=== PATIENT | male | born 1965 | race Caucasian/White ===

== ENCOUNTER 2018-06-21 09:50 | Outpatient (CLI) | payer OTHER, SELFPAY ==
[2018-06-21 11:50] LABS: HCT 44.8 % (40.0-50.0); HGB 15.6 g/dL (13.5-17.5); Mean Corp. HGB Concentration 34.8 g/dL (32.0-36.0); Mean Corpuscular Hemoglobin 32.1 pg (27.0-33.0); Mean Corpuscular Volume 92.2 fL (80-95); Mean Platelet Volume 9.6 fL (8.0-11.0); Platelet Count 250 x1000/uL (130-400); RBC 4.86 m/cumm (4.50-6.00); RBC Distribution Width 12.3 % (11.8-14.1); White Blood Cell Count 5.88 k/cumm (4.4-10.8)
[2018-06-21 13:24] LABS: ALT 39 U/L (12-78); AST 29 U/L (15-37); Albumin 4.2 g/dL (3.4-5.0); Alkaline Phosphatase 69 U/L (46-116); Anion Gap 7.9 mmol/L (3-11); BUN 13 mg/dL (7-18); Bilirubin, Total 0.6 mg/dL (0.2-1.0); CO2 30.1 mmol/L (21.0-32.0); CREATININE 1.19 mg/dL (0.70-1.30); Calcium 9.5 mg/dL (8.5-10.1); Chloride 101 mmol/L (98-107); Glucose 93 mg/dL (70-100); Potassium 4.3 mmol/L (3.5-5.1); Sodium 139 mmol/L (136-145); Total Protein 7.7 g/dL (6.4-8.2)
== END 2018-06-21 10:10 ==
PROVIDERS: PCP Emergency Medicine; Visit Provider Emergency Medicine
DX: R53.83 Other fatigue (principal); R53.81 Other malaise; E03.9 Hypothyroidism, unspecified
CPT/HCPCS: 36415; 80053; 85027; 84443; 86140

== ENCOUNTER 2018-07-16 09:34 | Outpatient (CLI) | payer OTHER, SELFPAY ==
[2018-07-17 10:57] LABS: PSA, Screening 1.4 ng/ml (0-3.5)
== END 2018-07-16 09:54 ==
PROVIDERS: PCP Emergency Medicine; Visit Provider Emergency Medicine
DX: Z12.5 Encounter for screening for malignant neoplasm of prostate (principal)
CPT/HCPCS: 36415; 84153

== ENCOUNTER 2019-04-21 09:08 | Outpatient (CLI) | payer OTHER, SELFPAY ==
[2019-04-21 11:18] LABS: Abs Immature Grans 0.01 k/cumm (0.0-0.09); Absolute Basophil Count 0.05 k/cumm (0.0-0.2); Absolute Eosinophil Count 0.37 k/cumm (0.0-0.7); Absolute Lymphocyte Count 1.42 k/cumm (1.2-3.4); Absolute Monocyte Count 0.44 k/cumm (0.11-0.7); Absolute Neutrophil Count 2.67 k/cumm (1.2-6.7); Eosinophils % 7.5; HCT 45.9 % (40.0-50.0); HGB 15.9 g/dL (13.5-17.5); Immature Grans % 0.2; Lymphocytes % 28.6; Mean Corp. HGB Concentration 34.6 g/dL (32.0-36.0); Mean Corpuscular Hemoglobin 31.6 pg (27.0-33.0); Mean Corpuscular Volume 91.3 fL (80-95); Mean Platelet Volume 9.6 fL (8.0-11.0); Monocytes % 8.9; Neutrophils % 53.8; Platelet Count 245 x1000/uL (130-400); RBC 5.03 m/cumm (4.50-6.00); RBC Distribution Width 12.2 % (11.8-14.1); White Blood Cell Count 4.96 k/cumm (4.4-10.8)
[2019-04-21 11:31] LABS: Hemoglobin A1C 5.1 % (4.5-6.2)
[2019-04-21 11:35] LABS: ALT 28 U/L (16-63); AST 20 U/L (15-37); Albumin 3.7 g/dL (3.4-5.0); Alkaline Phosphatase 63 U/L (46-116); Anion Gap 5.2 mmol/L (3-11); BUN 11 mg/dL (7-18); Bilirubin, Total 0.5 mg/dL (0.2-1.0); CO2 30.8 mmol/L (21.0-32.0); CREATININE 1.32 mg/dL (0.70-1.30); Calcium 8.5 mg/dL (8.5-10.1); Chloride 105 mmol/L (98-107); Estimated GFR 56.52 (mL/min/1.73m2); FREE T4 0.91 ng/dL (0.76-1.46); Glucose 97 mg/dL (70-100); Magnesium 1.9 mg/dL (1.8-2.4); Potassium 4.6 mmol/L (3.5-5.1); Sodium 141 mmol/L (136-145); TSH 1.59 uIU/mL (0.36-3.74); Total Protein 7.1 g/dL (6.4-8.2)
== END 2019-04-21 09:28 ==
PROVIDERS: PCP Emergency Medicine; Visit Provider Nurse Practitioner Family
DX: R00.2 Palpitations (principal)
CPT/HCPCS: 36415; 80053; 83036; 83735; 84439; 84443; 85025

== ENCOUNTER 2019-04-22 02:21 | Outpatient (CLI) | payer OTHER, SELFPAY | END 2019-04-22 02:41 | PROVIDERS: PCP Emergency Medicine; Visit Provider Nurse Practitioner Family | DX: R00.2 Palpitations (principal); I47.2 Ventricular tachycardia | CPT/HCPCS: 93225 ==

== ENCOUNTER 2019-04-24 13:52 | Outpatient (CLI) | payer OTHER, SELFPAY ==
--- NOTE | 2019-04-24 15:13 | W.HOLTRPT ---
Holter Monitor Report Holter Monitor Note: This is a 48-hour Holter monitor ordered for palpitations. ?Greater than 99% of the beats were normal sinus rhythm. Mean heart rate 89, minimum heart rate 69, maximum heart rate 150 bpm ?There were no episodes of supraventricular tachycardia ?There were rare (less than 1%) alone PACs and no runs of multiple PACs ?There was one run of ventricular tachycardia which lasted 6 beats. ?There were rare (less than 1%) single ventricular ectopic beats ?There were no significant pauses greater than 3 seconds or high-grade heart block. ?There were no episodes of atrial fibrillation.
== END 2019-04-24 14:12 ==
PROVIDERS: PCP Emergency Medicine; Visit Provider Emergency Medicine
DX: R00.2 Palpitations (principal); I47.2 Ventricular tachycardia
CPT/HCPCS: 93226

== ENCOUNTER 2019-04-30 01:20 | Outpatient (CLI) | payer OTHER, SELFPAY ==
--- NOTE | 2019-05-16 13:50 | ZIOP_ITS ---
ZIO Patch Active Directory Administrator Note: This is a 2-week ZIO patch ordered for the indication of ventricular tachycardia. ?Patient was in normal sinus rhythm for the majority of the recording time. Patient had a average heart rate of 95 (minimum 64?maximum 172) ?There was one episode of supraventricular tachycardia which lasted 8 beats at a rate of 138 bpm ?There were rare (less than 1%) supraventricular ectopic beats. ?There were no episodes of ventricular tachycardia. There were rare (less than 1%) ventricular ectopic beats. ?There were no pauses greater than 3 seconds, no atrial fibrillation, and no high degree AV block. ?Patient triggered events were associated with sinus rhythm, sinus tachycardia and single ventricular ectopic beats. Date of service: 05/16/19 Time of Service: 13:50
== END 2019-04-30 01:40 ==
PROVIDERS: PCP Emergency Medicine; Visit Provider Nurse Practitioner Family
DX: I47.2 Ventricular tachycardia (principal); I47.1 Supraventricular tachycardia; I49.3 Ventricular premature depolarization
CPT/HCPCS: 0296T

== ENCOUNTER 2019-07-22 07:00 | Outpatient (CLI) | payer OTHER, SELFPAY ==
[2019-07-22 12:56] LABS: BUN 8 mg/dL (7-18); CREATININE 1.32 mg/dL (0.70-1.30); Calcium 9.1 mg/dL (8.5-10.1); Calculated LDL 118 mg/dL; Chloride 103 mmol/L (98-107); Cholesterol 186 mg/dL (<200); Estimated GFR 56.52 (mL/min/1.73m2); Glucose 89 mg/dL (74-106); HDL Cholesterol 42 mg/dL (40-60); Potassium 4.4 mmol/L (3.5-5.1); Sodium 141 mmol/L (136-145); Triglyceride 131 mg/dL (<150)
== END 2019-07-22 07:20 ==
PROVIDERS: PCP Emergency Medicine; Visit Provider Emergency Medicine
DX: Z00.00 Encounter for general adult medical examination without abnormal findings (principal); I10 Essential (primary) hypertension
CPT/HCPCS: 36415; 80048; 80061

== ENCOUNTER 2020-07-27 10:27 | Outpatient (REF) | payer OTHER, SELFPAY ==
[2020-07-27 13:58] LABS: Anion Gap 6.6 mmol/L (3-11); BUN 18 mg/dL (7-18); CO2 30.4 mmol/L (21.0-32.0); CREATININE 1.51 mg/dL (0.70-1.30); Calcium 9.3 mg/dL (8.5-10.1); Chloride 99 mmol/L (98-107); Estimated GFR 48.22 (mL/min/1.73m2); Glucose 98 mg/dL (74-106); Potassium 3.7 mmol/L (3.5-5.1); Sodium 136 mmol/L (136-145); TSH 1.57 uIU/mL (0.36-3.74)
== END 2020-07-27 10:47 ==
LOC: NCHCN 10:27
PROVIDERS: PCP Emergency Medicine; Visit Provider Emergency Medicine
DX: E03.9 Hypothyroidism, unspecified (principal); I10 Essential (primary) hypertension
CPT/HCPCS: 80048; 84443

== ENCOUNTER 2021-04-21 19:33 | Outpatient (REF) | payer OTHER, SELFPAY ==
[2021-04-21 18:52] LABS: HCT 43.7 % (40.0-50.0); MCH 32.3 pg (27.0-33.0); MCHC 34.3 % (32.0-36.0); MPV 9.7 fL (8.0-11.0); Platelet Count 280 10^3/uL (130-400); RBC 4.65 10^6/uL (4.36-5.78); RDW 12.1 % (11.8-14.1); RDW-SD 41.5 fL; WBC 7.11 10^3/uL (4.4-10.8)
[2021-04-21 19:03] LABS: ALT 35 U/L (16-63); AST 25 U/L (15-37); Albumin 4.2 g/dL (3.4-5.0); Alkaline Phosphatase 65 U/L (46-116); Anion Gap 10.2 mmol/L (3-11); BUN 17 mg/dL (7-18); Bilirubin, Total 0.4 mg/dL (0.2-1.0); C-Reactive Protein 0.17 mg/dL (0.0-0.3); CO2 27.8 mmol/L (21.0-32.0); CREATININE 1.4 mg/dL (0.70-1.30); Calcium 9.4 mg/dL (8.5-10.1); Chloride 102 mmol/L (98-107); Estimated GFR 52.42 (mL/min/1.73m2); Glucose 114 mg/dL (74-106); Sodium 140 mmol/L (136-145); Total Protein 7.7 g/dL (6.4-8.2)
== END 2021-04-21 19:34 | disposition home or self-care (01) ==
LOC: LBN 19:33
PROVIDERS: PCP Emergency Medicine; Visit Provider Emergency Medicine
DX: I10 Essential (primary) hypertension (principal); R00.0 Tachycardia, unspecified
CPT/HCPCS: 80053; 85027; 86140

== ENCOUNTER 2021-04-22 13:04 | Outpatient (RCR) | payer OTHER, SELFPAY | END 2021-05-08 23:59 | disposition home or self-care (01) | LOC: RT 13:04 | PROVIDERS: PCP Emergency Medicine; Visit Provider Emergency Medicine | DX: R69 Illness, unspecified (principal) | CPT/HCPCS: 93005; 93010 ==

== ENCOUNTER 2021-04-25 03:16 | Outpatient (RCR) | payer OTHER, SELFPAY ==
--- NOTE | 2021-04-25 10:30 | HOLTER_ITS ---
APPROVED REPORT Conclusion This is a 48-hour Holter monitor ordered for tachycardia Predominant rhythm was sinus with an average heart rate of 106. Minimum was 80, maximum 152 There were rare PVCs There were no significant supraventricular dysrhythmias There was no atrial fibrillation, no high-grade AV block, no pauses greater than 3 seconds No patient symptoms were reported
== END 2021-05-08 23:59 | disposition home or self-care (01) ==
LOC: RT 03:16
PROVIDERS: PCP Emergency Medicine; Visit Provider Emergency Medicine
DX: R00.0 Tachycardia, unspecified (principal)
CPT/HCPCS: 93225; 93226

== ENCOUNTER 2021-06-09 00:17 | Outpatient (CLI) | payer OTHER, SELFPAY ==
--- NOTE | 2021-06-09 11:18 | DI.US_ITS ---
APPROVED REPORT EXAM: Comprehensive 2D, Doppler, and color-flow Echocardiogram Patient Location: Out-Patient [employer] Resource Teacher: Jenn Tolbert RDCS (AE) Indications: Resting Tachycardia, HTN Other Information Study Quality: Adequate Conclusion Normal left ventricular wall thickness and chamber size. Estimated ejection fraction is 60%. Wall m otion is normal Normal right ventricular size and systolic function Both atria are normal in size There is no structural or hemodynamically significant valvular disease Wall motion Left Ventricle The left ventricle is normal size. The left ventricular systolic function is normal. The left ventric ular ejection fraction is within the normal range. There is normal left ventricular wall thickness. T here is normal LV segmental wall motion. There is no ventricular septal defect visualized. LVEF is 60 %. Right Ventricle The right ventricle is normal size. The right ventricular systolic function is normal. Atria The left atrium size is normal. The right atrium size is normal. The interatrial septum is intact wit h no evidence for an atrial septal defect. Aortic Valve The aortic valve is normal in structure. Aortic valve is trileaflet. There is no aortic valvular sten osis. No aortic regurgitation is present. Mitral Valve The mitral valve is normal in structure. No evidence of mitral valve stenosis. Trace mitral regurgita tion. Tricuspid Valve The tricuspid valve is normal in structure. There is no tricuspid valve stenosis. Trace tricuspid reg urgitation. Unable to assess PA pressure. Pulmonic Valve The pulmonary valve is normal in structure. There is no pulmonic valvular stenosis. There is no pulmo gabrielle valvular regurgitation. Great Vessels The aortic root is normal in size. The ascending aorta is normal in size. Aortic arch is normal in ca liber. IVC is normal in size and collapses >50% with inspiration. Pericardium There is no pericardial effusion. 2D Dimensions IVSD d PLAX 0.91 cm M: 0.6-1.2 LV Vol A2C d MOD 77.1 mL LVPW d PLAX 0.94 cm M: 0.6 - 1.2 LV Vol A4C d MOD 92.4 mL LVID d PLAX 4.50 cm M: 4.2 - 5.8 LA vol/ BSA A2C s A-L 20.3 mL/m2 LVDs 3.00 cm M: 2.5 - 4.0 LA vol/ BSA A4C s A-L 16.8 mL/m2 Ao Root d 3.31 cm M: 3.1 - 3.7 LA Vol/ BSA Biplane s A-L 18.5 mL/m2 RA Area A4C 10.78 cm2 LA Area A4C s MOD 13.54 cm2 RA Vol/ BSA A4C s A-L 13.2 mL/m2 LA Area A2C s MOD 14.84 cm2 Ao Asc Diam d 3.41 cm M: 2.6 - 3.4 LV EF A4C MOD 58.2 % LV EF Teichholz 61.2 % LV EF A2C MOD 61.2 % LVEF (Navarro's) 59.18 % M: 52 - 72 LV EF Biplane MOD 59.2 % LV Volume 63.86 mL M: 62 - 150 SV 50.00 mL LV Volume Index 32.74 mL/m2 M: 34 - 74 SV Index 25.58 mL/m2 LV Vol Biplane MOD 84.5 mL FS 32.65 % M-Mode TAPSE 1.76 cm (M/F) >1.7 LV Diastology MV E' medial 0.071 (>0.07 m/s) E/A Ratio 0.7 LV E/e MED 8.20 (<14) MV E Vmax 0.59 (0.4-1.3 m/s) MV E' lateral 0.063 (>0.1 m/s) MV A Vmax 0.80 (0.4-1.3 m/s) LV E/e LAT 9.35 (<14) MV E/A Ratio 0.73 MV E/E' medial 8.22 MV E/E' lateral 9.38 Aortic Valve LVOT Area 3.12 cm2 AoV Area Vmax 2.70 cm2 LVOT Vmax 0.83 m/s AoV Area/ BSA (Vmax) 1.38 cm2/m2 LVOT Mean Carlos. 0.55 m/s RICHELLE Mean Carlos. 2.39 cm2 LVOT Peak Grad 2.8 mmHg RICHELLE Mean Carlos. Index 1.22 cm2/m2 LVOT Mean Grad 1.4 mmHg LVOT VTI 0.130 m LVOT Diam s 1.95 cm AoV Vmax 0.96 m/s Velocity Ratio 0.86 AoV Mean Carlos. 0.71 m/s AoV Peak Grad 3.7 mmHg LVOT SV 40.51 mL AoV Mean Grad 2.2 mmHg AoV VTI 0.158 m AoV Area VTI 2.57 cm2 AoV Area/ BSA (VTI) 1.31 cm/m2 Mitral Valve MV DT 216 (160-240 msec) MV PHT 63 msec MV Area PHT 3.51 cm2 MV VTI 0.140 m MV VTI Annulus 0.147 m MV Area VTI 3.04 (4.0-6.0 cm2) Pulmonary Valve PV Vmax 0.67 (0.5-1.5 m/s) RVOT Peak Gr. 1.51 mmHg PV Peak Grad 1.8 mmHg RVOT Mean Gr. 0.80 mmHg PV Mean Grad 1.0 mmHg RVOT VTI 0.122 m PV VTI 0.124 m RVOT Vmax 0.61 m/s
== END 2021-06-09 00:37 ==
PROVIDERS: PCP Emergency Medicine; Visit Provider Emergency Medicine
DX: I10 Essential (primary) hypertension (principal); R00.0 Tachycardia, unspecified
CPT/HCPCS: 93306

== ENCOUNTER 2022-08-24 10:32 | Emergency (ER) | payer BC, SELFPAY ==
[2022-08-24 10:41] VITALS: BP 130/109; PULSE 107; RESP 18; TEMP 36.8; O2SAT 99
--- NOTE | 2022-08-24 11:00 | DI.CT_ITS ---
Exam(s) CT ABDOMEN PELVIS W EXAM: CT ABDOMEN PELVIS W CLINICAL HISTORY: Nausea vomiting epigastric pain cannot tolerate po. TECHNIQUE: Imaging Protocol: Axial computed tomography images with coronal and sagittal reformatted images were created and reviewed CONTRAST MATERIAL: Intravenous: Omnipaque-350 100cc Oral: None COMPARISON: No exams were available for comparison FINDINGS: VISUALIZED LUNG BASES: No nodules nor pleural effusions evident. ABDOMEN: There is no ascites. LIVER: There is a small benign subcapsular cyst in the anterior left hepatic lobe which measures 9 x 9 mm. There are no dilated intrahepatic ducts. GALLBLADDER/BILIARY: No obvious gallbladder pathology. CBD is not dilated. PANCREAS: No evidence of pancreatic mass nor dilatation of the pancreatic duct. SPLEEN: Spleen is not enlarged. No obvious intrasplenic lesions. Splenic and portal veins are paten t. ADRENALS: There are no significant adrenal masses. KIDNEYS:No cysts evident. No solid renal masses. No calculi nor hydronephrosis.. ABDOMINAL AORTA: Abdominal aorta is not enlarged. LYMPH NODES:There is no retroperitoneal nor paraaortic adenopathy. ABDOMINAL WALL: No evidence of significant anterior abdominal wall nor inguinal hernia. GI: There is no evidence of bowel obstruction, free air, nor abscess. Fat halo sign seen small and large bowel. PELVIS: GI: No evidence of appendicitis.No evidence of sigmoid diverticulitis. LYMPH NODES: There is no intrapelvic nor inguinal adenopathy. REPRODUCTIVE: Prostate gland not enlarged. URINARY BLADDER: No obvious abnormality. OSSEOUS: No fractures and no significant osseous lesions. Multilevel endplate Schmorl's nodes incidentally noted. No compression fractures. IMPRESSION: 1. Circumferential fat halo sign seen around numerous small bowel loops as well as distal half the co orsita. This may be a normal finding but can sometimes reflect presence of chronic inflammatory bowel d isease. There is no evidence of bowel obstruction. 2. Small solitary benign cyst in the liver. RADIATION DOSE DELIVERED: 750.78mGy.cm Total DLP DATA REPOSITORY: All CT scans at this facility are submitted to the National Radiology Data Registry (NRDR) Dose Index Registry (DIR) with the [employer] (ACR). RADIATION OPTIMIZATION: All CT scans at this facility use at least one of these dose optimization te chniques: automated exposure control; mA and/or kV adjustment per patient size (includes targeted exa ms where dose is matched to clinical indication); or iterative reconstruction.
--- NOTE | 2022-08-24 11:00 | RT.EKG_ITS ---
APPROVED REPORT Exam: Resting ECG Reason for Exam: Epigastric pain Patient Location: E HR:92 bpm ECG Measurements Heart Rate 92 AXIS MA 136 P 70 QRSd 93 QRS 45 QT 356 T 48 QTc 441 Conclusion Sinus rhythm...normal P axis, V-rate 60- 99 Probable left atrial enlargement...P >50mS, <-0.10mV V1 Narrow complex normal sinus rhythm at a rate of 93. Normal axis. Intervals within normal limits. T wave flattening in V2. No acute injury pattern. No prior for comparison. ST segment abnormalities .
--- NOTE | 2022-08-24 11:08 | ED.GENADUL_ITS ---
Discharge Plan Disposition Patient Disposition: Home Condition: Improving Discharge Details Clinical Impression: Gastritis, Generalized anxiety disorder Primary Care Provider: Clint Asher ED Provider: Joseph Naranjo Home Meds and New Rx's Prescriptions: New sucralfate [Carafate] 100 mg/mL suspension 10 ml PO BID Qty: 400 0RF omeprazole 40 mg capsule,delayed release(DR/EC) 40 mg PO DAILY Qty: 14 0RF ondansetron 4 mg tablet,disintegrating 4 mg PO Q6H PRN (Reason: nausea and vomiting) Qty: 10 0RF Continued hydrochlorothiazide 12.5 mg tablet 12.5 mg PO DAILY Qty: 90 3RF zolpidem 10 mg tablet 10 mg PO QHS PRN (Reason: sleep) Qty: 90 3RF sertraline 100 mg tablet 100 mg PO DAILY Qty: 90 3RF losartan 50 mg tablet 50 mg PO DAILY Qty: 90 3RF fluticasone propionate 50 mcg/actuation spray,suspension 1 spray intranasal BID Qty: 15.8 6RF Rx Instructions: administer into each nostril Discharge Instructions Instructions: Gastritis (ED), Anxiety (ED) Additional Instructions: As discussed please avoid alcohol, spicy foods, NSAIDs, and acidic drinks or foods. Please start with clear liquids and slowly advance your diet as tolerated. If you develop any new or significant worsening of your condition please return the emergency department for reassessment otherwise follow-up with your primary care provider for recheck of your symptoms in 1 week. Please take medications as prescribed and you may continue your daily medications. Referrals: Clint Asher, [employer] [Primary Care Provider] - 1 week Discharge Data Discharge Date/Time-TO BE ENTERED AT DEPARTURE: 08/24/22 14:11 Medical Decision Making Patient presenting the emergency department for chief complaint of nausea vomiting and epigastric. He states he was eating dinner last night for his birthday and was unable to swallow anything and started having nausea vomiting. He did state he had a couple drinks before this but no more than typical. Patient denies fever chills, urinary issues, does state a couple days ago he did have episode of diarrhea which is not atypical for him. Physical exam shows tenderness to the epigastrium and right upper quadrant otherwise unremarkable exam. Abdomen is soft not rigid but does show hypoactive bowel sounds. Differential diagnosis to include gallbladder disease, pancreatitis, less likely but still considered is bowel obstruction. No obvious hernia is noted on exam. We will plan on checking labs, give antiemetics and fluids along with analgesia, and CT imaging with contrast. Patient is unable to tolerate p.o. contrast so we will just perform IV only. Vital signs reviewed and did show some tachycardia but this was not perceived on physical exam. Please see physician interpretation for full interpretation of EKG but upon my review patient is in sinus rhythm, normal rate, no findings to suggest acute STEMI or ACS. Review of labs show an unremarkable CBC, normal lactate, CMP shows slightly elevated glucose at 112 otherwise all LFTs are within normal range, lipase is at 20, negative troponin, urinalysis is unremarkable for diagnostic findings. Reviewed CT imaging and radiologist interpretation that shows some potential inflammatory bowel changes but no bowel obstruction, benign-appearing single cyst on liver. Patient reassessed and states some but minimal improvement of pain but does state improvement of nausea. I question possible gastritis given patient's history of GERD with needing of scope in the past. Will give patient more IV pain medication, Pepcid IV, and lidocaine with Maalox oral. Reassessed patient after receiving medication and he does state improvement but still slight feeling of bloating. I feel that patient has gastritis probably due to additional alcohol intake last night which is also causing worsening anxiety which patient has on a daily basis. Given this will give patient single dose of Ativan here in the emergency department to see if this helps with an anxiety and will prescribe Zofran, Carafate, and omeprazole to use on outpatient basis. Will recommend patient follows up with primary care provider in the next week for reassessment. After discussion of diagnosis and plan of care significant other and patient has no further needs, questions, or concerns and states clear understanding to return to the emergency department for any worsening symptoms. This documentation was generated using [employer] dictation system, please disregard any oddities of phrase or misspellings. Imaging Data Radiologic Study: Imaging: CT Scan Radiologist's impression: EXAM: CT ABDOMEN PELVIS W CLINICAL HISTORY: Nausea vomiting epigastric pain cannot tolerate po. TECHNIQUE: Imaging Protocol: Axial computed tomography images with coronal and sagittal reformatted images were created and reviewed CONTRAST MATERIAL: Intravenous: Omnipaque-350 100cc Oral: None COMPARISON: No exams were available for comparison FINDINGS: VISUALIZED LUNG BASES: No nodules nor pleural effusions evident. ABDOMEN: There is no ascites. LIVER: There is a small benign subcapsular cyst in the anterior left hepatic lobe which measures 9 x 9 mm. There are no dilated intrahepatic ducts. GALLBLADDER/BILIARY: No obvious gallbladder pathology. CBD is not dilated. PANCREAS: No evidence of pancreatic mass nor dilatation of the pancreatic duct. SPLEEN: Spleen is not enlarged. No obvious intrasplenic lesions. Splenic and portal veins are patent. ADRENALS: There are no significant adrenal masses. KIDNEYS:No cysts evident. No solid renal masses. No calculi nor hydronephrosis.. ABDOMINAL AORTA: Abdominal aorta is not enlarged. LYMPH NODES:There is no retroperitoneal nor paraaortic adenopathy. ABDOMINAL WALL: No evidence of significant anterior abdominal wall nor inguinal hernia. GI: There is no evidence of bowel obstruction, free air, nor abscess. Fat halo sign seen small and large bowel. PELVIS: GI: No evidence of appendicitis.No evidence of sigmoid diverticulitis. LYMPH NODES: There is no intrapelvic nor inguinal adenopathy. REPRODUCTIVE: Prostate gland not enlarged. URINARY BLADDER: No obvious abnormality. OSSEOUS: No fractures and no significant osseous lesions. Multilevel endplate Schmorl's nodes incidentally noted. No compression fractures. IMPRESSION: 1. Circumferential fat halo sign seen around numerous small bowel loops as well as distal half the colon. This may be a normal finding but can sometimes reflect presence of chronic inflammatory bowel disease. There is no evidence of bowel obstruction. 2. Small solitary benign cyst in the liver. Lab Data Lab results reviewed: Yes I reviewed the patient's lab results. HPI General Mode of arrival: ambulatory . Date/Time Provider Initiated Documentation: 08/24/22 10:42 . Limitations to Documentation: no limitations . Information obtained by: patient and RN notes reviewed . History of Present Illness 57 year old M presents to the emergency department with the chief complaint of Nausea vomiting epigastric pain, described as moderate, with intensity rated at 6. Quality is described as aching and sharp, and is localized to the abdomen. Patient reports no radiation. Patient started experiencing this hour(s) (14) and it has been constant. No relieving factors improve symptom(s), Eating worsens symptoms . Patient notes no other symptoms.. Patient did receive the following treatments prior to arrival, none Related Data Home Medications Medication Instructions Recorded Confirmed hydrochlorothiazide 12.5 mg tablet 12.5 mg PO DAILY #90 tabs 05/24/22 08/24/22 zolpidem 10 mg tablet 10 mg PO QHS PRN sleep #90 tabs 05/24/22 08/24/22 fluticasone propionate 50 1 spray intranasal BID #15.8 mL 06/26/22 08/24/22 mcg/actuation nasal spray,suspension losartan 50 mg tablet 50 mg PO DAILY #90 tabs 08/11/22 08/24/22 sertraline 100 mg tablet 100 mg PO DAILY #90 tabs 08/11/22 08/24/22 omeprazole 40 mg capsule,delayed 40 mg PO DAILY #14 caps 08/24/22 release ondansetron 4 mg disintegrating 4 mg PO Q6H PRN nausea and 08/24/22 tablet vomiting #10 tabs sucralfate 100 mg/mL oral 10 ml PO BID #400 mL 08/24/22 suspension (Carafate) Previous Rx's Medication Instructions Recorded hydrochlorothiazide 12.5 mg tablet 12.5 mg PO DAILY #90 tabs 05/24/22 zolpidem 10 mg tablet 10 mg PO QHS PRN sleep #90 tabs 05/24/22 fluticasone propionate 50 1 spray intranasal BID #15.8 mL 06/26/22 mcg/actuation nasal spray,suspension losartan 50 mg tablet 50 mg PO DAILY #90 tabs 08/11/22 sertraline 100 mg tablet 100 mg PO DAILY #90 tabs 08/11/22 omeprazole 40 mg capsule,delayed 40 mg PO DAILY #14 caps 08/24/22 release ondansetron 4 mg disintegrating 4 mg PO Q6H PRN nausea and 08/24/22 tablet vomiting #10 tabs sucralfate 100 mg/mL oral 10 ml PO BID #400 mL 08/24/22 suspension (Carafate) Allergies Allergy/AdvReac Type Severity Reaction Status Date / Time amoxicillin Allergy Intermediate Swelling/Ed Verified 08/24/22 10:46 suzi enviornmental Allergy Mild Wheezing Uncoded 08/24/22 10:46 General Stated Complaint: Abd Prob KEEGAN: 3 Review of Systems Constitutional Constitutional: Denies chills, Denies fever(s) and Reports poor appetite ENT Ears, Nose, Mouth, and Throat: Reports odynophagia Cardiovascular Cardiovascular: Denies chest pain and Denies dyspnea Respiratory Respiratory: Denies cough and Denies dyspnea Gastrointestinal Gastrointestinal: Reports as per HPI, Reports abdominal pain, Denies melena, D enies bloating, Denies hematochezia, Denies change in bowel habits, Denies constipation, Denies diarrhea, Reports nausea, Reports odynophagia, Reports vomiting and Denies hematemesis Genitourinary Genitourinary: Reports system reviewed and no additional complaints, except as documented, Denies hematuria and Denies difficulty urinating Integumentary/Breasts Skin/Breast: Denies rash PFSH All Active Problems (Updated 08/24/22 @ 14:06 by Joseph Naranjo NP) Gastritis (Acute) Trigger finger, right ring finger (Acute) Chronic rhinitis (Acute) Postnasal drip (Acute) Seeing E[facility] at [facility] Tachycardia (Acute) Hypertension (Chronic) Insomnia (Chronic) Depressive disorder (Chronic) Generalized anxiety disorder (Chronic) Colon cancer screening declined (Acute) Asthma (Acute) Fatigue (Acute) Other color vision deficiencies (Acute) red/green Nevus, non-neoplastic (Acute) Family history of cancer (Acute 12/01/15) father: metastatic prostate CA, brother: oral CA, two sisters: breast CA Contact dermatitis and eczema (Acute) Anal fissure (Acute 03/28/12) Acid indigestion (Acute) Surgical History Nasal septoplasty (~2006) and reduction of turbinates Status post adenoidectomy Status post nasal septoplasty Status post tonsillectomy Tonsillectomy and adenoidectomy Family History Mother Depression Stroke Father , age 88 Cancer Sister Cancer Sister Cancer Brother Alcohol abuse Cancer Depression Hypertension Social History Smoking/Tobacco Use Status: Never Second Hand Exposure: Yes Smoking risk assessment performed?: Yes Alcohol Intake: current Alcohol Intake frequency: a few times a week Alcohol type: beer, wine and hard liquor Drug use: Never Substance use type: does not use Caregiver/Support person: No Household members: spouse Housing: house Communication Needs: None Do you need help understanding health information?: Never Pets and animals: No Sexually active: Yes Do you think of yourself as: straight/heterosexual Current gender identity: male What is your relationship status?: How often do you talk on the phone with friends or family?: once per week How often do you get together with friends or relatives?: once per week How often do you attend denominational or moravian services?: decline to answer Do you belong to any clubs or organized social groups?: no Panel score (0-1 are the most socially isolated patients): 1 What type of physical activity do you participate in: other Details: stretches Duration: 15-30 minutes/day Frequency: 5-6 times per week Chantel/Cheondoism: Islam Special chantel needs: No Seatbelt use: always Helmet use: Yes Helmet use: sometimes Drive intox or ride w/intox dolly driver: No Do you feel safe at home: Yes Do you feel safe in your relationship?: Yes Victim of physical abuse: No Victim of emotional abuse: No Victim of sexual abuse: No Would you like helpful sources: No Exam Const General: cooperative Orientation: alert, awake and oriented x3 Resp Effort & Inspection: normal respiratory effort and able to speak in complete sentences Auscultation: clear to auscultation bilaterally Cardio Rate: regular rate Rhythm: regular rhythm Heart Sounds: S1 normal and S2 normal GI Palpation: soft, no hepatosplenomegaly, not firm, no guarding, no masses, no pulsatile masses, not rigid, no splenomegaly and tender in the epigastrum and in the RUQ; Caldwell's sign negative, psoas sign negative and Rovsing's sign negative Auscultation: hypoactive bowel sounds Back/Spine/Pelvis Back: no CVA tenderness Neuro General: patient alert, patient awake, patient oriented x3, gait normal and moves all extremities Course Vital Signs Vital signs: Vital Signs Temperature 36.8 C 08/24/22 10:41 Pulse 107 H 08/24/22 10:41 Respiratory Rate 18 08/24/22 10:41 Blood Pressure 130/109 H 08/24/22 10:41 Pulse Oximetry 99 08/24/22 10:41 Temperature 36.8 C 08/24/22 10:41 Temperature Source Oral 08/24/22 10:41 Pulse 107 H 08/24/22 10:41 Respiratory Rate 18 08/24/22 10:41 Respiratory Effort Normal, Non-Labored 08/24/22 10:44 Blood Pressure 130/109 H 08/24/22 10:41 Blood Pressure Position Sitting 08/24/22 10:41 Pulse Oximetry 99 08/24/22 10:41 Oxygen Delivery Method Room Air 08/24/22 10:41 Oxygen Flow Rate 0 08/24/22 10:41 Pain Level 7 08/24/22 10:41 Comment 03/18 when lying down 08/24/22 10:41 PAWSS Have you Been Recently Intoxicated or Drunk Within the Last 30 days?: No Have you Ever Experienced Previous Episodes of Alcohol Withdrawal?: No Have you ever Experienced Withdrawal Seizures?: No Have you ever Experienced Delirium Tremens(DT)s?: No Have you ever undergone Alcohol Rehabilitation Treatment (i.e, inpt ot outpatient treatment programs)?: No Have you ever Experienced Blackouts?: No Have you ever Combined Alcohol with other Downers within the last 90 days?: No Have you ever Combined Alcohol with any other Substance of Abuse during the last 90 days?: No Positive Blood Alcohol level on Presentation? [PCS.BAL]: No Evidence of Increased Autonomic Activity (i.e. HR>120, tremor, sweating, agitation, nausea)?: No Result: 0
[2022-08-24] MEDS: Normal Saline 1,000 ML 1000 ML IV (11:21)
[2022-08-24 11:23] LABS: Abs Immature Grans 0.02 10^3/uL (0.0-0.06); Absolute Basophil Count 0.05 10^3/uL (0.0-0.2); Absolute Eosinophil Count 0.08 10^3/uL (0.0-0.7); Absolute Lymphocyte Count 1.27 10^3/uL (1.2-3.4); Absolute Monocyte Count 0.63 10^3/uL (0.1-0.8); Absolute Neutrophil Count 6.09 10^3/uL (1.2-6.7); Basophils % 0.6; HGB 16.5 g/dL (13.5-17.5); Immature Grans % 0.2; Lymphocytes % 15.6; MCH 32.5 pg (27.0-33.0); MCHC 35.1 % (32.0-36.0); MCV 93 fL (80-95); Monocytes % 7.7; Neutrophils % 74.9; Platelet Count 328 10^3/uL (130-400); RBC 5.07 10^6/uL (4.36-5.78); RDW 12.1 % (11.8-14.1); RDW-SD 41.4 fL; WBC 8.14 10^3/uL (4.4-10.8)
[2022-08-24] MEDS: Ondansetron 4 MG/2 ML VIAL IVP (11:24)
[2022-08-24] MEDS: HYDROmorphone 2 MG/ML SYR 0.5 MG IVP (11:26)
[2022-08-24 11:44] LABS: Bilirubin Negative (Negative); Blood Trace-lysed (Negative); Clarity Clear (Clear); Glucose Negative (Negative); Ketones Negative (Negative); Leukocyte Esterase Negative (Negative); Nitrite Negative (Negative); Specific Gravity 1.025 (1.005-1.025); Urobilinogen 0.2 EU/dL (Up TO 0.2)
[2022-08-24 11:48] LABS: ALT 26 U/L (16-63); AST 23 U/L (15-37); Albumin 4.5 g/dL (3.4-5.0); Alkaline Phosphatase 76 U/L (46-116); Anion Gap 8.4 mmol/L (3-11); BUN 14 mg/dL (7-18); Bilirubin, Total 0.7 mg/dL (0.2-1.0); CO2 29.6 mmol/L (21.0-32.0); CREATININE 1.3 mg/dL (0.70-1.30); Calcium 9.8 mg/dL (8.5-10.1); Chloride 100 mmol/L (98-107); Estimated GFR 63.68 (mL/min/1.73m2); Glucose 112 mg/dL (74-106); Lipase 20 U/L (16-77); Magnesium 2.2 mg/dL (1.8-2.4); Potassium 3.8 mmol/L (3.5-5.1); Sodium 138 mmol/L (136-145); Total Protein 8.8 g/dL (6.4-8.2); Troponin I < 50 ng/L (<or=60)
[2022-08-24 11:51] LABS: Bacteria Negative HPF (Negative); C & S Indicated? No; Casts 0-2 Hyaline LPF (Negative); Crystals Negative HPF (Negative); Epithelial Cells Rare HPF (Negative); Mucus Moderate (Negative); RBC 0-2 HPF (0-2); WBC Negative HPF (0-5)
[2022-08-24] MEDS: Omnipaque 350 MG/ML 100 ML BTL IJ (11:58)
[2022-08-24] MEDS: Normal Saline - Diluent 50 ML VIAL IV (11:59)
[2022-08-24] MEDS: Normal Saline Flush 10 ML SYR IVP (11:59)
[2022-08-24] MEDS: HYDROmorphone 2 MG/ML SYR 1 MG IVP (12:38)
[2022-08-24] MEDS: FAMOTIDINE 20 MG in Normal Saline 100 ML 400 MG IVPB (12:48)
[2022-08-24] MEDS: LORazepam 1 MG TAB PO (14:08)
--- NOTE | 2022-08-24 14:10 | NUR.NOTE ---
Nursing Note: Referral faxed to PCP for gastritis, 1 to 2 weeks.
[2022-08-24 14:16] VITALS: BP 132/72; PULSE 78; RESP 15; O2SAT 98
== END 2022-08-24 14:11 | disposition home or self-care (01) ==
PROVIDERS: Emergency Provider Nurse Practitioner Family; PCP Nurse Practitioner Family
DX: K29.70 Gastritis, unspecified, without bleeding (principal); F41.1 Generalized anxiety disorder; R73.9 Hyperglycemia, unspecified
CPT/HCPCS: 80053; 83690; 93005; 96361; 96365; 96375; 96376; 99285; 74177; 81003; 81015; 83605; 83735; 84484; 85025; 93010; 99284; J1170; J2405; J3490

== ENCOUNTER 2022-10-04 02:03 | Outpatient (CLI) | payer BC, SELFPAY ==
[2022-10-04 12:32] LABS: Abs Immature Grans 0.06 10^3/uL (0.0-0.06); Absolute Lymphocyte Count 0.72 10^3/uL (1.2-3.4); Absolute Monocyte Count 1.05 10^3/uL (0.1-0.8); Basophils % 0.3; Eosinophils % 0.3; HCT 37.1 % (40.0-50.0); HGB 12.6 g/dL (13.5-17.5); Immature Grans % 0.5; Lymphocytes % 6.3; MCH 31.7 pg (27.0-33.0); MCV 93 fL (80-95); MPV 8.9 fL (8.0-11.0); Monocytes % 9.1; Neutrophils % 83.5; Platelet Count 372 10^3/uL (130-400); RBC 3.98 10^6/uL (4.36-5.78); RDW 11.9 % (11.8-14.1); RDW-SD 41.1 fL; WBC 11.49 10^3/uL (4.4-10.8)
[2022-10-04 12:33] LABS: Absolute Basophil Count 0.03 10^3/uL (0.0-0.2); Absolute Eosinophil Count 0.03 10^3/uL (0.0-0.7); Absolute Neutrophil Count 9.59 10^3/uL (1.2-6.7)
[2022-10-04 12:49] LABS: ALT 49 U/L (16-63); AST 26 U/L (15-37); Alkaline Phosphatase 143 U/L (46-116); BUN 15 mg/dL (7-18); Bilirubin, Total 0.6 mg/dL (0.2-1.0); CREATININE 1.5 mg/dL (0.70-1.30); Calcium 9.2 mg/dL (8.5-10.1); Chloride 98 mmol/L (98-107); Estimated GFR 53.63 (mL/min/1.73m2); Glucose 144 mg/dL (74-106); Potassium 3.3 mmol/L (3.5-5.1); Sodium 134 mmol/L (136-145); Total Protein 7.7 g/dL (6.4-8.2)
[2022-10-05 09:56] LABS: Lyme Ab w Rflx to Lyme Confirm Negative (Negative)
[2022-10-06 16:16] LABS: Anaplasma phagocytophilum Negative (Negative); B. miyamotoi PCR Negative (Negative); Babesia divergens/MO-1 Negative (Negative); Babesia duncani Negative (Negative); Babesia microti Negative (Negative); Ehrlichia chaffeensis Negative (Negative); Ehrlichia ewingii/canis Negative (Negative); Ehrlichia muris eauclairensis Negative (Negative)
== END 2022-10-04 02:04 | disposition home or self-care (01) ==
LOC: LOS 02:03
PROVIDERS: PCP Nurse Practitioner Family; Visit Provider Nurse Practitioner Family
DX: R50.9 Fever, unspecified (principal); I10 Essential (primary) hypertension; F41.8 Other specified anxiety disorders; R19.4 Change in bowel habit
CPT/HCPCS: 36415; 80053; 87798; 85025; 86618

== ENCOUNTER 2022-10-05 12:13 | Inpatient (IN) | payer BC, SELFPAY ==
--- NOTE | 2022-10-05 12:15 | DI.CT_ITS ---
Exam(s) CT ABDOMEN PELVIS W EXAM: CT ABDOMEN PELVIS W CLINICAL HISTORY: Rectal abscess. TECHNIQUE: Imaging Protocol: Axial computed tomography images with coronal and sagittal reformatted images were created and reviewed CONTRAST MATERIAL: Intravenous: Omnipaque 350 Contrast volume:100 ml Oral: / no COMPARISON: CT CT ABDOMEN PELVIS W from 08/24/2022 FINDINGS: Lung Bases: Normal where visualized. Liver: Normal density. No measurable mass. Gallbladder and biliary tract: No radiodense calculus or dilation. Pancreas: Normal density, no abnormal calcifications or inflammatory process. Spleen: Normal. Kidneys: Normal size, contour and axis. No radiodense stones or obstructive uropathy. No suspicious m asses seen. Adrenal glands: No masses seen. Abdominal Aorta: Abdominal portion non-dilated. Soft tissues: Irregular abscess collection seen in the fat toward the left of the anus measuring 3.2 x 5.1 x 8.1 cm. Fatty extending into left inguinal canal. Bladder: No gross wall thickening. No calculi.No focal mass. Bowel: No obstruction. No bowel wall thickening. Appendix normal. Peritoneal cavity: No ascites, collection or mesenteric inflammatory response. Bones: Degenerative changes and Schmorl's nodes at multiple levels. Reproductive organs: Within normal limits. Lymph nodes: Unremarkable. Impression: Abscess in the left perianal, inferior gluteal fat. Findings called to Joseph Montoya, emergency department provider. RADIATION DOSE DELIVERED: 815.5mGy.cm Total DLP DATA REPOSITORY: All CT scans at this facility are submitted to the National Radiology Data Registry (NRDR) Dose Index Registry (DIR) with the [employer] (A[employer]). RADIATION OPTIMIZATION: All CT scans at this facility use at least one of these dose optimization te chniques: automated exposure control; mA and/or kV adjustment per patient size (includes targeted exa ms where dose is matched to clinical indication); or iterative reconstruction.
[2022-10-05 12:16] VITALS: BP 106/64; PULSE 108; RESP 14; TEMP 36.4; O2SAT 98
--- NOTE | 2022-10-05 12:36 | ED.GENADUL_ITS ---
Discharge Plan Disposition Patient Disposition: Admit to [facility] Discharge Details Clinical Impression: Abscess, perirectal Primary Care Provider: Clint Asher ED Provider: Joseph Naranjo Home Meds and New Rx's Prescriptions: No Action hydrochlorothiazide 12.5 mg tablet 12.5 mg PO DAILY Qty: 90 3RF zolpidem 10 mg tablet 10 mg PO QHS PRN (Reason: sleep) Qty: 90 3RF sertraline 100 mg tablet 100 mg PO DAILY Qty: 90 3RF losartan 50 mg tablet 50 mg PO DAILY Qty: 90 3RF sertraline 50 mg tablet 50 mg PO DAILY Qty: 90 3RF Medical Decision Making Patient presenting to the emergency department for referral from primary care provider due to significant rectal abscess. Patient reports 10 days ago he started noticing some pain and discomfort around his rectum. Since then pain is only gotten worse, more swelling, subjective fever chills with night sweats, decreasing appetite along with some loose stools. Patient denies any vomiting, chest pain shortness of breath or other symptoms. Physical exam shows significant perirectal or rectal abscess which is difficult to assess due to size and discomfort around rectum and left buttock. Exam is other under otherwise unremarkable, soft abdomen, tachycardic otherwise normal cardiac and respiratory exam. We will plan on checking patient's labs including blood cultures, CT imaging and will initiate antibiotics along with pain meds and fluids pending results. Reviewed labs and patient does have leukocytosis along with elevated neutrophils monocytes of low lymphocytes. Patient does have slight anemia. Sodium slightly low at 134 chloride low at 97 alk phos of 151 and albumin of 3.0 otherwise all other CMP and lipase are within normal range. CT imaging shows a significant perirectal abscess that is very deep. Contact general surgery and talked with Dr. Yang who is agreeable to admit patient for surgical care of abscess. Imaging Data Radiologic Study: Imaging: CT Scan Radiologist's impression: Exam(s) CT ABDOMEN PELVIS W EXAM: CT ABDOMEN PELVIS W CLINICAL HISTORY: Rectal abscess. TECHNIQUE: Imaging Protocol: Axial computed tomography images with coronal and sagittal reformatted images were created and reviewed CONTRAST MATERIAL: Intravenous: Omnipaque 350 Contrast volume:100 ml Oral: / no COMPARISON: CT CT ABDOMEN PELVIS W from 08/24/2022 FINDINGS: Lung Bases: Normal where visualized. Liver: Normal density. No measurable mass. Gallbladder and biliary tract: No radiodense calculus or dilation. Pancreas: Normal density, no abnormal calcifications or inflammatory process. Spleen: Normal. Kidneys: Normal size, contour and axis. No radiodense stones or obstructive uropathy. No suspicious masses seen. Adrenal glands: No masses seen. Abdominal Aorta: Abdominal portion non-dilated. Soft tissues: Irregular abscess collection seen in the fat toward the left of t he anus measuring 3.2 x 5.1 x 8.1 cm. Fatty extending into left inguinal canal. Bladder: No gross wall thickening. No calculi.No focal mass. Bowel: No obstruction. No bowel wall thickening. Appendix normal. Peritoneal cavity: No ascites, collection or mesenteric inflammatory response. Bones: Degenerative changes and Schmorl's nodes at multiple levels. Reproductive organs: Within normal limits. Lymph nodes: Unremarkable. Impression: Abscess in the left perianal, inferior gluteal fat. Lab Data Lab results reviewed: Yes I reviewed the patient's lab results. HPI General Mode of arrival: ambulatory . Date/Time Provider Initiated Documentation: 10/05/22 12:29 . Limitations to Documentation: no limitations . Information obtained by: patient, family and RN notes reviewed . History of Present Illness 57 year old M presents to the emergency department with the chief complaint of Buttock abscess, described as severe, with intensity rated at 10. Quality is described as sharp, and is localized to the buttocks and left. Patient reports no radiation. Patient started experiencing this day(s) (10) and it has been constant. No relieving factors improve symptom(s), No exacerbating factors reported . Patient notes fever/chills and loss of appetite. Related Data Home Medications Medication Instructions Recorded Confirmed hydrochlorothiazide 12.5 mg tablet 12.5 mg PO DAILY #90 tabs 05/24/22 10/05/22 zolpidem 10 mg tablet 10 mg PO QHS PRN sleep #90 tabs 05/24/22 10/05/22 losartan 50 mg tablet 50 mg PO DAILY #90 tabs 08/11/22 10/05/22 sertraline 100 mg tablet 100 mg PO DAILY #90 tabs 08/11/22 10/05/22 sertraline 50 mg tablet 50 mg PO DAILY #90 tabs 10/02/22 10/05/22 Previous Rx's Medication Instructions Recorded hydrochlorothiazide 12.5 mg tablet 12.5 mg PO DAILY #90 tabs 05/24/22 zolpidem 10 mg tablet 10 mg PO QHS PRN sleep #90 tabs 05/24/22 losartan 50 mg tablet 50 mg PO DAILY #90 tabs 08/11/22 sertraline 100 mg tablet 100 mg PO DAILY #90 tabs 08/11/22 sertraline 50 mg tablet 50 mg PO DAILY #90 tabs 10/02/22 Allergies Allergy/AdvReac Type Severity Reaction Status Date / Time amoxicillin Allergy Intermediate Swelling/Ed Verified 10/05/22 15:22 suzi enviornmental Allergy Mild Wheezing Uncoded 10/05/22 15:22 General Stated Complaint: Cellulitis KEEGAN: 3 Review of Systems Constitutional Constitutional: Reports chills, Reports fatigue, Reports fever(s), Reports malaise and Reports night sweats Cardiovascular Cardiovascular: Denies chest pain and Denies dyspnea Respiratory Respiratory: Denies cough and Denies dyspnea Gastrointestinal Gastrointestinal: Reports as per HPI, Reports abdominal pain, Denies melena, Denies constipation, Denies diarrhea, Reports loose stools, Reports nausea and Denies vomiting Genitourinary Genitourinary: Reports system reviewed and no additional complaints, except as documented and Denies difficulty urinating Integumentary/Breasts Skin/Breast: Reports as per HPI, Reports furuncle, Denies rash, Reports skin pain and Reports skin swelling Endocrine Endocrine: Reports fatigue PFSH All Active Problems (Updated 10/05/22 @ 14:24 by Joseph Naranjo, ABIOLA) Abscess, perirectal (Acute) Fever of unknown origin (Acute) Chronic diarrhea (Acute) Trigger finger, right ring finger (Acute) Chronic rhinitis (Acute) Postnasal drip (Acute) Seeing ENT at [facility] Tachycardia (Acute) Hypertension (Chronic) Insomnia (Chronic) Depressive disorder (Chronic) Generalized anxiety disorder (Chronic) Colon cancer screening declined (Acute) Asthma (Acute) Fatigue (Acute) Other color vision deficiencies (Acute) red/green Nevus, non-neoplastic (Acute) Family history of cancer (Acute 12/01/15) father: metastatic prostate CA, brother: oral CA, two sisters: breast CA Contact dermatitis and eczema (Acute) Anal fissure (Acute 03/28/12) Acid indigestion (Acute) Surgical History Nasal septoplasty (~2006) and reduction of turbinates Status post adenoidectomy Status post nasal septoplasty Status post tonsillectomy Tonsillectomy and adenoidectomy Family History Mother Depression Stroke Father , age 88 Cancer Sister Cancer Sister Cancer Brother Alcohol abuse Cancer Depression Hypertension Social History Smoking/Tobacco Use Status: Never Second Hand Exposure: Yes Smoking risk assessment performed?: Yes Alcohol Intake: current Alcohol Intake frequency: a few times a week Alcohol type: beer, wine and hard liquor Drug use: Never Substance use type: does not use Caregiver/Support person: No Household members: spouse Housing: house Communication Needs: None Do you need help understanding health information?: Never Pets and animals: No Sexually active: Yes Do you think of yourself as: straight/heterosexual Current gender identity: male What is your relationship status?: How often do you talk on the phone with friends or family?: once per week How often do you get together with friends or relatives?: once per week How often do you attend tenriism or jehovah's witness services?: decline to answer Do you belong to any clubs or organized social groups?: no Panel score (0-1 are the most socially isolated patients): 1 What type of physical activity do you participate in: other Details: stretches Duration: 15-30 minutes/day Frequency: 5-6 times per week Chantel/Presybeterian: Syn[employer] Special chantel needs: No Seatbelt use: always Helmet use: Yes Helmet use: sometimes Drive intox or ride w/intox tank wagon driver: No Do you feel safe at home: Yes Do you feel safe in your relationship?: Yes Victim of physical abuse: No Victim of emotional abuse: No Victim of sexual abuse: No Would you like helpful sources: No Exam Const General: cooperative and anxious Orientation: alert, awake and oriented x3 Resp Effort & Inspection: normal respiratory effort and able to speak in complete sentences Auscultation: clear to auscultation bilaterally Cardio Rate: regular rate and tachycardic Rhythm: regular rhythm Heart Sounds: S1 normal and S2 normal GI Palpation: soft, no hepatosplenomegaly, not firm, no guarding, no masses, no pulsatile masses, not rigid, no splenomegaly and nontender Auscultation: normal bowel sounds Rectal Exam: other (Significant swelling around rectal opening with pain) Back/Spine/Pelvis Back: no CVA tenderness Neuro General: patient alert, patient awake, patient oriented x3, gait normal and moves all extremities Course Vital Signs Vital signs: Vital Signs Temperature 36.4 C 10/05/22 12:16 Pulse 108 H 10/05/22 12:16 Respiratory Rate 14 10/05/22 12:16 Blood Pressure 106/64 10/05/22 12:16 Pulse Oximetry 98 10/05/22 12:16 Temperature 36.4 C 10/05/22 12:16 Temperature Source Oral 10/05/22 12:16 Pulse 108 H 10/05/22 12:16 Respiratory Rate 14 10/05/22 12:16 Blood Pressure 106/64 10/05/22 12:16 Blood Pressure Position Standing 10/05/22 12:16 Pulse Oximetry 98 10/05/22 12:16 Oxygen Delivery Method Room Air 10/05/22 12:16 Oxygen Flow Rate 0 10/05/22 12:16 Pain Level 10 10/05/22 12:16 Comment took advil at 8am tylenol PO does not settle well 10/05/22 12:16 Lab/Test Results Lab/Test Results: 10/05/22 12:32 Blood Blood Culture - Pending 10/05/22 12:32 Blood Blood Culture - Pending
[2022-10-05] MEDS: Normal Saline 1,000 ML 1000 ML IV (12:52)
[2022-10-05 12:57] LABS: Abs Immature Grans 0.07 10^3/uL (0.0-0.06); Absolute Basophil Count 0.05 10^3/uL (0.0-0.2); Absolute Eosinophil Count 0.03 10^3/uL (0.0-0.7); Absolute Lymphocyte Count 1.01 10^3/uL (1.2-3.4); Absolute Neutrophil Count 8.64 10^3/uL (1.2-6.7); Basophils % 0.5; Eosinophils % 0.3; HCT 36.9 % (40.0-50.0); HGB 12.5 g/dL (13.5-17.5); Immature Grans % 0.6; Lactate 1.2 mmol/L (0.6-1.4); Lymphocytes % 9.2; MCH 31.5 pg (27.0-33.0); MCHC 33.9 % (32.0-36.0); MCV 93 fL (80-95); MPV 8.3 fL (8.0-11.0); Monocytes % 10.7; Neutrophils % 78.7; Platelet Count 354 10^3/uL (130-400); RBC 3.97 10^6/uL (4.36-5.78); RDW 11.9 % (11.8-14.1); RDW-SD 40.9 fL; WBC 10.98 10^3/uL (4.4-10.8)
[2022-10-05] MEDS: Ondansetron 4 MG/2 ML VIAL IVP (13:00)
[2022-10-05] MEDS: HYDROmorphone 2 MG/ML SYR 1 MG IVP ×2 (13:00→13:16)
[2022-10-05 13:01] LABS: Absolute Monocyte Count 1.17 10^3/uL (0.1-0.8)
[2022-10-05 13:17] LABS: ALT 44 U/L (16-63); AST 21 U/L (15-37); Alkaline Phosphatase 151 U/L (46-116); Anion Gap 7.8 mmol/L (3-11); BUN 15 mg/dL (7-18); Bilirubin, Total 0.7 mg/dL (0.2-1.0); CO2 29.2 mmol/L (21.0-32.0); CREATININE 1.2 mg/dL (0.70-1.30); Calcium 9.1 mg/dL (8.5-10.1); Chloride 97 mmol/L (98-107); Glucose 95 mg/dL (74-106); Lipase 23 U/L (16-77); Magnesium 2.1 mg/dL (1.8-2.4); Potassium 3.5 mmol/L (3.5-5.1); Sodium 134 mmol/L (136-145); Total Protein 7.7 g/dL (6.4-8.2)
[2022-10-05] MEDS: metroNIDAZOLE 500 MG/100 ML BAG 100 MG IVPB ×2 (13:40→20:10)
[2022-10-05] MEDS: Normal Saline - Diluent 50 ML VIAL IJ (13:40)
[2022-10-05] MEDS: Omnipaque 350 MG/ML 500 ML BTL-Imaging package IJ (13:40)
[2022-10-05 14:02] LABS: Source Nasal/Nares
--- NOTE | 2022-10-05 14:28 | W.PM.HP.N ---
Date of service: 10/05/22 Time of Service: 14:39 Assessment and Plan Assessment and plan (1) Abscess, perirectal: Status: Acute Assessment and plan: vanco & flagyl I&D in am will need to do packing at home further recs after surgery. This may be a perirectal abscess versus isolated soft tissue abscess that is near the rectum. Patient will need to do a colonoscopy in the future. Risks include but not limited to: Bleeding, infection, pneumonia, blood clots, injury to sphincters including stenosis or loss of control. Further surgery required for resolution if there is a fistula, complications of anesthesia. Patient understands that he may need to do packing and dressing changes for prolonged period of time to get the wound healed. He will be off work at least 2 weeks. And again if this is an extensive fistula involved he may need to go down and be evaluated by by colorectal at [facility]. We will continue with antibiotics and supportive care tonight and plan for surgery in a.m. (2) Acid indigestion: Status: Acute (3) Chronic diarrhea: Status: Acute (4) Depressive disorder: Status: Chronic (5) Family history of cancer: Status: Acute (6) Fatigue: Status: Acute (7) Hypertension: Status: Chronic Qualifiers: Hypertension type: primary hypertension Qualified Code(s): I10 - Essential (primary) hypertension (8) Insomnia: Status: Chronic Qualifiers: Insomnia type: primary Qualified Code(s): F51.01 - Primary insomnia (9) Tachycardia: Status: Acute History of Present Illness Narrative: Patient was seen by his PCP today with continuing fevers of unknown origin. It was finally discovered that he has a abscess in the left buttocks. And patient was sent to the ER for CT and further evaluation. CT does show a large perirectal abscess. See in [employer]. Patient has a longstanding history of diarrhea and bowel concerns. He has had bleeding painful fissures in the past. He has never had a colonoscopy. He denies noticing any blood in his stools. He has had weight loss over the last 5 days when he has been ill but otherwise has maintained his weight. Over the last few days he has had decreased bowel movements, soaking fevers at night. He has noted decrease in appetite and increase in pain with moving his bowels. The chronic diarrhea has been attributed to nervousness and anxiety. Again he has never had a full colonoscopy. He normally moves his bowels 4-5 times a day and it is a Mclean 5-7. Again no blood. He has not been on antibiotics. He has not been on prednisone recently. He is not on any immunomodulating medications. He denies any immune related disorders. He is not diabetic. He has never had a heart attack or stroke. He is not on any blood thinners. Again he does not have have a history of fissures but he has never developed a perirectal abscess in the past. No problems with anesthesia in the past He denies any recent trauma. 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 But he cannot really pinpoint any particular episode. He denies any nausea vomiting. He does not have much of an appetite. He does have a lot of pain in the left buttock today. He has not noticed any particular bleeding. He will not tolerate a rectal exam today because of the pain. He is on Zoloft for anxiety. He denies any constipation from this medication. Review of Systems All systems reviewed & are unremarkable except as noted in HPI and below PFSH All Active Problems Abscess, perirectal (Acute) Fever of unknown origin (Acute) Chronic diarrhea (Acute) Trigger finger, right ring finger (Acute) Chronic rhinitis (Acute) Postnasal drip (Acute) Seeing ENT at [facility] Tachycardia (Acute) Hypertension (Chronic) Insomnia (Chronic) Depressive disorder (Chronic) Generalized anxiety disorder (Chronic) Colon cancer screening declined (Acute) Asthma (Acute) Fatigue (Acute) Other color vision deficiencies (Acute) red/green Nevus, non-neoplastic (Acute) Family history of cancer (Acute 12/01/15) father: metastatic prostate CA, brother: oral CA, two sisters: breast CA Contact dermatitis and eczema (Acute) Anal fissure (Acute 03/28/12) Acid indigestion (Acute) Surgical History Nasal septoplasty (~2006) and reduction of turbinates Status post adenoidectomy Status post nasal septoplasty Status post tonsillectomy Tonsillectomy and adenoidectomy Family History Mother Depression Stroke Father , age 88 Cancer Sister Cancer Sister Cancer Brother Alcohol abuse Cancer Depression Hypertension Social History Smoking/Tobacco Use Status: Never Second Hand Exposure: Yes Smoking risk assessment performed?: Yes Alcohol Intake: current Alcohol Intake frequency: a few times a week Alcohol type: beer, wine and hard liquor Drug use: Never Substance use type: does not use Caregiver/Support person: No Household members: spouse Housing: house Communication Needs: None Do you need help understanding health information?: Never Pets and animals: No Sexually active: Yes Do you think of yourself as: straight/heterosexual Current gender identity: male What is your relationship status?: How often do you talk on the phone with friends or family?: once per week How often do you get together with friends or relatives?: once per week How often do you attend gnosticism or uatsdin services?: decline to answer Do you belong to any clubs or organized social groups?: no Panel score (0-1 are the most socially isolated patients): 1 What type of physical activity do you participate in: other Details: stretches Duration: 15-30 minutes/day Frequency: 5-6 times per week Chantel/Tenriism: Restorationist Special chantel needs: No Seatbelt use: always Helmet use: Yes Helmet use: sometimes Drive intox or ride w/intox shuttle driver: No Do you feel safe at home: Yes Do you feel safe in your relationship?: Yes Victim of physical abuse: No Victim of emotional abuse: No Victim of sexual abuse: No Would you like helpful sources: No Meds Allergies and Home Medications Allergies Allergy/AdvReac Type Severity Reaction Status Date / Time amoxicillin Allergy Intermediate Swelling/Ed Verified 10/05/22 15:22 suzi acetaminophen AdvReac Mild Nausea Unverified 10/05/22 16:40 enviornmental Allergy Mild Wheezing Uncoded 10/05/22 15:22 Home Medications Medication Instructions Recorded Confirmed Type hydrochlorothiazide 12.5 mg tablet 12.5 mg PO DAILY #90 tabs 05/24/22 10/05/22 Rx zolpidem 10 mg tablet 10 mg PO QHS PRN sleep #90 tabs 05/24/22 10/05/22 Rx losartan 50 mg tablet 50 mg PO DAILY #90 tabs 08/11/22 10/05/22 Rx sertraline 100 mg tablet 100 mg PO DAILY #90 tabs 08/11/22 10/05/22 Rx sertraline 50 mg tablet 50 mg PO DAILY #90 tabs 10/02/22 10/05/22 Rx Exam Const Other: PHYSICAL EXAM GENERAL APPEARANCE: anxious. mild pain. HYDRATION: Well hydrated HEAD, EYES, EARS, NECK, THROAT: Head is normocephalic, pupils equal, round, reactive to light and accommodation, ocular movement intact, sclera clear and no jaundice. ?Dentition intact. NECK: Trachea midline.? Neck supple.? No JVD LUNGS: normal respiration/normal chest excursion. ?Clear to auscultation bilaterally. ?No wheeze. ?HEART: Regular rate and rhythm. no murmurs? ABDOMEN: soft and non-tender to palpation.? Normal bowel sounds.? Induration tenderness and firmness in the left buttock and perirectal region. Patient is too tender to allow for an exam Results Labs 10/05/22 12:50 10/05/22 12:50 Labs: Laboratory Results - last 24 hr 10/05/22 10/05/22 10/05/22 12:50 12:50 12:50 WBC 10.98 H RBC 3.97 L Hgb 12.5 L Hct 36.9 L MCV 93 MCH 31.5 MCHC 33.9 RDW 11.9 Plt Count 354 MPV 8.3 Immature Gran % 0.6 Neutrophils % 78.7 Lymphocytes % 9.2 Monocytes % 10.7 Eosinophils % 0.3 Basophils % 0.5 Nucleated RBC % 0.0 Absolute Neutrophils 8.64 H Absolute Lymphocytes 1.01 L Absolute Monocytes 1.17 H Absolute Eosinophils 0.03 Absolute Basophils 0.05 VBG Lactate 1.2 Sodium 134 L Potassium 3.5 Chloride 97 L Carbon Dioxide 29.2 Anion Gap 7.8 BUN 15 Creatinine 1.2 Est GFR (CKD-EPI 2020) 70.10 Glucose 95 Calcium 9.1 Magnesium 2.1 Total Bilirubin 0.7 AST 21 ALT 44 Alkaline Phosphatase 151 H Total Protein 7.7 Albumin 3.0 L Lipase 23 COVID-19 Source 10/05/22 13:56 WBC RBC Hgb Hct MCV MCH MCHC RDW Plt Count MPV Immature Gran % Neutrophils % Lymphocytes % Monocytes % Eosinophils % Basophils % Nucleated RBC % Absolute Neutrophils Absolute Lymphocytes Absolute Monocytes Absolute Eosinophils Absolute Basophils VBG Lactate Sodium Potassium Chloride Carbon Dioxide Anion Gap BUN Creatinine Est GFR (CKD-EPI 2020) Glucose Calcium Magnesium Total Bilirubin AST ALT Alkaline Phosphatase Total Protein Albumin Lipase COVID-19 Source Nasal/Nares Last Vital Signs Temp 36.4 C 10/05/22 12:16 Pulse 108 H 10/05/22 12:16 Resp 14 10/05/22 12:16 BP 106/64 10/05/22 12:16 Pulse Ox 98 10/05/22 12:16 PAWSS Have you Been Recently Intoxicated or Drunk Within the Last 30 days?: No Have you Ever Experienced Previous Episodes of Alcohol Withdrawal?: No Have you ever Experienced Withdrawal Seizures?: No Have you ever Experienced Delirium Tremens(DT)s?: No Have you ever undergone Alcohol Rehabilitation Treatment (i.e, inpt ot outpatient treatment programs)?: No Have you ever Experienced Blackouts?: No Have you ever Combined Alcohol with other Downers within the last 90 days?: No Have you ever Combined Alcohol with any other Substance of Abuse during the last 90 days?: No Result: 0 Time Spent Time spent with Patient: 55-74 minutes Time was spent: preparing to see the patient(eg.review tests), obtaining and/or reviewing separately otained hiistory, ordering medications,tests, procedures, referring, communicating with other health career developer, indepentently interpreting results, counseling the patient and care coordination
[2022-10-05 14:33] LABS: COVID-19 PCR Negative (Negative)
[2022-10-05] MEDS: VANCOMYCIN/WATER (PEG) 1.75 GM/350 ML BAG IVPB (14:41)
[2022-10-05 15:54] VITALS: BP 126/79; PULSE 105; RESP 18; TEMP 38.6; O2SAT 98
[2022-10-05] MEDS: Pantoprazole 40 MG TABCR PO (16:38)
[2022-10-05] MEDS: MORPHine 2 MG/ML SYR IVP (16:38)
[2022-10-05] MEDS: Normal Saline Flush 10 ML SYR IVP (16:40)
[2022-10-05] MEDS: ACETAMINOPHEN 1,000 MG/100 ML BTL 400 MG IVPB (17:27)
[2022-10-05] MEDS: Enoxaparin 40 MG/0.4 ML SYR SC (17:56)
[2022-10-05] MEDS: Sertraline 100 MG TAB PO (17:56)
[2022-10-05 18:18] VITALS: TEMP 38.2
[2022-10-05] MEDS: Ketorolac 15 MG/ML VIAL IVP (20:10)
[2022-10-05] MEDS: Zolpidem 10 MG TAB PO (20:10)
[2022-10-05 20:41] LABS: Lab Add On Test DONE
[2022-10-05 20:59] LABS: C-Reactive Protein > 25.00 mg/dL (0.0-0.3)
[2022-10-05 21:22] LABS: Ferritin 789 ng/mL (26-388)
[2022-10-06] VITALS (8 sets, daily range): BP systolic 108–128; BP diastolic 68–94; PULSE 85–99; RESP 11–18; TEMP 36.6–38.6; O2SAT 95–98; BMI 26.6
[2022-10-06] MEDS: VANCOMYCIN/WATER (PEG) 1 GM/200 ML BAG IV ×2 (00:09→11:34)
[2022-10-06] MEDS: Ondansetron 4 MG/2 ML VIAL IVP ×3 (00:17→17:01)
[2022-10-06] MEDS: Ketorolac 15 MG/ML VIAL IVP ×4 (02:55→22:21)
[2022-10-06] MEDS: metroNIDAZOLE 500 MG/100 ML BAG 100 MG IVPB ×3 (04:31→20:14)
[2022-10-06] MEDS: Pantoprazole 40 MG TABCR PO (07:47)
[2022-10-06] MEDS: Losartan 50 MG TAB PO (07:48)
[2022-10-06] MEDS: MORPHine 2 MG/ML SYR IVP ×5 (07:51→23:05)
--- NOTE | 2022-10-06 12:17 | W.ANESPRE ---
General Info Date of Service Date Performed: 10/06/22 Height: 5 ft 8 in Weight: 79.379 kg Body Mass Index (BMI): 26.6 Surgical Procedure: Operation Date: 10/06/22 13:25 Proposed Procedure Side Surgeon p Excision-Ayaka Rectal Abscess Akosua Yang, DO Meds Allergies and Home Medications Allergies Allergy/AdvReac Type Severity Reaction Status Date / Time amoxicillin Allergy Intermediate Swelling/Ed Verified 10/05/22 15:22 suzi acetaminophen AdvReac Mild Nausea Unverified 10/05/22 16:40 enviornmental Allergy Mild Wheezing Uncoded 10/05/22 15:22 Home Medication Medication Instructions Recorded hydrochlorothiazide 12.5 mg tablet 12.5 mg PO DAILY #90 tabs 05/24/22 zolpidem 10 mg tablet 10 mg PO QHS PRN sleep #90 tabs 05/24/22 losartan 50 mg tablet 50 mg PO DAILY #90 tabs 08/11/22 sertraline 100 mg tablet 100 mg PO DAILY #90 tabs 08/11/22 sertraline 50 mg tablet 50 mg PO DAILY #90 tabs 10/02/22 Current Visit Medications: Current Medications Generic Name Dose Route Start Last Admin Trade Name Freq PRN Reason Stop Dose Admin Enoxaparin Sodium 40 mg 10/05/22 18:00 10/05/22 17:56 Enoxaparin 40 Mg/0.4 Ml Syr SC 40 mg Q24H JOCELYN Administration Sodium Chloride 500 mls @ 0 mls/hr 10/05/22 14:15 Saline 500ml Bag IV PRN PRN As Directed Sodium Chloride 1,000 mls @ 75 mls/hr 10/05/22 14:15 Saline 1000ml Bag IV INFUSION JOCELYN Vancomycin/PEG/NADA/Lysine/Water 1 gm in 200 mls @ 200 mls/hr 10/06/22 00:00 10/06/22 11:34 Vancocin Injection IV 200 mls/hr Q12H JOCELYN Administration Metronidazole 500 mg in 100 mls @ 100 mls/hr 10/05/22 20:00 10/06/22 11:33 Flagyl IVPB 100 mls/hr Q8H JOCELYN Administration IV Miscellaneous Supplies 1 each 10/05/22 14:15 Iv Access IV DIRECTED JOCELYN Ketorolac Tromethamine 15 mg 10/05/22 14:24 10/06/22 09:25 Ketorolac 15 Mg/Ml Vial IVP 10/10/22 14:23 15 mg Q6H PRN PRN Administration Losartan Potassium 50 mg 10/06/22 08:30 10/06/22 07:48 Losartan 50 Mg Tab PO 50 mg DAILY JOCELYN Administration Methocarbamol 750 mg 10/05/22 20:31 Methocarbamol 750 Mg Tab PO QID PRN PRN Morphine Sulfate 2 mg 10/05/22 14:15 10/06/22 10:57 Morphine 2 Mg/Ml Syr IVP 2 mg Q1H PRN PRN Administration Ondansetron HCl 4 mg 10/05/22 14:15 10/06/22 07:01 Ondansetron 4 Mg/2 Ml Vial IVP 4 mg Q4H PRN PRN Administration Pantoprazole Sodium 40 mg 10/06/22 07:30 10/06/22 07:47 Pantoprazole 40 Mg Tabcr PO 40 mg DAILY@0730 [facility] Administration Sertraline HCl 50 mg 10/06/22 12:00 Sertraline 50 Mg Tab PO DAILY@1200 [facility] Sertraline HCl 100 mg 10/05/22 18:00 10/05/22 17:56 Sertraline 100 Mg Tab PO 100 mg DAILY@1800 [facility] Administration Sodium Chloride 0 ml 10/05/22 14:15 Normal Saline Flush 10 Ml Syr IVP PRN PRN Tramadol HCl 50 mg 10/05/22 20:31 Tramadol 50 Mg Tab PO Q4H PRN PRN Zolpidem Tartrate 10 mg 10/05/22 19:30 10/05/22 20:10 Zolpidem 10 Mg Tab PO 10 mg HS PRN PRN Administration PFSH Active Problems Active Problems: Problem Status Onset Code Abscess, perirectal K61.1 Fever of unknown origin R50.9 Chronic diarrhea K52.9 Trigger finger, right ring finger M65.341 Chronic rhinitis J31.0 Postnasal drip R09.82 Tachycardia R00.0 Hypertension I10 Insomnia Depressive disorder F32.9 Generalized anxiety disorder F41.1 Colon cancer screening declined Z53.20 Asthma J45.909 Fatigue R53.83 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 Nevus, non-neoplastic I78.1 Family history of cancer 12/01/15 Contact dermatitis and eczema L25.9 Anal fissure 03/28/12 K60.2 Acid indigestion K30 Surgical History Surgical History Nasal septoplasty (~2006) and reduction of turbinates Status post adenoidectomy Status post nasal septoplasty Status post tonsillectomy Tonsillectomy and adenoidectomy Tobacco Smoking/Tobacco Use Status: Never Passive smoking exposure: Yes Second hand exposure: Yes Alcohol Alcohol Intake: current Alcohol intake frequency: a few times a week Alcohol type: beer, wine and hard liquor Substance Use Substance use: Never Substance use type: does not use Vital Signs and Lab Results Vital Signs Most Recent Vital Signs in EMR: Most Recent Vital Signs Temp Pulse Resp BP Pulse Ox 38.1 C H 96 H 18 120/78 97 10/06/22 08:00 10/06/22 08:00 10/06/22 08:00 10/06/22 08:00 10/06/22 08:00 Lab Results 10/05/22 12:50 10/05/22 12:50 Blood Type / Crossmatch: No Data to Display Complete Blood Count: White Blood Count 10.98 10^3/uL (4.4-10.8) H 10/05/22 12:50 Red Blood Count 3.97 10^6/uL (4.36-5.78) L 10/05/22 12:50 Hemoglobin 12.5 g/dL (13.5-17.5) L 10/05/22 12:50 Hematocrit 36.9 % (40.0-50.0) L 10/05/22 12:50 Platelet Count 354 10^3/uL (130-400) 10/05/22 12:50 Venous Blood Lactate 1.2 mmol/L (0.6-1.4) 10/05/22 12:50 Complete Metabolic Panel: Sodium 134 mmol/L (136-145) L 10/05/22 12:50 Potassium 3.5 mmol/L (3.5-5.1) 10/05/22 12:50 Chloride 97 mmol/L (98-107) L 10/05/22 12:50 Carbon Dioxide 29.2 mmol/L (21.0-32.0) 10/05/22 12:50 BUN 15 mg/dL (7-18) 10/05/22 12:50 Creatinine 1.2 mg/dL (0.70-1.30) 10/05/22 12:50 Est GFR (CKD-EPI 2020) 70.10 (mL/min/1.73m2) 10/05/22 12:50 Magnesium 2.1 mg/dL (1.8-2.4) 10/05/22 12:50 Calcium 9.1 mg/dL (8.5-10.1) 10/05/22 12:50 Albumin 3.0 g/dL (3.4-5.0) L 10/05/22 12:50 Glucose 95 mg/dL (74-106) 10/05/22 12:50 C-Reactive Protein > 25.00 mg/dL (0.0-0.3) H 10/05/22 12:50 Liver Function Panel: Alanine Aminotransferase (ALT/SGPT) 44 U/L (16-63) 10/05/22 12:50 Aspartate Amino Transf (AST/SGOT) 21 U/L (15-37) 10/05/22 12:50 Coagulation Panel: No Data to Display Cardiac Panel: No Data to Display Arterial Blood Gas: No Data to Display Venous Blood Gas: No Data to Display Pancreas Panel: Lipase 23 U/L (16-77) 10/05/22 12:50 Thyroid Panel: No Data to Display Infectious Disease: Coronavirus (COVID-19)(PCR) Negative (Negative) 10/05/22 13:56 Coronavirus 2019 Source Nasal/Nares 10/05/22 13:56 Blood Cultures: No Data to Display Toxicology Panel: No Data to Display Imaging and Studies Imaging and Studies Study information below may be from another EMR and interpreted by another provider. Please see original notes in EMR for more complete details. EKG Summary: DATE/TIME OF SERVICE: 08/24/22 1118 : 1965PERFORMING LOCATION: ER APPROVED REPORT Exam: Resting ECG Reason for Exam: Epigastric pain Patient Location: E HR:92 bpm ECG Measurements Heart Rate 92 AXIS FL 136 P 70 QRSd 93 QRS 45 QT 356 T48 QTc 441 Conclusion Sinus rhythm...normal P axis, V-rate 60- 99 Probable left atrial enlargement...P >50mS, <-0.10mV V1 Narrow complex normal sinus rhythm at a rate of 93. Normal axis. Intervals within normal limits. T wave flattening in V2. No acute injury pattern. No prior for comparison. ST segment abnormalities. Stress Test Summary: Date of Exam: 11/27/16Sex: M : 1965Age: 51 Exam(s) [id number] NM:MPI Resting & Stress GRP *[facility]* *[facility]* [address] [place] [address] Myocardial Perfusion Imaging - SPECT Asaf protocol Date of study: 11/27/2016 *PATIENT PRESENTATION* Height: 172.7cm ((68in) ) Blood Pressure: Weight: 81.4kg ((179lb) ) BSA: 1.99m^2 Referring physician: Abelino Horta MD Ordering physician: Nba Berger Impressions: Normal perfusion by Tc99m Sestamibi Imaging. Summary: 1. Myocardial perfusion imaging: No myocardial perfusion defects noted. 2. The calculated left ventricular ejection fraction after stress: 48%. 3. Stress: The target heart rate was achieved. Echocardiogram Summary: Date of Exam: 06/09/21Sex: M Admission Date: 06/09/21 : 1965 Age: 55 APPROVED REPORT EXAM: Comprehensive 2D, Doppler, and color-flow Echocardiogram Patient Location: Out-Patient Technical Sales Support Specialist: Jenn Tolbert RDCS (AE) Indications: Resting Tachycardia, HTN Other Information Study Quality: Adequate Conclusion Normal left ventricular wall thickness and chamber size. Estimated ejection fraction is 60%. Wall motion is normal Normal right ventricular size and systolic function Both atria are normal in size There is no structural or hemodynamically significant valvular disease Anesthesia Assessment and Plan Anesthesia History Personal History: No History of Anesthesia Complications Family History: No Family History of Anesthesia Complications Exercise Tolerance Exercise Tolerance: Metabolic Equivalents>4 Pertinent Negatives Pertinent Negatives: No Symptoms of GERD Cardiac & Pulmonary Exam Cardiac Exam: Normal S1/S2 Heart Sounds Pulmonary Exam: Clear Bilateral Breath Sounds Implantable Cardiac Device Does patient have a Pacemaker or an ICD?: No Airway Exam Known Difficult Airway: No Mallampati Class: 2 Mouth Opening: Normal (> 3cm) Thyromental Distance: Greater than 3 cm Neck Range of Motion: Full ROM Neck Circumference: Normal Teeth Condition: Normal Dentition ASA Classification ASA Score: ASA 2 Emergency Case?: No NPO Status NPO Status: NPO Clears >2 hours, Solids >8 hours Anesthesia Plan Resuscitation Status: Full Code Anesthesia Technique: Spinal Anesthesia Airway Planned: Natural Airway Monitors Used: Standard Monitors Preoperative Comments:: Discussed spinal. Pt. Nervous but agrees. Understands general prn unable to do spinal
--- NOTE | 2022-10-06 13:32 | W.PM.PROGNOT ---
Date of Service Date of service: 10/06/22 Time of Service: 12:30 Assessment and Plan Assessment and plan (1) Abscess, perirectal: Status: Acute (2) Fever of unknown origin: Status: Acute (3) Chronic diarrhea: Status: Acute Subjective Subjective Interval history since last seen: pt feels about the same. c/o pain in left buttock. + fevers surgery today as planned will need home care for packing-further recommendations to follow depending on findings in surgery Risks include but are not limited to: Bleeding, infection, pneumonia, blood clots, complications from anesthesia, damage to sphincters resulting in incontinence or stenosis. Patient is going to need a colonoscopy for further diagnosis Stable for proposed procedure Objective Last Vital Signs Temp 38.1 C H 10/06/22 08:00 Pulse 96 H 10/06/22 08:00 Resp 18 10/06/22 08:00 BP 120/78 10/06/22 08:00 Pulse Ox 97 10/06/22 08:00 Laboratory Results - last 24 hr 10/05/22 10/05/22 10/05/22 12:50 13:56 Unknown Ferritin 789 H C-Reactive Protein > 25.00 H COVID-19 Source Nasal/Nares SARS-CoV-2 (PCR) Negative Add-On Test Request DONE PAWSS Have you Been Recently Intoxicated or Drunk Within the Last 30 days?: No Have you Ever Experienced Previous Episodes of Alcohol Withdrawal?: No Have you ever Experienced Withdrawal Seizures?: No Have you ever Experienced Delirium Tremens(DT)s?: No Have you ever undergone Alcohol Rehabilitation Treatment (i.e, inpt ot outpatient treatment programs)?: No Have you ever Experienced Blackouts?: No Have you ever Combined Alcohol with other Downers within the last 90 days?: No Have you ever Combined Alcohol with any other Substance of Abuse during the last 90 days?: No Result: 0 Time Spent with Patient Time Spent with Patient: <25 minutes Time was spent: preparing to see the patient(eg.review tests), obtaining and/or reviewing separately otained hiistory, ordering medications,tests, procedures and counseling the patient
--- NOTE | 2022-10-06 13:53 | W.PM.OP ---
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 SURGEON: Akosua Yang ANESTHESIA TYPE: Local By Surgeon, MAC and Spinal Refer to Anesthesia Record ESTIMATED BLOOD LOSS: 5 PATHOLOGY: other (Cultures) COMPLICATIONS: None Patient was transported to: PACU Patient's condition: stable Procedure Description: Patient has a left-sided perirectal/buttock abscess and is here today for incision and drainage. Informed consent is obtained explaining risks and benefits of the procedure including but not limited to: Bleeding, infection, pneumonia, blood clots, scarring, reoccurrence, damage to the sphincters resulting in stenosis or loss of control. Complications from anesthesia. Patient understands that he may require a secondary fistulotomy if there is a fistula that re-occurs. He will need a colonoscopy in the future as well. Patient is brought to the surgical suite. Anesthesia is administered per the department of anesthesia. Patient is then placed in the prone position with all bony surfaces padded. The abscess had been previously marked in same-day surgery. Patient is prepped and draped in the usual sterile fashion using a Betadine scrub solution. Timeout is performed. 10 cc of 1% lidocaine is used for local anesthetization. At this point the abscess is noted to be draining out through the rectum. Cultures are taken. Ulloa retractor is placed into the rectum. At the 6 o'clock position above the sphincters and there is a communication between the rectum and the abscess cavity.. A 2 inch incision is made at approximately the 3 o'clock position on the left buttock. About 150 cc of purulent material is evacuated. It is irrigated with 2 L of saline. Electrocautery was used to provide hemostasis. A curette is used to clean out the cavity and remove all necrotic debris. There is a fistulous tract already communicating with the rectum. The cavity is: 9 x 6 x 4 inches. The tract is curetted and cleaned out as much as possible. There is a high probability that he does not develop a recurrent fistula. The cavity does extend all the way up to the levators and the pubic bone. The wound is then packed with three quarters of a length of a Kerlix gauze. Sterile dressings are applied. Patient tolerated the procedure well without complication and transferred to the recovery room in stable condition. Because of the size and the extent of the abscess, I think it would be guillen to bring the patient back for second look and dressing change tomorrow under anesthesia. This was arranged with the call team and Dr. Ryan.
[2022-10-06] MEDS: Lidocaine 1% Pres-Free 30 ML VIAL (14:28)
--- NOTE | 2022-10-06 15:12 | W.ANESPOSTOP ---
Postoperative Evaluation Date, Time and Location Date Performed: 10/06/22 Time Performed: 15:12 Patient Location: Med/Surg Vital Signs Most Recent Imported Vital Signs: Most Recent Vital Signs Temp Pulse Resp BP Pulse Ox 37.0 C 85 11 L 116/94 H 98 10/06/22 14:56 10/06/22 14:56 10/06/22 14:56 10/06/22 14:56 10/06/22 14:56 Most Recent Manually Entered Vital Signs: Adult Blood Pressure: 125/81 Heart Rate: 87 Respirations: 18 Oxygen Saturation (%): 96 Temperature (C): 99.2 C Pain Score (0-10 Scale): 0 Pain Score Most Recent Pain Score: Most Recent Pain Score Pain Level [Rectum] 7 10/06/22 08:00 Pain Level 8 10/06/22 12:40 Assessment Mental Status: Awake (Alert & Oriented to Patient Baseline) Airway and Respiratory Function: Patent airway with normal (patient baseline) respiratory exam Cardiovascular Function: Hemodynamically Stable Hydration Status: Adequately Hydrated Nausea & Vomiting: No Nausea or Vomiting Pain: Pt. Denies Any Pain Peripheral Nerve Block: Patient did not receive a nerve block
--- NOTE | 2022-10-06 15:30 | INITIAL_ITS ---
- If Service Date Differs Date of service: 10/06/22 Time of Service: 15:30 Care Management Initial Assess REASON FOR HOSPITALIZATION:: Ayaka Rectal Abscess PAST MEDICAL HISTORY/PAST SURGICAL HISTORY:: Abscess, perirectal (Acute). Fever of unknown origin (Acute). Chronic diarrhea (Acute). Trigger finger, right ring finger (Acute). Chronic rhinitis (Acute). Postnasal drip (Acute). Seeing ENT at [facility]. Tachycardia (Acute). Hypertension (Chronic). Insomnia (Chronic). Depressive disorder (Chronic). Generalized anxiety disorder (Chronic). Colon cancer screening declined (Acute). Asthma (Acute). Fatigue (Acute). Other color vision deficiencies (Acute). red/green. Nevus, non- neoplastic (Acute). Family history of cancer (Acute 12/01/15). father: metastatic prostate CA, brother: oral CA, two sisters: breast CA. Contact dermatitis and eczema (Acute). Anal fissure (Acute 03/28/12). Acid indigestion (Acute). Surgical History . Nasal septoplasty (~2006). and reduction of turbinates. Status post adenoidectomy. Status post nasal septoplasty. Status post tonsillectomy. Tonsillectomy and adenoidectomy PREVIOUS FUNCTIONAL STATUS/SOCIAL/FAMILY SUPPORTS:: Resides in [place] with Norma. Independent at baseline in the community. CURRENT FUNCTIONAL STATUS:: Uncomfortable throughout the morning, OR in the afternoon. Up independently. ADVANCE DIRECTIVES:: On file, Norma as agent. Has patient been provided with info about the portal/API?: Yes Did the patient sign up for the portal?: Yes CODE STATUS:: Full Code INSURANCE COVERAGE / FINANCIAL ISSUES:: BC/BS Out of State CURRENT HOME/COMMUNITY SERVICES/EQUIPMENT:: None, currently PRIMARY CARE PHYSICIAN:: Clint Asher POTENTIAL DISCHARGE NEEDS:: New [facility] for daily wound care dressing changes. PATIENT/FAMILY EDUCATION NEEDS:: Review discharge instructions, discuss Ask Me Three. ANTICIPATED BARRIERS TO DISCHARGE:: None identified. TRANSPORTATION:: Via private vehicle with Norma. PLAN:: Harish will discharge home when ready per MD; at this it is anticipated Harish will return home on Sunday. He will have new home health orders for daily dressing changes through [facility], transport via private vehicle with his and follow up with his PCP and plan of care as prescribed.
[2022-10-06] MEDS: levoFLOXacin 500 MG/100 ML BAG 100 MG IVPB (15:43)
[2022-10-06] MEDS: Sertraline 50 MG TAB PO (15:43)
[2022-10-06] MEDS: Sertraline 100 MG TAB PO (17:01)
[2022-10-06] MEDS: Methocarbamol 750 MG TAB PO ×2 (17:01→20:14)
[2022-10-06] MEDS: Enoxaparin 40 MG/0.4 ML SYR SC (17:01)
--- NOTE | 2022-10-06 20:13 | W.PM.PROGNOT ---
Date of Service Date of service: 10/06/22 Time of Service: 15:00 Assessment and Plan Assessment and plan (1) Abscess, perirectal: Status: Acute Assessment and plan: The patient is doing well post-op. Their pain is well controlled. They are having no nausea or vomiting. The pt is not having any chest pain or SOB, productive cough; no calf pain or swelling. The pt is making good urine. The pt pain is adequately controlled. The case was discussed with nursing and patient?s progress reviewed. All of the pt's home medications were addressed and adjusted accordingly for their oral intact status. HEENT: no jaundice. no eye pain/drainage/redness/swelling. Mild sore throat Cardio- NSR no chest pain, BP stable. Pulm: no sob or productive cough. no hemoptysis Incision- clean/dry. Dressing intact no excessive bleeding or drainage -will plan on dressing change under anesthesia in am. I discussed with the patient and/or there family about the findings in surgery and the pt's progress. We reviewed expectations for progress in the hospital; what the pt could expect for recovery time and length of stay. We discussed the importance of walking and pulmonary toilet to avoid blood clots and pneumonia. Continue current plans for pulmonary toilet, GI and DVT prophylaxis. We shall continue the current plan for pain management as it is at an appropriate level, and working well for the pt. Appropriate measures will be taken for constipation prevention, and this was also reviewed with the pt. The wound care plan was reviewed with nursing as well. see orders Objective Last Vital Signs Temp 37.0 C 10/06/22 14:56 Pulse 85 10/06/22 14:56 Resp 11 L 10/06/22 14:56 BP 116/94 H 10/06/22 14:56 Pulse Ox 98 10/06/22 14:56 Laboratory Results - last 24 hr 10/05/22 10/05/22 12:50 Unknown Ferritin 789 H C-Reactive Protein > 25.00 H Add-On Test Request DONE PAWSS Have you Been Recently Intoxicated or Drunk Within the Last 30 days?: No Have you Ever Experienced Previous Episodes of Alcohol Withdrawal?: No Have you ever Experienced Withdrawal Seizures?: No Have you ever Experienced Delirium Tremens(DT)s?: No Have you ever undergone Alcohol Rehabilitation Treatment (i.e, inpt ot outpatient treatment programs)?: No Have you ever Experienced Blackouts?: No Have you ever Combined Alcohol with other Downers within the last 90 days?: No Have you ever Combined Alcohol with any other Substance of Abuse during the last 90 days?: No Result: 0 Time Spent with Patient Time Spent with Patient: <25 minutes Time was spent: preparing to see the patient(eg.review tests), obtaining and/or reviewing separately otained hiistory, ordering medications,tests, procedures, referring, communicating with other health date night caregiver, indepentently interpreting results, counseling the patient and care coordination
[2022-10-06] MEDS: Zolpidem 10 MG TAB PO (20:14)
--- NOTE | 2022-10-06 20:17 | PDOC.HHF2F ---
Home Health Referral Home Health Orders Clinical synopsis of why skilled professionals are needed: daily dressing changes Medical diagnosis necessitation home health referral: anastacia-rectal abscess Registered Nurse: Check all that apply Assess for exacerbation of medical condition, instruct patient/caregivers on signs and symptoms to report for early detection: Ordered Assess wound for signs and symptoms of infection, instruct on wound care and/or provide skilled wound care consisting of: daily dressing changes. wet to dry Home Bound Status Requires the aid of supportive device (check all that apply): Other Patient has a condition such that leaving home is medically contraindicated (Describe): large perirectal abscess/open wound of buttocks Describe why leaving home would require a considerable and taxing effort: Side effects from pain medication (sedation/drowsiness) and Requires frequent rest periods Encounter Date and Reason: I certify that a FTF encounter for this patient was performed on October 06, 2022 and that such encounter was related to the primary reason the patient requires home health services. The encounter was conducted in the following manner: By me as the certifying physician, CUSTOMER SPECIALIST, PA or By an inpatient physician, CUSTOMER SPECIALIST or PA during an inpatient stay who communicated findings to me, Certification And Authentication I certify that I composed the above information based on my clinical judgment relating to this patient's medical condition and, if applicable, clinical findings communicated to me by the NPP or inpatient physician who performed the FTF encounter. Name of Provider that will be monitoring home health services: Akosua Yang
[2022-10-07] MEDS: MORPHine 2 MG/ML SYR IVP ×3 (02:06→11:16)
[2022-10-07] MEDS: Ketorolac 15 MG/ML VIAL IVP ×2 (04:19→10:02)
[2022-10-07] MEDS: metroNIDAZOLE 500 MG/100 ML BAG 100 MG IVPB ×3 (04:20→20:05)
[2022-10-07 06:32] VITALS: BP 118/79; PULSE 83; RESP 18; TEMP 36.8; O2SAT 96
[2022-10-07 08:00] VITALS: RESP 18; O2SAT 97
[2022-10-07] MEDS: Bupivacaine 0.25% Pres-Free 30 ML VIAL (09:26)
[2022-10-07 09:45] VITALS: BP 107/74; PULSE 79; RESP 18; TEMP 37; O2SAT 95
--- NOTE | 2022-10-07 09:59 | ROE_ITS ---
Date of service: 10/07/22 Time of Service: 09:59 Operative Note Operative Note DATE OF PROCEDURE: 10/06/22 PRE-OP DIAGNOSIS: Perianal abscess POST-OP DIAGNOSIS: same PROCEDURE: Exam under anesthesia Wash out Packing replacement SURGEON: Iram Ryan ANESTHESIA TYPE: General:No Airway Refer to Anesthesia Record ESTIMATED BLOOD LOSS: 5 PATHOLOGY: other (Cultures) COMPLICATIONS: None Patient was transported to: floor Patient's condition: stable Indications: Mr. Escobedo is a pleasant 57 year old male who underwent an I&D of a perirectal abscess. He feels much better then yesterday. Surgery was discussed with him regarding exam under anesthesia, washout and packing replacement. Risks, benefits and complications were reviewed. Complications include but are not limited to bleeding, sepsis, injury to rectum or sphincter with incontinence. Patients questions were entertained and answered to his satisfaction and he wished to proceed. NO guarantees were given or implied. Findings: No purulent dischartge. Open wound. NO bleeding Procedure Description: After informed consent was obtained the patient was taken to the Operating room and placed in a supine position. Monitors were applied and a time out was done. The patients name, , allergies to medications, procedure to be done and location where reviewed by the team and patient. The patient was then asked to lay on his right side. He was then placed under General anesthesia without ai rway. The packing was removed. The skin was cleaned with iodine. 0.25% Marcaine was injected around the wound into the subcutaneous tissue. The wound cavity was explored. NO purulent discharge was noted. There were no clots. The wound was then irrigated with 840 cc of saline. A small amount of Kerlix was moistened and placed into the cavity. It was not packed too tight. The skin was cleaned a nd dried. Mesh panties were placed over an ABD. The patient was placed on his bed in a supine position and allowed to wake up slowly. The patient tolerated the procedure well and there were no immediate complications.
[2022-10-07] MEDS: Losartan 50 MG TAB PO (10:01)
[2022-10-07] MEDS: Pantoprazole 40 MG TABCR PO (10:01)
[2022-10-07] MEDS: Methocarbamol 750 MG TAB PO ×4 (10:01→20:04)
[2022-10-07] MEDS: Polyethylene Glycol 3350 17 GM PACKET PO (10:02)
--- NOTE | 2022-10-07 10:15 | PGE_ITS ---
Date of Service Date of service: 10/07/22 Time of Service: 13:26 Assessment and Plan Assessment and plan (1) Abscess, perirectal: Status: Acute Assessment and plan: POD #1/0 His packing was changed in the OR today. Plan is to try and change his dressing at the bedside tomorrow. If he is able to tolerate then will plan on D/C either tomorrow or Sunday with Home Health for d aily dressing changes and weekly office visits (2) Chronic diarrhea: Status: Acute Assessment and plan: May benefit from some metamucil to bulk up his stools Subjective Subjective Interval history since last seen: Harish is doing well. He is comfortable. He is able to get up and walk without much discomfort. I discussed findings from the OR with him and his . Exam Resp Effort & Inspection: normal respiratory effort Auscultation: clear to auscultation bilaterally Cardio Rate: regular rate Rhythm: regular rhythm GI Palpation: soft, no hepatosplenomegaly and nontender Objective Last Vital Signs Temp 98.2 F 10/07/22 06:32 Pulse 83 10/07/22 06:32 Resp 18 10/07/22 06:32 BP 118/79 10/07/22 06:32 Pulse Ox 96 10/07/22 06:32 PAWSS Have you Been Recently Intoxicated or Drunk Within the Last 30 days?: No Have you Ever Experienced Previous Episodes of Alcohol Withdrawal?: No Have you ever Experienced Withdrawal Seizures?: No Have you ever Experienced Delirium Tremens(DT)s?: No Have you ever undergone Alcohol Rehabilitation Treatment (i.e, inpt ot outpatient treatment programs)?: No Have you ever Experienced Blackouts?: No Have you ever Combined Alcohol with other Downers within the last 90 days?: No Have you ever Combined Alcohol with any other Substance of Abuse during the last 90 days?: No Result: 0 Time Spent with Patient Time Spent with Patient: 25-34 minutes Time was spent: preparing to see the patient(eg.review tests), obtaining and/or reviewing separately otained hiistory, indepentently interpreting results and counseling the patient
--- NOTE | 2022-10-07 10:29 | NUR.NOTE ---
Nursing Note: Patient was returned to room from the from the OR at 0945. patient was in bed, VS obtained & pain managed given. Call light & bedside table within reach. Will continue to monitor.
[2022-10-07] MEDS: Sertraline 50 MG TAB PO (11:15)
[2022-10-07 11:57] LABS: Abs Immature Grans 0.05 10^3/uL (0.0-0.06); Absolute Basophil Count 0.03 10^3/uL (0.0-0.2); Absolute Eosinophil Count 0.08 10^3/uL (0.0-0.7); Absolute Lymphocyte Count 0.72 10^3/uL (1.2-3.4); Absolute Monocyte Count 0.76 10^3/uL (0.1-0.8); Absolute Neutrophil Count 5.27 10^3/uL (1.2-6.7); Basophils % 0.4; Eosinophils % 1.2; HGB 10.2 g/dL (13.5-17.5); Immature Grans % 0.7; Lymphocytes % 10.4; MCH 31.8 pg (27.0-33.0); MCV 94 fL (80-95); MPV 8.2 fL (8.0-11.0); Neutrophils % 76.3; Platelet Count 278 10^3/uL (130-400); RBC 3.21 10^6/uL (4.36-5.78); RDW 11.9 % (11.8-14.1); RDW-SD 41.1 fL; WBC 6.91 10^3/uL (4.4-10.8)
--- NOTE | 2022-10-07 15:10 | W.ANESPOSTOP ---
Postoperative Evaluation Date, Time and Location Date Performed: 10/07/22 Time Performed: 10:00 Patient Location: Med/Surg Vital Signs Most Recent Imported Vital Signs: Most Recent Vital Signs Temp Pulse Resp BP Pulse Ox 37.0 C 79 18 107/74 95 10/07/22 09:45 10/07/22 09:45 10/07/22 09:45 10/07/22 09:45 10/07/22 09:45 Most Recent Vital Signs Temp Pulse Resp BP Pulse Ox 37.0 C 85 11 L 116/94 H 98 10/06/22 14:56 10/06/22 14:56 10/06/22 14:56 10/06/22 14:56 10/06/22 14:56 Pain Score Most Recent Pain Score: Most Recent Pain Score Pain Level [Rectum] 7 10/07/22 08:00 Pain Level 5 10/07/22 12:16 Assessment Mental Status: Awake (Alert & Oriented to Patient Baseline) Airway and Respiratory Function: Patent airway with normal (patient baseline) respiratory exam Cardiovascular Function: Hemodynamically Stable Hydration Status: Adequately Hydrated Nausea & Vomiting: No Nausea or Vomiting Pain: Pain is tolerable per patient (C/O stinging sensation at surgical site.) Peripheral Nerve Block: Patient did not receive a nerve block
[2022-10-07 15:37] VITALS: BP 109/70; PULSE 90; RESP 16; TEMP 37.3; O2SAT 98
[2022-10-07] MEDS: levoFLOXacin 500 MG/100 ML BAG 100 MG IVPB (15:39)
[2022-10-07] MEDS: Ibuprofen 600 MG TAB PO ×2 (15:39→20:04)
[2022-10-07] MEDS: HYDROcodone 5/Acetaminophen 325 TAB PO ×2 (15:39→22:03)
[2022-10-07] MEDS: Sertraline 100 MG TAB PO (17:44)
[2022-10-07] MEDS: Enoxaparin 40 MG/0.4 ML SYR SC (17:44)
[2022-10-07] MEDS: Zolpidem 10 MG TAB PO (20:04)
[2022-10-07 23:18] VITALS: BP 97/56; PULSE 77; RESP 16; TEMP 37; O2SAT 96
[2022-10-08] MEDS: metroNIDAZOLE 500 MG/100 ML BAG 100 MG IVPB ×2 (04:32→11:39)
[2022-10-08 07:33] VITALS: BP 130/86; PULSE 90; RESP 16; TEMP 36.4; O2SAT 97
[2022-10-08] MEDS: Ibuprofen 600 MG TAB PO ×2 (07:41→11:39)
[2022-10-08] MEDS: hydroCHLOROthiazide 12.5 MG TAB PO (07:41)
[2022-10-08] MEDS: Omeprazole 20 MG CAPCR PO (07:41)
[2022-10-08] MEDS: Polyethylene Glycol 3350 17 GM PACKET PO (07:41)
[2022-10-08] MEDS: Methocarbamol 750 MG TAB PO ×2 (07:42→11:39)
[2022-10-08] MEDS: Losartan 50 MG TAB PO (07:42)
[2022-10-08] MEDS: HYDROcodone 5/Acetaminophen 325 TAB PO (10:27)
[2022-10-08] MEDS: Normal Saline Flush 10 ML SYR IVP (11:39)
[2022-10-08] MEDS: Sertraline 50 MG TAB PO (11:39)
--- NOTE | 2022-10-08 12:12 | W.PM.PROGNOT ---
Date of Service Date of service: 10/08/22 Time of Service: 12:12 Assessment and Plan Assessment and plan (1) Abscess, perirectal: Status: Acute Assessment and plan: POD #2/1 His packing was changed in the room today. Waiting to see if Home Health can be set up for tomorrow. If able to have home health come out to his home tomorrow then will D/C today. If not then will D/C tomorrow (2) Chronic diarrhea: Status: Acute Assessment and plan: May benefit from some metamucil to bulk up his stools Subjective Subjective Interval history since last seen: Harish is feeling good. He has been up and walking with minimal pain. Exam Const General: healthy appearing, comfortable and no acute distress Orientation: alert and oriented x3 HENMT Head: normocephalic and atraumatic Resp Effort & Inspection: normal respiratory effort Auscultation: clear to auscultation bilaterally Cardio Rate: regular rate Rhythm: regular rhythm GI Other: BUttock wound- The packing was removed. about 2 inches of new 2 moist Kerlix packing was placed with the aid of a Qtip. The wound looked healthy. There was no purulent discharge Objective Last Vital Signs Temp 97.5 F L 10/08/22 07:33 Pulse 90 10/08/22 07:33 Resp 16 10/08/22 07:33 BP 130/86 10/08/22 07:33 Pulse Ox 97 10/08/22 07:33 PAWSS Have you Been Recently Intoxicated or Drunk Within the Last 30 days?: No Have you Ever Experienced Previous Episodes of Alcohol Withdrawal?: No Have you ever Experienced Withdrawal Seizures?: No Have you ever Experienced Delirium Tremens(DT)s?: No Have you ever undergone Alcohol Rehabilitation Treatment (i.e, inpt ot outpatient treatment programs)?: No Have you ever Experienced Blackouts?: No Have you ever Combined Alcohol with other Downers within the last 90 days?: No Have you ever Combined Alcohol with any other Substance of Abuse during the last 90 days?: No Result: 0 Time Spent with Patient Time Spent with Patient: 25-34 minutes Time was spent: preparing to see the patient(eg.review tests) and counseling the patient
--- NOTE | 2022-10-08 13:41 | W.PM.DS.N ---
Date of service: 10/08/22 Time of Service: 13:42 DS: Diagnosis Discharge Diagnosis (1) Abscess, perirectal: Status: Acute (2) Chronic diarrhea: Status: Acute Discharge Plan Disposition Patient Disposition: Home W/Home Health Services Condition: Improving Discharge Details Reason For Visit: Ayaka Rectal Abscess Admit Date/Time: 10/05/22 14:15 Admit Provider: Akosua Yang Attending Provider: Akosua Yang Primary Care Provider: Clint Asher Hospital Course Hospital Course: Mr. Escobedo is a pleasant 57 year old male who was admitted on 10/05/22 with a perirectal abscess. He was taken to the Operating room the next day and his abscess was drained. A packing was placed. He was taken back to the OR the next day for a dressing change. Today he was able to tolerate the dressing change at the bedside. His WBC count is normal and he has been afebrile. Home Meds and New Rx's Prescriptions: New hydrocodone-acetaminophen 5-325 mg Tablet 1 tab PO DAILY Qty: 14 0RF ibuprofen 600 mg Tablet 600 mg PO QID Qty: 30 0RF levofloxacin 750 mg tablet 750 mg PO DAILY 7 Days Qty: 7 0RF metronidazole 500 mg tablet 500 mg PO Q8H 7 Days Qty: 21 0RF Continued hydrochlorothiazide 12.5 mg tablet 12.5 mg PO DAILY Qty: 90 3RF zolpidem 10 mg tablet 10 mg PO QHS PRN (Reason: sleep) Qty: 90 3RF sertraline 100 mg tablet 100 mg PO DAILY Qty: 90 3RF Rx Instructions: takes at 7pm losartan 50 mg tablet 50 mg PO DAILY Qty: 90 3RF sertraline 50 mg tablet 50 mg PO DAILY Qty: 90 3RF Rx Instructions: takes at noon Discharge Instructions Additional Instructions: Activity at Home after surgery: 1. Make sure you walk outside at least 4 times per day 2. You should be able to climb a flight of stairs 3. No driving while in pain or taking pain medications Diet, Nutrition, & wound healin. Avoid alcohol until after you are recovered from your surgery 2. Make sure to eat plenty of lean protein (meat, fish, eggs, cottage cheese, beans) 3. Eat a variety of fruits and vegetables. Eat plenty of high fiber foods to avoid constipation. 4. Drink plenty of liquids to stay hydrated and avoid constipation Pain Medications: 1. Tylenol 650mg every 6 hours as needed and Ibuprofen 600 mg every 6 hours as needed. You may alternate between the 2 medications every 3 hours 2. If a narcotic has been prescribed take as directed only for breakthrough pain For Constipation: 1. Take Milk of Magnesia or MiraLax as needed for constipation Other: 1. You may shower daily. Do not scrub the incisions 2. Do not soak the incisions for 1 week 3. You may alternate ice and heat as needed for pain and swelling Wound Care: 1. Keep the incisions clean and dry Other Services that may have been ordered: X Home Health- to help with dressing changes. Take your narcotic pain medication 30 minutes before the dressing change. Junp in the shower when the nurse arrives or just before to get the dressing wet. Please call our office if you develop: 1. Fevers >101.5 2. Nausea or Vomiting 3. Worsening pain 4. Redness and thick discharge from the wounds If after hours please call the Hospital at and ask to speak to the on-call surgeon Referrals: Iram Ryan MD [ [facility] STAFF PHYSICIAN] - 10/13/22 Activity:: Activity as Tolerated Equipment/Supplies:: No Equipment Needed Diet:: As Tolerated Discharge Orders Discharge Orders: Discharge Order (Routine); Ordered 10/08/22 Ordered By: Iram Ryan DS: Summary Time Spent with Patient providing and/or coordinating discharge services: Greater than 30 minutes Status at Discharge Functional status at discharge: independent ambulation Overall status at discharge: patient is back to baseline Mental Status: mental status grossly normal Speech and Movement: speech and movement normal Mood: congruent mood Affect: normal affect Exam Psych Mental Status: mental status grossly normal Speech and Movement: speech and movement normal Mood: congruent mood Affect: normal affect DS: Data Vitals/I&O Vitals and I&O: Vital Signs Temperature 97.5 F L 10/08/22 07:33 Temperature Source Tympanic 10/08/22 07:33 Pulse 90 10/08/22 07:33 Pulse Rhythm Regular 10/08/22 08:37 Respiratory Rate 16 10/08/22 07:33 Respiratory Effort Normal 10/08/22 08:37 Respiratory Depth Normal 10/08/22 08:37 Respiratory Pattern Normal 10/08/22 08:37 Blood Pressure 130/86 10/08/22 07:33 Blood Pressure Position Standing 10/05/22 12:16 Pulse Oximetry 97 10/08/22 07:33 Respiratory End-tidal CO2 38 10/06/22 14:56 Oxygen Delivery Method Room Air 10/08/22 07:33 Oxygen Flow Rate 0 10/08/22 07:33 Pain Level 3 10/08/22 11:39 Comment Patient just returned from the OR. 10/07/22 09:45 Intake & Output 10/07/22 10/08/22 10/08/22 23:59 11:59 23:59 Intake Total 540 / 1210 350 / 633.333 283.333 / 633.333 Balance 540 / 1210 350 / 633.333 283.333 / 633.333 Intake: IV 300 / 510 100 / 143.333 43.333 / 143.333 Oral 240 / 700 250 / 490 240 / 490 Other: Urine Appearance Clear Clear Stool Size Moderate Stool Characteristics Soft Brown Voiding Methods Toilet Toilet Data Completed and Pending Labs on day of discharge: 10/06/22 14:16 Perirectal Anaerobic Culture - Pending Preliminary micro results at discharge 10/06/22 14:16 Surgical Culture - Preliminary Perirectal Gram Positive & Negative [place] 10/05/22 13:21 Blood Culture - Preliminary Blood NO GROWTH 48 HOURS 10/05/22 12:50 Blood Culture - Preliminary Blood NO GROWTH 48 HOURS 10/06/22 14:16 Anaerobic Culture - Pending Perirectal PFSH All Active Problems Abscess, perirectal (Acute) Chronic diarrhea (Acute) Trigger finger, right ring finger (Acute) Chronic rhinitis (Acute) Postnasal drip (Acute) Seeing ENT at [facility] Tachycardia (Acute) Hypertension (Chronic) Insomnia (Chronic) Depressive disorder (Chronic) Generalized anxiety disorder (Chronic) Colon cancer screening declined (Acute) Asthma (Acute) Fatigue (Acute) Other color vision deficiencies (Acute) red/green Nevus, non-neoplastic (Acute) Family history of cancer (Acute 12/01/15) father: metastatic prostate CA, brother: oral CA, two sisters: breast CA Contact dermatitis and eczema (Acute) Anal fissure (Acute 03/28/12) Acid indigestion (Acute) Surgical History Nasal septoplasty (~2006) and reduction of turbinates Status post adenoidectomy Status post nasal septoplasty Status post tonsillectomy Tonsillectomy and adenoidectomy Family History Mother Depression Stroke Father , age 88 Cancer Sister Cancer Sister Cancer Brother Alcohol abuse Cancer Depression Hypertension Social History Smoking/Tobacco Use Status: Never Second Hand Exposure: Yes Smoking risk assessment performed?: Yes Alcohol Intake: current Alcohol Intake frequency: a few times a week Alcohol type: beer, wine and hard liquor Drug use: Never Substance use type: does not use Caregiver/Support person: No Household members: spouse Housing: house Communication Needs: None Do you need help understanding health information?: Never Pets and animals: No Sexually active: Yes Do you think of yourself as: straight/heterosexual Current gender identity: male What is your relationship status?: How often do you talk on the phone with friends or family?: once per week How often do you get together with friends or relatives?: once per week How often do you attend holiness or christianity services?: decline to answer Do you belong to any clubs or organized social groups?: no Panel score (0-1 are the most socially isolated patients): 1 What type of physical activity do you participate in: other Details: stretches Duration: 15-30 minutes/day Frequency: 5-6 times per week Chantel/Shinto: Mosque Special chantel needs: No Seatbelt use: always Helmet use: Yes Helmet use: sometimes Drive intox or ride w/intox 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
--- NOTE | 2022-10-08 17:12 | PDOC.CMDIS ---
- If Service Date Differs Date of service: 10/08/22 Time of Service: 17:12 LACE Index Scoring Tool - Questions: Length of Stay (in days): 3 Acuity (Admit via E.D.?): Yes E.D. Visits: 2 - Answers: Total Score: 8 Risk of Readmission: Low Risk Care Management Discharge Reason for Hospitalization: Ayaka Rectal Abscess Discharge Plan: Patient is discharged home with new RN services. He will follow up with his PCP, surgeon and plan of care as instructed. He is transported home by family via private vehicle. Patient/Family Education Needs: Review of discharge instructions and discuss Ask Me Three and self management. Services Needed at Discharge: Home Health Care Services
== END 2022-10-08 14:53 | disposition home health service (06) | DRG 346 ==
LOC: ER 14:24 → MS 15:32
PROVIDERS: Surgery; Admitting Provider Surgery; Emergency Provider Nurse Practitioner Family; PCP Nurse Practitioner Family; Visit Provider Surgery
PROC: 0D9P0ZZ Drainage of Rectum, Open Approach (ICD-10-PCS; CPT 46040; principal; 2022-10-06 13:15)
PROC: 2Y43X5Z Packing of Anorectal Region using Packing Material (ICD-10-PCS; CPT 45990; principal; 2022-10-07 09:00)
DX: K61.1 Rectal abscess (principal); K30 Functional dyspepsia; K52.9 Noninfective gastroenteritis and colitis, unspecified; F32.A Depression, unspecified; R53.83 Other fatigue; I10 Essential (primary) hypertension; F51.01 Primary insomnia; R00.0 Tachycardia, unspecified; R50.9 Fever, unspecified; J31.0 Chronic rhinitis; F41.1 Generalized anxiety disorder; J45.909 Unspecified asthma, uncomplicated; H53.59 Other color vision deficiencies; Z80.3 Family history of malignant neoplasm of breast; Z80.42 Family history of malignant neoplasm of prostate; Z80.0 Family history of malignant neoplasm of digestive organs
CPT/HCPCS: 46040; 45990; 36415; 80053; 83690; 87040; 87635; 96361; 96365; 96366; 96368; 96375; 99285; J1650; 74177; 82728; 83605; 83735; 85025; 86140; 87070; 87075; 87205; J0131; J1170; J1885; J1956; J2250; J2270; J2405

== ENCOUNTER 2022-11-06 10:23 | Outpatient (REF) | payer BC, SELFPAY ==
[2022-11-06 11:23] LABS: C-Reactive Protein 2.21 mg/dL (0.0-0.3)
[2022-11-06 11:32] LABS: Bilirubin Negative (Negative); Blood Trace-lysed (Negative); Clarity Clear (Clear); Glucose Negative (Negative); Ketones Negative (Negative); Leukocyte Esterase Negative (Negative); Nitrite Negative (Negative); Urobilinogen 0.2 mg/dL (Up to 0.2); pH 5.5 (5-8)
[2022-11-06 11:38] LABS: Abs Immature Grans 0.02 10^3/uL (0.0-0.06); Absolute Basophil Count 0.04 10^3/uL (0.0-0.2); Absolute Eosinophil Count 0.15 10^3/uL (0.0-0.7); Absolute Lymphocyte Count 1.38 10^3/uL (1.2-3.4); Absolute Monocyte Count 0.77 10^3/uL (0.1-0.8); Absolute Neutrophil Count 6.32 10^3/uL (1.2-6.7); Basophils % 0.5; Eosinophils % 1.7; HCT 41.9 % (40.0-50.0); HGB 14.7 g/dL (13.5-17.5); Immature Grans % 0.2; Lymphocytes % 15.9; MCH 31.6 pg (27.0-33.0); MCHC 35.1 % (32.0-36.0); MCV 90 fL (80-95); MPV 9.6 fL (8.0-11.0); Monocytes % 8.9; Neutrophils % 72.8; Platelet Count 239 10^3/uL (130-400); RBC 4.65 10^6/uL (4.36-5.78); RDW 12.2 % (11.8-14.1); RDW-SD 39.8 fL; WBC 8.68 10^3/uL (4.4-10.8)
[2022-11-06 11:45] LABS: Bacteria Rare HPF (Negative); C & S Indicated? No; Casts Negative LPF (Negative); Crystals Negative HPF (Negative); Epithelial Cells Negative HPF (Negative); Mucus Negative (Negative); Other Cells Negative (Negative); RBC 0-2 HPF (0-2); WBC Negative HPF (0-5)
== END 2022-11-06 10:24 | disposition home or self-care (01) ==
LOC: LBN 10:23
PROVIDERS: PCP Nurse Practitioner Family; Visit Provider Surgery
DX: N49.2 Inflammatory disorders of scrotum (principal)
CPT/HCPCS: 81003; 81015; 85025; 86140

== ENCOUNTER 2022-11-06 12:55 | Inpatient (IN) | payer BC, SELFPAY ==
--- NOTE | 2022-11-06 13:00 | W.PM.HP.N ---
Date of service: 11/06/22 Time of Service: 14:43 Assessment and Plan Assessment and plan (1) Scrotal abscess: Status: Acute Assessment and plan: - Levaquin and Flagyl -Surgery in a.m. for wound exploration and possible incision and drainage of scrotal abscess Risks of surgery in include bleeding, infection, scarring, packing and need for dressing changes, recurrence , complications with anesthesia -Supportive care -Pain management plan (2) Anxiety about health: Status: Acute Assessment and plan: Started on Zoloft (3) Rectal fistula: Status: Acute (4) Asthma: Status: Acute (5) Generalized anxiety disorder: Status: Chronic (6) Postnasal drip: Status: Acute (7) Chronic rhinitis: Status: Acute (8) Hypertension: Qualifiers: Hypertension type: primary hypertension Qualified Code(s): I10 - Essential (primary) hypertension (9) Insomnia: Qualifiers: Insomnia type: primary Qualified Code(s): F51.01 - Primary insomnia History of Present Illness Narrative: The patient was seen today in follow-up in the clinic. His original wound on the left buttock/left perirectal abscess is healed. He has had no bleeding or drainage from the site. He has now developed a new abscess on the left side of his scrotum he denies any fevers or chills. He denies any nausea or vomiting. There has been no drainage. It is just painful. I did send him for a CT which does show an abscess -2 x 1 cm. It does seem to communicate with the cavity of the prior infection. It is unclear if this is a new isolated abscess or just extension of the old abscess. His old abscess was quite large and extensive. I do want to be aggressive in treatment before this becomes large he has no fever or white count today. He had no problems with anesthesia with his last surgery. Review of Systems All systems reviewed & are unremarkable except as noted in HPI and below PFSH All Active Problems (Updated 11/06/22 @ 10:13 by Akosua Yang DO) Scrotal abscess (Acute) Anxiety about health (Acute) Rectal fistula (Acute) Abscess, perirectal (Acute) Trigger finger, right ring finger (Acute) Chronic rhinitis (Acute) Postnasal drip (Acute) Seeing ENT at [facility] Generalized anxiety disorder (Chronic) Colon cancer screening declined (Acute) Asthma (Acute) Other color vision deficiencies (Acute) red/green Nevus, non-neoplastic (Acute) Contact dermatitis and eczema (Acute) Anal fissure (Acute 03/28/12) Medical History (Updated 11/06/22 @ 10:13 by Akosua Yang DO) Acid indigestion Chronic diarrhea Depressive disorder Family history of cancer (12/01/15) father: metastatic prostate CA, brother: oral CA, two sisters: breast CA Fatigue Hypertension Insomnia Tachycardia Surgical History Nasal septoplasty (~2006) and reduction of turbinates Status post adenoidectomy Status post nasal septoplasty Status post tonsillectomy Tonsillectomy and adenoidectomy Family History Mother Depression Stroke Father , age 88 Cancer Sister Cancer Sister Cancer Brother Alcohol abuse Cancer Depression Hypertension Social History Smoking/Tobacco Use Status: Never Second Hand Exposure: Yes Smoking risk assessment performed?: Yes Alcohol Intake: current Alcohol Intake frequency: a few times a week Alcohol type: beer, wine and hard liquor Drug use: Never Substance use type: does not use Caregiver/Support person: No Household members: spouse Housing: house Communication Needs: None Do you need help understanding health information?: Never Pets and animals: No Sexually active: Yes Do you think of yourself as: straight/heterosexual Current gender identity: male What is your relationship status?: How often do you talk on the phone with friends or family?: once per week How often do you get together with friends or relatives?: once per week How often do you attend synagogue or islam services?: decline to answer Do you belong to any clubs or organized social groups?: no Panel score (0-1 are the most socially isolated patients): 1 What type of physical activity do you participate in: other Details: stretches Duration: 15-30 minutes/day Frequency: 5-6 times per week Chantel/Temple: Oriental Orthodox Special chantel needs: No Seatbelt use: always Helmet use: Yes Helmet use: sometimes Drive intox or ride w/intox 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 Do you feel safe at home: Yes Do you feel safe in your relationship?: Yes Victim of physical abuse: No Victim of emotional abuse: No Victim of sexual abuse: No Would you like helpful sources: No Meds Allergies and Home Medications Allergies Allergy/AdvReac Type Severity Reaction Status Date / Time amoxicillin Allergy Intermediate Swelling/Ed Verified 11/06/22 09:54 suzi acetaminophen AdvReac Mild Nausea Unverified 11/06/22 09:54 enviornmental Allergy Mild Wheezing Uncoded 11/06/22 09:54 Home Medications Medication Instructions Recorded Confirmed Type hydrochlorothiazide 12.5 mg tablet 12.5 mg PO DAILY #90 tabs 05/24/22 10/24/22 Rx zolpidem 10 mg tablet 10 mg PO QHS PRN sleep #90 tabs 05/24/22 10/24/22 Rx losartan 50 mg tablet 50 mg PO DAILY #90 tabs 08/11/22 10/24/22 Rx sertraline 100 mg tablet 100 mg PO DAILY #90 tabs 08/11/22 10/24/22 Rx sertraline 50 mg tablet 50 mg PO DAILY #90 tabs 10/02/22 10/24/22 Rx lorazepam 0.5 mg tablet 0.5 mg PO BID PRN anxiety #60 tabs 10/11/22 10/24/22 Rx nystatin 100,000 unit/gram topical 1 applic topical BID #60 grams 10/13/22 10/24/22 Rx powder ibuprofen 600 mg tablet 600 mg PO QID #60 tabs 10/19/22 10/24/22 Rx Exam Const General: cooperative, healthy appearing, uncomfortable, in distress and anxious Nutritional Appearance: average body habitus Orientation: alert, awake and oriented x3 Other: PHYSICAL EXAM GENERAL APPEARANCE: Alert, healthy appearance, oriented, x 3,? in no acute distress HYDRATION: Well hydrated HEAD, EYES, EARS, NECK, THROAT: Head is normocephalic, pupils equal, round, reactive to light and accommodation, ocular movement intact, sclera clear and no jaundice. ?Dentition intact. NECK: no lymphadenopathy.? Trachea midline.? Neck supple.? No JVD LUNGS: normal respiration/normal chest excursion. ?Clear to auscultation bilaterally. ?No wheeze. ?HEART: Regular rate and rhythm. no murmurs ABDOMEN: soft and non-tender to palpation.? Normal bowel sounds.? The the incision and drainage cavity from the previous abscess is healing up nicely. It is about 2 x 2 cm with no depth and epithelializing in. There is no opening that I can feel. There is a 2 x 2 area of firmness/redness/tenderness on the left hemiscrotum.. It is exquisitely painful. Patient states this started on Sunday Time Spent Time spent with Patient: 55-74 minutes Time was spent: preparing to see the patient(eg.review tests), obtaining and/or reviewing separately otained hiistory, ordering medications,tests, procedures, referring, communicating with other health primary care sales representative, indepentently interpreting results, counseling the patient and care coordination
[2022-11-06 13:24] VITALS: BP 111/82; PULSE 101; RESP 18; TEMP 36.8; O2SAT 96
[2022-11-06] MEDS: Normal Saline Flush 10 ML SYR IVP (14:15)
[2022-11-06] MEDS: MORPHine 2 MG/ML SYR IVP ×2 (14:15→20:41)
[2022-11-06] MEDS: Enoxaparin 40 MG/0.4 ML SYR SC (14:15)
[2022-11-06] MEDS: metroNIDAZOLE 500 MG/100 ML BAG 100 MG IVPB ×2 (14:16→22:17)
[2022-11-06] MEDS: Normal Saline 500 ML 30 ML IV (14:17)
[2022-11-06] MEDS: Normal Saline 1,000 ML 80 ML IV (14:32)
[2022-11-06 15:42] VITALS: BP 111/76; PULSE 81; RESP 16; TEMP 36.8; O2SAT 97
[2022-11-06] MEDS: Acetaminophen 500 MG TAB 1000 MG PO ×2 (15:44→22:15)
[2022-11-06] MEDS: Ketorolac 15 MG/ML VIAL IVP ×2 (15:45→22:16)
[2022-11-06] MEDS: levoFLOXacin 750 MG/150 ML BAG 100 MG IVPB (16:29)
[2022-11-06] MEDS: Sertraline 100 MG TAB PO (18:01)
[2022-11-06] MEDS: Ondansetron 4 MG/2 ML VIAL IVP (20:41)
[2022-11-06] MEDS: Zolpidem 10 MG TAB PO (20:43)
[2022-11-06 23:39] VITALS: BP 110/72; PULSE 78; RESP 16; TEMP 36.6; O2SAT 97
[2022-11-07] MEDS: Ketorolac 15 MG/ML VIAL IVP ×3 (04:29→19:44)
[2022-11-07] MEDS: Acetaminophen 500 MG TAB 1000 MG PO ×2 (04:30→19:44)
[2022-11-07] MEDS: Normal Saline Flush 10 ML SYR IVP ×5 (04:39→19:43)
[2022-11-07] MEDS: Ondansetron 4 MG/2 ML VIAL IVP (04:39)
[2022-11-07] MEDS: metroNIDAZOLE 500 MG/100 ML BAG 100 MG IVPB ×2 (06:27→21:46)
[2022-11-07 06:45] VITALS: BP 124/82; PULSE 70; RESP 17; TEMP 36.5; O2SAT 98
[2022-11-07 07:08] LABS: HCT 38.3 % (40.0-50.0); HGB 12.9 g/dL (13.5-17.5); MCH 31.2 pg (27.0-33.0); MCHC 33.7 % (32.0-36.0); MCV 93 fL (80-95); Platelet Count 171 10^3/uL (130-400); RBC 4.13 10^6/uL (4.36-5.78); RDW 12.1 % (11.8-14.1); RDW-SD 41.2 fL; WBC 6.02 10^3/uL (4.4-10.8)
[2022-11-07] MEDS: Losartan 50 MG TAB PO (08:42)
[2022-11-07] MEDS: MORPHine 2 MG/ML SYR IVP (09:37)
[2022-11-07] MEDS: Normal Saline 1,000 ML 80 ML IV (10:43)
[2022-11-07] MEDS: Sertraline 50 MG TAB PO (12:21)
--- NOTE | 2022-11-07 14:31 | ANES.PREOP_ITS ---
General Info Date of Service Date Performed: 11/07/22 Height: 5 ft 8 in Weight: 77 kg Body Mass Index (BMI): 25.8 Surgical Procedure: Operation Date: 11/07/22 14:25 Proposed Procedure Side Surgeon p Exam Under Anesthesia, Possible Rectal Scrotal I&D Akosua Yang, Meds Allergies and Home Medications Allergies Allergy/AdvReac Type Severity Reaction Status Date / Time amoxicillin Allergy Intermediate Swelling/Ed Verified 11/06/22 09:54 suzi acetaminophen AdvReac Mild Nausea Unverified 11/06/22 09:54 enviornmental Allergy Mild Wheezing Uncoded 11/06/22 09:54 Home Medication Medication Instructions Recorded hydrochlorothiazide 12.5 mg tablet 12.5 mg PO DAILY #90 tabs 05/24/22 zolpidem 10 mg tablet 10 mg PO QHS PRN sleep #90 tabs 05/24/22 losartan 50 mg tablet 50 mg PO DAILY #90 tabs 08/11/22 sertraline 100 mg tablet 100 mg PO DAILY #90 tabs 08/11/22 sertraline 50 mg tablet 50 mg PO DAILY #90 tabs 10/02/22 lorazepam 0.5 mg tablet 0.5 mg PO BID PRN anxiety #60 tabs 10/11/22 nystatin 100,000 unit/gram topical 1 applic topical BID #60 grams 10/13/22 powder ibuprofen 600 mg tablet 600 mg PO QID #60 tabs 10/19/22 Current Visit Medications: Current Medications Generic Name Dose Route Start Last Admin Trade Name Freq PRN Reason Stop Dose Admin Enoxaparin Sodium 40 mg 11/06/22 14:00 11/07/22 12:54 Enoxaparin 40 Mg/0.4 Ml Syr SC Not Given Q24H JOCELYN Gabapentin 600 mg 11/07/22 06:00 Gabapentin 300 Mg Cap PO 11/07/22 16:00 PREOP JOCELYN Sodium Chloride 500 mls @ 0 mls/hr 11/06/22 12:55 11/06/22 15:19 Saline 500ml Bag IV 0 mls/hr PRN PRN Infusion As Directed Sodium Chloride 1,000 mls @ 80 mls/hr 11/06/22 13:00 11/07/22 10:43 Saline 1000ml Bag IV 80 mls/hr INFUSION JOCELYN Administration Levofloxacin 750 mg in 150 mls @ 100 mls/hr 11/06/22 16:00 11/07/22 09:43 Levaquin Premixed Bag IVPB Infused Q24H JOCELYN Infusion Protocol Metronidazole 500 mg in 100 mls @ 100 mls/hr 11/06/22 14:00 11/07/22 09:42 Flagyl IVPB Infused Q8H JOCELYN Infusion IV Miscellaneous Supplies 1 each 11/06/22 13:00 Iv Access IV DIRECTED JOCELYN Ketorolac Tromethamine 15 mg 11/06/22 16:00 11/07/22 10:42 Ketorolac 15 Mg/Ml Vial IVP 11/11/22 15:59 15 mg Q6H JOCELYN Administration Lactobacillus Acidophilus/Casei 1 cap 11/07/22 08:30 11/07/22 08:42 L. Acidophilus, Casei, Rhamnosus Cap PO 1 cap DAILY JOCELYN Administration Losartan Potassium 50 mg 11/07/22 08:30 11/07/22 08:42 Losartan 50 Mg Tab PO 50 mg DAILY JOCELYN Administration Morphine Sulfate 2 mg 11/06/22 12:55 11/07/22 09:37 Morphine 2 Mg/Ml Syr IVP 2 mg Q1H PRN PRN Administration Ondansetron HCl 4 mg 11/06/22 12:55 11/07/22 04:39 Ondansetron 4 Mg/2 Ml Vial IVP 4 mg Q4H PRN PRN Administration Sertraline HCl 100 mg 11/06/22 18:00 11/06/22 18:01 Sertraline 100 Mg Tab PO 100 mg DAILY@1800 JOCELYN Administration Sertraline HCl 50 mg 11/07/22 12:00 11/07/22 12:21 Sertraline 50 Mg Tab PO 50 mg DAILY@1200 [facility] Administration Sodium Chloride 0 ml 11/06/22 12:55 11/07/22 10:43 Normal Saline Flush 10 Ml Syr IVP 10 ml PRN PRN Administration Zolpidem Tartrate 10 mg 11/06/22 14:46 11/06/22 20:43 Zolpidem 10 Mg Tab PO 10 mg HS PRN PRN Administration sleep PFSH Active Problems Active Problems: Problem Status Onset Code Scrotal abscess N49.2 Anxiety about health F41.8 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 Abscess, perirectal K61.1 Trigger finger, right ring finger M65.341 Chronic rhinitis J31.0 Postnasal drip R09.82 Generalized anxiety disorder F41.1 Colon cancer screening declined Z53.20 Asthma J45.909 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 Nevus, non-neoplastic I78.1 Contact dermatitis and eczema L25.9 Anal fissure 03/28/12 K60.2 Medical History Medical History (Updated 11/06/22 @ 10:13 by Akosua Yang DO) Acid indigestion Chronic diarrhea Depressive disorder Family history of cancer (12/01/15) father: metastatic prostate CA, brother: oral CA, two sisters: breast CA Fatigue Hypertension Insomnia Tachycardia Surgical History Surgical History Nasal septoplasty (~2006) and reduction of turbinates Status post adenoidectomy Status post nasal septoplasty Status post tonsillectomy Tonsillectomy and adenoidectomy Tobacco Smoking/Tobacco Use Status: Never Passive smoking exposure: Yes Second hand exposure: Yes Alcohol Alcohol Intake: current Alcohol intake frequency: a few times a week Alcohol type: beer, wine and hard liquor Substance Use Substance use: Never Substance use type: does not use Vital Signs and Lab Results Vital Signs Most Recent Vital Signs in EMR: Most Recent Vital Signs Temp Pulse Resp BP Pulse Ox 36.5 C 70 17 124/82 98 11/07/22 06:45 11/07/22 06:45 11/07/22 06:45 11/07/22 06:45 11/07/22 06:45 Lab Results 11/07/22 06:20 Blood Type / Crossmatch: No Data to Display Complete Blood Count: White Blood Count 6.02 10^3/uL (4.4-10.8) 11/07/22 06:20 Red Blood Count 4.13 10^6/uL (4.36-5.78) L 11/07/22 06:20 Hemoglobin 12.9 g/dL (13.5-17.5) L 11/07/22 06:20 Hematocrit 38.3 % (40.0-50.0) L 11/07/22 06:20 Platelet Count 171 10^3/uL (130-400) 11/07/22 06:20 Complete Metabolic Panel: C-Reactive Protein 2.21 mg/dL (0.0-0.3) H 11/06/22 10:30 Liver Function Panel: No Data to Display Coagulation Panel: No Data to Display Cardiac Panel: No Data to Display Arterial Blood Gas: No Data to Display Venous Blood Gas: No Data to Display Pancreas Panel: No Data to Display Thyroid Panel: No Data to Display Infectious Disease: No Data to Display Blood Cultures: No Data to Display Toxicology Panel: No Data to Display Imaging and Studies Imaging and Studies Study information below may be from another EMR and interpreted by another provider. Please see original notes in EMR for more complete details. EKG Summary: DATE/TIME OF SERVICE: 08/24/22 1118 : 1965PERFORMING LOCATION: ER APPROVED REPORT Exam: Resting ECG Reason for Exam: Epigastric pain Patient Location: E HR:92 bpm ECG Measurements Heart Rate 92 AXIS NC 136 P 70 QRSd 93 QRS 45 QT 356 T48 QTc 441 Conclusion Sinus rhythm...normal P axis, V-rate 60- 99 Probable left atrial enlargement...P >50mS, <-0.10mV V1 Narrow complex normal sinus rhythm at a rate of 93. Normal axis. Intervals within normal limits. T wave flattening in V2. No acute injury pattern. No prior for comparison. ST segment abnormalities. Stress Test Summary: Date of Exam: 11/27/16Sex: M : 1965Age: 51 Exam(s) [id number] NM:MPI Resting & Stress GRP *[facility]* *[facility]* [address] [place] [address] Myocardial Perfusion Imaging - SPECT Asaf protocol Date of study: 11/27/2016 *PATIENT PRESENTATION* Height: 172.7cm ((68in) ) Blood Pressure: Weight: 81.4kg ((179lb) ) BSA: 1.99m^2 Referring physician: Abelino Horta MD Ordering physician: Nba Berger Impressions: Normal perfusion by [id number] Sestamibi Imaging. Summary: 1. Myocardial perfusion imaging: No myocardial perfusion defects noted. 2. The calculated left ventricular ejection fraction after stress: 48%. 3. Stress: The target heart rate was achieved. Echocardiogram Summary: Date of Exam: 06/09/21Sex: M Admission Date: 06/09/21 : 1965 Age: 55 APPROVED REPORT EXAM: Comprehensive 2D, Doppler, and color-flow Echocardiogram Patient Location: Out-Patient Final [employer] Supervisor: Jenn Tolbert RDCS (AE) Indications: Resting Tachycardia, HTN Other Information Study Quality: Adequate Conclusion Normal left ventricular wall thickness and chamber size. Estimated ejection fraction is 60%. Wall motion is normal Normal right ventricular size and systolic function Both atria are normal in size There is no structural or hemodynamically significant valvular disease Anesthesia Assessment and Plan Anesthesia History Personal History: No History of Anesthesia Complications Family History: No Family History of Anesthesia Complications Exercise Tolerance Exercise Tolerance: Metabolic Equivalents>4 Cardiac & Pulmonary Exam Cardiac Exam: Normal S1/S2 Heart Sounds Pulmonary Exam: Clear Bilateral Breath Sounds Implantable Cardiac Device Does patient have a Pacemaker or an ICD?: No Airway Exam Known Difficult Airway: No Mallampati Class: 2 Mouth Opening: Normal (> 3cm) Thyromental Distance: Greater than 3 cm Neck Range of Motion: Full ROM Neck Circumference: Normal Teeth Condition: Normal Dentition ASA Classification ASA Score: ASA 2 Emergency Case?: No NPO Status NPO Status: NPO Clears >2 hours, Solids >8 hours Anesthesia Plan Resuscitation Status: Full Code Anesthesia Technique: Spinal Anesthesia Airway Planned: Natural Airway Monitors Used: Standard Monitors Preoperative Comments:: Recent spinal for rectal abscess. Pt happy with that and would like spinal today. No other changes in health. Was taking med for GERD but with diet change now no GERD.
[2022-11-07 14:34] VITALS: BMI 25.8
[2022-11-07] MEDS: Lactated Ringers 1,000 ML 30 ML IV (15:00)
--- NOTE | 2022-11-07 15:30 | INITIAL_ITS ---
- If Service Date Differs Date of service: 11/07/22 Time of Service: 15:30 Care Management Initial Assess REASON FOR HOSPITALIZATION:: Scrotal abscess/recurrent rectal abscess PAST MEDICAL HISTORY/PAST SURGICAL HISTORY:: Medical History (Updated 11/06/22 @ 10:13 by Akosua Yang DO). Acid indigestion. Chronic diarrhea. Depressive disorder. Family history of cancer (12/01/15). father: metastatic prostate CA, brother: oral CA, two sisters: breast CA. Fatigue. Hypertension. Insomnia. Tachycardia. Surgical History . Nasal septoplasty (~2006). and reduction of turbinates. Status post adenoidectomy. Status post nasal septoplasty. Status post tonsillectomy. Tonsillectomy and adenoidectomy PREVIOUS FUNCTIONAL STATUS/SOCIAL/FAMILY SUPPORTS:: Resides in [facility] with Norma. Independent at baseline in the community. CURRENT FUNCTIONAL STATUS:: Brought to OR for wound exploration and possible incision and drainage of scrotal abscess. ADVANCE DIRECTIVES:: On file, Norma as agent. Has patient been provided with info about the portal/API?: Yes Did the patient sign up for the portal?: Yes CODE STATUS:: Full Code INSURANCE COVERAGE / FINANCIAL ISSUES:: BC/BS Out of State CURRENT HOME/COMMUNITY SERVICES/EQUIPMENT:: [facility] for daily wound care dressing changes. PRIMARY CARE PHYSICIAN:: Clint Asher POTENTIAL DISCHARGE NEEDS:: Coordination with [facility]. PATIENT/FAMILY EDUCATION NEEDS:: Review discharge instructions, discuss Ask Me Three. ANTICIPATED BARRIERS TO DISCHARGE:: None identified. TRANSPORTATION:: Via private vehicle with Norma. PLAN:: Harish will discharge home when ready per MD. He will resume home health orders for daily dressing changes through [facility], transport via private vehicle with his and follow up with his PCP and plan of care as prescribed.
[2022-11-07] MEDS: Bupivacaine 0.25% Pres-Free 30 ML VIAL (15:45)
[2022-11-07 16:05] VITALS: BP 91/61; PULSE 82; RESP 17; TEMP 36.3; O2SAT 96
[2022-11-07 16:10] VITALS: BP 99/73; PULSE 83; RESP 16; O2SAT 98
[2022-11-07 16:20] VITALS: BP 106/82; PULSE 77; RESP 20; TEMP 36.5; O2SAT 99
--- NOTE | 2022-11-07 16:47 | W.ANESPOSTOP ---
Postoperative Evaluation Date, Time and Location Date Performed: 11/07/22 Time Performed: 16:47 Patient Location: PACU Vital Signs Most Recent Imported Vital Signs: Most Recent Vital Signs Temp Pulse Resp BP Pulse Ox 36.5 C 70 17 124/82 98 11/07/22 06:45 11/07/22 06:45 11/07/22 06:45 11/07/22 06:45 11/07/22 06:45 Pain Score Most Recent Pain Score: Most Recent Pain Score Pain Level 3 11/07/22 10:42 Assessment Mental Status: Awake (Alert & Oriented to Patient Baseline) Airway and Respiratory Function: Patent airway with normal (patient baseline) respiratory exam Cardiovascular Function: Hemodynamically Stable Hydration Status: Adequately Hydrated Nausea & Vomiting: No Nausea or Vomiting Pain: Pt. Denies Any Pain Peripheral Nerve Block: Regional nerve block not resolved at time of post operative discharge (Spinal in place and appropriate. Spinal orders in.)
[2022-11-07] MEDS: levoFLOXacin 750 MG/150 ML BAG 100 MG IVPB (17:17)
[2022-11-07] MEDS: Sertraline 100 MG TAB PO (18:52)
[2022-11-07] MEDS: Methocarbamol 750 MG TAB PO (19:44)
--- NOTE | 2022-11-07 20:27 | ROE_ITS ---
Date of service: 11/07/22 Time of Service: 20:27 Operative Note Operative Note DATE OF PROCEDURE: 11/07/22 PRE-OP DIAGNOSIS: perirectal /scrotal abscess POST-OP DIAGNOSIS: same PROCEDURE: incision adn drainage SURGEON: Akosua Yang SPORTS BOOKMAKER: Heather Mckenzie ANESTHESIA TYPE: Local By Surgeon, General LMA/ETT and Spinal Refer to Anesthesia Record ESTIMATED BLOOD LOSS: 11 PATHOLOGY: other COMPLICATIONS: None Patient was transported to: floor Patient's condition: stable Procedure Description: The patient is here today for excision of a scrotal abscess. He has had a perirectal abscess in the past. We did do a CT and this does appear to be extension of the previous abscess. He is being brought to the OR for explor ation under anesthesia and incision and drainage of scrotal abscess. Informed consent is obtained explaining risks and benefits of procedure including but not limited to: Bleeding, infection, pneumonia, blood clots. Need for packing and dressing changes. Scarring, recurrence, chronic pain or numbness, complications from anesthesia, and other on for told complications. Patient is brought to the operative room suite. Spinal anesthetic is administered per the department of anesthesia. Patient is then placed into stirrups. He is on antibiotic therapy. He is prepped and draped in the usual sterile fashion using a Betadine scrub solution timeout is performed. 20 cc of lidocaine is used for local anesthetization. He has some hypergranulation tissue at the site of the old perirectal abscess on the left lower buttock. This is excised using cautery. The wound from the old perirectal abscess is then explored. There does not seem to be any significant cavity or recurrence of the original abscess. However the new scrotal abscess does communicate with the old original incision for the perirectal abscess. A 1 cm elliptical incision is made over the apex of the scrotal abscess, And an ellipse of skin is removed. There is about 5 cc of purulent drainage. Cultures are taken. There is a tunnel connecting the 2 abscesses. It is probably 1 x 1 cm in diameter and 8 cm long.. It is curetted and all necrotic tissue removed. The scrotal abscess and the perirectal abscess are irrigated with a liter of saline. There is minimal bleeding noted. The scrotal incision is packed. The cavity between the scrotum and the old incision from the perirectal abscess is packed as well is the original incision from the perirectal abscess., . Sterile dressings are applied. Patient tolerated procedure well without complication. Patient will be brought to the OR tomorrow for dressing change under anesthesia. The abscesses are small at this point. I Do not think the abscess on the sc rotum or the connection between the 2 incisions will require packing. BUt, just a small area of packing in the original/old perirectal abscess cavity for a few days. Patient tolerated procedure well without complication and transferred to PACU in stable condition.
--- NOTE | 2022-11-07 20:56 | PGE_ITS ---
Date of Service Date of service: 11/07/22 Time of Service: 20:57 Assessment and Plan Assessment and plan (1) Scrotal abscess: Status: Acute Assessment and plan: The patient is doing well post-op. Their pain is well controlled. They are having no nausea or vomiting. The pt is not having any chest pain or SOB, productive cough; no calf pain or swelling. The pt is making good urine. The pt pain is adequately controlled. The case was discussed with nursing and patient?s progress reviewed. All of the pt's home medications were addressed and adjusted accordingly for their oral intact status. HEENT: no jaundice. no eye pain/drainage/redness/swelling. Mild sore throat Cardio- NSR no chest pain, BP stable. Pulm: no sob or productive cough. no hemoptysis Incision- clean/dry. Dressing intact no excessive bleeding or drainage I discussed with the patient and/or there family about the findings in surgery and the pt's progress. We reviewed expectations for progress in the hospital; what the pt could expect for recovery time and length of stay. We discussed the importance of walking and pulmonary toilet to avoid blood clots and pneumonia. Continue current plans for pulmonary toilet, GI and DVT prophylaxis. We shall continue the current plan for pain management as it is at an appropriate level, and working well for the pt. Appropriate measures will be taken for constipation prevention, and this was also reviewed with the pt. The wound care plan was reviewed with nursing as well. Patient will be brought to the OR tomorrow for dressing change under anesthesia.? The abscesses are small at this point. I Do not think the abscess on the scrotum or the connection between the 2 incisions will require packing. ? BUt, just a small area of packing in the original/old perirectal abscess cavity for a few days. Pt will need home RN for dressing changes see orders (2) Abscess, perirectal: Status: Acute Objective Last Vital Signs Temp 36.5 C 11/07/22 16:20 Pulse 77 11/07/22 16:20 Resp 20 11/07/22 16:20 BP 106/82 11/07/22 16:20 Pulse Ox 99 11/07/22 16:20 Laboratory Results - last 24 hr 11/07/22 06:20 WBC 6.02 RBC 4.13 L Hgb 12.9 L Hct 38.3 L MCV 93 MCH 31.2 MCHC 33.7 RDW 12.1 Plt Count 171 MPV 9.0 Time Spent with Patient Time Spent with Patient: <25 minutes Time was spent: referring, communicating with other health pediatric critical care nurse, counseling the patient and care coordination
[2022-11-07] MEDS: Zolpidem 10 MG TAB PO (21:46)
[2022-11-07 22:04] VITALS: BP 123/73; PULSE 89; RESP 18; TEMP 36.6; O2SAT 97
[2022-11-07] MEDS: LORazepam 0.5 MG TAB PO (22:24)
[2022-11-08] MEDS: Normal Saline Flush 10 ML SYR IVP (01:57)
[2022-11-08] MEDS: Ketorolac 15 MG/ML VIAL IVP ×2 (01:57→07:32)
[2022-11-08] MEDS: metroNIDAZOLE 500 MG/100 ML BAG 100 MG IVPB (06:39)
[2022-11-08] MEDS: LORazepam 0.5 MG TAB PO (07:33)
[2022-11-08] MEDS: Losartan 50 MG TAB PO (07:33)
[2022-11-08] MEDS: Methocarbamol 750 MG TAB PO ×2 (07:33→12:02)
[2022-11-08 07:54] VITALS: BP 117/80; PULSE 105; RESP 16; TEMP 36.9; O2SAT 98
[2022-11-08] MEDS: Normal Saline 1,000 ML 80 ML IV (08:19)
--- NOTE | 2022-11-08 09:48 | W.ANESPRE ---
General Info Date of Service Date Performed: 11/08/22 Height: 5 ft 8 in Weight: 77 kg Body Mass Index (BMI): 25.8 Surgical Procedure: Operation Date: 11/07/22 14:25 Proposed Procedure Side Surgeon p Exam Under Anesthesia, Possible Rectal Scrotal I&D Akosua Yang DO Actual Procedure Side Surgeon p Exam Under Anesthesia, Rectal Scrotal I&D Not Applicable Akosua Yang DO Pre-Op Diagnosis Post-Op Diagnosis Scrotal Abscess/Recurrent Rectal Abscess Scrotal Abscess/Recurrent Rectal Abscess Operation Date: 11/08/22 10:25 Proposed Procedure Side Surgeon p Dressing Change Iram Ryan MD Meds Allergies and Home Medications Allergies Allergy/AdvReac Type Severity Reaction Status Date / Time amoxicillin Allergy Intermediate Swelling/Ed Verified 11/06/22 09:54 suzi acetaminophen AdvReac Mild Nausea Unverified 11/06/22 09:54 enviornmental Allergy Mild Wheezing Uncoded 11/06/22 09:54 Home Medication Medication Instructions Recorded hydrochlorothiazide 12.5 mg tablet 12.5 mg PO DAILY #90 tabs 05/24/22 zolpidem 10 mg tablet 10 mg PO QHS PRN sleep #90 tabs 05/24/22 losartan 50 mg tablet 50 mg PO DAILY #90 tabs 08/11/22 sertraline 100 mg tablet 100 mg PO DAILY #90 tabs 08/11/22 sertraline 50 mg tablet 50 mg PO DAILY #90 tabs 10/02/22 lorazepam 0.5 mg tablet 0.5 mg PO BID PRN anxiety #60 tabs 10/11/22 nystatin 100,000 unit/gram topical 1 applic topical BID #60 grams 10/13/22 powder ibuprofen 600 mg tablet 600 mg PO QID #60 tabs 10/19/22 Current Visit Medications: Current Medications Generic Name Dose Route Start Last Admin Trade Name Freq PRN Reason Stop Dose Admin Acetaminophen 1,000 mg 11/08/22 10:00 Acetaminophen 500 Mg Tab PO Q6H JOCELYN Enoxaparin Sodium 40 mg 11/06/22 14:00 11/07/22 12:54 Enoxaparin 40 Mg/0.4 Ml Syr SC Not Given Q24H JOCELYN Sodium Chloride 500 mls @ 0 mls/hr 11/06/22 12:55 11/06/22 15:19 Saline 500ml Bag IV 0 mls/hr PRN PRN Infusion As Directed Sodium Chloride 1,000 mls @ 80 mls/hr 11/06/22 13:00 11/08/22 08:19 Saline 1000ml Bag IV 80 mls/hr INFUSION JOCELYN Administration Levofloxacin 750 mg in 150 mls @ 100 mls/hr 11/06/22 16:00 11/07/22 19:30 Levaquin Premixed Bag IVPB Infused Q24H JOCELYN Infusion Protocol Metronidazole 500 mg in 100 mls @ 100 mls/hr 11/06/22 14:00 11/08/22 08:00 Flagyl IVPB Infused Q8H JOCELYN Infusion Ringer's Solution 1,000 mls @ 30 mls/hr 11/07/22 17:00 11/07/22 16:25 IV 30 mls/hr INFUSION JOCELYN Infusion IV Miscellaneous Supplies 1 each 11/06/22 13:00 Iv Access IV DIRECTED JOCELYN Ketorolac Tromethamine 15 mg 11/07/22 20:00 11/08/22 07:32 Ketorolac 15 Mg/Ml Vial IVP 11/12/22 19:59 15 mg Q6H JOCELYN Administration Lactobacillus Acidophilus/Casei 1 cap 11/07/22 08:30 11/08/22 07:33 L. Acidophilus, Casei, Rhamnosus Cap PO 1 cap DAILY JOCELYN Administration Lorazepam 0.5 mg 11/07/22 22:12 11/08/22 07:33 Lorazepam 0.5 Mg Tab PO 0.5 mg BID PRN PRN Administration Losartan Potassium 50 mg 11/07/22 08:30 11/08/22 07:33 Losartan 50 Mg Tab PO 50 mg DAILY JOCELYN Administration Methocarbamol 750 mg 11/07/22 20:00 11/08/22 07:33 Methocarbamol 750 Mg Tab PO 750 mg QID JOCELYN Administration Morphine Sulfate 2 mg 11/06/22 12:55 11/07/22 09:37 Morphine 2 Mg/Ml Syr IVP 2 mg Q1H PRN PRN Administration Ondansetron HCl 4 mg 11/06/22 12:55 11/07/22 04:39 Ondansetron 4 Mg/2 Ml Vial IVP 4 mg Q4H PRN PRN Administration Polyethylene Glycol 17 gm 11/08/22 08:30 Polyethylene Glycol 3350 17 Gm Packet PO DAILY JOCELYN Sertraline HCl 100 mg 11/06/22 18:00 11/07/22 18:52 Sertraline 100 Mg Tab PO 100 mg DAILY@1800 JOCELYN Administration Sertraline HCl 50 mg 11/07/22 12:00 11/07/22 12:21 Sertraline 50 Mg Tab PO 50 mg DAILY@1200 JOCELYN Administration Sodium Chloride 0 ml 11/06/22 12:55 11/08/22 01:57 Normal Saline Flush 10 Ml Syr IVP 20 ml PRN PRN Administration Zolpidem Tartrate 10 mg 11/06/22 14:46 11/07/22 21:46 Zolpidem 10 Mg Tab PO 10 mg HS PRN PRN Administration sleep PFSH Active Problems Active Problems: Problem Status Onset Code Scrotal abscess N49.2 Anxiety about health F41.8 Abscess, perirectal K61.1 Trigger finger, right ring finger M65.341 Chronic rhinitis J31.0 Postnasal drip R09.82 Generalized anxiety disorder F41.1 Colon cancer screening declined Z53.20 Asthma J45.909 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 Nevus, non-neoplastic I78.1 Contact dermatitis and eczema L25.9 Anal fissure 03/28/12 K60.2 Medical History Medical History (Updated 11/07/22 @ 20:58 by Akosua Yang DO) Acid indigestion Chronic diarrhea Depressive disorder Family history of cancer (12/01/15) father: metastatic prostate CA, brother: oral CA, two sisters: breast CA Fatigue Hypertension Insomnia Tachycardia Surgical History Surgical History Nasal septoplasty (~2006) and reduction of turbinates Status post adenoidectomy Status post nasal septoplasty Status post tonsillectomy Tonsillectomy and adenoidectomy Tobacco Smoking/Tobacco Use Status: Never Passive smoking exposure: Yes Second hand exposure: Yes Alcohol Alcohol Intake: current Alcohol intake frequency: a few times a week Alcohol type: beer, wine and hard liquor Substance Use Substance use: Never Substance use type: does not use Vital Signs and Lab Results Vital Signs Most Recent Vital Signs in EMR: Most Recent Vital Signs Temp Pulse Resp BP Pulse Ox 36.9 C 105 H 16 117/80 98 11/08/22 07:54 11/08/22 07:54 11/08/22 07:54 11/08/22 07:54 11/08/22 07:54 Lab Results 11/07/22 06:20 Blood Type / Crossmatch: No Data to Display Complete Blood Count: White Blood Count 6.02 10^3/uL (4.4-10.8) 11/07/22 06:20 Red Blood Count 4.13 10^6/uL (4.36-5.78) L 11/07/22 06:20 Hemoglobin 12.9 g/dL (13.5-17.5) L 11/07/22 06:20 Hematocrit 38.3 % (40.0-50.0) L 11/07/22 06:20 Platelet Count 171 10^3/uL (130-400) 11/07/22 06:20 Complete Metabolic Panel: C-Reactive Protein 2.21 mg/dL (0.0-0.3) H 11/06/22 10:30 Liver Function Panel: No Data to Display Coagulation Panel: No Data to Display Cardiac Panel: No Data to Display Arterial Blood Gas: No Data to Display Venous Blood Gas: No Data to Display Pancreas Panel: No Data to Display Thyroid Panel: No Data to Display Infectious Disease: No Data to Display Blood Cultures: No Data to Display Toxicology Panel: No Data to Display Imaging and Studies Imaging and Studies Study information below may be from another EMR and interpreted by another provider. Please see original notes in EMR for more complete details. EKG Summary: DATE/TIME OF SERVICE: 08/24/22 1118 : 1965PERFORMING LOCATION: ER APPROVED REPORT Exam: Resting ECG Reason for Exam: Epigastric pain Patient Location: E HR:92 bpm ECG Measurements Heart Rate 92 AXIS MA 136 P 70 QRSd 93 QRS 45 QT 356 T48 QTc 441 Conclusion Sinus rhythm...normal P axis, V-rate 60- 99 Probable left atrial enlargement...P >50mS, <-0.10mV V1 Narrow complex normal sinus rhythm at a rate of 93. Normal axis. Intervals within normal limits. T wave flattening in V2. No acute injury pattern. No prior for comparison. ST segment abnormalities. Stress Test Summary: Date of Exam: 11/27/16Sex: M : 1965Age: 51 Exam(s) [id number] NM:MPI Resting & Stress GRP *[facility]* *[facility]* [address] [place] [address] Myocardial Perfusion Imaging - SPECT Asaf protocol Date of study: 11/27/2016 *PATIENT PRESENTATION* Height: 172.7cm ((68in) ) Blood Pressure: Weight: 81.4kg ((179lb) ) BSA: 1.99m^2 Referring physician: Abelino Horta MD Ordering physician: Nba Berger Impressions: Normal perfusion by Tc99m Sestamibi Imaging. Summary: 1. Myocardial perfusion imaging: No myocardial perfusion defects noted. 2. The calculated left ventricular ejection fraction after stress: 48%. 3. Stress: The target heart rate was achieved. Echocardiogram Summary: Date of Exam: 06/09/21Sex: M Admission Date: 06/09/21 : 1965 Age: 55 APPROVED REPORT EXAM: Comprehensive 2D, Doppler, and color-flow Echocardiogram Patient Location: Out-Patient Packing Room Inspector: Jenn Tolbert RDCS (AE) Indications: Resting Tachycardia, HTN Other Information Study Quality: Adequate Conclusion Normal left ventricular wall thickness and chamber size. Estimated ejection fraction is 60%. Wall motion is normal Normal right ventricular size and systolic function Both atria are normal in size There is no structural or hemodynamically significant valvular disease Anesthesia Assessment and Plan Anesthesia History Personal History: No History of Anesthesia Complications Family History: No Family History of Anesthesia Complications Exercise Tolerance Exercise Tolerance: Metabolic Equivalents>4 Pertinent Negatives Pertinent Negatives: No Major Cardiovascular Symptoms or Complaints and No Major Pulmonary Symptoms or Complaints Cardiac & Pulmonary Exam Cardiac Exam: Normal S1/S2 Heart Sounds Pulmonary Exam: Clear Bilateral Breath Sounds Implantable Cardiac Device Does patient have a Pacemaker or an ICD?: No Airway Exam Known Difficult Airway: No Mallampati Class: 2 Mouth Opening: Normal (> 3cm) Thyromental Distance: Greater than 3 cm Neck Range of Motion: Full ROM Neck Circumference: Normal Teeth Condition: Normal Dentition ASA Classification ASA Score: ASA 2 Emergency Case?: No NPO Status NPO Status: NPO Clears >2 hours, Solids >8 hours Anesthesia Plan Resuscitation Status: Full Code Anesthesia Technique: Spinal Anesthesia Airway Planned: Natural Airway Monitors Used: Standard Monitors
--- NOTE | 2022-11-08 10:14 | W.ANESPRE ---
General Info Height: 5 ft 8 in Weight: 77 kg Body Mass Index (BMI): 25.8 Surgical Procedure: Operation Date: 11/07/22 14:25 Proposed Procedure Side Surgeon p Exam Under Anesthesia, Possible Rectal Scrotal I&D Akosua Yang DO Actual Procedure Side Surgeon p Exam Under Anesthesia, Rectal Scrotal I&D Not Applicable Akosua Yang DO Pre-Op Diagnosis Post-Op Diagnosis Scrotal Abscess/Recurrent Rectal Abscess Scrotal Abscess/Recurrent Rectal Abscess Operation Date: 11/08/22 10:25 Proposed Procedure Side Surgeon p Dressing Change Iram Ryan MD Meds Allergies and Home Medications Allergies Allergy/AdvReac Type Severity Reaction Status Date / Time amoxicillin Allergy Intermediate Swelling/Ed Verified 11/06/22 09:54 suzi acetaminophen AdvReac Mild Nausea Unverified 11/06/22 09:54 enviornmental Allergy Mild Wheezing Uncoded 11/06/22 09:54 Home Medication Medication Instructions Recorded hydrochlorothiazide 12.5 mg tablet 12.5 mg PO DAILY #90 tabs 05/24/22 zolpidem 10 mg tablet 10 mg PO QHS PRN sleep #90 tabs 05/24/22 losartan 50 mg tablet 50 mg PO DAILY #90 tabs 08/11/22 sertraline 100 mg tablet 100 mg PO DAILY #90 tabs 08/11/22 sertraline 50 mg tablet 50 mg PO DAILY #90 tabs 10/02/22 lorazepam 0.5 mg tablet 0.5 mg PO BID PRN anxiety #60 tabs 10/11/22 nystatin 100,000 unit/gram topical 1 applic topical BID #60 grams 10/13/22 powder ibuprofen 600 mg tablet 600 mg PO QID #60 tabs 10/19/22 Current Visit Medications: Current Medications Generic Name Dose Route Start Last Admin Trade Name Freq PRN Reason Stop Dose Admin Acetaminophen 1,000 mg 11/08/22 10:00 Acetaminophen 500 Mg Tab PO Q6H JOCELYN Enoxaparin Sodium 40 mg 11/06/22 14:00 11/07/22 12:54 Enoxaparin 40 Mg/0.4 Ml Syr SC Not Given Q24H JOCELYN Sodium Chloride 500 mls @ 0 mls/hr 11/06/22 12:55 11/06/22 15:19 Saline 500ml Bag IV 0 mls/hr PRN PRN Infusion As Directed Sodium Chloride 1,000 mls @ 80 mls/hr 11/06/22 13:00 11/08/22 08:19 Saline 1000ml Bag IV 80 mls/hr INFUSION JOCELYN Administration Levofloxacin 750 mg in 150 mls @ 100 mls/hr 11/06/22 16:00 11/07/22 19:30 Levaquin Premixed Bag IVPB Infused Q24H JOCELYN Infusion Protocol Metronidazole 500 mg in 100 mls @ 100 mls/hr 11/06/22 14:00 11/08/22 08:00 Flagyl IVPB Infused Q8H JOCELYN Infusion Ringer's Solution 1,000 mls @ 30 mls/hr 11/07/22 17:00 11/07/22 16:25 IV 30 mls/hr INFUSION JOCELYN Infusion IV Miscellaneous Supplies 1 each 11/06/22 13:00 Iv Access IV DIRECTED JOCELYN Ketorolac Tromethamine 15 mg 11/07/22 20:00 11/08/22 07:32 Ketorolac 15 Mg/Ml Vial IVP 11/12/22 19:59 15 mg Q6H JOCELYN Administration Lactobacillus Acidophilus/Casei 1 cap 11/07/22 08:30 11/08/22 07:33 L. Acidophilus, Casei, Rhamnosus Cap PO 1 cap DAILY JOCELYN Administration Lorazepam 0.5 mg 11/07/22 22:12 11/08/22 07:33 Lorazepam 0.5 Mg Tab PO 0.5 mg BID PRN PRN Administration Losartan Potassium 50 mg 11/07/22 08:30 11/08/22 07:33 Losartan 50 Mg Tab PO 50 mg DAILY JOCELYN Administration Methocarbamol 750 mg 11/07/22 20:00 11/08/22 07:33 Methocarbamol 750 Mg Tab PO 750 mg QID JOCELYN Administration Morphine Sulfate 2 mg 11/06/22 12:55 11/07/22 09:37 Morphine 2 Mg/Ml Syr IVP 2 mg Q1H PRN PRN Administration Ondansetron HCl 4 mg 11/06/22 12:55 11/07/22 04:39 Ondansetron 4 Mg/2 Ml Vial IVP 4 mg Q4H PRN PRN Administration Polyethylene Glycol 17 gm 11/08/22 08:30 Polyethylene Glycol 3350 17 Gm Packet PO DAILY JOCELYN Sertraline HCl 100 mg 11/06/22 18:00 11/07/22 18:52 Sertraline 100 Mg Tab PO 100 mg DAILY@1800 JOCELYN Administration Sertraline HCl 50 mg 11/07/22 12:00 11/07/22 12:21 Sertraline 50 Mg Tab PO 50 mg DAILY@1200 JOCELYN Administration Sodium Chloride 0 ml 11/06/22 12:55 11/08/22 01:57 Normal Saline Flush 10 Ml Syr IVP 20 ml PRN PRN Administration Zolpidem Tartrate 10 mg 11/06/22 14:46 11/07/22 21:46 Zolpidem 10 Mg Tab PO 10 mg HS PRN PRN Administration sleep PFSH Active Problems Active Problems: Problem Status Onset Code Scrotal abscess N49.2 Anxiety about health F41.8 Abscess, perirectal K61.1 Trigger finger, right ring finger M65.341 Chronic rhinitis J31.0 Postnasal drip R09.82 Generalized anxiety disorder F41.1 Colon cancer screening declined Z53.20 Asthma J45.909 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 Nevus, non-neoplastic I78.1 Contact dermatitis and eczema L25.9 Anal fissure 03/28/12 K60.2 Medical History Medical History (Updated 11/07/22 @ 20:58 by Akosua Yang DO) Acid indigestion Chronic diarrhea Depressive disorder Family history of cancer (12/01/15) father: metastatic prostate CA, brother: oral CA, two sisters: breast CA Fatigue Hypertension Insomnia Tachycardia Surgical History Surgical History Nasal septoplasty (~2006) and reduction of turbinates Status post adenoidectomy Status post nasal septoplasty Status post tonsillectomy Tonsillectomy and adenoidectomy Tobacco Smoking/Tobacco Use Status: Never Passive smoking exposure: Yes Second hand exposure: Yes Alcohol Alcohol Intake: current Alcohol intake frequency: a few times a week Alcohol type: beer, wine and hard liquor Substance Use Substance use: Never Substance use type: does not use Vital Signs and Lab Results Vital Signs Most Recent Vital Signs in EMR: Most Recent Vital Signs Temp Pulse Resp BP Pulse Ox 36.9 C 105 H 16 117/80 98 11/08/22 07:54 11/08/22 07:54 11/08/22 07:54 11/08/22 07:54 11/08/22 07:54 Lab Results 11/07/22 06:20 Blood Type / Crossmatch: No Data to Display Complete Blood Count: White Blood Count 6.02 10^3/uL (4.4-10.8) 11/07/22 06:20 Red Blood Count 4.13 10^6/uL (4.36-5.78) L 11/07/22 06:20 Hemoglobin 12.9 g/dL (13.5-17.5) L 11/07/22 06:20 Hematocrit 38.3 % (40.0-50.0) L 11/07/22 06:20 Platelet Count 171 10^3/uL (130-400) 11/07/22 06:20 Complete Metabolic Panel: C-Reactive Protein 2.21 mg/dL (0.0-0.3) H 11/06/22 10:30 Liver Function Panel: No Data to Display Coagulation Panel: No Data to Display Cardiac Panel: No Data to Display Arterial Blood Gas: No Data to Display Venous Blood Gas: No Data to Display Pancreas Panel: No Data to Display Thyroid Panel: No Data to Display Infectious Disease: No Data to Display Blood Cultures: No Data to Display Toxicology Panel: No Data to Display Imaging and Studies Imaging and Studies Study information below may be from another EMR and interpreted by another provider. Please see original notes in EMR for more complete details. EKG Summary: DATE/TIME OF SERVICE: 08/24/22 1118 : 1965PERFORMING LOCATION: ER APPROVED REPORT Exam: Resting ECG Reason for Exam: Epigastric pain Patient Location: E HR:92 bpm ECG Measurements Heart Rate 92 AXIS MD 136 P 70 QRSd 93 QRS 45 QT 356 T48 QTc 441 Conclusion Sinus rhythm...normal P axis, V-rate 60- 99 Probable left atrial enlargement...P >50mS, <-0.10mV V1 Narrow complex normal sinus rhythm at a rate of 93. Normal axis. Intervals within normal limits. T wave flattening in V2. No acute injury pattern. No prior for comparison. ST segment abnormalities. Stress Test Summary: Date of Exam: 11/27/16Sex: M : 1965Age: 51 Exam(s) [id number] NM:MPI Resting & Stress GRP *[facility]* *[facility]* [address] [place] [address] Myocardial Perfusion Imaging - SPECT Asaf protocol Date of study: 11/27/2016 *PATIENT PRESENTATION* Height: 172.7cm ((68in) ) Blood Pressure: Weight: 81.4kg ((179lb) ) BSA: 1.99m^2 Referring physician: Abelino Horta MD Ordering physician: Nba Berger Impressions: Normal perfusion by Tc99m Sestamibi Imaging. Summary: 1. Myocardial perfusion imaging: No myocardial perfusion defects noted. 2. The calculated left ventricular ejection fraction after stress: 48%. 3. Stress: The target heart rate was achieved. Echocardiogram Summary: Date of Exam: 06/09/21Sex: M Admission Date: 06/09/21 : 1965 Age: 55 APPROVED REPORT EXAM: Comprehensive 2D, Doppler, and color-flow Echocardiogram Patient Location: Out-Patient Nurse'S Companion: Jenn Tolbert RDCS (AE) Indications: Resting Tachycardia, HTN Other Information Study Quality: Adequate Conclusion Normal left ventricular wall thickness and chamber size. Estimated ejection fraction is 60%. Wall motion is normal Normal right ventricular size and systolic function Both atria are normal in size There is no structural or hemodynamically significant valvular disease Anesthesia Assessment and Plan Anesthesia History Personal History: No History of Anesthesia Complications Family History: No Family History of Anesthesia Complications Exercise Tolerance Exercise Tolerance: Metabolic Equivalents>4 Pertinent Negatives Pertinent Negatives: No Symptoms of GERD, No Major Cardiovascular Symptoms or Complaints, No Major Pulmonary Symptoms or Complaints and No History of CVA/TIA Cardiac & Pulmonary Exam Cardiac Exam: Normal S1/S2 Heart Sounds Pulmonary Exam: Clear Bilateral Breath Sounds Implantable Cardiac Device Does patient have a Pacemaker or an ICD?: No Airway Exam Known Difficult Airway: No Mallampati Class: 2 Mouth Opening: Normal (> 3cm) Thyromental Distance: Greater than 3 cm Neck Range of Motion: Full ROM Neck Circumference: Normal Teeth Condition: Normal Dentition ASA Classification ASA Score: ASA 2 Emergency Case?: No NPO Status NPO Status: NPO Clears >2 hours, Solids >8 hours Anesthesia Plan Resuscitation Status: Full Code Airway Planned: Natural Airway Monitors Used: Standard Monitors
--- NOTE | 2022-11-08 10:19 | W.PM.PROGNOT ---
Date of Service Date of service: 11/08/22 Time of Service: 10:15 Assessment and Plan Assessment and plan (1) Scrotal abscess: Status: Acute Assessment and plan: Harish is POD #1 from exploration and drainage of new scrotal abscess and perirectal abscess. We discussed exchange of packing into the perirectal cavity. Packing will be removed from the scrotal wound and NOT replaced per Dr. Branch request. Risks, benefits and complications have been reviewed. Complications include but are not limited to bleeding, pain, infection, recurrance and adverse reaction to medications. Patient asked questions which were answered to his satisfaction. He had a good understanding of the complications. Proceed with exchange of packing and washout (2) Abscess, perirectal: Status: Acute Subjective Subjective Interval history since last seen: Ed is doing OK today. His pain is well controlled. He has no complaints. We discussed changing the packing today per Dr. Branch instructions. Exam Const General: comfortable and no acute distress Orientation: alert and oriented x3 HENMT Head: normocephalic and atraumatic Resp Effort & Inspection: normal respiratory effort Auscultation: clear to auscultation bilaterally Cardio Rate: regular rate Rhythm: regular rhythm Objective Last Vital Signs Temp 98.4 F 11/08/22 07:54 Pulse 105 H 11/08/22 07:54 Resp 16 11/08/22 07:54 BP 117/80 11/08/22 07:54 Pulse Ox 98 11/08/22 07:54 Time Spent with Patient Time Spent with Patient: <25 minutes Time was spent: counseling the patient
--- NOTE | 2022-11-08 10:22 | ANES.PREOP_ITS ---
General Info Height: 5 ft 8 in Weight: 77 kg Body Mass Index (BMI): 25.8 Surgical Procedure: Operation Date: 11/07/22 14:25 Proposed Procedure Side Surgeon p Exam Under Anesthesia, Possible Rectal Scrotal I&D Akosua Yang DO Actual Procedure Side Surgeon p Exam Under Anesthesia, Rectal Scrotal I&D Not Applicable Akosua Yang DO Pre-Op Diagnosis Post-Op Diagnosis Scrotal Abscess/Recurrent Rectal Abscess Scrotal Abscess/Recurrent Rectal Abscess Operation Date: 11/08/22 10:25 Proposed Procedure Side Surgeon p Dressing Change Iram Ryan MD Meds Allergies and Home Medications Allergies Allergy/AdvReac Type Severity Reaction Status Date / Time amoxicillin Allergy Intermediate Swelling/Ed Verified 11/06/22 09:54 suzi acetaminophen AdvReac Mild Nausea Unverified 11/06/22 09:54 enviornmental Allergy Mild Wheezing Uncoded 11/06/22 09:54 Home Medication Medication Instructions Recorded hydrochlorothiazide 12.5 mg tablet 12.5 mg PO DAILY #90 tabs 05/24/22 zolpidem 10 mg tablet 10 mg PO QHS PRN sleep #90 tabs 05/24/22 losartan 50 mg tablet 50 mg PO DAILY #90 tabs 08/11/22 sertraline 100 mg tablet 100 mg PO DAILY #90 tabs 08/11/22 sertraline 50 mg tablet 50 mg PO DAILY #90 tabs 10/02/22 lorazepam 0.5 mg tablet 0.5 mg PO BID PRN anxiety #60 tabs 10/11/22 nystatin 100,000 unit/gram topical 1 applic topical BID #60 grams 10/13/22 powder ibuprofen 600 mg tablet 600 mg PO QID #60 tabs 10/19/22 Current Visit Medications: Current Medications Generic Name Dose Route Start Last Admin Trade Name Freq PRN Reason Stop Dose Admin Acetaminophen 1,000 mg 11/08/22 10:00 Acetaminophen 500 Mg Tab PO Q6H JOCELYN Enoxaparin Sodium 40 mg 11/06/22 14:00 11/07/22 12:54 Enoxaparin 40 Mg/0.4 Ml Syr SC Not Given Q24H JOCELYN Sodium Chloride 500 mls @ 0 mls/hr 11/06/22 12:55 11/06/22 15:19 Saline 500ml Bag IV 0 mls/hr PRN PRN Infusion As Directed Sodium Chloride 1,000 mls @ 80 mls/hr 11/06/22 13:00 11/08/22 08:19 Saline 1000ml Bag IV 80 mls/hr INFUSION JOCELYN Administration Levofloxacin 750 mg in 150 mls @ 100 mls/hr 11/06/22 16:00 11/07/22 19:30 Levaquin Premixed Bag IVPB Infused Q24H JOCELYN Infusion Protocol Metronidazole 500 mg in 100 mls @ 100 mls/hr 11/06/22 14:00 11/08/22 08:00 Flagyl IVPB Infused Q8H JOCELYN Infusion Ringer's Solution 1,000 mls @ 30 mls/hr 11/07/22 17:00 11/07/22 16:25 IV 30 mls/hr INFUSION JOCELYN Infusion IV Miscellaneous Supplies 1 each 11/06/22 13:00 Iv Access IV DIRECTED JOCELYN Ketorolac Tromethamine 15 mg 11/07/22 20:00 11/08/22 07:32 Ketorolac 15 Mg/Ml Vial IVP 11/12/22 19:59 15 mg Q6H JOCELYN Administration Lactobacillus Acidophilus/Casei 1 cap 11/07/22 08:30 11/08/22 07:33 L. Acidophilus, Casei, Rhamnosus Cap PO 1 cap DAILY JOCELYN Administration Lorazepam 0.5 mg 11/07/22 22:12 11/08/22 07:33 Lorazepam 0.5 Mg Tab PO 0.5 mg BID PRN PRN Administration Losartan Potassium 50 mg 11/07/22 08:30 11/08/22 07:33 Losartan 50 Mg Tab PO 50 mg DAILY JOCELYN Administration Methocarbamol 750 mg 11/07/22 20:00 11/08/22 07:33 Methocarbamol 750 Mg Tab PO 750 mg QID JOCELYN Administration Morphine Sulfate 2 mg 11/06/22 12:55 11/07/22 09:37 Morphine 2 Mg/Ml Syr IVP 2 mg Q1H PRN PRN Administration Ondansetron HCl 4 mg 11/06/22 12:55 11/07/22 04:39 Ondansetron 4 Mg/2 Ml Vial IVP 4 mg Q4H PRN PRN Administration Polyethylene Glycol 17 gm 11/08/22 08:30 Polyethylene Glycol 3350 17 Gm Packet PO DAILY JOCELYN Sertraline HCl 100 mg 11/06/22 18:00 11/07/22 18:52 Sertraline 100 Mg Tab PO 100 mg DAILY@1800 JOCELYN Administration Sertraline HCl 50 mg 11/07/22 12:00 11/07/22 12:21 Sertraline 50 Mg Tab PO 50 mg DAILY@1200 JOCELYN Administration Sodium Chloride 0 ml 11/06/22 12:55 11/08/22 01:57 Normal Saline Flush 10 Ml Syr IVP 20 ml PRN PRN Administration Zolpidem Tartrate 10 mg 11/06/22 14:46 11/07/22 21:46 Zolpidem 10 Mg Tab PO 10 mg HS PRN PRN Administration sleep PFSH Active Problems Active Problems: Problem Status Onset Code Scrotal abscess N49.2 Anxiety about health F41.8 Abscess, perirectal K61.1 Trigger finger, right ring finger M65.341 Chronic rhinitis J31.0 Postnasal drip R09.82 Generalized anxiety disorder F41.1 Colon cancer screening declined Z53.20 Asthma J45.909 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 Nevus, non-neoplastic I78.1 Contact dermatitis and eczema L25.9 Anal fissure 03/28/12 K60.2 Medical History Medical History (Updated 11/07/22 @ 20:58 by Akosua Yang DO) Acid indigestion Chronic diarrhea Depressive disorder Family history of cancer (12/01/15) father: metastatic prostate CA, brother: oral CA, two sisters: breast CA Fatigue Hypertension Insomnia Tachycardia Surgical History Surgical History Nasal septoplasty (~2006) and reduction of turbinates Status post adenoidectomy Status post nasal septoplasty Status post tonsillectomy Tonsillectomy and adenoidectomy Tobacco Smoking/Tobacco Use Status: Never Passive smoking exposure: Yes Second hand exposure: Yes Alcohol Alcohol Intake: current Alcohol intake frequency: a few times a week Alcohol type: beer, wine and hard liquor Substance Use Substance use: Never Substance use type: does not use Vital Signs and Lab Results Vital Signs Most Recent Vital Signs in EMR: Most Recent Vital Signs Temp Pulse Resp BP Pulse Ox 36.9 C 105 H 16 117/80 98 11/08/22 07:54 11/08/22 07:54 11/08/22 07:54 11/08/22 07:54 11/08/22 07:54 Lab Results 11/07/22 06:20 Blood Type / Crossmatch: 2 No Data to Display Complete Blood Count: White Blood Count 6.02 10^3/uL (4.4-10.8) 11/07/22 06:20 Red Blood Count 4.13 10^6/uL (4.36-5.78) L 11/07/22 06:20 Hemoglobin 12.9 g/dL (13.5-17.5) L 11/07/22 06:20 Hematocrit 38.3 % (40.0-50.0) L 11/07/22 06:20 Platelet Count 171 10^3/uL (130-400) 11/07/22 06:20 Complete Metabolic Panel: C-Reactive Protein 2.21 mg/dL (0.0-0.3) H 11/06/22 10:30 Liver Function Panel: No Data to Display Coagulation Panel: No Data to Display Arterial Blood Gas: No Data to Display Venous Blood Gas: No Data to Display Pancreas Panel: No Data to Display Thyroid Panel: No Data to Display Infectious Disease: No Data to Display Blood Cultures: No Data to Display Toxicology Panel: No Data to Display Imaging and Studies Imaging and Studies Study information below may be from another EMR and interpreted by another provider. Please see original notes in EMR for more complete details. EKG Summary: DATE/TIME OF SERVICE: 08/24/22 1118 : 1965PERFORMING LOCATION: ER APPROVED REPORT Exam: Resting ECG Reason for Exam: Epigastric pain Patient Location: E HR:92 bpm ECG Measurements Heart Rate 92 AXIS SD 136 P 70 QRSd 93 QRS 45 QT 356 T48 QTc 441 Conclusion Sinus rhythm...normal P axis, V-rate 60- 99 Probable left atrial enlargement...P >50mS, <-0.10mV V1 Narrow complex normal sinus rhythm at a rate of 93. Normal axis. Intervals wit hin normal limits. T wave flattening in V2. No acute injury pattern. No prior for comparison. ST segment abnormalities. Stress Test Summary: Date of Exam: 11/27/16Sex: M : 1965Age: 51 Exam(s) [id number] NM:MPI Resting & Stress GRP *[facility]* *[facility]* [address] [place] [address] Myocardial Perfusion Imaging - SPECT Asaf protocol Date of study: 11/27/2016 *PATIENT PRESENTATION* Height: 172.7cm ((68in) ) Blood Pressure: Weight: 81.4kg ((179lb) ) BSA: 1.99m^2 Referring physician: Aeblino Horta MD Ordering physician: Nba Berger Impressions: Normal perfusion by Tc99m Sestamibi Imaging. Summary: 1. Myocardial perfusion imaging: No myocardial perfusion defects noted. 2. The calculated left ventricular ejection fraction after stress: 48%. 3. Stress: The target heart rate was achieved. Echocardiogram Summary: Date of Exam: 06/09/21Sex: M Admission Date: 06/09/21 : 1965 Age: 55 APPROVED REPORT EXAM: Comprehensive 2D, Doppler, and color-flow Echocardiogram Patient Location: Out-Patient Tactical Air Control Party Manager: Jenn Tolbert RDCS (AE) Indications: Resting Tachycardia, HTN Other Information Study Quality: Adequate Conclusion Normal left ventricular wall thickness and chamber size. Estimated ejection fraction is 60%. Wall motion is normal Normal right ventricular size and systolic function Both atria are normal in size There is no structural or hemodynamically significant valvular disease Anesthesia Assessment and Plan Anesthesia History Personal History: No History of Anesthesia Complications Family History: No Family History of Anesthesia Complications Exercise Tolerance Exercise Tolerance: Metabolic Equivalents>4 Implantable Cardiac Device Does patient have a Pacemaker or an ICD?: No Airway Exam Known Difficult Airway: No Mallampati Class: 2 Mouth Opening: Normal (> 3cm) Thyromental Distance: Greater than 3 cm Neck Range of Motion: Full ROM Neck Circumference: Normal Teeth Condition: Normal Dentition
[2022-11-08 10:42] VITALS: BMI 25.8
[2022-11-08] MEDS: Lactated Ringers 1,000 ML 30 ML IV (10:55)
[2022-11-08 11:05] VITALS: BP 86/65; PULSE 88; RESP 14; TEMP 36.5; O2SAT 95
[2022-11-08 11:10] VITALS: BP 92/63; PULSE 88; RESP 14; O2SAT 97
--- NOTE | 2022-11-08 11:10 | W.PM.OP ---
Date of service: 11/08/22 Time of Service: 11:10 Operative Note Operative Note DATE OF PROCEDURE: 11/07/22 PRE-OP DIAGNOSIS: perirectal abscess cavity and scrotal abscess POST-OP DIAGNOSIS: same PROCEDURE: Exam under anesthesia and exchange of packing SURGEON: Iram Ryan PATTERN CHAIN BUILDER: Heather Mckenzie ANESTHESIA TYPE: MAC Refer to Anesthesia Record ESTIMATED BLOOD LOSS: 11 PATHOLOGY: other COMPLICATIONS: None Patient was transported to: floor Patient's condition: stable Indications: Mr. Escobedo is a pleasant 57 year old male with a history of Perirectal abscess, s/p Incision and drainage. He developed a small scrotal abscess and was brought back to the operating room yesterday for exploration and drainage. Both the cavities were irrigated and packed. He is coming back to the OR for exploration and exchange of his packing Findings: No purulent discharge. Procedure Description: After informed consent was obtained the patient was brought to the Operating room and placed in a supine position on the OR table. Monitors were applied and he was sedated. A time out was done. The patients name, , allergies to medications, Procedure to be done were reviewed. Fire risk was assessed. His legt were then placed in stirrups. Ther perineal area and scrotum was prepped and draped. The packing was then removed out of both cavities. Both cavities were irrigated with saline. They were both probed and there was no purulent discharge. 1/2 inch packing was placed back into the perirectal abscess cavity. The skin was cleaned and dried and an ABD was applied and secured in place with mesh panties. The patients legs were gently brought back onto the OR table. The patient was woken up and taken back to his room in stable condition. Instrument and sponge counts were correct at the end of the case. There were no immediate complications.
[2022-11-08 11:15] VITALS: BP 91/66; PULSE 85; RESP 12; O2SAT 97
[2022-11-08 11:20] VITALS: BP 106/75; PULSE 84; RESP 14; TEMP 36.7; O2SAT 97
--- NOTE | 2022-11-08 11:35 | W.ANESPOSTOP ---
Postoperative Evaluation Date, Time and Location Date Performed: 11/08/22 Time Performed: 11:20 Patient Location: PACU Vital Signs Most Recent Imported Vital Signs: Most Recent Vital Signs Temp Pulse Resp BP Pulse Ox 36.7 C 84 14 106/75 97 11/08/22 11:20 11/08/22 11:20 11/08/22 11:20 11/08/22 11:20 11/08/22 11:20 Most Recent Vital Signs Temp Pulse Resp BP Pulse Ox 36.5 C 70 17 124/82 98 11/07/22 06:45 11/07/22 06:45 11/07/22 06:45 11/07/22 06:45 11/07/22 06:45 Pain Score Most Recent Pain Score: Most Recent Pain Score Pain Level 4 11/08/22 11:20 Assessment Mental Status: Awake (Alert & Oriented to Patient Baseline) Airway and Respiratory Function: Patent airway with normal (patient baseline) respiratory exam Cardiovascular Function: Hemodynamically Stable Hydration Status: Adequately Hydrated Nausea & Vomiting: No Nausea or Vomiting Pain: Pt. Denies Any Pain Peripheral Nerve Block: Patient did not receive a nerve block
[2022-11-08 11:47] VITALS: BP 114/78; PULSE 77; RESP 16; TEMP 36.3; O2SAT 98
[2022-11-08] MEDS: Acetaminophen 500 MG TAB 1000 MG PO (12:01)
[2022-11-08] MEDS: Sertraline 50 MG TAB PO (12:02)
--- NOTE | 2022-11-08 14:15 | W.PM.DS.N ---
Date of service: 11/08/22 Time of Service: 14:16 DS: Diagnosis Discharge Diagnosis (1) Scrotal abscess: Status: Acute (2) Abscess, perirectal: Status: Acute Discharge Plan Disposition Patient Disposition: Home Condition: Stable Discharge Details Reason For Visit: Scrotal Abscess/Recurrent Rectal Abscess Admit Date/Time: 11/06/22 12:55 Admit Provider: Akosua Yang Attending Provider: Akosua Yang Primary Care Provider: Clint Asher Hospital Course Hospital Course: Harish was readmitted to the Hospital for antibiotics and drainage of a new scrotal abscess. He went back to surgery today for a dressing change. The wounds looked good. Unfortunately his Cx did grow MRSA. We will switch patient from Levaquin and Flagyl to Clindamycin. I will Rx some more hydrocodon that he can take prior to his dressing changes. He does well with ibuprofen at other times. I will also ask him to potato picker a probiotic to start taking. Will get Home Health to do daily dressing changes again Home Meds and New Rx's Prescriptions: New clindamycin HCl 300 mg capsule 300 mg PO QID 10 Days Qty: 40 0RF hydrocodone-acetaminophen 5-325 mg tablet 1 tab PO Q6H PRNQty: 14 0RF Continued hydrochlorothiazide 12.5 mg tablet 12.5 mg PO DAILY Qty: 90 3RF zolpidem 10 mg tablet 10 mg PO QHS PRN (Reason: sleep) Qty: 90 3RF nystatin 100,000 unit/gram powder 1 applic topical BID Qty: 60 6RF Rx Instructions: apply to affected area twice a day prn yeast/redness ibuprofen 600 mg tablet 600 mg PO QID Qty: 60 1RF sertraline 100 mg tablet 100 mg PO DAILY Qty: 90 3RF Rx Instructions: takes at 7pm losartan 50 mg tablet 50 mg PO DAILY Qty: 90 3RF sertraline 50 mg tablet 50 mg PO DAILY Qty: 90 3RF Rx Instructions: takes at noon lorazepam 0.5 mg tablet 0.5 mg PO BID PRN (Reason: anxiety) Qty: 60 0RF Discharge Instructions Instructions: MRSA (Methicillin-Resistant Staphylococcus Aureus) (DC) Additional Instructions: Activity at Home after surgery: 1. As tolerated Diet, Nutrition, & wound healin. Avoid alcohol until after you are recovered from your surgery 2. Make sure to eat plenty of lean protein (meat, fish, eggs, cottage cheese, beans) 3. Eat a variety of fruits and vegetables. Eat plenty of high fiber foods to avoid constipation. 4. Drink plenty of liquids to stay hydrated and avoid constipation Pain Medications: 1. Tylenol 650mg every 6 hours as needed and Ibuprofen 600 mg every 6 hours as needed. You may alternate between the 2 medications every 3 hours 2. If a narcotic has been prescribed take as directed only for breakthrough pain For Constipation: 1. Take Milk of Magnesia or MiraLax as needed for constipation Other: 1. You may shower daily. Do not scrub the incisions 2. Do not soak the incisions for 1 week 3. You may alternate ice and heat as needed for pain and swelling Wound Care: 1. Keep the incisions clean and dry Other Services that may have been ordered: 0 Home Health- to help with dressing changes Please call our office if you develop: 1. Fevers >101.5 2. Nausea or Vomiting 3. Worsening pain 4. Redness and thick discharge from the wounds If after hours please call the Hospital at and ask to speak to the on-call surgeon Referrals: Akosua Yang DO [OSTEOPATHIC DOCTOR] - 11/13/22 10:45 am Activity:: Activity as Tolerated Equipment/Supplies:: No Equipment Needed Diet:: As Tolerated DS: Summary Time Spent with Patient providing and/or coordinating discharge services: Less than 30 minutes Status at Discharge Functional status at discharge: independent ambulation Overall status at discharge: patient is progressing back to baseline Mental Status: mental status grossly normal Speech and Movement: speech and movement normal Mood: congruent mood Affect: normal affect Exam Psych Mental Status: mental status grossly normal Speech and Movement: speech and movement normal Mood: congruent mood Affect: normal affect DS: Data Vitals/I&O Vitals and I&O: Vital Signs Temperature 97.3 F L 11/08/22 11:47 Temperature Source Tympanic 11/08/22 11:47 Pulse 77 11/08/22 11:47 Pulse Rhythm Regular 11/08/22 07:02 Respiratory Rate 16 11/08/22 11:47 Respiratory Effort Normal, Non-Labored 11/08/22 07:02 Respiratory Depth Normal 11/08/22 07:02 Respiratory Pattern Normal 11/08/22 07:02 Blood Pressure 114/78 11/08/22 11:47 Pulse Oximetry 98 11/08/22 11:47 Oxygen Delivery Method Room Air 11/08/22 11:47 Oxygen Flow Rate 0 11/08/22 11:47 Pain Level 4 11/08/22 12:01 Intake & Output 11/07/22 11/08/22 11/08/22 23:59 11:59 23:59 Intake Total 1600 / 2850 468 / 708 240 / 708 Output Total 0 / 0 Balance 1600 / 2850 468 / 708 240 / 708 Weight 169 lb 12.095 oz 169 lb 12.095 oz Intake: IV 1550 / 2800 468 / 468 Oral 50 / 50 240 / 240 Output: Emesis 0 / 0 Other: Comment independent Emesis Description None None Voiding Methods Toilet Data Completed and Pending Labs on day of discharge: 11/07/22 15:50 Scrotum Anaerobic Culture - Pending Preliminary micro results at discharge 11/07/22 15:50 Wound Culture - Preliminary Scrotum Staphylococcus Aureus 11/07/22 15:50 Anaerobic Culture - Pending Scrotum PFSH All Active Problems Scrotal abscess (Acute) Anxiety about health (Acute) Abscess, perirectal (Acute) Trigger finger, right ring finger (Acute) Chronic rhinitis (Acute) Postnasal drip (Acute) Seeing ENT at [facility] Generalized anxiety disorder (Chronic) Colon cancer screening declined (Acute) Asthma (Acute) Other color vision deficiencies (Acute) red/green Nevus, non-neoplastic (Acute) Contact dermatitis and eczema (Acute) Anal fissure (Acute 03/28/12) Medical History Acid indigestion Chronic diarrhea Depressive disorder Family history of cancer (12/01/15) father: metastatic prostate CA, brother: oral CA, two sisters: breast CA Fatigue Hypertension Insomnia Tachycardia Surgical History Nasal septoplasty (~2006) and reduction of turbinates Status post adenoidectomy Status post nasal septoplasty Status post tonsillectomy Tonsillectomy and adenoidectomy Family History Mother Depression Stroke Father , age 88 Cancer Sister Cancer Sister Cancer Brother Alcohol abuse Cancer Depression Hypertension Social History Smoking/Tobacco Use Status: Never Second Hand Exposure: Yes Smoking risk assessment performed?: Yes Alcohol Intake: current Alcohol Intake frequency: a few times a week Alcohol type: beer, wine and hard liquor Drug use: Never Substance use type: does not use Caregiver/Support person: No Household members: spouse Housing: house Communication Needs: None Do you need help understanding health information?: Never Pets and animals: No Sexually active: Yes Do you think of yourself as: straight/heterosexual Current gender identity: male What is your relationship status?: How often do you talk on the phone with friends or family?: once per week How often do you get together with friends or relatives?: once per week How often do you attend presybeterian or mandaen services?: decline to answer Do you belong to any clubs or organized social groups?: no Panel score (0-1 are the most socially isolated patients): 1 What type of physical activity do you participate in: other Details: stretches Duration: 15-30 minutes/day Frequency: 5-6 times per week Chantel/Sikh: Jewish Special chantel needs: No Seatbelt use: always Helmet use: Yes Helmet use: sometimes Drive intox or ride w/intox route delivery driver: No Do you feel safe at home: Yes Do you feel safe in your relationship?: Yes Victim of physical abuse: No Victim of emotional abuse: No Victim of sexual abuse: No Would you like helpful sources: No Time Spent with Patient Time Spent with Patient: <45 minutes Time was spent: ordering medications,tests, procedures, indepentently interpreting results and counseling the patient
--- NOTE | 2022-11-08 14:28 | PDOC.CMDIS ---
- If Service Date Differs Date of service: 11/08/22 Time of Service: 14:28 LACE Index Scoring Tool - Questions: Length of Stay (in days): 2 Acuity (Admit via E.D.?): No E.D. Visits: 2 - Answers: Total Score: 4 Risk of Readmission: Low Risk Care Management Discharge Reason for Hospitalization: Scrotal abscess/recurrent rectal abscess Discharge Plan: Harish is discharged home via private vehicle with family. He will follow up with community providers and discharge plan of care as prescribed. New O/E VNA RN services are ordered for wound care. New RX's are transmitted to [facility]. Follow up with Dr. Yang on 11/13/22, as scheduled. Patient/Family Education Needs: Review discharge instructions, limitations, medications and plan to follow up with community providers. Discuss ask me three. Services Needed at Discharge: Home Health Care Services (New O/E VNA RN (CM notified Sandra))
--- NOTE | 2022-11-08 14:35 | PDOC.HHF2F_ITS ---
Home Health Referral Home Health Orders Clinical synopsis of why skilled professionals are needed: daily dressing changes Medical diagnosis necessitation home health referral: anastacia-rectal abscess Registered Nurse: Check all that apply Assess for exacerbation of medical condition, instruct patient/caregivers on signs and symptoms to report for early detection: Ordered Assess wound for signs and symptoms of infection, instruct on wound care and/or provide skilled wound care consisting of: daily dressing changes with 1 inch plain iodofor Home Bound Status Requires the aid of supportive device (check all that apply): Other Patient has a condition such that leaving home is medically contraindicated (Describe): large perirectal abscess/open wound of buttocks Describe why leaving home would require a considerable and taxing effort: Side effects from pain medication (sedation/drowsiness) and Requires frequent rest periods Encounter Date and Reason: I certify that a FTF encounter for this patient was performed on November 08, 2022 and that such encounter was related to the primary reason the patient requires home health services. The encounter was conducted in the following manner: * By me as the certifying physician, DIRECTOR OF LABOR AND DELIVERY, PA or * By an inpatient physician, DIRECTOR OF LABOR AND DELIVERY or PA during an inpatient stay who communicated findings to me, Certification And Authentication I certify that I composed the above information based on my clinical judgment relating to this patient's medical condition and, if applicable, clinical findings communicated to me by the NPP or inpatient physician who performed the FTF encounter. Name of Provider that will be monitoring home health services: Akosua Yang
== END 2022-11-08 15:59 | disposition home or self-care (01) | DRG 717 ==
PROVIDERS: Surgery; Admitting Provider Surgery; PCP Nurse Practitioner Family; Visit Provider Surgery
PROC: 0V950ZZ Drainage of Scrotum, Open Approach (ICD-10-PCS; CPT 54700; principal; 2022-11-07 14:15)
PROC: 2W4 Placement, Anatomical Regions, Packing (ICD-10-PCS; CPT 45990; principal; 2022-11-08 10:15)
DX: N49.2 Inflammatory disorders of scrotum (principal); K61.1 Rectal abscess; F41.1 Generalized anxiety disorder; J45.909 Unspecified asthma, uncomplicated; I10 Essential (primary) hypertension; F51.01 Primary insomnia; F32.A Depression, unspecified; B95.62 Methicillin resistant Staphylococcus aureus infection as the cause of diseases classified elsewhere
CPT/HCPCS: 54700; 11042; 45990; 36415; 85027; 87077; J1650; 87070; 87075; 87186; 87205; J1885; J1956; J2250; J2270; J2405

== ENCOUNTER 2022-11-06 13:52 | Outpatient (CLI) | payer BC, SELFPAY ==
--- NOTE | 2022-11-06 11:19 | DI.CT_ITS ---
Exam(s) CT PELVIC W EXAM: CT PELVIC W CLINICAL HISTORY: hx of perirectal abscess/new scrotal abscess TECHNIQUE: Imaging Protocol: Axial computed tomography images with coronal and sagittal reformatted images were created and reviewed CONTRAST MATERIAL: Intravenous: Omnipaque 350 Contrast volume:100 mL Oral: No COMPARISON: CT CT ABDOMEN PELVIS W from 10/05/2022 FINDINGS: PELVIS: Abdominal Aorta: Abdominal portion non-dilated. Atherosclerosis. Bowel: No obstruction or bowel wall thickening. Appendix is unremarkable. Peritoneal Cavity: No ascites, collection or mesenteric inflammatory response. Soft Tissues: There is a peripherally enhancing fluid collection in the perirectal soft tissues on th e left measuring 2.1 x 1.2 cm. This may represent the residual perirectal abscess from 10/05/2022 or a new small developing abscess. Bladder: Symmetric distention, no gross wall thickening. Reproductive Organs: Unremarkable as visualized. Lymph Nodes: Within normal limits. Bones: Within normal limits. IMPRESSION: 2.1 x 1.2 cm peripherally enhancing fluid collection in the left perirectal soft tissue suspicious fo r small perirectal abscess. This may be a new developing abscess or the residual from the perirectal abscess from 10/05/2022. RADIATION DOSE DELIVERED: 432.4mGy.cm Total DLP 432.4mGy.cm Total DLP DATA REPOSITORY: All CT scans at this facility are submitted to the National Radiology Data Registry (NRDR) Dose Index Registry (DIR) with the [employer] (ACR). RADIATION OPTIMIZATION: All CT scans at this facility use at least one of these dose optimization te chniques: automated exposure control; mA and/or kV adjustment per patient size (includes targeted exa ms where dose is matched to clinical indication); or iterative reconstruction.
[2022-11-06] MEDS: Omnipaque 350 MG/ML 500 ML BTL-Imaging package IJ (11:38)
[2022-11-06] MEDS: Normal Saline - Diluent 50 ML VIAL IJ (11:38)
[2022-11-06] MEDS: Normal Saline Flush 10 ML SYR IVP (11:39)
== END 2022-11-06 14:12 ==
LOC: DI 13:52
PROVIDERS: PCP Nurse Practitioner Family; Visit Provider Surgery
DX: K60.4 Rectal fistula (principal); K61.1 Rectal abscess; N49.2 Inflammatory disorders of scrotum
CPT/HCPCS: 72193

== ENCOUNTER 2022-11-13 11:12 | Outpatient (REF) | payer BC, SELFPAY | END 2022-11-13 11:13 | disposition home or self-care (01) | LOC: LBN 11:12 | PROVIDERS: PCP Nurse Practitioner Family; Visit Provider Surgery | DX: K61.1 Rectal abscess (principal); N49.2 Inflammatory disorders of scrotum; Z22.322 Carrier or suspected carrier of Methicillin resistant Staphylococcus aureus | CPT/HCPCS: 87081 ==

== ENCOUNTER 2022-11-24 12:37 | Outpatient (REF) | payer BC, SELFPAY | END 2022-11-24 12:38 | disposition home or self-care (01) | LOC: LBN 12:37 | PROVIDERS: PCP Nurse Practitioner Family; Visit Provider Physician Assistant | DX: Z22.322 Carrier or suspected carrier of Methicillin resistant Staphylococcus aureus (principal) | CPT/HCPCS: 87081 ==

== ENCOUNTER 2022-12-11 11:14 | Outpatient (REF) | payer BC, SELFPAY | END 2022-12-11 11:15 | disposition home or self-care (01) | LOC: LBN 11:14 | PROVIDERS: PCP Nurse Practitioner Family; Visit Provider Surgery | DX: Z22.322 Carrier or suspected carrier of Methicillin resistant Staphylococcus aureus (principal); J34.89 Other specified disorders of nose and nasal sinuses | CPT/HCPCS: 87081 ==

== ENCOUNTER 2023-01-23 08:03 | Day surgery (SDC) | payer BC, SELFPAY ==
[2023-01-23 08:26] VITALS: BP 120/90; PULSE 86; RESP 18; TEMP 36.6; O2SAT 99
--- NOTE | 2023-01-23 08:41 | W.ANESPRE ---
General Info Date of Service Date Performed: 01/23/23 Height: 5 ft 8 in Weight: 79.7 kg Body Mass Index (BMI): 26.6 Surgical Procedure: Operation Date: 01/23/23 09:10 Proposed Procedure Side Surgeon p Fisulotomy/ectomy Akosua Yang, DO Actual Procedure Side Surgeon p Fisulotomy/ectomy Akosua Yang, DO Meds Allergies and Home Medications Allergies Allergy/AdvReac Type Severity Reaction Status Date / Time amoxicillin Allergy Intermediate Swelling/Ed Verified 01/23/23 08:34 suzi acetaminophen AdvReac Mild Nausea Unverified 01/23/23 08:34 enviornmental Allergy Mild Wheezing Uncoded 01/23/23 08:34 Home Medication Medication Instructions Recorded hydrochlorothiazide 12.5 mg tablet 12.5 mg PO DAILY #90 tabs 05/24/22 zolpidem 10 mg tablet 10 mg PO QHS PRN sleep #90 tabs 05/24/22 losartan 50 mg tablet 50 mg PO DAILY #90 tabs 08/11/22 lorazepam 0.5 mg tablet 0.5 mg PO BID PRN anxiety #60 tabs 10/11/22 mupirocin 2 % topical ointment 1 applic topical TID #22 grams 11/24/22 sertraline 100 mg tablet 100 mg PO QHS 01/22/23 sertraline 50 mg tablet 50 mg PO DAILY 01/22/23 Current Visit Medications: Current Medications Generic Name Dose Route Start Last Admin Trade Name Freq PRN Reason Stop Dose Admin Acetaminophen 1,000 mg 01/23/23 06:00 Acetaminophen 500 Mg Tab PO 02/21/23 23:59 PREOP JOCELYN Gabapentin 600 mg 01/23/23 06:00 Gabapentin 300 Mg Cap PO 02/21/23 23:59 PREOP JOCELYN Ringer's Solution 1,000 mls @ 80 mls/hr 01/23/23 06:00 IV 02/21/23 23:59 INFUSION JOCELYN Metronidazole 500 mg in 100 mls @ 100 mls/hr 01/23/23 06:00 Flagyl IVPB 02/22/23 05:59 PREOP JOCELYN Ondansetron HCl 4 mg/ Sodium 52 mls @ 200 mls/hr 01/23/23 07:56 Chloride IVPB 02/22/23 07:55 Q6H PRN PRN IV Miscellaneous Supplies 1 each 01/23/23 06:00 Iv Access IV 02/21/23 23:59 DIRECTED JOCELYN Morphine Sulfate 2 mg 01/23/23 07:56 Morphine 4 Mg/Ml Syr IVP 02/22/23 07:55 Q1H PRN PRN Sodium Biphosphate/Sodium Phosphate 133 ml 01/23/23 06:00 Na Phosphate Enema 133 Ml Btl PA 01/23/23 23:59 PREOP JOCELYN Sodium Chloride 0 ml 01/23/23 06:00 Normal Saline Flush 10 Ml Syr IV 02/21/23 23:59 PRN PRN Sodium Chloride 0 ml 01/23/23 06:00 Normal Saline 10 Ml Vial IJ 02/21/23 23:59 DIRECTED PRN Sterile Water 0 ml 01/23/23 06:00 Water,Injection,Sterile 10 Ml Vial IJ 02/21/23 23:59 DIRECTED PRN Tramadol HCl 50 mg 01/23/23 07:56 Tramadol 50 Mg Tab PO 02/22/23 07:55 Q6H PRN PRN Pain PFSH Active Problems Active Problems: Problem Status Onset Code Epidermal inclusion cyst L72.0 MRSA (methicillin resistant staph aureus) culture positive Z22.322 Scrotal abscess N49.2 Anxiety about health F41.8 Abscess, perirectal K61.1 Trigger finger, right ring finger M65.341 Colon cancer screening declined Z53.20 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 Nevus, non-neoplastic I78.1 Contact dermatitis and eczema L25.9 Anal fissure 03/28/12 K60.2 Medical History Medical History Acid indigestion Asthma Chronic diarrhea Chronic rhinitis Depressive disorder Family history of cancer (12/01/15) father: metastatic prostate CA, brother: oral CA, two sisters: breast CA Fatigue Generalized anxiety disorder Hypertension Insomnia Postnasal drip Seeing ENT at [facility] Medical History Comments:: 01/23/23 pt reports he has not had asthma for 20 years Surgical History Surgical History Nasal septoplasty (~2006) and reduction of turbinates Status post adenoidectomy Status post nasal septoplasty Status post tonsillectomy Tonsillectomy and adenoidectomy Tobacco Smoking/Tobacco Use Status: Never Passive smoking exposure: Yes Second hand exposure: Yes Alcohol Alcohol Intake: current Alcohol intake frequency: a few times a week Alcohol type: beer, wine and hard liquor Substance Use Substance use: Never Substance use type: does not use Vital Signs and Lab Results Vital Signs Most Recent Vital Signs in EMR: Most Recent Vital Signs Temp Pulse Resp BP Pulse Ox 36.6 C 86 18 120/90 99 01/23/23 08:26 01/23/23 08:26 01/23/23 08:26 01/23/23 08:26 01/23/23 08:26 Lab Results Blood Type / Crossmatch: No Data to Display Complete Blood Count: No Data to Display Complete Metabolic Panel: No Data to Display Liver Function Panel: No Data to Display Coagulation Panel: No Data to Display Cardiac Panel: No Data to Display Arterial Blood Gas: No Data to Display Venous Blood Gas: No Data to Display Pancreas Panel: No Data to Display Thyroid Panel: No Data to Display Infectious Disease: No Data to Display Blood Cultures: No Data to Display Toxicology Panel: No Data to Display Imaging and Studies Imaging and Studies Study information below may be from another EMR and interpreted by another provider. Please see original notes in EMR for more complete details. EKG Summary: DATE/TIME OF SERVICE: 08/24/22 1118 : 1965PERFORMING LOCATION: ER APPROVED REPORT Exam: Resting ECG Reason for Exam: Epigastric pain Patient Location: E HR:92 bpm ECG Measurements Heart Rate 92 AXIS PA 136 P 70 QRSd 93 QRS 45 QT 356 T48 QTc 441 Conclusion Sinus rhythm...normal P axis, V-rate 60- 99 Probable left atrial enlargement...P >50mS, <-0.10mV V1 Narrow complex normal sinus rhythm at a rate of 93. Normal axis. Intervals within normal limits. T wave flattening in V2. No acute injury pattern. No prior for comparison. ST segment abnormalities. Stress Test Summary: Date of Exam: 11/27/16Sex: M : 1965Age: 51 Exam(s) [id number] NM:MPI Resting & Stress GRP *[facility]* *[facility]* [address] [place] [address] Myocardial Perfusion Imaging - SPECT Asaf protocol Date of study: 11/27/2016 *PATIENT PRESENTATION* Height: 172.7cm ((68in) ) Blood Pressure: Weight: 81.4kg ((179lb) ) BSA: 1.99m^2 Referring physician: Abelino Horta MD Ordering physician: Nba Berger Impressions: Normal perfusion by [id number] Sestamibi Imaging. Summary: 1. Myocardial perfusion imaging: No myocardial perfusion defects noted. 2. The calculated left ventricular ejection fraction after stress: 48%. 3. Stress: The target heart rate was achieved. Echocardiogram Summary: Date of Exam: 06/09/21Sex: M Admission Date: 06/09/21 : 1965 Age: 55 APPROVED REPORT EXAM: Comprehensive 2D, Doppler, and color-flow Echocardiogram Patient Location: Out-Patient Roller Man: Jenn Tolbert RDCS (AE) Indications: Resting Tachycardia, HTN Other Information Study Quality: Adequate Conclusion Normal left ventricular wall thickness and chamber size. Estimated ejection fraction is 60%. Wall motion is normal Normal right ventricular size and systolic function Both atria are normal in size There is no structural or hemodynamically significant valvular disease Anesthesia Assessment and Plan Anesthesia History Personal History: No History of Anesthesia Complications Family History: No Family History of Anesthesia Complications Exercise Tolerance Exercise Tolerance: Metabolic Equivalents>4 Pertinent Negatives Pertinent Negatives: No Symptoms of GERD, No Major Cardiovascular Symptoms or Complaints and No Major Pulmonary Symptoms or Complaints Cardiac & Pulmonary Exam Cardiac Exam: Normal S1/S2 Heart Sounds Pulmonary Exam: Clear Bilateral Breath Sounds Implantable Cardiac Device Does patient have a Pacemaker or an ICD?: No Airway Exam Known Difficult Airway: No Mallampati Class: 2 Mouth Opening: Normal (> 3cm) Thyromental Distance: Greater than 3 cm Neck Range of Motion: Full ROM Neck Circumference: Normal Teeth Condition: Normal Dentition ASA Classification ASA Score: ASA 2 Emergency Case?: No NPO Status NPO Status: NPO Clears >2 hours, Solids >8 hours Anesthesia Plan Resuscitation Status: Full Code Anesthesia Technique: Spinal Anesthesia Airway Planned: Natural Airway Monitors Used: Standard Monitors Preoperative Comments:: SAB with GA/ETT backup
[2023-01-23] MEDS: Lactated Ringers 1,000 ML 80 ML IV (09:11)
[2023-01-23] MEDS: Acetaminophen 500 MG TAB 1000 MG PO (09:12)
[2023-01-23] MEDS: Gabapentin 300 MG CAP 600 MG PO (09:15)
[2023-01-23] MEDS: Normal Saline Flush 10 ML SYR IV ×2 (09:17→12:21)
[2023-01-23 09:22] VITALS: BMI 26.6
[2023-01-23] MEDS: metroNIDAZOLE 500 MG/100 ML BAG 100 MG IVPB (09:25)
[2023-01-23] MEDS: Lidocaine 1% Pres-Free W/EPI 1/200,000 30 ML VIAL (10:32)
[2023-01-23 10:44] VITALS: BP 112/80; PULSE 71; RESP 16; TEMP 36; O2SAT 99
[2023-01-23 11:20] VITALS: BP 117/80; PULSE 72; RESP 16; TEMP 36; O2SAT 99
--- NOTE | 2023-01-23 11:32 | PDOC.DSDIS_ITS ---
Date of service: 01/23/23 Time of Service: 11:32 Discharge Plan Disposition Patient Disposition: Home Condition: Improving Discharge Details Reason For Visit: anal fistula surgery Attending Provider: Akosua Yang Primary Care Provider: Clint Asher Home Meds and New Rx's Prescriptions: New tramadol 50 mg tablet 50 mg PO Q6H PRN PRN (Reason: pain (scale score 7-10)) Qty: 14 0RF Continued hydrochlorothiazide 12.5 mg tablet 12.5 mg PO DAILY Qty: 90 3RF zolpidem 10 mg tablet 10 mg PO QHS PRN (Reason: sleep) Qty: 90 3RF losartan 50 mg tablet 50 mg PO DAILY Qty: 90 3RF mupirocin 2 % ointment 1 applic topical TID Qty: 22 0RF sertraline 100 mg tablet 100 mg PO QHS Rx Instructions: takes at 7pm sertraline 50 mg tablet 50 mg PO DAILY Rx Instructions: takes at noon lorazepam 0.5 mg tablet 0.5 mg PO BID PRN (Reason: anxiety) Qty: 60 0RF Discharge Instructions Additional Instructions: .Home Care Instructions after Rectal Surgery Pain control:? Ibuprofen 600mg 6hrs (take w/ food. Do not take on an empty stomach) and Tylenol 1000mg by mouth (ibuprofen 400-600mg) every 8 hours.? Do not take if you have ulcers or sensitivity to aspirin.? Do not take Tylenol if you have hepatitis or liver failure. Alternate the Tylenol and ibuprofen.? Take pain meds continuously for the first 72hrs.? After 72hrs, you can take as needed if you are having pain.? Ultram every 6 hours as needed for pain>7. Ultram will make you constipated. How to prevent constipation: The first bowel movement after surgery will be painful. Do not let yourself get constipated. Stay on a stool softener for the first two weeks after surgery. ?It is recommended that you use a fiber supplement (Metamucil, Citrucel) daily (1 tablespoon in 8 oz of water). If you do not have a bowel movement daily, use Miralax. You may have bleeding or drainage after rectal surgery; especially when you move your bowels. Use a sanitary napkin to collect the discharge. If you are passing large clots or having to change the pad more than every 4 hours, call the clinic or go to the ER. You may experience spasms in the rectal muscles. This is normal after surgery and last for about two weeks. They can become more intense with bowel movements. The best remedy is to soak in a bathtub of plain warm water- no Epsom salts, essential oil or soap.? It takes about 10 minutes further the spasm to stop.? You may want to do this after BM as well. It is ok to shower. Avoid soap on the surgical area. Use a pillow to sit on. Follow a mild bland diet. Avoid alcohol, spicy food, citrus, and tomatoes. Avoid strenuous activity (running, jogging, and power walking, swimming, weight lifting) for two weeks. No lifting over 20 pounds for 2 weeks. F/w w/ Dr. Yang in 1 weeks time. 01/29 @ 9am . We will decide on return to work time. 02/05 @ 1:30pm. These appointments have been made for you. Sunday afternoon: -Take (2) ultram 60-90 minnutes prior to removing the packing. -remove 4x4 pack from wound -sit in a tub of warm warm for 5 minutes to allow packing to become moist. - Remove packing- there is 12 inches of 1/4 packing in the wound. -warm tub soaks 3-4 times a day and after BM. Stand Alone Forms: Anesthesia Discharge InstJonathon Schmitt (U) Referrals: Akosua Yang, [OSTEOPATHIC DOCTOR] - 02/05/23 1:30 pm (Sunday01/29/23 09:00am and Sunday02/05/23 1:30pm) Activity:: See above Remove Dressings/Wound Care:: 24 hours Shower/Bathe:: 24 hours Diet:: As Tolerated Discharge Orders Discharge Orders: Discharge Order (Routine); Ordered 01/23/23 Ordered By: Akosua Yang DS: Diagnosis Discharge Diagnosis (1) MRSA (methicillin resistant staph aureus) culture positive: Status: Acute (2) Anal fissure: Status: Acute Asessment and Plan: The patient is doing well post-op from their rectal fistula surgery.? They are having no nausea or vomiting. They are tolerating liquids and a snack. The pt is not having any chest pain or SOB.? Their pain is adequately controlled. They have been able to urinate.? ?HEENT:? no eye pain/drainage/redness/swelling. Mild sore throat ?Cardio- NSR, no chest pain, BP stable- see VS record ?Pulm: no sob or productive cough. No hemoptysis ?Incision- dressing is c/d/i w/ no excessive bleeding or drainage ?I discussed with the patient the findings at the time of surgery and the patient?s progress. ?We reviewed expectations at home; what the patient could expect for recovery time, and in the post-operative period.? We discussed the importance of walking to avoid blood clots and pneumonia.? We discussed and reviewed the patient's post-operative wound care and dressing needs.?? We reviewed their step-guillen pain management plan, Rx called to the pharmacy of their choice.? We reviewed activity and limitations-see discharge instructions. We reviewed warning signs, and when to seek medical attention- see d/c instructions.?? Patient was given a postoperative follow-up appointment. Patient verbalized understanding of their postoperative instructions, how do to take care of themselves and their incision, and the pain management plan. Please see discharge instructions.? -Reviewed pain plan and how to remove packing in a.m. I will see him in follow- up in 1 week's time.
[2023-01-23 11:53] VITALS: BP 117/83; PULSE 87; RESP 16; TEMP 36; O2SAT 99
[2023-01-23] MEDS: traMADol 50 MG TAB PO (12:18)
--- NOTE | 2023-01-23 12:26 | ROE_ITS ---
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 This has developed following a large perirectal abscess. Patient is here today for excision of fistula. Informed consent is obtained explaining risks and benefits of procedure including but not limited to: Bleeding, infection, pneumonia, blood clots, complications of anesthesia, chronic pain or chronic numbness, loss of control of sphincters or stenosis, recurrence, need to heal by secondary intent / dressing and packing, and other on for told complications. Patient is brought to the operating room suite and spinal anesthesia is administered per the department of anesthesia. Patient is is then placed in the prone position with all bony surfaces padded. He did receive preop antibiotics, a preoperative pain cocktail. He is prepped and draped in the usual sterile fashion using a Betadine scrub solution, and the table was placed in the jackknife position. There is no signs of any further communication to the scrotum. The fistula again is at the 3 o'clock position this is probed. It does exit into the rectum in a supra sphincteric fashion and does not go through the sphincters. 10 cc of quarter percent Marcaine and 30 cc of 1% lidocaine are used for local anesthetization. A perineal block is done. THe fistula was then probed using a lacrimal probe. The exit point is in to the rectum. It is above the sphincters and does not incorporate sphincters. The distal end of the tract is opened using electrocautery, distally. The proximal opening of draining the sinus, at the buttock, is excised elliptically, using a #15 blade, ensuring that all the unhealthy tissue is removed down to the fat. Electrocautery was used to provide hemostasis. The fistulous tract is then curetted, and all unhealthy granulation tissue is removed. There is no purulent drainage or sign of acute infection. It is then irrigated with a liter of saline. The fistulous tract is packed with a foot of quarter inch plain packing with the tail exiting into the rectum. The wound on the buttock is packed with a 4 x 4. The fistulous tract is approximately 3 inches long. The wound on the buttock is 1 x 5 x 0.5 cm. Sterile compression dressings are applied. Patient tolerated procedure well without complication and transferred to same-day surgery in stable condition. Family was apprised of findings.
[2023-01-23] MEDS: MORPHine 4 MG/ML SYR 2 MG IVP (12:28)
[2023-01-23 12:31] VITALS: BP 113/84; PULSE 88; RESP 16; TEMP 36.1; O2SAT 99
--- NOTE | 2023-01-23 12:59 | W.ANESPOSTOP ---
Postoperative Evaluation Date, Time and Location Date Performed: 01/23/23 Time Performed: 12:55 Patient Location: Day Surgery Unit Vital Signs Most Recent Imported Vital Signs: Most Recent Vital Signs Temp Pulse Resp BP Pulse Ox 36.1 C L 88 16 113/84 99 01/23/23 12:31 01/23/23 12:31 01/23/23 12:31 01/23/23 12:31 01/23/23 12:31 Pain Score Most Recent Pain Score: Most Recent Pain Score Pain Level 7 01/23/23 12:31 Assessment Mental Status: Awake (Alert & Oriented to Patient Baseline) Airway and Respiratory Function: Patent airway with normal (patient baseline) respiratory exam Cardiovascular Function: Hemodynamically Stable Hydration Status: Adequately Hydrated Nausea & Vomiting: No Nausea or Vomiting Pain: Pain is Moderate or Severe Postoperative Pain Management: Pain being addressed with medication Peripheral Nerve Block: Patient did not receive a nerve block
[2023-01-23 13:05] VITALS: BP 110/81; PULSE 82; RESP 16; TEMP 36.2; O2SAT 99
== END 2023-01-23 13:17 | disposition home or self-care (01) ==
PROVIDERS: PCP Nurse Practitioner Family; Visit Provider Surgery
PROC: (CPT 46270; principal; 2023-01-23 09:00)
DX: K60.2 Anal fissure, unspecified; K60.5 Anorectal fistula
CPT/HCPCS: 46270; J2250; J2270; J2405

== ENCOUNTER 2023-06-19 13:18 | Outpatient (REF) | payer BC, SELFPAY ==
[2023-06-19 15:47] LABS: C Diff PCR Negative (Negative)
[2023-06-20 11:18] LABS: Campylobacter PCR Negative (Negative); Salmonella PCR Negative (Negative); Shiga Toxin PCR Negative (Negative); Shigella/Enteroinvasive Ecoli Negative (Negative)
[2023-06-22 18:51] LABS: Calprotectin <50.0 mcg/g
== END 2023-06-19 13:19 | disposition home or self-care (01) ==
LOC: LBN 13:18
PROVIDERS: Surgery; PCP Nurse Practitioner Family; Visit Provider Nurse Practitioner Family
DX: J45.909 Unspecified asthma, uncomplicated (principal); K52.9 Noninfective gastroenteritis and colitis, unspecified
CPT/HCPCS: 87493; 87505; 83630; 83993

== ENCOUNTER 2023-09-18 08:15 | Day surgery (SDC) | payer BC, SELFPAY ==
--- NOTE | 2023-09-17 21:48 | W.PM.HP.N ---
Date of service: 09/18/23 Time of Service: 09:21 Assessment and Plan Assessment and plan (1) Generalized anxiety disorder: Status: Chronic (2) Hypertension: Status: Chronic Qualifiers: Hypertension type: primary hypertension Qualified Code(s): I10 - Essential (primary) hypertension (3) Chronic diarrhea: Status: Chronic (4) Fecal urgency: Status: Acute (5) Asthma: (6) Colon cancer screening: Status: Acute Assessment and plan: Plan: Colonoscopy w/ general & natural airway. The?patient will be scheduled by my office. Informed consent is obtained for the procedural (explained in simple layman's terms that?the pt and/or family could understand) explaining risks vs benefits and alternatives to the procedure and consequences if we do not do the procedure and need/rational for the procedure. Risks include but are not limited to: bleeding, infection, perforation of colon.? This would necessitate emergency surgery to repair the damage w/ possible ostomy; and other associated complications w/ the required surgery. ? Also complications of anesthesia including aspiration, TX/CVA/, inability to complete the procedure. I discussed with the?patient would they could expect during the procedure, post procedure and recovery time and risks.? History of Present Illness Narrative: Patient is here today for colonoscopy for CRC screening and chronic diarrhea since his fistula surgery. Fecal calprotectin adn lactoferrin were nl.??? They completed a bowel prep with just a clear yellow residual effluent.? They not having any chest pain or shortness of breath, currently.? They are not experiencing any fever or chills.? They deny any productive cough or upper respiratory tract infection signs or symptoms.? They are not having abdominal pain, or nausea and vomiting.? They have not had any changes in medications, past medical history or past surgical history since previously being seen in the office. They have not had any accidents or have been in the ER since the clinic pre-operative evaluation. ??I reviewed the procedure with the patient today, including risks and benefits of the procedure, and what they could expect at home for recovery.? All questions are answered to the patient?s satisfaction today, and they are stable to proceed with the proposed procedure. Clinic visit 06/30 (2) Rectal fistula: (3) Chronic diarrhea: - Stool studies. If these are negative then we can start him on Imodium or other antidiarrheals. The patient has never had a colonoscopy Plan: Colonoscopy w/ general & natural airway and biopsies The?patient will be scheduled by my office. Plavix and coumadin will need to be held except in unusual circumstances. ? Patients in A. Fib do not need to be bridged with Lovenox or on CVA prophylaxis.? A baby ASA can be continued but full dose ASA needs to be stopped for 10 days prior to the procedure. A complete H & P is required within 30 days of the procedure.? GETA w/natural airway is used for the colonoscopy.? Informed consent is obtained for the procedural (explained in simple layman's terms that?the pt and/or family could understand) explaining risks vs benefits and alternatives to the procedure and consequences if we do not do the procedure and need/rational for the procedure. Risks include but are not limited to: bleeding, infection, perforation of colon.? This would necessitate emergency surgery to repair the damage w/ possible ostomy; and other associated complications w/ the required surgery. ? Also complications of anesthesia including aspiration, TX/CVA/, inability to complete the procedure. I discussed with the?patient would they could expect during the procedure, post procedure and recovery time and risks.? The patient understands that they need to have a ride home after the procedure.? The patient was given all this information in writing and expressed understanding. If there are any questions or concerns please feel free to contact our office.? Generally Colonoscopy does not require antibiotics prophylaxis, (4) Fecal urgency: (5) Family history of cancer: (6) Asthma: RN: Pt states he had diarrhea from taking the metamucil, now has burning type pain in the rectum, states 20 min after eating lunch he need to move bowels. Pt denies drainage or pain. Pt is also due to schedule his colonoscopy. Pt has never had colon cancer screening before.? They denies problems with constipation They deny any pain or difficulty with bowel movements, or rectal bleeding.? There is no family history of any colon cancer.? Pt has not had any unexplained weight loss.? Their appetite is good.? ?They deny heart, lung, or kidney problems. They are not having heartburn or indigestion. he patient has not had a prior prostate surgery.? They deny any problems with anesthesia in the past. He notes that he has been having diarrhea and fecal urgency. This has been going on since his last surgery. He thinks it is getting little worse. He will have from 1-4 watery stools a day. No blood. No loss of control. He tried a fiber supplement and this made it worse he tried cutting back on the fiber and this made no improvements. He has had no fever chills no positive vomiting no abdominal pain. He notes no recent changes in meds or diet. No recent travel. No one else in the home is ill. Anesthesia: general (without airway) Previous surgical intolerances: No Previous surgical complications: No Pulmonary risk factors: Planned procedure: Yes Sleep apnea risks: No COPD/Asthma/Smoker: No Can climb one flight of stairs (12-13 steps) in less than 30 seconds without stopping and without symptoms: Yes The surgery proposed for this patient is: low risk Active cardiac conditions: none Active risk factors: none ASA (acetylsalicylic acid): not used Beta blockers: not used Kidneys: no concerns DM: No Rectal fistula: (3) Chronic diarrhea: - Stool studies. If these are negative then we can start him on Imodium or other antidiarrheals. The patient has never had a colonoscopy Plan: Colonoscopy w/ general & natural airway and biopsies The?patient will be scheduled by my office. The pt understands that they need to do a bowel prep and the importance of hydration during this.? The patient understands there is a theoretical risk of renal failure.? For healthy patients we use Gatorade/Miralax Prep.? ?For anyone with renal concerns- GoLytely will be used. Plavix and coumadin will need to be held except in unusual circumstances. ? Patients in A. Fib do not need to be bridged with Lovenox or on CVA prophylaxis.? A baby ASA can be continued but full dose ASA needs to be stopped for 10 days prior to the procedure. A complete H & P is required within 30 days of the procedure.? GETA w/natural airway is used for the colonoscopy.? Informed consent is obtained for the procedural (explained in simple layman's terms that?the pt and/or family could understand) explaining risks vs benefits and alternatives to the procedure and consequences if we do not do the procedure and need/rational for the procedure. Risks include but are not limited to: bleeding, infection, perforation of colon.? This would necessitate emergency surgery to repair the damage w/ possible ostomy; and other associated complications w/ the required surgery. ? Also complications of anesthesia including aspiration, TX/CVA/, inability to complete the procedure. I discussed with the?patient would they could expect during the procedure, post procedure and recovery time and risks.? The patient understands that they need to have a ride home after the procedure.? The patient was given all this information in writing and expressed understanding. If there are any questions or concerns please feel free to contact our office.? Generally Colonoscopy does not require antibiotics prophylaxis, Review of Systems All systems reviewed & are unremarkable except as noted in HPI and below PFSH All Active Problems Screening for malignant neoplasm of colon performed (Acute) Colon cancer screening (Acute) Hypertension (Chronic) Generalized anxiety disorder (Chronic) Insomnia (Chronic) Chronic diarrhea (Chronic) Fecal urgency (Acute) Chronic rhinitis (Chronic) Trigger finger, right ring finger (Chronic) Other color vision deficiencies (Chronic) red/green Medical History Rectal fistula Perirectal abscess (~09/2022) MRSA (methicillin resistant staph aureus) culture positive Scrotal abscess (~09/2022) Depressive disorder Asthma Surgical History S/P tonsillectomy and adenoidectomy History of rectal surgery (01/23/23) Rectal fistulotomy Status post nasal septoplasty Family History Mother Depression Stroke Chronic kidney disease Father , age 88 Heart disease Myocardial infarction Prostate cancer Sister Breast cancer Sister Breast cancer Brother Depression Hypertension Brother Oral cancer Alcohol use disorder Maternal Grandfather No problems noted. Maternal Grandmother No problems noted. Paternal Grandfather No problems noted. Paternal Grandmother No problems noted. Social History Smoking/Tobacco Use Status: Never Second Hand Exposure: Yes Smoking risk assessment performed?: Yes Alcohol Intake: current Alcohol Intake frequency: a few times a week Alcohol type: beer, wine and hard liquor Drug use: Never Substance use type: does not use Adopted: No Caregiver/Support person: No Foster care: No Household members: spouse Housing: house Communication Needs: None Education Level: college Details: Associate Degree Do you need help understanding health information?: Never current occupation: Self-employed Pets and animals: No Sexually active: Yes Do you think of yourself as: straight/heterosexual Current gender identity: male What is your relationship status?: How often do you talk on the phone with friends or family?: twice per week How often do you get together with friends or relatives?: once per week How often do you attend orthodoxy or restorationism services?: decline to answer Do you belong to any clubs or organized social groups?: no Panel score (0-1 are the most socially isolated patients): 2 What type of physical activity do you participate in: walking and other Details: stretches Duration: 15-30 minutes/day Frequency: 3-4 times per week Chantel/Mosque: Synagogue Special chantel needs: No Seatbelt use: always Helmet use: Yes Helmet use: sometimes Drive intox or ride w/intox water taxi driver: No Do you feel safe in your relationship?: Yes Victim of physical abuse: No Victim of emotional abuse: No Victim of sexual abuse: No Additional Social history: unable to assess privately Meds Allergies and Home Medications Allergies Allergy/AdvReac Type Severity Reaction Status Date / Time amoxicillin Allergy Intermediate Swelling/Ed Verified 09/18/23 08:21 suzi enviornmental Allergy Mild Wheezing Uncoded 09/18/23 08:21 Home Medications Medication Instructions Recorded Confirmed Type lorazepam 0.5 mg tablet 0.5 mg PO BID PRN anxiety #30 tabs 05/24/23 09/18/23 Rx zolpidem 5 mg tablet 5 mg PO QHS PRN sleep #90 tabs 05/24/23 09/18/23 Rx sertraline 50 mg tablet 50 mg PO DAILY #90 tabs 08/15/23 09/18/23 Rx Exam Narrative Exam Narrative: PHYSICAL EXAM GENERAL APPEARANCE: Alert, healthy appearance, oriented, x 3,? in no acute distress HYDRATION: Well hydrated HEAD, EYES, EARS, NECK, THROAT: Head is normocephalic, pupils equal, round, reactive to light and accommodation, ocular movement intact, sclera clear and no jaundice. ?Dentition intact. LUNGS: normal respiration/normal chest excursion. ?Clear to auscultation bilaterally. ?No wheeze. ?HEART: Regular rate and rhythm. no murmurs ABDOMEN: soft and non-tender to palpation.? Normal bowel sounds.? Time Spent Time spent with Patient: <40 minutes Time was spent: preparing to see the patient(eg.review tests), obtaining and/or reviewing separately otained hiistory, ordering medications,tests, procedures, referring, communicating with other health customer care associate, indepentently interpreting results, counseling the patient and care coordination
--- NOTE | 2023-09-17 21:54 | PDOC.DSDIS_ITS ---
Date of service: 09/18/23 Time of Service: 10:06 Discharge Plan Disposition Patient Disposition: Home Condition: Good Discharge Details Reason For Visit: colon scope Attending Provider: Akosua Yang Primary Care Provider: Kenzie Schmidt Home Meds and New Rx's Prescriptions: Continued zolpidem 5 mg tablet 5 mg PO QHS PRN (Reason: sleep) Qty: 90 0RF lorazepam 0.5 mg tablet 0.5 mg PO BID PRN (Reason: anxiety) Qty: 30 0RF sertraline 50 mg tablet 50 mg PO DAILY Qty: 90 3RF Discontinued polyethylene glycol 3350 17 gram/dose powder 238 g PO ONCE Qty: 238 0RF Rx Instructions: take per colonoscopy instructions bisacodyl [Dulcolax (bisacodyl)] 5 mg tablet,delayed release (DR/EC) 5 mg PO ONCE Qty: 4 0RF Rx Instructions: take per colonoscopy instructions Discharge Instructions Additional Instructions: DSU Colonoscopy Post- Op Instructions Instructions for Everyone who is given Anesthesia: For your safety, please do the following for the next twenty-four (24) hours: *Do Not operate a motor vehicle (car, truck, motorcycle, etc.) *Do Not drink alcoholic beverages or use any recreational drugs for the first 24 hours or while taking pain medications. The medications in your body may have a reaction that can be dangerous. *Do Not make any important decisions or sign any important papers. Findings: Small polyp in rectum Minor diverticular disease Follow up: Follow-up in the office in 2 to 3 weeks time 1. No lifting over 20 pounds or strenuous activity for the first 24 hours after your procedure. After 24 hours there are no restrictions on your activity but you may feel fatigued for a few days. 2. After you arrive home you may have a light meal and return to your normal diet as you can tolerate it without feeling sick to your stomach. 3. You may have a bloated, gaseous feeling in your belly (abdomen) after a colonoscopy. Passing gas and belching will help. Walking or lying down on your left side with your knees flexed may relieve the discomfort. Call the office at [phone] (Office) or [phone] (Hospital) right away if you notice any of the following: a.Vomiting of blood or ?coffee ground stools?. b.Rectal bleeding 1Tbsp, blood clots or continuous bleeding. c.Severe belly (abdominal) pain. d.A hard distended belly (abdomen) and an inability to pass gas. 4. Please don?t expect to have a normal BM (bowel movement) for 2-3 days after your procedure. 5. If there are questions regarding the findings of your procedure, please contact your doctor 6. If you are unable to contact your doctor with a problem, contact the hospital at [phone]. 7. Continue all your regular medications unless directed otherwise. I understand the above instructions and have no questions. Signature of Patient or Adult Escort Name of Responsible Adult Escort Signature of Nurse Date/Time Stand Alone Forms: Anesthesia Discharge Inst., Jonathon Ho (DSU) Activity:: see above Diet:: see above Discharge Orders Discharge Orders: Discharge Order (Routine); Ordered 09/17/23 Ordered By: Akosua Yang DS: Diagnosis Discharge Diagnosis (1) Generalized anxiety disorder: Status: Chronic (2) Hypertension: Status: Chronic (3) Chronic diarrhea: Status: Chronic (4) Fecal urgency: Status: Acute (5) Asthma: (6) Colon cancer screening: Status: Acute (7) Screening for malignant neoplasm of colon performed: Status: Acute Asessment and Plan: The patient is seen and examined after their colonoscopy.? The patient has been able to pass gas.? They are not having abdominal pain.? They have been able to tolerate liquids and a snack.? They do not have any nausea or vomiting.? They are not having any chest pain or shortness of breath.??? They are not having any rectal bleeding. Their vital signs have been stable-see nursing notes. We discussed findings during their colonoscopy, and any biopsies that were done/polyps that were removed. The patient will be sent a letter with any biopsy results, and when to repeat the colonoscopy.-see discharge instructions. Patient was given explicit instructions to follow-up regarding colonoscopy-refer to discharge instructions.? We reviewed resumption of medications. Patient verbalized understanding and discharged in stable and satisfactory condition- See nursing notes.
[2023-09-18 08:23] VITALS: BP 122/91; PULSE 84; RESP 16; TEMP 36.4; O2SAT 16
[2023-09-18] MEDS: Lactated Ringers 1,000 ML 80 ML IV (08:45)
--- NOTE | 2023-09-18 08:51 | W.ANESPRE ---
General Info Date of Service Date Performed: 09/18/23 Height: 5 ft 7.5 in Weight: 80.1 kg Body Mass Index (BMI): 27.2 Surgical Procedure: Operation Date: 09/18/23 09:20 Proposed Procedure Side Surgeon p Colonoscopy w/Biopsy of Fistula Akosua Yang DO Meds Allergies and Home Medications Allergies Allergy/AdvReac Type Severity Reaction Status Date / Time amoxicillin Allergy Intermediate Swelling/Ed Verified 09/18/23 08:21 suzi enviornmental Allergy Mild Wheezing Uncoded 09/18/23 08:21 Home Medication Medication Instructions Recorded lorazepam 0.5 mg tablet 0.5 mg PO BID PRN anxiety #30 tabs 05/24/23 zolpidem 5 mg tablet 5 mg PO QHS PRN sleep #90 tabs 05/24/23 sertraline 50 mg tablet 50 mg PO DAILY #90 tabs 08/15/23 Current Visit Medications: Current Medications Generic Name Dose Route Start Last Admin Trade Name Freq PRN Reason Stop Dose Admin Ringer's Solution 1,000 mls @ 80 mls/hr 09/18/23 06:00 09/18/23 08:45 IV 09/18/23 23:59 80 mls/hr INFUSION JOCELYN Administration IV Miscellaneous Supplies 1 each 09/18/23 06:00 Iv Access IV 09/18/23 23:59 DIRECTED JOCELYN Sodium Chloride 0 ml 09/18/23 06:00 Normal Saline Flush 10 Ml Syr IV 09/18/23 23:59 PRN PRN Sodium Chloride 0 ml 09/18/23 06:00 Normal Saline 10 Ml Vial IJ 09/18/23 23:59 DIRECTED PRN Sterile Water 0 ml 09/18/23 06:00 Water,Injection,Sterile 10 Ml Vial IJ 09/18/23 23:59 DIRECTED PRN PFSH Active Problems Active Problems: Problem Status Onset Code Screening for malignant neoplasm of colon performed Z12.11 Colon cancer screening Z12.11 Hypertension I10 Generalized anxiety disorder F41.1 Insomnia Chronic diarrhea K52.9 Fecal urgency R15.2 Chronic rhinitis J31.0 Trigger finger, right ring finger M65.341 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 Medical History Medical History Rectal fistula Perirectal abscess (~09/2022) MRSA (methicillin resistant staph aureus) culture positive Scrotal abscess (~09/2022) Depressive disorder Asthma Medical History Comments:: 01/23/23 pt reports he has not had asthma for 20 years Surgical History Surgical History S/P tonsillectomy and adenoidectomy History of rectal surgery (01/23/23) Rectal fistulotomy Status post nasal septoplasty Tobacco Smoking/Tobacco Use Status: Never Passive smoking exposure: Yes Second hand exposure: Yes Alcohol Alcohol Intake: current Alcohol intake frequency: a few times a week Alcohol type: beer, wine and hard liquor Substance Use Substance use: Never Substance use type: does not use Vital Signs and Lab Results Vital Signs Most Recent Vital Signs in EMR: Most Recent Vital Signs Temp Pulse Resp BP Pulse Ox 36.4 C L 84 16 122/91 H 16 L 09/18/23 08:23 09/18/23 08:23 09/18/23 08:23 09/18/23 08:23 09/18/23 08:23 Lab Results Blood Type / Crossmatch: No Data to Display Complete Blood Count: No Data to Display Complete Metabolic Panel: No Data to Display Liver Function Panel: No Data to Display Coagulation Panel: No Data to Display Cardiac Panel: No Data to Display Arterial Blood Gas: No Data to Display Venous Blood Gas: No Data to Display Pancreas Panel: No Data to Display Thyroid Panel: No Data to Display Infectious Disease: No Data to Display Blood Cultures: No Data to Display Toxicology Panel: No Data to Display Imaging and Studies Imaging and Studies Study information below may be from another EMR and interpreted by another provider. Please see original notes in EMR for more complete details. EKG Summary: DATE/TIME OF SERVICE: 08/24/22 1118 : 1965PERFORMING LOCATION: ER APPROVED REPORT Exam: Resting ECG Reason for Exam: Epigastric pain Patient Location: E HR:92 bpm ECG Measurements Heart Rate [address] 136 P 70 QRSd 93 QRS 45 QT 356 T48 QTc 441 Conclusion Sinus rhythm...normal P axis, V-rate 60- 99 Probable left atrial enlargement...P >50mS, <-0.10mV V1 Narrow complex normal sinus rhythm at a rate of 93. Normal axis. Intervals within normal limits. T wave flattening in V2. No acute injury pattern. No prior for comparison. ST segment abnormalities. Stress Test Summary: Date of Exam: 11/27/16Sex: M : 1965Age: 51 Exam(s) [id number] NM:MPI Resting & Stress GRP *[facility]* *[facility]* [address] [place] [address] Myocardial Perfusion Imaging - SPECT Asaf protocol Date of study: 11/27/2016 *PATIENT PRESENTATION* Height: 172.7cm ((68in) ) Blood Pressure: Weight: 81.4kg ((179lb) ) BSA: 1.99m^2 Referring physician: Abelino Horta MD Ordering physician: Nba Berger Impressions: Normal perfusion by Tc99m Sestamibi Imaging. Summary: 1. Myocardial perfusion imaging: No myocardial perfusion defects noted. 2. The calculated left ventricular ejection fraction after stress: 48%. 3. Stress: The target heart rate was achieved. Echocardiogram Summary: Date of Exam: 06/09/21Sex: M Admission Date: 06/09/21 : 1965 Age: 55 APPROVED REPORT EXAM: Comprehensive 2D, Doppler, and color-flow Echocardiogram Patient Location: Out-Patient Location Worker: Jenn Tolbert RDCS (AE) Indications: Resting Tachycardia, HTN Other Information Study Quality: Adequate Conclusion Normal left ventricular wall thickness and chamber size. Estimated ejection fraction is 60%. Wall motion is normal Normal right ventricular size and systolic function Both atria are normal in size There is no structural or hemodynamically significant valvular disease Anesthesia Assessment and Plan Anesthesia History Personal History: No History of Anesthesia Complications Family History: No Family History of Anesthesia Complications Exercise Tolerance Exercise Tolerance: Metabolic Equivalents>4 Pertinent Negatives Pertinent Negatives: No Symptoms of GERD and No Major Cardiovascular Symptoms or Complaints Cardiac & Pulmonary Exam Cardiac Exam: Normal S1/S2 Heart Sounds Pulmonary Exam: Clear Bilateral Breath Sounds Implantable Cardiac Device Does patient have a Pacemaker or an ICD?: No Airway Exam Known Difficult Airway: No Mallampati Class: 2 Mouth Opening: Normal (> 3cm) Thyromental Distance: Greater than 3 cm Neck Range of Motion: Full ROM Neck Circumference: Normal Teeth Condition: Normal Dentition ASA Classification ASA Score: ASA 2 Emergency Case?: No NPO Status NPO Status: NPO Clears >2 hours, Solids >8 hours Anesthesia Plan Resuscitation Status: Full Code Anesthesia Technique: General Anesthesia Airway Planned: Natural Airway Monitors Used: Standard Monitors
[2023-09-18 08:54] VITALS: BMI 27.2
--- NOTE | 2023-09-18 09:42 | BOWEL_PTH ---
PATIENT: Before,Harish Cornejo LOC: [facility] U#:[id number] AGE/SX: 58/M ROOM: RE09/18/[address]: Akosua Yang : 1965 BED: DIS: 09/18/2023 SPEC #: [id number] RECD: 09/18/23 12:49 STATUS: JOEL RE #: [id number] STEWART: 09/18/23 09:[address]: Akosua Yang DEPT: Surgical Specimen RECD BY: Erika Hernandez ENTERED: 09/18/23 12:51 SP TYPE: Bowel OTHR DR: Kenzie Schmidt, ANTONIO Tissues: 1 - BIOPSY BOWEL 2 - BIOPSY BOWEL 3 - BIOPSY BOWEL 4 - BIOPSY BOWEL 5 - BIOPSY BOWEL 6 - BIOPSY BOWEL Procedures: GROSS AND MICRO LEVEL 4 Comments: [id number]
[2023-09-18 10:01] VITALS: BP 103/70; PULSE 75; RESP 16; TEMP 36.1; O2SAT 95
--- NOTE | 2023-09-18 10:02 | COLE_ITS ---
Date of service: 09/18/23 Time of Service: 10:03 Colonoscopy Report Date of procedure: 09/18/23 Pre-op diagnosis general: Diarrhea and colon cancer screening Post-op diagnosis procedure note: other (Diverticula and polyps) Surgeon: Akosua Yang Anesthesia Type: General:No Airway Estimated blood loss (mL): 1 Pathology: other Complications: None Disposition: same day Prep: Miralax/Dulcolax Retraction Time: 15 Procedure Description: After informed consent was obtained the patient was taken to the procedure room and placed in a left decubitous position. Monitors were applied and a time out was done. The patients name, date of , procedure, allergies to medications and metal in their body was reviewed. The patient was then sedated. Once sedated and comfortable a rectal exam was done. External exam was normal. Internal exam revealed a normal sphincter tone and no palpable masses. The prostate without masses. He has normal sphincter tone even with sedation. There is some scarring from the fistula surgery. But this is well-healed. There is no signs of any recurrence The scope was then introduced and retrofelexed. No internal hemorrhoids were identified. The scope was then advanced to the cecum without difficulty. The TI and appendiceal orifice were identified. The scope was then slowly retracted over 15 minutes back into the rectum. The mucosa is pink and healthy with a normal vascular pattern. Random biopsies are taken of the cecum/70/50/30 cm in the rectum. All specimens are retrieved and no bleeding is noted. There is a small flat 0.5 cm polyp in the rectum. This is removed with a cold biting forcep. Is also developing some diverticula in the sigmoid colon. There are few small mouth diverticula. There is no signs of active bleeding or infection. The scope was removed and the patient was woken up and taken back to Same day surgery in stable condition. The patient tolerated the procedure well and there were no immediate complications. Follow up: The patient should follow up in 7-10 years unless they develop changes in bowel habits or other new gastrointestinal complaints. Norman Bowel Prep Norman Bowel Prep Right Colon: 3 Left Colon: 3 Transverse Colon: 3 Total Score: 9
[2023-09-18 10:28] VITALS: BP 123/88; PULSE 69; RESP 16; TEMP 36.3; O2SAT 99
--- NOTE | 2023-09-18 10:41 | W.ANESPOSTOP ---
Postoperative Evaluation Date, Time and Location Date Performed: 09/18/23 Time Performed: 10:20 Patient Location: Day Surgery Unit Vital Signs Most Recent Imported Vital Signs: Most Recent Vital Signs Temp Pulse Resp BP Pulse Ox 36.3 C L 69 16 123/88 99 09/18/23 10:28 09/18/23 10:28 09/18/23 10:28 09/18/23 10:28 09/18/23 10:28 Pain Score Most Recent Pain Score: Most Recent Pain Score Pain Level 0 09/18/23 10:28 Assessment Mental Status: Awake (Alert & Oriented to Patient Baseline) Airway and Respiratory Function: Patent airway with normal (patient baseline) respiratory exam Cardiovascular Function: Hemodynamically Stable Hydration Status: Adequately Hydrated Nausea & Vomiting: No Nausea or Vomiting Pain: Pt. Denies Any Pain Peripheral Nerve Block: Patient did not receive a nerve block
== END 2023-09-18 10:53 | disposition home or self-care (01) ==
LOC: SUR 08:16
PROVIDERS: PCP Nurse Practitioner Family; Visit Provider Surgery
PROC: 0DJD8ZZ Inspection of Lower Intestinal Tract, Via Natural or Artificial Opening Endoscopic (ICD-10-PCS; CPT 45378; principal; 2023-09-18 09:15)
DX: Z12.11 Encounter for screening for malignant neoplasm of colon; K63.5 Polyp of colon; K57.30 Diverticulosis of large intestine without perforation or abscess without bleeding; K52.9 Noninfective gastroenteritis and colitis, unspecified; R15.2 Fecal urgency; I10 Essential (primary) hypertension; K62.89 Other specified diseases of anus and rectum
CPT/HCPCS: 45380; 88305; J2704

== ENCOUNTER 2023-09-25 09:58 | Outpatient (CLI) | payer BC, SELFPAY ==
[2023-09-25 12:36] LABS: Hemoglobin A1C 5.1 % (<5.7)
[2023-09-25 12:42] LABS: Anion Gap 8.9 mmol/L (3-11); BUN 17 mg/dL (7-18); CO2 28.1 mmol/L (21.0-32.0); CREATININE 1.4 mg/dL (0.70-1.30); Calcium 9.1 mg/dL (8.5-10.1); Calculated LDL 124 mg/dL (<100); Chloride 104 mmol/L (98-107); Cholesterol 212 mg/dL (<200); Glucose 85 mg/dL (74-106); HDL Cholesterol 56 mg/dL (40-60); Potassium 4.2 mmol/L (3.5-5.1); Sodium 141 mmol/L (136-145); Triglyceride 160 mg/dL (<150)
[2023-09-25 23:06] LABS: PSA, Screening 2.1 ng/mL (<=3.5)
[2023-09-26 09:29] LABS: Hepatitis C Ab w Rflx HCV PCR Negative (Negative)
== END 2023-09-25 09:59 | disposition home or self-care (01) ==
LOC: LOS 09:58
PROVIDERS: PCP Nurse Practitioner Family; Visit Provider Nurse Practitioner Family
DX: Z00.00 Encounter for general adult medical examination without abnormal findings (principal); Z12.5 Encounter for screening for malignant neoplasm of prostate
CPT/HCPCS: 36415; 80048; 80061; 84153; 86803; 83036

== ENCOUNTER 2023-10-08 10:32 | Outpatient (CLI) | payer BC, SELFPAY ==
[2023-10-08 10:59] LABS: Abs Immature Grans 0.02 10^3/uL (0.0-0.06); Absolute Basophil Count 0.06 10^3/uL (0.0-0.2); Absolute Eosinophil Count 0.44 10^3/uL (0.0-0.7); Absolute Lymphocyte Count 1.39 10^3/uL (1.2-3.4); Absolute Monocyte Count 0.53 10^3/uL (0.1-0.8); Absolute Neutrophil Count 3.34 10^3/uL (1.2-6.7); Eosinophils % 7.6; HCT 45.2 % (40.0-50.0); HGB 15.8 g/dL (13.5-17.5); Immature Grans % 0.3; MCH 33.1 pg (27.0-33.0); MCV 95 fL (80-95); MPV 9.1 fL (8.0-11.0); Monocytes % 9.2; Neutrophils % 57.9; Platelet Count 241 10^3/uL (130-400); RBC 4.78 10^6/uL (4.36-5.78); RDW 11.8 % (11.8-14.1); RDW-SD 40.9 fL; WBC 5.78 10^3/uL (4.4-10.8)
[2023-10-08 11:56] LABS: Ferritin 179 ng/mL (26-388)
== END 2023-10-08 10:33 | disposition home or self-care (01) ==
LOC: LBO 10:33
PROVIDERS: Surgery; PCP Nurse Practitioner Family; Visit Provider Family Medicine
DX: D64.9 Anemia, unspecified (principal)
CPT/HCPCS: 36415; 82728; 85025

== ENCOUNTER 2024-09-10 03:35 | Outpatient (CLI) | payer BC, SELFPAY ==
[2024-09-10 12:55] LABS: Anion Gap 6.4 mmol/L (3-11); BUN 16 mg/dL (7-18); CO2 28.6 mmol/L (21.0-32.0); CREATININE 1.4 mg/dL (0.70-1.30); Chloride 103 mmol/L (98-107); Estimated GFR 57.54 (mL/min/1.73m2); Glucose 93 mg/dL (74-106); Potassium 4.2 mmol/L (3.5-5.1); Sodium 138 mmol/L (136-145)
[2024-09-10 18:28] LABS: PSA, Screening 1.6 ng/mL (<=4.5)
[2024-09-10 18:46] LABS: HIV-1/2 Ag & Ab Screen Negative (Negative)
[2024-09-10 19:43] LABS: HBs Antibody, Quant <3.1 mIU/mL (See Note); Hep B Surface Ab Negative (See Note); Hepatitis B Core Antibody Negative (Negative); Hepatitis B Surface Antigen Negative (Negative)
== END 2024-09-10 03:36 | disposition home or self-care (01) ==
LOC: LOS 03:35
PROVIDERS: PCP Nurse Practitioner Family; Visit Provider Nurse Practitioner Family
DX: I10 Essential (primary) hypertension (principal); Z12.5 Encounter for screening for malignant neoplasm of prostate; Z11.4 Encounter for screening for human immunodeficiency virus [HIV]; Z11.59 Encounter for screening for other viral diseases; F41.1 Generalized anxiety disorder; L98.9 Disorder of the skin and subcutaneous tissue, unspecified
CPT/HCPCS: 36415; 80048; 84153; 86704; 86706; 87340; 87389

== ENCOUNTER 2024-09-11 11:24 | Outpatient (REF) | payer BC, SELFPAY ==
[2024-09-11 11:58] LABS: Bilirubin Negative (Negative); Blood Negative (Negative); Clarity Clear (Clear); Glucose Negative (Negative); Ketones Negative (Negative); Leukocyte Esterase Negative (Negative); Nitrite Negative (Negative); Urobilinogen 0.2 mg/dL (Up to 0.2)
[2024-09-11 12:30] LABS: COMMENT (LAB VIEW ONLY) 48.97 mg/dL; PROTEIN < 6.0 mg/dL
[2024-09-11 12:33] LABS: COMMENT (LAB VIEW ONLY) 49.08 mg/dL; Microalb ug/mg Crea 6.9 ug/mg Cr
== END 2024-09-11 11:25 | disposition home or self-care (01) ==
LOC: LBN 11:24
PROVIDERS: PCP Nurse Practitioner Family; Visit Provider Nurse Practitioner Family
DX: N28.9 Disorder of kidney and ureter, unspecified (principal)
CPT/HCPCS: 81003; 82043; 82565; 82570; 84156

== ENCOUNTER 2024-10-09 09:11 | Outpatient (REF) | payer BC, SELFPAY ==
--- NOTE | 2024-10-09 09:10 | SKI_PTH ---
PATIENT: Fanny,Harish Cornejo LOC: [facility] U#:[id number] AGE/SX: 59/M ROOM: RE10/09/[address]: Tony Ayon MD : 1965 BED: DIS: 10/09/2024 SPEC #: [id number] RECD: 10/09/24 12:25 STATUS: JOEL REQ #: [id number] STEWART: 10/09/24 09:[address]: Tony Ayon DEPT: Surgical Specimen RECD BY: Erika Hernandez ENTERED: 10/09/24 12:33 SP TYPE: SKI OTHR DR: ANTONIO Esparza Tissues: 1 - SKIN BIOPSY(SHAVE/PUNCH) Procedures: SKIN LEVEL 4 Comments: [id number]
== END 2024-10-09 09:12 | disposition home or self-care (01) ==
LOC: LBN 09:11
PROVIDERS: PCP Nurse Practitioner Family; Visit Provider Surgery
DX: L82.1 Other seborrheic keratosis (principal); D22.9 Melanocytic nevi, unspecified
CPT/HCPCS: 88305

== ENCOUNTER 2025-02-21 10:33 | Observation (INO) | payer BC, SELFPAY ==
[2025-02-21 10:36] VITALS: BP 131/80; PULSE 104; RESP 16; TEMP 36.9; O2SAT 98
[2025-02-21 10:39] VITALS: BP 131/80; PULSE 104; RESP 16; TEMP 36.9; O2SAT 98
--- NOTE | 2025-02-21 10:49 | ED.GENADUL_ITS ---
Discharge Plan Disposition Patient Disposition: Admit to [facility] Condition: Stable Discharge Details Clinical Impression: Perirectal abscess Primary Care Provider: Kenzie Schmidt ED Provider: Hunter Pierre Home Meds and New Rx's Prescriptions: No Action albuterol sulfate 90 mcg/actuation HFA aerosol inhaler 2 puff inhalation Q6H PRN (Reason: shortness of breath or wheezing) Qty: 8.5 0RF (DME) BreatheRite MDI Spacer Spacer See Rx Instructions .ROUTE .MEDSUPPLY Qty: 1 0RF Rx Instructions: As directed losartan 50 mg tablet 50 mg PO DAILY Qty: 90 3RF lorazepam 0.5 mg tablet 0.5 mg PO BID PRN (Reason: anxiety) Qty: 15 0RF Rx Instructions: Only use IF NEEDED for severe anxiety, not meant for routine anxiety management fluticasone propionate 50 mcg/actuation spray,suspension 1 spray intranasal BID PRN (Reason: allergy symptoms) Qty: 15.8 6RF ipratropium bromide 42 mcg (0.06 %) spray,non-aerosol 2 spray intranasal TID-QID PRN (Reason: allergy symptoms) Qty: 15 1RF Rx Instructions: administer into each nostril zolpidem 5 mg tablet 5 mg PO QHS PRN (Reason: sleep) Qty: 90 0RF HPI General Date/Time Provider Initiated Documentation: 02/21/25 10:43 . HPI Narrative: 59 year-old male presents to ED today by POV/ambulating with a chief complaint of anal pain with complex surgical history, possible abscess with onset for the past week. Quality described as severe pain in the buttocks and anus worse with sitting/walking, no radiation to fever, black/bloody diarrhea, dysuria, flank pain, constipation. Severity is described as severe. Palliating factors include nothing specific attempted. Provoking factors include did some heavy lifting earlier this week. Patient not anticoagulated. Related Data Home Medications ?Medication ?Instructions ?Recorded ?Confirmed inhalational spacing device #1 ea 06/03/24 02/21/25 (BreatheRite MDI Spacer) Held on 02/21/25. Instructions: Pt Stopped/Never Started fluticasone propionate 50 1 spray intranasal BID PRN a llergy 09/18/24 02/21/25 mcg/actuation nasal symptoms #15.8 mL spray,suspension albuterol sulfate 90 mcg/actuation 2 puff inhalation Q 6H PRN 11/17/24 02/21/25 aerosol inhaler shortness of breath or wheez ing #8.5 grams ipratropium bromide 42 mcg (0.06 2 spray intranasal TI D-QID PRN 01/12/25 02/21/25 %) nasal spray allergy symptoms #15 mL zolpidem 5 mg tablet 5 mg PO QHS PRN sleep #90 ta bs 01/12/25 02/21/25 lorazepam 0.5 mg tablet 0.5 mg PO BID PRN anxiety #1 5 tabs 02/13/25 02/21/25 losartan 50 mg tablet 50 mg PO DAILY #90 tabs 03/0202/21/25 Previous Rx's ?Medication ?Instructions ?Recorded inhalational spacing device #1 ea 06/03/24 (BreatheRite MDI Spacer) Held on 02/21/25. Instructions: Pt Stopped/Never Started fluticasone propionate 50 1 spray intranasal BID PRN a llergy 09/18/24 mcg/actuation nasal symptoms #15.8 mL spray,suspension albuterol sulfate 90 mcg/actuation 2 puff inhalation Q 6H PRN 11/17/24 aerosol inhaler shortness of breath or wheez ing #8.5 grams ipratropium bromide 42 mcg (0.06 2 spray intranasal TI D-QID PRN 01/12/25 %) nasal spray allergy symptoms #15 mL zolpidem 5 mg tablet 5 mg PO QHS PRN sleep #90 ta bs 01/12/25 lorazepam 0.5 mg tablet 0.5 mg PO BID PRN anxiety #1 5 tabs 02/13/25 losartan 50 mg tablet 50 mg PO DAILY #90 tabs 03/02 Allergies Allergy/AdvReac Type Severity Reaction Status Date / Time amoxicillin Allergy Intermediate Swelling/Ed Verified 02/21/25 12:37 suzi enviornmental Allergy Mild Wheezing Uncoded 02/21/25 12:37 General Stated Complaint: GenMedical KEEGAN: 3 Review of Systems All systems reviewed & are unremarkable except as noted in HPI and below Exam Narrative Exam Narrative: GENERAL APPEARANCE: Well-nourished, non-toxic, awake and alert, atraumatic, moderate acute distress. SKIN: Warm, pink, dry, intact, without rashes/lesions/ulcerations. HEAD: Normocephalic, atraumatic, normal hair distribution for gender/age. EYES: Normal conjunctiva, no exudates on lids/lashes. ENT: Nares patent, no circumoral cyanosis, no facial swelling NECK: Supple, trachea midline, painless cervical ROM. LUNGS/CHEST: Lungs CTA bilaterally, non-labored respirations, normal A/P diameter, symmetrical expansion, no chest wall deformity HEART (CV/PV): Regular rate and rhythm without murmur, no peripheral edema, no JVD. ABDOMEN: Soft, non-distended, no guarding, no tenderness, no visible induration, swelling, erythema or fluctuant mass perianus MOLLY: Question internal hemorrhoid at 12:00, no mass palpated, stool in the rectal vault without pus or blood MSK: Normal ROM, no swelling/deformity to bilateral UEs or LEs, moving all extremities without weakness, no cyanosis, spine midline without tenderness, normal curvature. NEURO: Mental Status AAOx4 - alert to person, place, time, events No facial droop, no forehead involvement. Motor: No focal weakness - strength 5/5 in bilateral UEs and LEs, proximal and distal, symmetric. Sensory: sensation intact to light touch globally. Gait normal: patient ambulated without ataxia into ED room. PSYCH: euthymic, cooperative, pleasant, appropriate speech Course Vital Signs Vital signs: Vital Signs Temperature 36.9 C 02/21/25 10:36 Pulse 104 H 02/21/25 10:36 Respiratory Rate 16 02/21/25 10:36 Blood Pressure 131/80 02/21/25 10:36 Pulse Oximetry 98 02/21/25 10:36 Temperature 36.9 C 02/21/25 10:39 Pulse 104 H 02/21/25 10:39 Respiratory Rate 16 02/21/25 10:39 Blood Pressure 131/80 02/21/25 10:39 Pulse Oximetry 98 02/21/25 10:39 Pain Level 6 02/21/25 10:39 Medical Decision Making This dictation utilizes [id number] dictation software and may contain unedited grammatical errors. 59 year-old male presents to ED today by POV/ambulating with a chief complaint of anal pain with complex surgical history, possible abscess with onset for the past week. Quality described as severe pain in the buttocks and anus worse with sitting/walking, no radiation to fever, black/bloody diarrhea, dysuria, flank pain, constipation. Severity is described as severe. Palliating factors include nothing specific attempted. Provoking factors include did some heavy lifting earlier this week. Patients' medical history: Rectal fistula, scrotal abscess, asthma, CKD, hypertension, sigmoid diverticulosis. Family and social history: Noncontributory. Pertinent exam findings / vital signs include benign abdomen, no indurated, erythematous or fluctuant abscess palpated James anus, no internal mass palpated with MOLLY, no blood in the rectal vault, no pus in the rectal vault, tachycardic but otherwise stable vitals. Differential / pathologies of concern include perirectal abscess, perianal abscess, fistula, hemorrhoids, anal prolapse. Diagnostic studies of: - CBC, CMP, CRP/ESR, CT pelvis with contrast. - No elevation of white blood cells - CMP is unremarkable - CRP is elevated at 7.35 with a normal ESR - CT pelvis without contrast shows perirectal abscess on the left side Interventions of: -IV Cipro & Flagyl, IV APAP/Ketorolac, consulted with Dr. Kirby @ [phone], will take to OR tomorrow. Spoke to Hospitalist Arabella Spears, who accepts for admission. ED Course/Assessment/Plan: 59-year-old male presents with complex history of perirectal or anal abscess 2 years ago requiring fistula repair with multiple revisions about every 6 months including cautery 8 months ago, seen last week by Dr. Ayon in office to check for routine healing, has been having increased pressure in his buttocks with sitting on the toilet and with walking, severe pain with straining, his MOLLY reveals no superficial visible perianal abscess or redness or fluctuant induration around the anus, rectal exam reveals no internal hard nodules or induration, there is question whether there is a internal hemorrhoid at 12 o'clock position. Findings not consistent with rectal prolapse, sepsis, superficial abscess. Disposition of Perirectal Abscess. Patient verbalized understanding of the plan and return to ED criteria and engaged in shared decision making. Medical Records Medical records reviewed: Yes I reviewed the patient's medical records. Imaging Data Radiologic Study: Attestation: I personally reviewed and interpreted this imaging study as follows: Imaging: CT Scan Radiologist's impression: Exam: CT Pelvis With Contrast Exam date and time: 02/21/2025 11:24 AM Age: 59 years old Clinical indication: Other: Perianal abscess, HX fistula; Prior surgery; Surgery date: 6+ months; Surgery type: Rectal TECHNIQUE: Imaging protocol: Computed tomography of the pelvis with contrast. Contrast material: OMNIPAQUE 350; Contrast volume: 100 ml; Contrast route: INTRAVENOUS (IV); COMPARISON: CT PELVIC W 07/13/2022 11:40 FINDINGS: Intestine: There is enhancement of the thickened wall around the abscess in mild infiltration of the perirectal fat. Normal caliber small bowel. Appendix: No evidence of appendicitis. Intraperitoneal space: Unremarkable. No free air. No significant fluid collection. Vasculature: Mild atherosclerotic calcifications. Lymph nodes: Scattered inguinal lymph nodes. Reproductive: Prostate calcification. Urinary bladder: Distended urinary bladder with the dome near the superior endplate of L5. Bones/joints: Unremarkable. No acute fracture. No dislocation. Soft tissues: Fat distension of the inguinal canals. 3.6 x 1.8 x 4.5 cm loculated fluid collection in the perirenal fat to the left of the anus consistent with history of perianal abscess. IMPRESSION: 1. Left perirectal abscess as discussed above. 2. Distended urinary bladder. 3. Additional findings as discussed above. Dictated and Authenticated by: Marsha Guerra MD. Lab Data Lab results reviewed: Yes I reviewed the patient's lab results. Labs: Laboratory Tests Range/Units 02/21/25 11:10 WBC (4.4-10.8) 10^3/uL 8.47 RBC (4.36-5.78) 10^6/uL 4.53 Hgb (13.5-17.5) g/dL 14.6 Hct (40.0-50.0) % 42.3 MCV (80-95) fL 93 MCH (27.0-33.0) pg 32.2 MCHC (32.0-36.0) % 34.5 RDW (11.8-14.1) % 11.6 L Plt Count (130-400) 10^3/uL 280 MPV (8.0-11.0) fL 8.8 Immature Gran % % 0.4 Neutrophils % % 73.8 Lymphocytes % % 12.3 Monocytes % % 9.7 Eosinophils % % 3.1 Basophils % % 0.7 Nucleated RBC % (0.0-0.3) % 0.0 Absolute Neutrophils (1.2-6.7) 10^3/uL 6.26 Absolute Lymphocytes (1.2-3.4) 10^3/uL 1.04 L Absolute Monocytes (0.1-0.8) 10^3/uL 0.82 H Absolute Eosinophils (0.0-0.7) 10^3/uL 0.26 Absolute Basophils (0.0-0.2) 10^3/uL 0.06 ESR (0-20) mm/hr 12 Sodium (136-145) mmol/L 137 Potassium (3.5-5.1) mmol/L 4.4 Chloride (98-107) mmol/L 101 Carbon Dioxide (21.0-32.0) mmol/L 30.6 Anion Gap (3-11) mmol/L 5.4 BUN (7-18) mg/dL 12 Creatinine (0.70-1.30) mg/dL 1.2 Est GFR (CKD-EPI 2020) (mL/min/1.73m2) 69.23 Glucose (74-106) mg/dL 89 Calcium (8.5-10.1) mg/dL 9.0 Total Bilirubin (0.2-1.0) mg/dL 0.6 AST (15-37) U/L 20 ALT (16-63) U/L 26 Alkaline Phosphatase (46-116) U/L 89 C-Reactive Protein (<or=0.5) mg/dL 7.35 H Total Protein (6.4-8.2) g/dL 8.1 Albumin (3.4-5.0) g/dL 3.7 Quality:SDOH Health Related Social Needs: Health related social needs daily activities PFSH All Active Problems (Updated 02/21/25 @ 14:01 by RASHID Garces) Perirectal abscess (Acute) Melanocytic nevus (Acute) CKD (chronic kidney disease) stage 3, GFR 30-59 ml/min (Chronic) Hypertension (Chronic) Generalized anxiety disorder (Chronic) Insomnia (Chronic) Chronic diarrhea (Chronic) Chronic rhinitis (Chronic) Trigger finger, right ring finger (Chronic) Other color vision deficiencies (Chronic) red/green Sigmoid diverticulosis (Acute) Medical History (Updated 02/21/25 @ 14:01 by RASHID Garces) Rectal fistula Perirectal abscess (~09/2022) MRSA (methicillin resistant staph aureus) culture positive Scrotal abscess (~09/2022) Depressive disorder Asthma Surgical History (Updated 09/18/23 @ 12:53 by Carla Lucero) History of colonoscopy (~09/2023) S/P tonsillectomy and adenoidectomy History of rectal surgery (01/23/23) Rectal fistulotomy Status post nasal septoplasty Family History (Updated 08/20/24 @ 09:59 by Kenzie Schmidt NP) Mother Depression Stroke Chronic kidney disease On dialysis Father , age 88 Heart disease Myocardial infarction Prostate cancer Sister Breast cancer Sister Breast cancer Brother Depression Hypertension Brother Oral cancer Alcohol use disorder Maternal Grandfather No problems noted. Maternal Grandmother No problems noted. Paternal Grandfather No problems noted. Paternal Grandmother No problems noted. Social History (Updated 08/20/24 @ 10:35 by Pauline Hinds) Smoking/Tobacco Use Status: Never Second Hand Exposure: Yes Smoking risk assessment performed?: Yes Alcohol Intake: current Alcohol Intake frequency: a few times a week Alcohol type: beer, wine and hard liquor Drug use: Never Substance use type: does not use Counseling given: No Adopted: No Caregiver/Support person: No Foster care: No Household members: spouse Housing: house Number of Children: 0 number of grandchildren: 0 Communication Needs: None Education Level: college Details: Associate Degree Do you need help understanding health information?: Never current occupation: Self-employed Pets and animals: No Sexually active: Yes Do you think of yourself as: straight/heterosexual Current gender identity: male What is your relationship status?: How often do you talk on the phone with friends or family?: once per week How often do you get together with friends or relatives?: once per week How often do you attend latter day or synagogue services?: decline to answer Do you belong to any clubs or organized social groups?: no Panel score (0-1 are the most socially isolated patients): 1 What type of physical activity do you participate in: other Details: home Duration: 15-30 minutes/day Frequency: 3-4 times per week Chantel/Judaism: Jew Special chantel needs: No Seatbelt use: always Helmet use: Yes Helmet use: sometimes Drive intox or ride w/intox marine engine driver: No Do you feel safe at home: Yes Do you feel safe in your relationship?: Yes Victim of physical abuse: No Victim of emotional abuse: No Victim of sexual abuse: No Would you like helpful sources: No Additional Social history: unable to assess privately
--- NOTE | 2025-02-21 10:52 | DI.CT_ITS ---
Exam(s) CT PELVIC W EXAM: CT PELVIC W CLINICAL HISTORY: perianal abscess, hx fistula. TECHNIQUE: Imaging Protocol: Axial computed tomography images with coronal and sagittal reformatted images were created and reviewed. CONTRAST MATERIAL: Intravenous: Omnipaque 350 Contrast volume:100 ml Contrast route:IV - Oral: no COMPARISON: CT CT PELVIC W from 11/06/2022 FINDINGS: Bladder: Over distended but unremarkable. No gross wall thickening. No stones.No evidence of mass. Bowel: No obstruction or bowel wall thickening. The appendix is normal. Peritoneal cavity: No ascites, collection or mesenteric inflammatory response. Reproductive: Unremarkable. Vasculature: No evidence of aortic or iliac artery aneurysm. Bones: No acute findings. Degenerative changes at L5-S1. Soft tissues: There is a peripherally enhancing collection to the left of the anus consistent with perianal abscess measuring 3.6 x 1.8 x 4.5 cm. Small fat containing left inguinal hernia. IMPRESSION: 4.5 centimeter left perianal abscess. The preliminary [facility] report was reviewed. RADIATION DOSE DELIVERED: Total DLP DATA REPOSITORY: All CT scans at this facility are submitted to the National Radiology Data Registry (NRDR) Dose Index Registry (DIR) with the [employer] (ACR). RADIATION OPTIMIZATION: All CT scans at this facility use at least one of these dose optimization techniques: automated exposure control; mA and/or kV adjustment per patient size (includes targeted exams where dose is matched to clinical indication); or iterative reconstruction.
[2025-02-21 11:17] LABS: Abs Immature Grans 0.03 10^3/uL (0.0-0.06); HCT 42.3 % (40.0-50.0); HGB 14.6 g/dL (13.5-17.5); Immature Grans % 0.4 %; MCH 32.2 pg (27.0-33.0); MCHC 34.5 % (32.0-36.0); MCV 93 fL (80-95); MPV 8.8 fL (8.0-11.0); Platelet Count 280 10^3/uL (130-400); RBC 4.53 10^6/uL (4.36-5.78); RDW 11.6 % (11.8-14.1); RDW-SD 39.9 fL; WBC 8.47 10^3/uL (4.4-10.8)
[2025-02-21 11:24] LABS: ESR 12 mm/hr (0-20)
[2025-02-21] MEDS: Normal Saline - Diluent 50 ML VIAL IJ (11:33)
[2025-02-21] MEDS: Omnipaque 350 MG/ML 100 ML BTL IJ (11:33)
[2025-02-21] MEDS: Normal Saline Flush 10 ML SYR IVP ×4 (11:34→19:56)
[2025-02-21 11:35] LABS: ALT 26 U/L (16-63); AST 20 U/L (15-37); Albumin 3.7 g/dL (3.4-5.0); Alkaline Phosphatase 89 U/L (46-116); Anion Gap 5.4 mmol/L (3-11); BUN 12 mg/dL (7-18); Bilirubin, Total 0.6 mg/dL (0.2-1.0); C-Reactive Protein 7.35 mg/dL (<or=0.5); CO2 30.6 mmol/L (21.0-32.0); Calcium 9.0 mg/dL (8.5-10.1); Chloride 101 mmol/L (98-107); Estimated GFR 69.23 (mL/min/1.73m2); Glucose 89 mg/dL (74-106); Potassium 4.4 mmol/L (3.5-5.1); Sodium 137 mmol/L (136-145); Total Protein 8.1 g/dL (6.4-8.2)
[2025-02-21] MEDS: Ketorolac 15 MG/ML VIAL IVP ×2 (11:39→17:57)
[2025-02-21] MEDS: ACETAMINOPHEN 1,000 MG/100 ML BAG 400 MG IVPB (11:40)
--- NOTE | 2025-02-21 12:54 | DI.[facility]_ITS ---
PROCEDURE INFORMATION: Exam: CT Pelvis With Contrast Exam date and time: 02/21/2025 11:24 AM Age: 59 years old Clinical indication: Other: Perianal abscess, HX fistula; Prior surgery; Surgery date: 6+ months; Surgery type: Rectal TECHNIQUE: Imaging protocol: Computed tomography of the pelvis with contrast. Contrast material: OMNIPAQUE 350; Contrast volume: 100 ml; Contrast route: INTRAVENOUS (IV); COMPARISON: CT PELVIC W 07/13/2022 11:40 FINDINGS: Intestine: There is enhancement of the thickened wall around the abscess in mild infiltration of the perirectal fat. Normal caliber small bowel. Appendix: No evidence of appendicitis. Intraperitoneal space: Unremarkable. No free air. No significant fluid collection. Vasculature: Mild atherosclerotic calcifications. Lymph nodes: Scattered inguinal lymph nodes. Reproductive: Prostate calcification. Urinary bladder: Distended urinary bladder with the dome near the superior endplate of L5. Bones/joints: Unremarkable. No acute fracture. No dislocation. Soft tissues: Fat distension of the inguinal canals. 3.6 x 1.8 x 4.5 cm loculated fluid collection in the perirenal fat to the left of the anus consistent with history of perianal abscess. IMPRESSION: 1. Left perirectal abscess as discussed above. 2. Distended urinary bladder. 3. Additional findings as discussed above. Dictated and Authenticated by: Marsha Guerra MD. Orderin Ignacio Harrison MD
--- NOTE | 2025-02-21 13:29 | HPE_ITS ---
Date of service: 02/21/25 Time of Service: 13:31 Assessment and Plan Assessment and plan (1) Perirectal abscess: Status: Acute Assessment and plan: Not meeting sepsis criteria but leukopenia On Cipro IV and Flagyl IV MRSA colonization Hx Rectal swab Labs in AM last LVEF 60% in 2020 Sx consult: as per discussion with Dr. Kirby- NPO tonight - drainage in AM, staff aware -Recommendation for immuno-suppression work-up in the setting of recurrent rectal abscess/lesion : HIV negative 09/2024, Hep B panel negative 09/2024 NPO after midnight then LR low rate while NPO PPI while in hospital (2) CKD (chronic kidney disease) stage 3, GFR 30-59 ml/min: Status: Chronic Assessment and plan: Stable - BMP in AM (3) Asthma: Assessment and plan: Hx of asthma -no exacerbation PRN nebs (4) Hypertension: Status: Chronic Assessment and plan: Hold prior to OR- Resume after surgery (5) Anxiety: Status: Chronic Assessment and plan: PRN Lorazepam home regimen (6) On deep vein thrombosis (DVT) prophylaxis: Status: Acute Assessment and plan: On LMWH - hold prior to surgery Discussed with Dr. Friedman History of Present Illness History of Present Illness Chief Complaint: Anal pain Narrative: This 59-year-old male patient with past medical history of rectal fissure, rectal abscess, scrotal abscess with the MRSA colonization presented to the ED with chief complaint of anal pain. Reported fever 2 days ago and chills. No further occurrence reported. Denied dizziness, chest pain, nausea, vomiting, constipation, diarrhea or dysuria. Workup in the ED was positive for findings of left of the anus consistent with perianal abscess measuring 3.6 x 1.8 x 4.[address] imaging. At the time bladder distention was also noticed. Workup was negative for leukocytosis with minimal tachycardia.Surgery was consulted by ED provider with recommendation for admission for OR drainage of rectal abscess in AM and immunosuppression work-up. Full code status confirmed. Review of Systems All systems reviewed & are unremarkable except as noted in HPI and below PFSH All Active Problems (Updated 02/21/25 @ 19:44 by Arabella Spears APRN) Anxiety (Chronic) On deep vein thrombosis (DVT) prophylaxis (Acute) Perirectal abscess (Acute) Melanocytic nevus (Acute) CKD (chronic kidney disease) stage 3, GFR 30-59 ml/min (Chronic) Hypertension (Chronic) Generalized anxiety disorder (Chronic) Insomnia (Chronic) Chronic diarrhea (Chronic) Chronic rhinitis (Chronic) Trigger finger, right ring finger (Chronic) Other color vision deficiencies (Chronic) red/green Sigmoid diverticulosis (Acute) Medical History (Updated 02/21/25 @ 19:44 by Arabella Spears APRN) Rectal fistula Perirectal abscess (~09/2022) MRSA (methicillin resistant staph aureus) culture positive Scrotal abscess (~09/2022) Depressive disorder Asthma Surgical History (Updated 09/18/23 @ 12:53 by Carla Lucero) History of colonoscopy (~09/2023) S/P tonsillectomy and adenoidectomy History of rectal surgery (01/23/23) Rectal fistulotomy Status post nasal septoplasty Family History (Updated 08/20/24 @ 09:59 by Kenzie Schmidt NP) Mother Depression Stroke Chronic kidney disease On dialysis Father , age 88 Heart disease Myocardial infarction Prostate cancer Sister Breast cancer Sister Breast cancer Brother Depression Hypertension Brother Oral cancer Alcohol use disorder Maternal Grandfather No problems noted. Maternal Grandmother No problems noted. Paternal Grandfather No problems noted. Paternal Grandmother No problems noted. Social History (Updated 08/20/24 @ 10:35 by Pauline Hinds) Smoking/Tobacco Use Status: Never Second Hand Exposure: Yes Smoking risk assessment performed?: Yes Alcohol Intake: current Alcohol Intake frequency: a few times a week Alcohol type: beer, wine and hard liquor Drug use: Never Substance use type: does not use Counseling given: No Adopted: No Caregiver/Support person: No Foster care: No Household members: spouse Housing: house Number of Children: 0 number of grandchildren: 0 Communication Needs: None Education Level: college Details: Associate Degree Do you need help understanding health information?: Never current occupation: Self-employed Pets and animals: No Sexually active: Yes Do you think of yourself as: straight/heterosexual Current gender identity: male What is your relationship status?: How often do you talk on the phone with friends or family?: once per week How often do you get together with friends or relatives?: once per week How often do you attend sabianist or latter-day services?: decline to answer Do you belong to any clubs or organized social groups?: no Panel score (0-1 are the most socially isolated patients): 1 What type of physical activity do you participate in: other Details: home Duration: 15-30 minutes/day Frequency: 3-4 times per week Chantel/Congregation: Nondenominational Special chantel needs: No Seatbelt use: always Helmet use: Yes Helmet use: sometimes Drive intox or ride w/intox pole truck driver: No Do you feel safe at home: Yes Do you feel safe in your relationship?: Yes Victim of physical abuse: No Victim of emotional abuse: No Victim of sexual abuse: No Would you like helpful sources: No Additional Social history: unable to assess privately Meds Allergies and Home Medications Allergies Allergy/AdvReac Type Severity Reaction Status Date / Time amoxicillin Allergy Intermediate Swelling/Ed Verified 02/21/25 12:37 suzi enviornmental Allergy Mild Wheezing Uncoded 02/21/25 12:37 Home Medications ?Medication ?Instructions ?Recorded ?Confirmed ?Type inhalational spacing device #1 ea 06/03/24 02/21/25 Rx (BreatheRite MDI Spacer) Held on 02/21/25. Instructions: Pt Stopped/Never Started fluticasone propionate 50 1 spray intranasal BID PRN a llergy 09/18/24 02/21/25 Rx mcg/actuation nasal symptoms #15.8 mL spray,suspension albuterol sulfate 90 mcg/actuation 2 puff inhalation Q 6H PRN 11/17/24 02/21/25 Rx aerosol inhaler shortness of breath or wheez ing #8.5 grams ipratropium bromide 42 mcg (0.06 2 spray intranasal TI D-QID PRN 01/12/25 02/21/25 Rx %) nasal spray allergy symptoms #15 mL zolpidem 5 mg tablet 5 mg PO QHS PRN sleep #90 ta bs 01/12/25 02/21/25 Rx lorazepam 0.5 mg tablet 0.5 mg PO BID PRN anxiety #1 5 tabs 02/13/25 02/21/25 Rx losartan 50 mg tablet 50 mg PO DAILY #90 tabs 0803/0202/21/25 Rx Exam Narrative Exam Narrative: Alert and oriented X4 , no acute distress, no focal neurological deficit, clear lungs, S1 S2 no murmur, PPPX4, abdomen is non-distended, soft non tender, anastacia- anal erythema L>R, exquisite pain with palpation of the left perianal region, no drainage , no CVA tenderness Results Labs 02/21/25 11:10 02/21/25 11:10 Labs: Laboratory Results - last 24 hr 02/21/25 11:10 WBC 8.47 RBC 4.53 Hgb 14.6 Hct 42.3 MCV 93 MCH 32.2 MCHC 34.5 RDW 11.6 L Plt Count 280 MPV 8.8 Immature Gran % 0.4 Neutrophils % 73.8 Lymphocytes % 12.3 Monocytes % 9.7 Eosinophils % 3.1 Basophils % 0.7 Nucleated RBC % 0.0 Absolute Neutrophils 6.26 Absolute Lymphocytes 1.04 L Absolute Monocytes 0.82 H Absolute Eosinophils 0.26 Absolute Basophils 0.06 ESR 12 Sodium 137 Potassium 4.4 Chloride 101 Carbon Dioxide 30.6 Anion Gap 5.4 BUN 12 Creatinine 1.2 Est GFR (CKD-EPI 2020) 69.23 Glucose 89 Calcium 9.0 Total Bilirubin 0.6 AST 20 ALT 26 Alkaline Phosphatase 89 C-Reactive Protein 7.35 H Total Protein 8.1 Albumin 3.7 Last Vital Signs Temp 36.9 C 02/21/25 10:39 Pulse 104 H 02/21/25 10:39 Resp 16 02/21/25 10:39 BP 131/80 02/21/25 10:39 Pulse Ox 98 02/21/25 10:39 Time Spent Time spent with Patient: >75 minutes Time was spent: preparing to see the patient(eg.review tests), obtaining and/or reviewing separately otained hiistory, ordering medications,tests, procedures, referring, communicating with other health customer care team coach, indepentently interpreting results, counseling the patient and care coordination
[2025-02-21] MEDS: CIPROFLOXACIN 400 MG/200 ML BAG 200 MG IVPB (14:02)
[2025-02-21] MEDS: metroNIDAZOLE 500 MG/100 ML BAG 100 MG IVPB ×2 (14:03→19:57)
[2025-02-21 14:21] LABS: Magnesium 2.2 mg/dL (1.8-2.4)
[2025-02-21 14:46] VITALS: BP 107/80; PULSE 87; RESP 16; O2SAT 96
[2025-02-21 14:59] VITALS: BP 114/82; PULSE 91; RESP 17; TEMP 36.1; O2SAT 98
--- NOTE | 2025-02-21 15:14 | W.PC.ACHO ---
Registration Status: ADM IN Primary Language: Preferred Language: Greenlandic ED Information & Data Chief Complaint GenMedical 02/21/25 10:52 Triage Note hx of perianal abscess, 02/21/25 10:36 having pain and is concerned it is back. s/s started 1 week ago. pain is on l buttock close to anus. pt has been doing heavy lifint this week so pt reports could be muscular pain. no bowel changes/issues in bathroom Medical / Surgical History (Last Reviewed 09/18/23 @ 09:23 by Akosua Yang DO) Rectal fistula Perirectal abscess (~09/2022) MRSA (methicillin resistant staph aureus) culture positive Scrotal abscess (~09/2022) Depressive disorder Asthma (Last Updated 09/18/23 @ 12:53 by Carla Lucero) History of colonoscopy (~09/2023) S/P tonsillectomy and adenoidectomy History of rectal surgery (01/23/23) Status post nasal septoplasty Most Recent Vital Signs Temperature 36.1 C L 02/21/25 14:59 Pulse 91 H 02/21/25 14:59 Pulse Rhythm Regular 02/21/25 14:59 Respiratory Rate 17 02/21/25 14:59 Respiratory Effort Normal 02/21/25 14:59 Respiratory Depth Normal 02/21/25 14:59 Respiratory Pattern Normal 02/21/25 14:59 Blood Pressure 114/82 02/21/25 14:59 Pulse Oximetry 98 02/21/25 14:59 Oxygen Delivery Method Room Air 02/21/25 14:59 Oxygen Flow Rate 0 02/21/25 14:59 Pain Level 3 02/21/25 14:59 Allergies amoxicillin Allergy (Intermediate, Verified 02/21/25 12:37) Swelling/Edema enviornmental Allergy (Mild, Uncoded 02/21/25 12:37) Wheezing Precautions Isolation Standard precaution 02/21/25 10:49 Active Medications Generic Name Dose Route Start Last Admin Trade Name Freq PRN Reason Stop Dose Admin Sodium Chloride 0 ml 02/21/25 11:26 02/21/25 11:34 Normal Saline Flush 10 Ml Syr IVP 10 ml PRN PRN Administration IV IV Catheter Type [Right Saline Lock Antecubital] IV Catheter Gauge [Right 18 Antecubital] Diet Orders Category Date Time Status Heart Healthy Eating [DIET] Nutrition 02/21/25 Lunch Active npo [Nothing Per Oral] [DIET] Nutrition 02/22/25 00:01 Ordered Diagnostics 02/21/25 Range/Units 11:10 WBC 8.47 (4.4-10.8) 10^3/uL RBC 4.53 (4.36-5.78) 10^6/uL Hgb 14.6 (13.5-17.5) g/dL Hct 42.3 (40.0-50.0) % MCV 93 (80-95) fL MCH 32.2 (27.0-33.0) pg MCHC 34.5 (32.0-36.0) % RDW 11.6 L (11.8-14.1) % Plt Count 280 (130-400) 10^3/uL MPV 8.8 (8.0-11.0) fL Immature Gran % 0.4 % Neutrophils % 73.8 % Lymphocytes % 12.3 % Monocytes % 9.7 % Eosinophils % 3.1 % Basophils % 0.7 % Nucleated RBC % 0.0 (0.0-0.3) % Absolute Neutrophils 6.26 (1.2-6.7) 10^3/uL Absolute Lymphocytes 1.04 L (1.2-3.4) 10^3/uL Absolute Monocytes 0.82 H (0.1-0.8) 10^3/uL Absolute Eosinophils 0.26 (0.0-0.7) 10^3/uL Absolute Basophils 0.06 (0.0-0.2) 10^3/uL ESR 12 (0-20) mm/hr Sodium 137 (136-145) mmol/L Potassium 4.4 (3.5-5.1) mmol/L Chloride 101 (98-107) mmol/L Carbon Dioxide 30.6 (21.0-32.0) mmol/L Anion Gap 5.4 (3-11) mmol/L BUN 12 (7-18) mg/dL Creatinine 1.2 (0.70-1.30) mg/dL Est GFR (CKD-EPI 2020) 69.23 (mL/min/1.73m2) Glucose 89 (74-106) mg/dL Calcium 9.0 (8.5-10.1) mg/dL Magnesium 2.2 (1.8-2.4) mg/dL Total Bilirubin 0.6 (0.2-1.0) mg/dL AST 20 (15-37) U/L ALT 26 (16-63) U/L Alkaline Phosphatase 89 (46-116) U/L C-Reactive Protein 7.35 H (<or=0.5) mg/dL Total Protein 8.1 (6.4-8.2) g/dL Albumin 3.7 (3.4-5.0) g/dL Intake and Output - 24 Hour Total 02/21/25 10:33 thru 02/21/25 14:59 Intake Total 100 Balance 100 Weight 79.832 kg Intake: IV 100 Falls Risk Assessment History of Falls No History 02/21/25 14:59 Contributing Factors No Factors 02/21/25 14:59 Ambulatory Aids Independent 02/21/25 14:59 Tubes/Lines None 02/21/25 14:59 Gait Evaluation No gait disturbance 02/21/25 10:49 Cognition No cognitive impairment 02/21/25 10:49 Fall Total Score 0 02/21/25 14:59 Level of Risk Standard/Low Risk 02/21/25 14:59 Problems (Last Reviewed 09/18/23 @ 09:23 by Akosua Yang DO) On deep vein thrombosis (DVT) prophylaxis (Acute) Perirectal abscess (Acute) CKD (chronic kidney disease) stage 3, GFR 30-59 ml/min (Chronic) Hypertension (Chronic) v v v v v v v v v Sending and/or Receiving Nurses: Please use comment section below to note any information pertinent to the patient hand-off not included above. Information / Comments: This nurse received report from ER nurse patient alert and oriented, vitals stables, mild pain in buttocks,is transferred to [facility] at bedside. Report received from: Aria RAM
[2025-02-21] MEDS: Pantoprazole 40 MG VIAL IVP (15:19)
[2025-02-21] MEDS: Enoxaparin 40 MG/0.4 ML SYR SC (15:19)
[2025-02-21] MEDS: Acetaminophen 325 MG TAB 650 MG PO (17:16)
[2025-02-21 20:30] VITALS: BP 119/78; PULSE 83; RESP 20; TEMP 36.9; O2SAT 98
[2025-02-21] MEDS: Zolpidem 5 MG TAB PO (20:59)
[2025-02-21 23:25] VITALS: BP 113/70; PULSE 83; RESP 20; TEMP 36.4; O2SAT 98
[2025-02-22] MEDS: CIPROFLOXACIN 400 MG/200 ML BAG 200 MG IVPB (01:08)
[2025-02-22] MEDS: Lactated Ringers 1,000 ML 125 ML IV (01:08)
[2025-02-22] MEDS: Ketorolac 15 MG/ML VIAL IVP ×2 (03:57→12:37)
[2025-02-22] MEDS: metroNIDAZOLE 500 MG/100 ML BAG 100 MG IVPB ×2 (03:57→11:29)
[2025-02-22 06:29] LABS: Abs Immature Grans 0.02 10^3/uL (0.0-0.06); HCT 36.1 % (40.0-50.0); HGB 12.6 g/dL (13.5-17.5); Immature Grans % 0.3 %; MCH 32.4 pg (27.0-33.0); MCHC 34.9 % (32.0-36.0); MCV 93 fL (80-95); MPV 9.0 fL (8.0-11.0); Platelet Count 232 10^3/uL (130-400); RBC 3.89 10^6/uL (4.36-5.78); RDW 11.4 % (11.8-14.1); RDW-SD 38.8 fL; WBC 6.48 10^3/uL (4.4-10.8)
[2025-02-22 06:41] LABS: Anion Gap 6.5 mmol/L (3-11); BUN 13 mg/dL (7-18); CO2 30.5 mmol/L (21.0-32.0); Calcium 7.9 mg/dL (8.5-10.1); Chloride 102 mmol/L (98-107); Estimated GFR 76.85 (mL/min/1.73m2); Glucose 104 mg/dL (74-106); Potassium 4.0 mmol/L (3.5-5.1); Sodium 139 mmol/L (136-145)
[2025-02-22 07:57] VITALS: BP 119/81; PULSE 86; RESP 16; TEMP 36.7; O2SAT 97
[2025-02-22] MEDS: Pantoprazole 40 MG VIAL IVP (08:10)
[2025-02-22] MEDS: Normal Saline Flush 10 ML SYR IVP ×2 (08:10→11:29)
--- NOTE | 2025-02-22 09:13 | W.SURGCON ---
Date of service: 02/22/25 Time of Service: 09:30 Assessment and Plan Assessment and plan (1) Perirectal abscess: Assessment and plan: 59 yo man with another perirectal abscess and as my best guess, probably an underlying fistula. He has had these before in the past on a few different occasions making this not only recurrent, but somewhat complex. Patient was present in the room with our discussions. We talked about certainly draining the abscess today, but considering the circumstances, I think a comprehensive exam under anesthesia is warranted looking for an underlying fistula. If one is found, I suspect seton placement will be warranted to prevent more recurrences down the road for him. We did talk about the possibility of some incontinence and despite intervention, still having recurrences down the road. He is in agreement with the indications, possible risks but also likely benefits and wants to proceed. PLAN: EUA I&D of abscess likely seton placement History of Present Illness Narrative: The patient is a 59-year-old man who has had multiple perirectal abscesses and/or fissures and fistulas in his past who now presents with 2 weeks of worsening perirectal discomfort. He recognizes the symptoms as another recurrent abscess. He is up-to-date on a colonoscopy and otherwise has no significant medical problems. PFSH All Active Problems (Updated 02/21/25 @ 19:44 by Arabella Spears APRN) Anxiety (Chronic) On deep vein thrombosis (DVT) prophylaxis (Acute) Perirectal abscess (Acute) Melanocytic nevus (Acute) CKD (chronic kidney disease) stage 3, GFR 30-59 ml/min (Chronic) Hypertension (Chronic) Generalized anxiety disorder (Chronic) Insomnia (Chronic) Chronic diarrhea (Chronic) Chronic rhinitis (Chronic) Trigger finger, right ring finger (Chronic) Other color vision deficiencies (Chronic) red/green Sigmoid diverticulosis (Acute) Medical History (Updated 02/21/25 @ 19:44 by Arabella Spears APRN) Rectal fistula Perirectal abscess (~09/2022) MRSA (methicillin resistant staph aureus) culture positive Scrotal abscess (~09/2022) Depressive disorder Asthma Surgical History (Updated 09/18/23 @ 12:53 by Carla Lucero) History of colonoscopy (~09/2023) S/P tonsillectomy and adenoidectomy History of rectal surgery (07/18/23) Rectal fistulotomy Status post nasal septoplasty Family History (Updated 08/20/24 @ 09:59 by Kenzie Schmidt NP) Mother Depression Stroke Chronic kidney disease On dialysis Father , age 88 Heart disease Myocardial infarction Prostate cancer Sister Breast cancer Sister Breast cancer Brother Depression Hypertension Brother Oral cancer Alcohol use disorder Maternal Grandfather No problems noted. Maternal Grandmother No problems noted. Paternal Grandfather No problems noted. Paternal Grandmother No problems noted. Social History (Updated 08/20/24 @ 10:35 by Pauline Hinds) Smoking/Tobacco Use Status: Never Second Hand Exposure: Yes Smoking risk assessment performed?: Yes Alcohol Intake: current Alcohol Intake frequency: a few times a week Alcohol type: beer, wine and hard liquor Drug use: Never Substance use type: does not use Counseling given: No Adopted: No Caregiver/Support person: No Foster care: No Household members: spouse Housing: house Number of Children: 0 number of grandchildren: 0 Communication Needs: None Education Level: college Details: Associate Degree Do you need help understanding health information?: Never current occupation: Self-employed Pets and animals: No Sexually active: Yes Do you think of yourself as: straight/heterosexual Current gender identity: male What is your relationship status?: How often do you talk on the phone with friends or family?: once per week How often do you get together with friends or relatives?: once per week How often do you attend congregational or muslim services?: decline to answer Do you belong to any clubs or organized social groups?: no Panel score (0-1 are the most socially isolated patients): 1 What type of physical activity do you participate in: other Details: home Duration: 15-30 minutes/day Frequency: 3-4 times per week Chantel/Pentecostal: Hindu Special chantel needs: No Seatbelt use: always Helmet use: Yes Helmet use: sometimes Drive intox or ride w/intox entry driver operator: No Do you feel safe at home: Yes Do you feel safe in your relationship?: Yes Victim of physical abuse: No Victim of emotional abuse: No Victim of sexual abuse: No Would you like helpful sources: No Additional Social history: unable to assess privately Exam Narrative Exam Narrative: Gen: Non-toxic, comfortable and interactive Neuro: Alert and oriented x3 Psych: Good mood and affect. Good insight and understanding into condition. Chest: Non-labored breathing, no wheezing, no visible shortness of breath. Heart: Regular Rectal examination: Deferred Results Last Vital Signs Temp 98.1 F 02/22/25 07:57 Pulse 86 02/22/25 07:57 Resp 16 02/22/25 07:57 BP 119/81 02/22/25 07:57 Pulse Ox 97 02/22/25 07:57 Labs 02/22/25 06:14 02/22/25 06:14 Labs: Laboratory Results - last 24 hr 02/21/25 02/22/25 11:10 06:14 WBC 8.47 6.48 RBC 4.53 3.89 L Hgb 14.6 12.6 L D Hct 42.3 36.1 L MCV 93 93 MCH 32.2 32.4 MCHC 34.5 34.9 RDW 11.6 L 11.4 L Plt Count 280 232 MPV 8.8 9.0 Immature Gran % 0.4 0.3 Neutrophils % 73.8 63.2 Lymphocytes % 12.3 20.1 Monocytes % 9.7 11.7 Eosinophils % 3.1 3.9 Basophils % 0.7 0.8 Nucleated RBC % 0.0 0.0 Absolute Neutrophils 6.26 4.10 Absolute Lymphocytes 1.04 L 1.30 Absolute Monocytes 0.82 H 0.76 Absolute Eosinophils 0.26 0.25 Absolute Basophils 0.06 0.05 ESR 12 Sodium 137 139 Potassium 4.4 4.0 Chloride 101 102 Carbon Dioxide 30.6 30.5 Anion Gap 5.4 6.5 BUN 12 13 Creatinine 1.2 1.1 Est GFR (CKD-EPI 2020) 69.23 76.85 Glucose 89 104 Calcium 9.0 7.9 L Magnesium 2.2 Total Bilirubin 0.6 AST 20 ALT 26 Alkaline Phosphatase 89 C-Reactive Protein 7.35 H Total Protein 8.1 Albumin 3.7
--- NOTE | 2025-02-22 09:24 | ANES.PREOP_ITS ---
General Info Date of Service Date Performed: 02/22/25 Height: 5 ft 8 in Weight: 79.832 kg Body Mass Index (BMI): 26.7 Surgical Procedure: Operation Date: 02/22/25 10:00 Proposed Procedure Side Surgeon p Exam Under Anesthesia Robert Kirby MD Actual Procedure Side Surgeon p Exam Under Anesthesia Robert Kirby MD Pre-Op Diagnosis Post-Op Diagnosis Perirectal abscess Meds Allergies and Home Medications Allergies Allergy/AdvReac Type Severity Reaction Status Date / Time amoxicillin Allergy Intermediate Swelling/Ed Verified 02/21/25 12:37 suzi enviornmental Allergy Mild Wheezing Uncoded 02/21/25 12:37 Home Medication ?Medication ?Instructions ?Recorded inhalational spacing device #1 ea 06/03/24 ([employer] MDI Spacer) Held on 02/21/25. Instructions: Pt Stopped/Never Started fluticasone propionate 50 1 spray intranasal BID PRN a llergy 09/18/24 mcg/actuation nasal symptoms #15.8 mL spray,suspension albuterol sulfate 90 mcg/actuation 2 puff inhalation Q 6H PRN 11/17/24 aerosol inhaler shortness of breath or wheez ing #8.5 grams ipratropium bromide 42 mcg (0.06 2 spray intranasal TI D-QID PRN 01/12/25 %) nasal spray allergy symptoms #15 mL zolpidem 5 mg tablet 5 mg PO QHS PRN sleep #90 ta bs 01/12/25 lorazepam 0.5 mg tablet 0.5 mg PO BID PRN anxiety #1 5 tabs 02/13/25 losartan 50 mg tablet 50 mg PO DAILY #90 tabs 03/02 Current Visit Medications: Current Medications Generic Name Dose Route Start Last Admin Trade Name Freq PRN Reason Stop Dose Admin Acetaminophen 1,000 mg 02/21/25 14:59 Acetaminophen 500 Mg Tab PO Q6H PRN PRN Albuterol Sulfate 2 puff 02/21/25 14:59 Albuterol Hfa 8 Gm 60 Puff Inh IH Q6H PRN PRN shortness of breath or wheezing Albuterol/Ipratropium 3 ml 02/21/25 14:59 Albuterol/Ipratropium 3 Ml Upd Vial UPD Q6H PRN PRN Fluticasone Propionate 0 gm 02/21/25 14:59 Fluticasone Nasal [place] 16 Gm Btl NS BID PRN PRN Allergy Symptoms Ciprofloxacin 400 mg in 200 mls @ 200 mls/hr 02/22/25 02:00 02/22/25 01:08 Cipro I.V. IVPB 200 mls/hr Q12H JOCELYN Administration Metronidazole 500 mg in 100 mls @ 100 mls/hr 02/21/25 20:00 02/22/25 03:57 Flagyl IVPB 100 mls/hr Q8H JOECLYN Administration Ringer's Solution 1,000 mls @ 125 mls/hr 02/22/25 00:00 02/22/25 01:08 IV 125 mls/hr INFUSION JOCELYN Administration IV Miscellaneous Supplies 1 each 02/21/25 14:59 Iv Access IV DIRECTED JOCELYN Ketorolac Tromethamine 15 mg 02/21/25 14:59 02/22/25 03:57 Ketorolac 15 Mg/Ml Vial IVP 02/26/25 14:58 15 mg Q6H PRN PRN Administration Lorazepam 0.5 mg 02/21/25 14:59 Lorazepam 0.5 Mg Tab PO BID PRN PRN Anxiety Losartan Potassium 50 mg 02/22/25 08:30 Losartan 50 Mg Tab PO On Hold: 02/22/25 08:30 DAILY JOCELYN Pantoprazole Sodium 40 mg 02/21/25 14:59 02/22/25 08:10 Pantoprazole 40 Mg Vial IVP 40 mg DAILY JOCELYN Administration Polyethylene Glycol 17 gm 02/21/25 14:59 Polyethylene Glycol 3350 17 Gm Packet PO DAILY PRN PRN Constipation Sodium Chloride 0 ml 02/21/25 11:26 02/21/25 17:58 Normal Saline Flush 10 Ml Syr IVP 30 ml PRN PRN Administration Sodium Chloride 0 ml 02/21/25 14:59 Normal Saline Flush 10 Ml Syr IVP PRN PRN Sodium Chloride 0 ml 02/21/25 20:00 02/22/25 08:10 Normal Saline Flush 10 Ml Syr IVP 20 ml BID JOCELYN Administration Sodium Chloride 0 ml 02/21/25 14:59 Normal Saline 10 Ml Vial IJ DIRECTED PRN Zolpidem Tartrate 5 mg 02/21/25 14:59 02/21/25 20:59 Zolpidem 5 Mg Tab PO 5 mg HS PRN PRN Administration Sleep PFSH Active Problems Active Problems: Problem Status Onset Code Anxiety Chronic F41.9 On deep vein thrombosis (DVT) prophylaxis Acute Z79.899 Perirectal abscess Acute K61.1 Melanocytic nevus Acute D22.9 CKD (chronic kidney disease) stage 3, GFR 30-59 ml/min Chronic N18.30 Hypertension Chronic I10 Generalized anxiety disorder Chronic F41.1 Insomnia Chronic Chronic diarrhea Chronic K52.9 Chronic rhinitis Chronic J31.0 Trigger finger, right ring finger Chronic M65.341 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 Sigmoid diverticulosis Acute K57.30 Medical History Medical History (Updated 02/21/25 @ 19:44 by Arabella Spears APRN) Rectal fistula Perirectal abscess (~09/2022) MRSA (methicillin resistant staph aureus) culture positive Scrotal abscess (~09/2022) Depressive disorder Asthma Medical History Comments:: 01/23/23 pt reports he has not had asthma for 20 years Surgical History Surgical History (Updated 09/18/23 @ 12:53 by Carla Lucero) History of colonoscopy (~09/2023) S/P tonsillectomy and adenoidectomy History of rectal surgery (01/23/23) Rectal fistulotomy Status post nasal septoplasty Tobacco Smoking/Tobacco Use Status: Never Passive smoking exposure: Yes Second hand exposure: Yes Alcohol Alcohol Intake: current Alcohol intake frequency: a few times a week Alcohol type: beer, wine and hard liquor Substance Use Substance use: Never Substance use type: does not use Vital Signs and Lab Results Vital Signs Most Recent Vital Signs in EMR: Most Recent Vital Signs Temp Pulse Resp BP Pulse Ox 36.7 C 86 16 119/81 97 02/22/25 07:57 02/22/25 07:57 02/22/25 07:57 02/22/25 07:57 02/22/25 07:57 Lab Results 02/22/25 06:14 02/22/25 06:14 Complete Blood Count: 2 WBC, (4.4-10.8) 6.48 10^3/uL Today, 06:14 RBC, (4.36-5.78) 3.89 10^6/uL L Today, 06:14 Hgb, (13.5-17.5) 12.6 g/dL L Δ Today, 06:14 Hct, (40.0-50.0) 36.1 % L Today, 06:14 Plt Count, (130-400) 232 10^3/uL Today, 06:14 Complete Metabolic Panel: 2 Sodium, (136-145) 139 mmol/L Today, 06:14 Potassium, (3.5-5.1) 4.0 mmol/L Today, 06:14 Chloride, (98-107) 102 mmol/L Today, 06:14 Carbon Dioxide, (21.0-32.0) 30.5 mmol/L Today, 06:14 BUN, (7-18) 13 mg/dL Today, 06:14 Creatinine, (0.70-1.30) 1.1 mg/dL Today, 06:14 Est GFR (CKD-EPI 2020), (mL/min/1.73m2) 76.85 Today, 06:14 Magnesium, (1.8-2.4) 2.2 mg/dL 02/21/25, 11:10 Calcium, (8.5-10.1) 7.9 mg/dL L Today, 06:14 Albumin, (3.4-5.0) 3.7 g/dL 02/21/25, 11:10 Glucose, (74-106) 104 mg/dL Today, 06:14 C-Reactive Protein, (<or=0.5) 7.35 mg/dL H 02/21/25, 11:10 Liver Function Panel: 2 ALT, (16-63) 26 U/L 02/21/25, 11:10 AST, (15-37) 20 U/L 02/21/25, 11:10 Imaging and Studies Imaging and Studies Study information below may be from another EMR and interpreted by another provider. Please see original notes in EMR for more complete details. EKG Summary: DATE/TIME OF SERVICE: 08/24/22 1118 : 1965PERFORMING LOCATION: ER APPROVED REPORT Exam: Resting ECG Reason for Exam: Epigastric pain Patient Location: E HR:92 bpm ECG Measurements Heart Rate 92 AXIS HI 136 P 70 QRSd 93 QRS 45 QT 356 T48 QTc 441 Conclusion Sinus rhythm...normal P axis, V-rate 60- 99 Probable left atrial enlargement...P >50mS, <-0.10mV V1 Narrow complex normal sinus rhythm at a rate of 93. Normal axis. Intervals within normal limits. T wave flattening in V2. No acute injury pattern. No prior for comparison. ST segment abnormalities. Stress Test Summary: Date of Exam: 11/27/16Sex: M : 1965Age: 51 Exam(s) [id number] NM:MPI Resting & Stress GRP *[facility]* *[facility]* [address] [place] [address] Myocardial Perfusion Imaging - SPECT Asaf protocol Date of study: 11/27/2016 *PATIENT PRESENTATION* Height: 172.7cm ((68in) ) Blood Pressure: Weight: 81.4kg ((179lb) ) BSA: 1.99m^2 Referring physician: Abelino Horta MD Ordering physician: Nba Berger Impressions: Normal perfusion by Tc99m Sestamibi Imaging. Summary: 1. Myocardial perfusion imaging: No myocardial perfusion defects noted. 2. The calculated left ventricular ejection fraction after stress: 48%. 3. Stress: The target heart rate was achieved. Echocardiogram Summary: Date of Exam: 06/09/21Sex: M Admission Date: 06/09/21 : 1965 Age: 55 APPROVED REPORT EXAM: Comprehensive 2D, Doppler, and color-flow Echocardiogram Patient Location: Out-Patient Telecom Coordinator: Jenn Tolbert RDCS (AE) Indications: Resting Tachycardia, HTN Other Information Study Quality: Adequate Conclusion Normal left ventricular wall thickness and chamber size. Estimated ejection fraction is 60%. Wall motion is normal Normal right ventricular size and systolic function Both atria are normal in size There is no structural or hemodynamically significant valvular disease Anesthesia Assessment and Plan Anesthesia History Personal History: No History of Anesthesia Complications Family History: No Family History of Anesthesia Complications Exercise Tolerance Exercise Tolerance: Metabolic Equivalents>4 Pertinent Negatives Pertinent Negatives: No Major Cardiovascular Symptoms or Complaints and No Major Pulmonary Symptoms or Complaints Cardiac & Pulmonary Exam Cardiac Exam: Normal S1/S2 Heart Sounds Pulmonary Exam: Clear Bilateral Breath Sounds Implantable Cardiac Device Does patient have a Pacemaker or an ICD?: No Airway Exam Known Difficult Airway: No Mallampati Class: 2 Mouth Opening: Normal (> 3cm) Thyromental Distance: Greater than 3 cm Neck Range of Motion: Full ROM Neck Circumference: Normal Teeth Condition: Normal Dentition ASA Classification ASA Score: ASA 2 Emergency Case?: No NPO Status NPO Status: NPO Clears >2 hours, Solids >8 hours Anesthesia Plan Resuscitation Status: Full Code Anesthesia Technique: Spinal Anesthesia Airway Planned: Natural Airway Monitors Used: Standard Monitors Preoperative Comments:: SAB with sedation, GA/ETT backup (poorly controlled GERD)
[2025-02-22 09:26] VITALS: BMI 26.7
--- NOTE | 2025-02-22 10:07 | INITIAL_ITS ---
Date of service: 02/22/25 Time of Service: 10:07 Care Management Initial Assmt Initial Assessment Reason for Hospitalization: Perirectal abscess Functional Status/Living Situation Patient Presentation: Ed presented to the ER yesterday with c/o anal pain. He has been followed by general surgery for this, and has had other procedures, and until now the plan has been to follow closely. He presented with a lot of pain, and surgery was planned. Ed went to surgery this morning and underwent a nerve block, anoscopy and Seton placement. CM met with Ed and Norma, his , after surgery. They were both very pleasant. Ed stated that everything went really well. He should have a lot less pain than what he was feeling prior to the surgery, and fingers crossed this will be the last procedure that he will need. Both Ed and Norma did not feel that HH is needed. Ed has directions to merely use an abd pad to collect drainage and to use a sitz bath a few times a day. He was given clear written instructions to take home that were reviewed with RN prior to discharge. Ed was very pleased to be able to go home. He had a full lunch and ambulated the halls prior to discharge. Of note, Ed and Norma were asked by CM about their SDOH, as several needs were listed. They denied needs to CM. Town of Residence: [place] Resides with: Spouse (Norma) Employment Status: Employed (self-employed) Instrumental Activities of Daily Living (ADLs): Independent Medications Medication Management: No Issues/Barriers identified Advance Directives Advance Directives: Do you have an Advance Directive: Y , 11:49 AD On File at [facility]: Y 01/22/23, 11:49 Date Asked 07/16/18 01/22/23, 11:49 AD Date Reviewed 02/21/25 02/21/25, 10:41 COLST On File at [facility] COLST Date Scanned Code Status Resuscitation Status Full Code Insurance Coverage/Financial Issues Insurance: BC/BS Out of State Care Team Visit Care Team Role Provider Type Kenzie Schmidt NP Primary Care Provider NURSE PRACTITIONER Robert Kirby MD Other Providers [facility] STAFF PHYSICIAN RASHID Garces Emergency Provider [facility] Romel Friedman MD Admit Provider [facility] STAFF PHYSICIAN Attending Provider Discharge Potential Discharge Needs: PCP F/U Appt and Surgical F/U Appt Anticipated Barriers to Discharge: None Identified Patient/Family Education Needs: Review discharge instructions, discuss Ask Me Three Transportation: Private vehicle Plan: Ed discharged home earlier today. He will f/u with the surgeon and his PCP and continue per his plan of care. Ed transported home with his . Social Determinants of Health Screening Social Determinants of health last assessed in clinic: 02/22/25 Will the Patient Participate in the Screening?: Yes Do you worry about having a steady place to live?: yes What is your living situation today?: I do not have steady housing Problems where you live: no known problems In the past 12 months, have you had to go without electric, gas, oil or water in your home?: yes 1. Within the past 12 months, we worried whether our food would run out before we got money to buy more.: Never true 2. Within the past 12 months, the food we bought just didn't last and we didn't have money to get more.: Never true Has lack of transportation kept you from medical appointments or from doing things needed for daily living?: yes Has anyone in your life made you feel unsafe or unsupported?: yes How often does anyone, including family and friends, physically hurt you?: Never How often does anyone, including family and friends, insult or talk down to you?: Never How often does anyone, including family and friends, threaten you with harm?: Never How often does anyone, including family and friends, scream or curse at you?: Never HRSN Safety total score: 4 How hard is it for you to pay for the very basics like food, housing, medical care, and heating? Would you say it is:: Very hard Do you want help finding or keeping work or a job?: Yes, help finding work If for any reason you need help with day-to-day activities such as bathing, preparing meals, shopping, managing finances, etc., do you get the help you need?: I don?t need any help How often do you feel lonely or isolated from those around you?: Never Do you speak a language other than Romanian at home?: Yes Health Related Social Needs Health related social needs: housing instability, housed, with risk of homelessness (Z59.811), transportation insecurity (Z59.82), material hardship(utilities) (Z59.12), problems related to housing/economic circumstances (Z59.89), problems finding work (Z56.9) and education (Z55.6) Health related social needs details: none PFSH All Active Problems (Updated 02/21/25 @ 19:44 by Arabella Spears APRN) Anxiety (Chronic) On deep vein thrombosis (DVT) prophylaxis (Acute) Perirectal abscess (Acute) Melanocytic nevus (Acute) CKD (chronic kidney disease) stage 3, GFR 30-59 ml/min (Chronic) Hypertension (Chronic) Generalized anxiety disorder (Chronic) Insomnia (Chronic) Chronic diarrhea (Chronic) Chronic rhinitis (Chronic) Trigger finger, right ring finger (Chronic) Other color vision deficiencies (Chronic) red/green Sigmoid diverticulosis (Acute) Medical History (Updated 02/21/25 @ 19:44 by Araeblla Spears APRN) Rectal fistula Perirectal abscess (~09/2022) MRSA (methicillin resistant staph aureus) culture positive Scrotal abscess (~09/2022) Depressive disorder Asthma Surgical History (Updated 09/18/23 @ 12:53 by Carla Lucero) History of colonoscopy (~09/2023) S/P tonsillectomy and adenoidectomy History of rectal surgery (01/23/23) Rectal fistulotomy Status post nasal septoplasty Family History (Updated 08/20/24 @ 09:59 by Kenzie Schmidt NP) Mother Depression Stroke Chronic kidney disease On dialysis Father , age 88 Heart disease Myocardial infarction Prostate cancer Sister Breast cancer Sister Breast cancer Brother Depression Hypertension Brother Oral cancer Alcohol use disorder Maternal Grandfather No problems noted. Maternal Grandmother No problems noted. Paternal Grandfather No problems noted. Paternal Grandmother No problems noted. Social History (Updated 08/20/24 @ 10:35 by Pauline Hinds) Smoking/Tobacco Use Status: Never Second Hand Exposure: Yes Smoking risk assessment performed?: Yes Alcohol Intake: current Alcohol Intake frequency: a few times a week Alcohol type: beer, wine and hard liquor Drug use: Never Substance use type: does not use Counseling given: No Adopted: No Caregiver/Support person: No Foster care: No Household members: spouse Housing: house Number of Children: 0 number of grandchildren: 0 Communication Needs: None Education Level: college Details: Associate Degree Do you need help understanding health information?: Never current occupation: Self-employed Pets and animals: No Sexually active: Yes Do you think of yourself as: straight/heterosexual Current gender identity: male What is your relationship status?: How often do you talk on the phone with friends or family?: once per week How often do you get together with friends or relatives?: once per week How often do you attend yazidism or mormon services?: decline to answer Do you belong to any clubs or organized social groups?: no Panel score (0-1 are the most socially isolated patients): 1 What type of physical activity do you participate in: other Details: home Duration: 15-30 minutes/day Frequency: 3-4 times per week Chantel/Gnosticist: Islam Special chantel needs: No Seatbelt use: always Helmet use: Yes Helmet use: sometimes Drive intox or ride w/intox short haul driver: No Do you feel safe at home: Yes Do you feel safe in your relationship?: Yes Victim of physical abuse: No Victim of emotional abuse: No Victim of sexual abuse: No Would you like helpful sources: No Additional Social history: unable to assess privately
[2025-02-22] MEDS: Bupivacaine 0.25% Pres-Free 10 ML VIAL (10:48)
[2025-02-22] MEDS: Bupivacaine LIPOSOME/PF 133 MG/10 ML VIAL IJ (10:49)
--- NOTE | 2025-02-22 11:12 | W.PM.OP ---
Operative Note Operative Note Refer to Anesthesia Record Procedure Description: PROCEDURES PERFORMED: 1. Exam under anesthesia 2. Bilateral Pudendal Nerve block 3. Anoscopy 4. Seton placement PREOPERATIVE DIAGNOSIS: Rectal abscess and fistula POSTOPERATIVE DIAGNOSIS: Same SURGEON: Drew Kirby MD ASSIST: None ANESTHESIA: Monitoring and spinal - Emelyn INDICATION FOR PROCEDURE: The patient is a 59-year-old man with recurrent perirectal abscesses and fistulas who presents with a recurrence. FINDINGS: Abscess cavity incised and drained. Seton placed through external incision, abscess cavity and rectal defect. SURVEILLANCE interval/FOLLOW-UP: Will follow him in the office for the next few months and tighten the seton as needed. SPECIMENS: None EBL: Minimal COMPLICATIONS: None Procedure in detail: The patient gave written consent and was in agreement with the indications, the potential risks as well as the benefits of the procedure. He was taken to the operating room. Anesthesia was given. He was placed in lithotomy. I prepped and draped the perineum, perianal area in the buttocks in sterile fashion with Betadine. Using a combination of Exparel and quarter percent Marcaine, I performed a bilateral pudendal nerve block. Exam under anesthesia was performed. Within the rectal vault, the abscess cavity is easily found by palpating indurated and firm rectal wall tissue. Using his prior incisional scars in the left perianal tissue I was able to place a finder-needle directly into the cavity and aspirated pura pus. Next I made a stab incision in the skin and a hemostat was used to break up the loculations of the abscess cavity effectively draining copious amounts of pus. The tip of the hemostat was used to explore the cavity against my trans-anal finger and an extremely thin area was encountered between rectal mucosa and the cavity consistent with the likely and presumed fistula location. A well?lubricated anoscope was introduced. The anal canal itself was free of any obvious disease. I was able to visualize the tip of my hemostat inside the rectal vault and passed a vessel loop to it. This was then pulled through the cavity and out of the incision, and then tied as a seton in typical/usual fashion. Hemostasis was excellent. The patient tolerated the procedure well and was taken to the PACU in hemodynamically stable condition. Date of Procedure: 02/22/25
[2025-02-22 11:21] VITALS: BP 118/74; PULSE 84; RESP 17; TEMP 36.7; O2SAT 100
--- NOTE | 2025-02-22 11:31 | DSE_ITS ---
Date of service: 02/22/25 Time of Service: 11:31 DS: Diagnosis Discharge Diagnosis (1) Perirectal abscess: Discharge Plan Disposition Patient Disposition: Home Condition: Improving Discharge Details Reason For Visit: Rectal mass, urinary retention Admit Date/Time: 02/21/25 14:08 Admit Provider: Romel Friedman Attending Provider: Romel Friedman [facility]: This is a 59-year-old male patient past medical history significant for recurrent perirectal abscesses returns to the emergency department for increasing pain swelling consistent with previous abscesses. He was started on broad-spectrum antibiotics and admitted under hospitalist services. Surgical consultation obtained inpatient was brought to the OR for incision and drainage. No complications. Postoperatively patient's diet was advanced. He remained hemodynamically stable eating and drinking and voiding without difficulty. Plan is to discharge home no antibiotics needed at discharge he will follow-up outpatient with general surgery. Discharge discussed with Dr. Hassan Home Meds and New Rx's Prescriptions: Continued albuterol sulfate 90 mcg/actuation HFA aerosol inhaler 2 puff inhalation Q6H PRN (Reason: shortness of breath or wheezing) Qty: 8.5 0RF (DME) BreatheRite MDI Spacer Spacer See Rx Instructions .ROUTE .MEDSUPPLY Qty: 1 0RF Rx Instructions: As directed losartan 50 mg tablet 50 mg PO DAILY Qty: 90 3RF lorazepam 0.5 mg tablet 0.5 mg PO BID PRN (Reason: anxiety) Qty: 15 0RF Rx Instructions: Only use IF NEEDED for severe anxiety, not meant for routine anxiety management fluticasone propionate 50 mcg/actuation spray,suspension 1 spray intranasal BID PRN (Reason: allergy symptoms) Qty: 15.8 6RF ipratropium bromide 42 mcg (0.06 %) spray,non-aerosol 2 spray intranasal TID-QID PRN (Reason: allergy symptoms) Qty: 15 1RF Rx Instructions: administer into each nostril zolpidem 5 mg tablet 5 mg PO QHS PRN (Reason: sleep) Qty: 90 0RF Discharge Instructions Instructions: Abscess Incision and Drainage (DC) Additional Instructions: WOUND/INCISION: Use an absorbent pad inside of your underwear as needed for any drainage that you experience. The wound otherwise does not need to be covered or cleaned. BATHING/SHOWER: You can otherwise bathe and shower as usual. ACTIVITY: As tolerated. There are no restrictions. PAIN: Use Tylenol, 1000 mg, every 6 hours for the next 3 days on a schedule. After that just as needed. Use sitz bath as as frequently as you want. I recommend at least 3 times a day. Use as hot of water as you can tolerate, but do not burn yourself. FOLLOW-UP: Please see us in the office in 4-6 weeks. MEDICATIONS: You do not need antibiotics. Resume any/all of your other medications. Stand Alone Forms: Nursing Discharge Form Referrals: Robert Kirby MD [ [facility] STAFF PHYSICIAN, Surgery] Activity:: Activity as Tolerated Equipment/Supplies:: No Equipment Needed Diet:: As Tolerated Discharge Orders Discharge Orders: Discharge Order (Routine); Ordered 02/22/25 Ordered By: Viki Chavez Discharge Data Discharge Date/Time-TO BE ENTERED AT DEPARTURE: 02/22/25 13:36 DS: Summary Time Spent with Patient providing and/or coordinating discharge services: Less than 30 minutes Status at Discharge Functional status at discharge: independent ambulation Overall status at discharge: patient is progressing back to baseline Mental Status: mental status grossly normal Speech and Movement: speech and movement normal Mood: congruent mood Affect: normal affect Quality:SDOH Health Related Social Needs: Health related social needs risk of homeless transpo i nsecurity material hardship house/econ circumstance finding work education Health related social needs details none Health related social needs details: none Exam Narrative Exam Narrative: Well-appearing male with stated age no acute distress head is atraumatic eyes nonicteric noninjected oral mucosas moist neck full range of motion cardiovascular regular rate and rhythm respirations even unlabored abdomen benign surgical area not observed. He is awake alert oriented no focal deficits psychiatric appropriate mood and affect Psych Mental Status: mental status grossly normal Speech and Movement: speech and movement normal Mood: congruent mood Affect: normal affect DS: Data Vitals/I&O Vitals and I&O: Vital Signs Temperature 36.7 C 02/22/25 11:21 Temperature Source Temporal Artery Scan 02/22/25 11:21 Pulse 84 02/22/25 11:21 Pulse Rhythm Regular 02/21/25 14:59 Respiratory Rate 17 02/22/25 11:21 Respiratory Effort Normal 02/21/25 14:59 Respiratory Depth Normal 02/21/25 14:59 Respiratory Pattern Normal 02/21/25 14:59 Blood Pressure 118/74 02/22/25 11:21 Blood Pressure Mean 88 02/22/25 11:21 Pulse Oximetry 100 02/22/25 11:21 Oxygen Delivery Method Room Air 02/22/25 11:21 Oxygen Flow Rate 0 02/22/25 11:21 Pain Level 6 02/22/25 07:57 Intake & Output 02/21/25 02/21/25 02/22/25 11:59 23:59 11:59 Intake Total 800 / 800 600 / 600 Balance 800 / 800 600 / 600 Weight 80 kg 79.832 kg 79.832 kg Intake: IV 200 / 200 600 / 600 Oral 600 / 600 Other: Urine Color Yellow Urine Odor Normal Comment Pt voids ind. in the toilet. Data Completed and Pending Labs on day of discharge: Labs from last 24 hours 02/22/25 02/21/25 06:14 11:10 WBC 6.48 RBC 3.89 L Hgb 12.6 L D Hct 36.1 L MCV 93 MCH 32.4 MCHC 34.9 RDW 11.4 L Plt Count 232 MPV 9.0 Immature Gran % 0.3 Neutrophils % 63.2 Lymphocytes % 20.1 Monocytes % 11.7 Eosinophils % 3.9 Basophils % 0.8 Nucleated RBC % 0.0 Absolute Neutrophils 4.10 Absolute Lymphocytes 1.30 Absolute Monocytes 0.76 Absolute Eosinophils 0.25 Absolute Basophils 0.05 Sodium 139 137 Potassium 4.0 4.4 Chloride 102 101 Carbon Dioxide 30.5 30.6 Anion Gap 6.5 5.4 BUN 13 12 Creatinine 1.1 1.2 Est GFR (CKD-EPI 2020) 76.85 69.23 Glucose 104 89 Calcium 7.9 L 9.0 Magnesium 2.2 Total Bilirubin 0.6 AST 20 ALT 26 Alkaline Phosphatase 89 C-Reactive Protein 7.35 H Total Protein 8.1 Albumin 3.7 Preliminary micro results at discharge 02/21/25 17:11 Rectal Wound Culture - Preliminary Gram positive & negative jose PFSH All Active Problems (Updated 02/23/25 @ 00:03 by FELIPE FERMIN) Anxiety (Chronic) Perirectal abscess (Acute) Melanocytic nevus (Acute) CKD (chronic kidney disease) stage 3, GFR 30-59 ml/min (Chronic) Hypertension (Chronic) Generalized anxiety disorder (Chronic) Insomnia (Chronic) Chronic diarrhea (Chronic) Chronic rhinitis (Chronic) Trigger finger, right ring finger (Chronic) Other color vision deficiencies (Chronic) red/green Sigmoid diverticulosis (Acute) Medical History (Updated 02/23/25 @ 00:03 by FELIPE FERMIN) Rectal fistula Perirectal abscess (~09/2022) MRSA (methicillin resistant staph aureus) culture positive Scrotal abscess (~09/2022) Depressive disorder Asthma Surgical History (Updated 09/18/23 @ 12:53 by Carla Lucero) History of colonoscopy (~09/2023) S/P tonsillectomy and adenoidectomy History of rectal surgery (01/23/23) Rectal fistulotomy Status post nasal septoplasty Family History (Updated 08/20/24 @ 09:59 by Kenzie Schmidt NP) Mother Depression Stroke Chronic kidney disease On dialysis Father , age 88 Heart disease Myocardial infarction Prostate cancer Sister Breast cancer Sister Breast cancer Brother Depression Hypertension Brother Oral cancer Alcohol use disorder Maternal Grandfather No problems noted. Maternal Grandmother No problems noted. Paternal Grandfather No problems noted. Paternal Grandmother No problems noted. Social History (Updated 08/20/24 @ 10:35 by Pauline Hinds) Smoking/Tobacco Use Status: Never Second Hand Exposure: Yes Smoking risk assessment performed?: Yes Alcohol Intake: current Alcohol Intake frequency: a few times a week Alcohol type: beer, wine and hard liquor Drug use: Never Substance use type: does not use Counseling given: No Adopted: No Caregiver/Support person: No Foster care: No Household members: spouse Housing: house Number of Children: 0 number of grandchildren: 0 Communication Needs: None Education Level: college Details: Associate Degree Do you need help understanding health information?: Never current occupation: Self-employed Pets and animals: No Sexually active: Yes Do you think of yourself as: straight/heterosexual Current gender identity: male What is your relationship status?: How often do you talk on the phone with friends or family?: once per week How often do you get together with friends or relatives?: once per week How often do you attend evangelical or protestant services?: decline to answer Do you belong to any clubs or organized social groups?: no Panel score (0-1 are the most socially isolated patients): 1 What type of physical activity do you participate in: other Details: home Duration: 15-30 minutes/day Frequency: 3-4 times per week Chantel/Mormon: Episcopal Special chantel needs: No Seatbelt use: always Helmet use: Yes Helmet use: sometimes Drive intox or ride w/intox trash collector truck driver: No Do you feel safe at home: Yes Do you feel safe in your relationship?: Yes Victim of physical abuse: No Victim of emotional abuse: No Victim of sexual abuse: No Would you like helpful sources: No Additional Social history: unable to assess privately Time Spent with Patient Time Spent with Patient: 45-69 minutes Time was spent: preparing to see the patient(eg.review tests), obtaining and/or reviewing separately otained hiistory, ordering medications,tests, procedures, referring, communicating with other health rehab care assistant and counseling the patient
[2025-02-22 11:55] VITALS: BP 132/96; PULSE 82; RESP 17; TEMP 36.5; O2SAT 99
[2025-02-22 12:16] VITALS: BP 133/83; PULSE 81; RESP 17; TEMP 36.7; O2SAT 99
[2025-02-22 13:12] VITALS: BP 131/83; PULSE 89; RESP 17; TEMP 36.5; O2SAT 98
--- NOTE | 2025-02-22 18:13 | W.ANESPOSTOP ---
Postoperative Evaluation Date, Time and Location Date Performed: 02/22/25 Time Performed: 11:20 Patient Location: Med/Surg Vital Signs Most Recent Imported Vital Signs: Most Recent Vital Signs Temp Pulse Resp BP Pulse Ox 36.5 C 89 17 131/83 98 02/22/25 13:12 02/22/25 13:12 02/22/25 13:12 02/22/25 13:12 02/22/25 13:12 Pain Score Most Recent Pain Score: Most Recent Pain Score Pain Level 5 02/22/25 13:12 Assessment Mental Status: Awake (Alert & Oriented to Patient Baseline) Airway and Respiratory Function: Patent airway with normal (patient baseline) respiratory exam Cardiovascular Function: Hemodynamically Stable Hydration Status: Adequately Hydrated Nausea & Vomiting: No Nausea or Vomiting Pain: Pt. Denies Any Pain Peripheral Nerve Block: Other (SAB has not fully resolved, VSS, RN advised to follow Spinal order set.)
== END 2025-02-22 13:36 | disposition home or self-care (01) ==
LOC: ER 14:15 → MS 14:57
PROVIDERS: Nurse Practitioner Acute Care; Student in an Organized Health Care Education/Training Program; Admitting Provider Hospitalist; Emergency Provider Physician Assistant; PCP Nurse Practitioner Family; Visit Provider Hospitalist
PROC: 0D9P80Z Drainage of Rectum with Drainage Device, Via Natural or Artificial Opening Endoscopic (ICD-10-PCS; CPT 46020; principal; 2025-02-22 10:00)
DX: K61.1 Rectal abscess (principal); J45.909 Unspecified asthma, uncomplicated; I12.9 Hypertensive chronic kidney disease with stage 1 through stage 4 chronic kidney disease, or unspecified chronic kidney disease; N18.30 Chronic kidney disease, stage 3 unspecified; K57.30 Diverticulosis of large intestine without perforation or abscess without bleeding; K52.9 Noninfective gastroenteritis and colitis, unspecified; G47.00 Insomnia, unspecified; F41.1 Generalized anxiety disorder; F32.A Depression, unspecified; Z79.899 Other long term (current) drug therapy; Z22.322 Carrier or suspected carrier of Methicillin resistant Staphylococcus aureus; R33.9 Retention of urine, unspecified
CPT/HCPCS: 46020; 00123; 36415; 80048; 80053; 85652; 96365; 96367; 96375; 99222; 99285; J1650; 72193; 83735; 85025; 86140; 87070; 87205; 99223; 99238; G0378; J0131; J0665; J0666; J0744; J1805; J1836; J1885; J2250; J2401; J2405; J2470; J3490

== ENCOUNTER 2025-04-05 02:25 | Observation (INO) | payer BC, SELFPAY ==
[2025-04-05] VITALS (69 sets, daily range): BP systolic 81–137; BP diastolic 49–103; PULSE 87–135; RESP 2–21; TEMP 36.3–36.8; O2SAT 94–100
--- NOTE | 2025-04-05 02:30 | RT.EKG_ITS ---
APPROVED REPORT Exam: Resting ECG Reason for Exam: tachy / bleeding Patient Location: E HR:124 bpm ECG Measurements Heart Rate 124 AXIS UT 125 P 60 QRSd 88 QRS 25 QT 319 T 33 QTc 459 Conclusion Sinus tachycardia...rate> 99 Otherwise normal EKG without acute ST changes.
--- NOTE | 2025-04-05 02:35 | ED.GENADUL_ITS ---
Discharge Plan Disposition Patient Disposition: Admit to [facility] Condition: Serious Discharge Details Clinical Impression: Acute lower GI bleeding Primary Care Provider: Kenzie Schmidt ED Provider: Romel Grant Home Meds and New Rx's Prescriptions: No Action albuterol sulfate 90 mcg/actuation HFA aerosol inhaler 2 puff inhalation Q6H PRN (Reason: shortness of breath or wheezing) Qty: 8.5 0RF (DME) BreatheRite MDI Spacer Spacer See Rx Instructions .ROUTE .MEDSUPPLY Qty: 1 0RF Rx Instructions: As directed losartan 50 mg tablet 50 mg PO DAILY Qty: 90 3RF fluticasone propionate 50 mcg/actuation spray,suspension 1 spray intranasal BID PRN (Reason: allergy symptoms) Qty: 15.8 6RF ipratropium bromide 42 mcg (0.06 %) spray,non-aerosol 2 spray intranasal TID-QID PRN (Reason: allergy symptoms) Qty: 15 1RF Rx Instructions: administer into each nostril zolpidem 5 mg tablet 5 mg PO QHS PRN (Reason: sleep) Qty: 90 0RF lorazepam 0.5 mg tablet 0.5 mg PO BID PRN (Reason: anxiety) Qty: 15 0RF Rx Instructions: Only use IF NEEDED for severe anxiety, not meant for routine anxiety management hydrocodone-acetaminophen 5-325 mg tablet 1 tab PO Q6H MDD 4 tablets PRN (Reason: pain) Qty: 12 0RF HPI General Mode of arrival: ambulatory . Date/Time Provider Initiated Documentation: 04/05/25 02:31 . Limitations to Documentation: no limitations . Information obtained by: patient, RN notes reviewed and old records reviewed . HPI Narrative: Patient presents to ED with onset of rectal bleeding around 12:30 AM. Patient had surgery on February 22 for a abscess/fistula and had a seton placed. He has done well since then just seeing the surgeon 5 days ago and had the seton tightened. He is not experiencing any pain. Bleeding has been persistent. describes large clots and then it seems to stop. He arrives here tachy cardic. Denies any lightheadedness, shortness of breath, chest pain. He does not take any anticoagulants or antiplatelets. He is unsure whether the seton is still in place or not. Related Data Home Medications ?Medication ?Instructions ?Recorded ?Confirmed inhalational spacing device #1 ea 06/03/24 04/05/25 (BreatheRite MDI Spacer) fluticasone propionate 50 1 spray intranasal BID PRN a llergy 09/18/24 04/05/25 mcg/actuation nasal symptoms #15.8 mL spray,suspension albuterol sulfate 90 mcg/actuation 2 puff inhalation Q 6H PRN 11/17/24 04/05/25 aerosol inhaler shortness of breath or wheez ing #8.5 grams ipratropium bromide 42 mcg (0.06 2 spray intranasal TI D-QID PRN 01/12/2504/05 %) nasal spray allergy symptoms #15 mL zolpidem 5 mg tablet 5 mg PO QHS PRN sleep #90 ta bs 01/12/25 04/05/25 losartan 50 mg tablet 50 mg PO DAILY #90 tabs 0803/0204/05/25 lorazepam 0.5 mg tablet 0.5 mg PO BID PRN anxiety #1 5 tabs 03/06/25 04/05/25 hydrocodone 5 mg-acetaminophen 325 1 tab PO Q6H PRN pa in #12 tabs 04/02/25 04/05/25 mg tablet Previous Rx's ?Medication ?Instructions ?Recorded inhalational spacing device #1 ea 06/03/24 (BreatheRite MDI Spacer) fluticasone propionate 50 1 spray intranasal BID PRN a llergy 09/18/24 mcg/actuation nasal symptoms #15.8 mL spray,suspension albuterol sulfate 90 mcg/actuation 2 puff inhalation Q 6H PRN 11/17/24 aerosol inhaler shortness of breath or wheez ing #8.5 grams ipratropium bromide 42 mcg (0.06 2 spray intranasal TI D-QID PRN 01/12/25 %) nasal spray allergy symptoms #15 mL zolpidem 5 mg tablet 5 mg PO QHS PRN sleep #90 ta bs 01/12/25 losartan 50 mg tablet 50 mg PO DAILY #90 tabs 03/02 lorazepam 0.5 mg tablet 0.5 mg PO BID PRN anxiety #1 5 tabs 03/06/25 hydrocodone 5 mg-acetaminophen 325 1 tab PO Q6H PRN pa in #12 tabs 09/25/25 mg tablet Allergies Allergy/AdvReac Type Severity Reaction Status Date / Time amoxicillin Allergy Intermediate Swelling/Ed Verified 04/05/25 02:49 suzi enviornmental Allergy Mild Wheezing Uncoded 04/05/25 02:49 General KEEGAN: 3 Exam Narrative Exam Narrative: Const: WDWN male in NAD. VS per triage. HEENT: NC/AT. Normal facial exam. Neck: Supple. Trachea midline. Lungs: Normal respiratory effort. Cor: Tachy. Good radial pulses. GI: Soft/ND/NT. Rectal exam with well testing operator present shows that the seton is still present. Does not seem to bleed bleeding at this time. There was clot present encasing the seton which was removed. Neuro: A+O x 3. Normal speech, mentation, gait. Cranial nerves II - XII grossly intact. No gross motor or sensory deficit. Medical Decision Making Patient presenting to ED with rectal bleeding. He is tachycardic and IV is established. His EKG is sinus tachycardia without acute ST changes. Fluids are started. Laboratory studies sent. Does not appear to be actively bleeding and the seton is in place. Type and screen will be obtained. Patient's heart rate coming down with fluids. His hemoglobin is 13.7 which is actually better than his preop hemoglobin from February. Coags and chemistries are normal. Patient now complaining of rumbling in his abdomen and passed a large amount of blood and clot. Heart rate has gone back up despite fluids. Blood pressure remains normal. Mentation remains normal. Again hemoglobin starting out above 13. At this point I suspect this has nothing to do with rectal bleeding and the seton but more likely lower GI bleed from a diverticular. Will obtain CTA of the abdomen pelvis to evaluate for active bleeding/extravasation. Patient has been typed and crossed for 2 units. A second IV is established. Patient's blood pressure remained stable. Heart rate is coming back down. CTA of the abdomen pelvis shows a fluid-filled colon but no evidence of active GI bleed or extravasation of dye into the lumen. A repeat hemoglobin 2 hours after initial blood draw shows that his hemoglobin is now 10 down from 13.7. Case discussed with surgery, Dr. Ayon. Will plan admission to the ICU here for close monitoring and plan for colonoscopy tomorrow. Discussed with patient and who are in agreement. At this time he has LR running at 200 mL/h and will remain n.p.o. Medical Records Medical records reviewed: Yes I reviewed the patient's medical records. Lab Data Lab results reviewed: Yes I reviewed the patient's lab results. Lab results narrative: See MDM ECG Data Attestation: I personally reviewed and interpreted this ECG (s) as follows: Prior ECG tracings: available for review Interpretation: See MDM/EKG Quality:SDOH Health Related Social Needs: Health related social needs risk of homeless transpo i nsecurity material hardship house/econ circumstance finding work education Health related social needs details none Critical Care Time Critical Care Time Critical Care Time: Yes Total Critical Care Time: 60 Attestation: Upon my evaluation, this patient had a high probability of imminent or life- threatening deterioration, which required my direct attention, intervention, and personal management. I have personally provided 60 minutes of critical care time exclusive of time spent on separately billable procedures. Time includes monitoring for potential decompensation, ordering of tests and medications, review of laboratory and radiology results, discussion with consultants and documentation . Interventions were performed as documented above in procedures. PFSH All Active Problems (Updated 04/05/25 @ 05:23 by Romel Grant MD) Acute lower GI bleeding (Acute) Fistula (Acute) Anxiety (Chronic) Perirectal abscess (Acute) Melanocytic nevus (Acute) CKD (chronic kidney disease) stage 3, GFR 30-59 ml/min (Chronic) Hypertension (Chronic) Generalized anxiety disorder (Chronic) Insomnia (Chronic) Chronic diarrhea (Chronic) Chronic rhinitis (Chronic) Trigger finger, right ring finger (Chronic) Other color vision deficiencies (Chronic) red/green Sigmoid diverticulosis (Acute) Medical History Rectal fistula Perirectal abscess (~09/2022) MRSA (methicillin resistant staph aureus) culture positive Scrotal abscess (~09/2022) Depressive disorder Asthma Surgical History History of colonoscopy (~09/2023) S/P tonsillectomy and adenoidectomy History of rectal surgery (01/23/23) Rectal fistulotomy Status post nasal septoplasty Family History (Updated 08/20/24 @ 09:59 by Kenzie Schmidt NP) Mother Depression Stroke Chronic kidney disease On dialysis Father , age 88 Heart disease Myocardial infarction Prostate cancer Sister Breast cancer Sister Breast cancer Brother Depression Hypertension Brother Oral cancer Alcohol use disorder Maternal Grandfather No problems noted. Maternal Grandmother No problems noted. Paternal Grandfather No problems noted. Paternal Grandmother No problems noted. Social History Smoking/Tobacco Use Status: Never Second Hand Exposure: Yes Smoking risk assessment performed?: Yes Alcohol Intake: current Alcohol Intake frequency: a few times a week Alcohol type: beer, wine and hard liquor Drug use: Never Substance use type: does not use Counseling given: No Adopted: No Caregiver/Support person: No Foster care: No Household members: spouse Housing: house Number of Children: 0 number of grandchildren: 0 Communication Needs: None Education Level: college Details: Associate Degree Do you need help understanding health information?: Never current occupation: Self-employed Pets and animals: No Sexually active: Yes Do you think of yourself as: straight/heterosexual Current gender identity: male What is your relationship status?: How often do you talk on the phone with friends or family?: once per week How often do you get together with friends or relatives?: once per week How often do you attend jain or spiritism services?: decline to answer Do you belong to any clubs or organized social groups?: no Panel score (0-1 are the most socially isolated patients): 1 What type of physical activity do you participate in: other Details: home Duration: 15-30 minutes/day Frequency: 3-4 times per week Chantel/Restorationist: Zoroastrian Special chantel needs: No Seatbelt use: always Helmet use: Yes Helmet use: sometimes Drive intox or ride w/intox garbage collector driver: No Do you feel safe at home: Yes Do you feel safe in your relationship?: Yes Victim of physical abuse: No Victim of emotional abuse: No Victim of sexual abuse: No Would you like helpful sources: No Additional Social history: unable to assess privately
[2025-04-05 03:07] LABS: Abs Immature Grans 0.02 10^3/uL (0.0-0.06); HCT 40.3 % (40.0-50.0); HGB 13.7 g/dL (13.5-17.5); Immature Grans % 0.3 %; MCH 31.5 pg (27.0-33.0); MCHC 34.0 % (32.0-36.0); MCV 93 fL (80-95); MPV 9.1 fL (8.0-11.0); Platelet Count 258 10^3/uL (130-400); RBC 4.35 10^6/uL (4.36-5.78); RDW 12.2 % (11.8-14.1); RDW-SD 42.3 fL; WBC 7.30 10^3/uL (4.4-10.8)
[2025-04-05] MEDS: Lactated Ringers 1,000 ML 1000 ML IV (03:12)
[2025-04-05 03:16] LABS: INR 1.0 (0.9-1.1); PTT Activated 25.7 sec (20.6-30.2); Prothrombin Time 10.4 sec (9.1-11.1)
[2025-04-05 03:23] LABS: Anion Gap 8.5 mmol/L (3-11); BUN 8 mg/dL (7-18); CO2 26.5 mmol/L (21.0-32.0); Calcium 8.8 mg/dL (8.5-10.1); Chloride 102 mmol/L (98-107); Estimated GFR 69.23 (mL/min/1.73m2); Glucose 132 mg/dL (74-106); Potassium 3.7 mmol/L (3.5-5.1); Sodium 137 mmol/L (136-145)
[2025-04-05] MEDS: Omnipaque 350 MG/ML 100 ML BTL IJ (04:46)
[2025-04-05] MEDS: Normal Saline Flush 10 ML SYR IVP ×4 (04:47→21:15)
[2025-04-05] MEDS: Normal Saline - Diluent 50 ML VIAL IJ (04:47)
--- NOTE | 2025-04-05 04:48 | DI.CT_ITS ---
Exam(s) CT ABDOMEN PELVIS CTA EXAM: CT ABDOMEN PELVIS CTA CLINICAL HISTORY: GI Bleed. TECHNIQUE: Imaging Protocol: Axial CT angiography was performed with multi- slice acquisition and multi-planar and/or 3D reconstructions. CONTRAST MATERIAL: Intravenous: Omnipaque 350 Contrast volume:100 ml Oral: no COMPARISON: CT CT ABDOMEN PELVIS W from 10/05/[address] PELVIC W from 11/06/[address] PELVIC W from 02/21/2025 FINDINGS: Aorta: Minimal atherosclerotic changes. No aneurysm. No dissection. No significant stenosis. Iliac Arteries: No evidence of stenosis. Common Femoral Arteries: No evidence of stenosis. Celiac [place]:No evidence of stenosis. SMA: No evidence of stenosis. Renal Arteries: No evidence of stenosis. There is a single renal artery perfusing each kidney. SADIQ: Patent. Venous structures: Patent. Lung bases:No acute findings. Liver: Normal size. Normal density. No measurable mass. Gallbladder and biliary tract: No evidence of calculi. No gallbladder wall thickening. No biliary dilation. Pancreas: Normal density, no abnormal calcifications or inflammatory process. Spleen: Normal. Kidneys: Normal size, contour and axis. No obstructive uropathy. No masses seen. No evidence of calculi. Adrenal glands: No masses seen. Bladder: No gross wall thickening. No evidence of calculi. No evidence of mass. Bowel: No obstruction or bowel wall thickening. There is fluid in the descending and rectosigmoid. No visible area active GI bleeding. Formed stool is noted on the right side of the colon. The appendix is normal. Peritoneal cavity: No ascites. No focal collection. No mesenteric inflammatory response. Lymph nodes: Within normal limits. Reproductive: Unremarkable. Soft Tissues:There is a drain in the left perianal soft tissues. There is significant decrease in size of previously noted abscess. Some soft tissue swelling remains present in this area. Bones: No acute findings. IMPRESSION: No visible acute GI bleed. There is fluid distending the descending and sigmoid colon which could be secondary to diarrheal illness. Left perianal drain with improvement in perianal abscess. The preliminary [facility] report was reviewed. RADIATION DOSE DELIVERED: Total DLP DATA REPOSITORY: All CT scans at this facility are submitted to the National Radiology Data Registry (NRDR) Dose Index Registry (DIR) with the [employer] (ACR). RADIATION OPTIMIZATION: All CT scans at this facility use at least one of these dose optimization techniques: automated exposure control; mA and/or kV adjustment per patient size (includes targeted exams where dose is matched to clinical indication); or iterative reconstruction.
[2025-04-05 04:54] LABS: HCT 28.8 % (40.0-50.0); HGB 10.0 g/dL (13.5-17.5)
--- NOTE | 2025-04-05 05:02 | DI.VRAD_ITS ---
PROCEDURE INFORMATION: Exam: CTA Abdomen and Pelvis Without And With Contrast Exam date and time: 04/05/2025 4:16 AM Age: 59 years old Clinical indication: Other: Gi bleed TECHNIQUE: Imaging protocol: Computed tomographic angiography of the abdomen and pelvis without and with contrast. Exam focused on the arteries. 3D rendering (Not supervised by radiologist): MIP and/or 3D reconstructed images were created by the technologist. Contrast material: OMNIPAQUE 350; Contrast volume: 100 ml; Contrast route: INTRAVENOUS (IV); COMPARISON: CT PELVIC W 02/21/2025 11:24 AM FINDINGS: Diaphragm: Small hiatal hernia. Aorta: No abdominal aortic aneurysm or dissection seen. Celiac and mesenteric arteries: No occlusion or significant stenosis. Renal arteries: No occlusion or significant stenosis. Right iliac arteries: No occlusion or significant stenosis. Left iliac arteries: No occlusion or significant stenosis. Liver: No focal hepatic lesion seen. Gallbladder and biliary ducts: No radiodense gallbladder calculi identified. Pancreas: No evidence for acute pancreatitis. Spleen: No splenomegaly. Adrenal glands: No adrenal masses. Kidneys and ureters: No hydronephrosis. Stomach and bowel: No active gastrointestinal hemorrhage appreciated. Duodenal diverticulum. No intestinal obstruction is evident. Fluid in the colon. Correlate clinically for history of diarrhea. Left perirectal drain. Induration and edema in the left perirectal soft tissues, likely residual abscess/phlegmon. Appendix: No evidence of appendicitis. Intraperitoneal space: No free air. Lymph nodes: Nonspecific mesenteric and retroperitoneal lymph nodes. Urinary bladder: No bladder wall thickening. Reproductive: Prominent prostate with calcifications. Bones/joints: Endplate deformities in the spine appear chronic. Soft tissues: See Stomach and bowel finding. IMPRESSION: 1. No active gastrointestinal hemorrhage appreciated at this time. 2. Findings as above. Dictated and Authenticated by: Cary Ferrari MD. Orderin Rudy Urena MD
[2025-04-05] MEDS: Lactated Ringers 1,000 ML 200 ML IV (05:14)
--- NOTE | 2025-04-05 05:28 | HPE_ITS ---
Date of service: 04/06/25 Time of Service: 05:28 Assessment and Plan Assessment and plan (1) Acute lower GI bleeding: Status: Acute Assessment and plan: I suppose it is possible to have bleeding complications from a cutting seton, but it really does not appear that that is the source at this time, although complete evaluation of it is limited by the bedside exam today. Certainly, the character and consistency of the hematochezia suggest a more proximal source of bleeding to me. We talked about the differential diagnosis for that. He is noted to have diverticula on previous endoscopy, and that could certainly be contributing here. The nature of his perianal disease, also suggests at least some risk for something like Crohn's disease, although it is strange that there is no real signs of that on his previous colonoscopy. And of course, upper GI bleeding is also possible. He does describe some GERD type symptoms, although I would expect more melena in that regards. For now, has been admitted to the intensive care unit. He is got some mild elevation in his heart rate, as well as what I would consider relative hypotension, although his mean arterial pressure is well-preserved. At least with regards to the volume of hematochezia, that seems to be decreasing. I have already repeated the hemoglobin, and there is some suggestion that it is stabilizing. At this point, I think a complete EGD and colonoscopy is really the most reasonable course of action. He has already been started on a proton pump inhibitor, so hopefully that will help if gastritis is the source of the bleeding. I will repeat the hemoglobin later today, and if there is any other worrisome changes, we could always transfusing packed red blood cells. In the meantime, we will plan for a bowel prep and I anticipate bidirectional endoscopy sometime tomorrow. History of Present Illness History of Present Illness Chief Complaint: rectal bleeding Narrative: Kodi is 59 years old. He came to the emergency department last night with rectal bleeding. 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 There is a longstanding history, however, that may also be relevant. As best I can tell, a significant portion of his symptoms started back in 2022, when it sounds like he developed a perianal fistula, that may have extended towards the scrotum. He underwent incision and drainage of this. It appears he underwent an open fistulotomy in January 2023. He was seen in the office a few times afterwards, and it seems like the wound eventually healed. He underwent a colonoscopy in October 2023. The indications for that sounds like a combination of symptomatic diarrhea, anemia, and perhaps just a screening colonoscopy. There is pathology from that encounter that demonstrates normal mucosa through much of the colon, and the description of the procedure includes diverticulosis, but no other discrete pathology. There are some rectal biopsies that are reported as rectal prolapse features. More recently, in the midportion of February of this year, he came back to the emergency department with pain around the anus. He underwent a CAT scan that demonstrated a left sided perianal abscess. He went to the operating room for incision and drainage of this abscess, and a fistulous tract was identified. This is on the left side of his anus. This was treated with a seton. Notes report that he had a little bit of intermittent drainage from the seton over the weeks that followed. He was seen in our office on April 01, at which time the seton was tightened. About a day or 2 after that he started to develop quite a bit of pain associated with the seton. He describes it as pain from the knot. On the seton. Although this was quite uncomfortable, he was managing it with different strategies. Then, last night, he felt the need to have a bowel movement. Use the toilet, and noticed significant amount of bloody stool. He came to the emergency department with a chief complaint of hematochezia. He underwent a CT angiogram that was negative with regards to the source of bleeding. Otherwise, review of systems is most significant for a little bit of fatigue, and some mild loss of appetite over the past 24 to 48 hours. He denies any abdominal pain. Review of Systems Constitutional Constitutional: Reports fatigue, Reports lethargy, Reports poor appetite and Denies weight loss Eyes Eyes: Reports system reviewed and no additional complaints, except as documented ENT Ears, Nose, Mouth, and Throat: Reports system reviewed and no additional complaints, except as documented Cardiovascular Cardiovascular: Denies chest pain and Denies dyspnea Respiratory Respiratory: Denies chest congestion, Denies cough and Denies dyspnea Gastrointestinal Gastrointestinal: Denies abdominal pain, Reports tenesmus, Denies nausea and Denies vomiting Genitourinary Genitourinary: Reports system reviewed and no additional complaints, except as documented Endocrine Endocrine: Reports fatigue PFSH All Active Problems (Updated 04/05/25 @ 05:23 by Romel Grant MD) Acute lower GI bleeding (Acute) Fistula (Acute) Anxiety (Chronic) Perirectal abscess (Acute) Melanocytic nevus (Acute) CKD (chronic kidney disease) stage 3, GFR 30-59 ml/min (Chronic) Hypertension (Chronic) Generalized anxiety disorder (Chronic) Insomnia (Chronic) Chronic diarrhea (Chronic) Chronic rhinitis (Chronic) Trigger finger, right ring finger (Chronic) Other color vision deficiencies (Chronic) red/green Sigmoid diverticulosis (Acute) Medical History Rectal fistula Perirectal abscess (~09/2022) MRSA (methicillin resistant staph aureus) culture positive Scrotal abscess (~09/2022) Depressive disorder Asthma Surgical History History of colonoscopy (~09/2023) S/P tonsillectomy and adenoidectomy History of rectal surgery (01/23/23) Rectal fistulotomy Status post nasal septoplasty Family History (Updated 08/20/24 @ 09:59 by Kenzie Schmidt NP) Mother Depression Stroke Chronic kidney disease On dialysis Father , age 88 Heart disease Myocardial infarction Prostate cancer Sister Breast cancer Sister Breast cancer Brother Depression Hypertension Brother Oral cancer Alcohol use disorder Maternal Grandfather No problems noted. Maternal Grandmother No problems noted. Paternal Grandfather No problems noted. Paternal Grandmother No problems noted. Social History Smoking/Tobacco Use Status: Never Second Hand Exposure: Yes Smoking risk assessment performed?: Yes Alcohol Intake: current Alcohol Intake frequency: a few times a week Alcohol type: beer, wine and hard liquor Drug use: Never Substance use type: does not use Counseling given: No Adopted: No Caregiver/Support person: No Foster care: No Household members: spouse Housing: house Number of Children: 0 number of grandchildren: 0 Communication Needs: None Education Level: college Details: Associate Degree Do you need help understanding health information?: Never current occupation: Self-employed Pets and animals: No Sexually active: Yes Do you think of yourself as: straight/heterosexual Current gender identity: male What is your relationship status?: How often do you talk on the phone with friends or family?: once per week How often do you get together with friends or relatives?: once per week How often do you attend episcopalian or mormonism services?: decline to answer Do you belong to any clubs or organized social groups?: no Panel score (0-1 are the most socially isolated patients): 1 What type of physical activity do you participate in: other Details: home Duration: 15-30 minutes/day Frequency: 3-4 times per week Chantel/Confucianism: Jehovah'S Witness Special chnatel needs: No Seatbelt use: always Helmet use: Yes Helmet use: sometimes Drive intox or ride w/intox spotter driver: No Do you feel safe at home: Yes Do you feel safe in your relationship?: Yes Victim of physical abuse: No Victim of emotional abuse: No Victim of sexual abuse: No Would you like helpful sources: No Additional Social history: unable to assess privately Meds Allergies and Home Medications Allergies Allergy/AdvReac Type Severity Reaction Status Date / Time amoxicillin Allergy Intermediate Swelling/Ed Verified 04/05/25 09:01 suzi hydromorphone AdvReac Severe Unresponsiv Verified 04/05/25 09:01 e enviornmental Allergy Mild Wheezing Uncoded 04/05/25 09:01 Home Medications ?Medication ?Instructions ?Recorded ?Confirmed ?Type inhalational spacing device #1 ea 06/03/24 04/05/25 Rx (BreatheRite MDI Spacer) fluticasone propionate 50 1 spray intranasal BID PRN a llergy 09/18/24 04/05/25 Rx mcg/actuation nasal symptoms #15.8 mL spray,suspension albuterol sulfate 90 mcg/actuation 2 puff inhalation Q 6H PRN 11/17/24 04/05/25 Rx aerosol inhaler shortness of breath or wheez ing #8.5 grams ipratropium bromide 42 mcg (0.06 2 spray intranasal TI D-QID PRN 01/12/25 04/05/25 Rx %) nasal spray allergy symptoms #15 mL zolpidem 5 mg tablet 5 mg PO QHS PRN sleep #90 ta bs 01/12/25 04/05/25 Rx losartan 50 mg tablet 50 mg PO DAILY #90 tabs 03/0204/05/25 Rx lorazepam 0.5 mg tablet 0.5 mg PO BID PRN anxiety #1 5 tabs 03/06/25 04/05/25 Rx hydrocodone 5 mg-acetaminophen 325 1 tab PO Q6H PRN pa in #12 tabs 04/02/25 04/05/25 Rx mg tablet Exam Const General: cooperative and no acute distress Orientation: alert and awake [facility] Head: normal to inspection Eyes General: appearance normal, both eyes and all related structures Neck Neck: normal visual inspection, full ROM and no lymphadenopathy GI Inspection: normal to inspection and non-distended Palpation: soft and no guarding Auscultation: hyperactive bowel sounds Other: There is a cutting seton on the left portion of the anal column. It looks like it has eroded through about a centimeter and a half of tissue. Digital rectal exam is significant for the portion of the seton, but no masses. I can see the seton on anoscopy. There is no active bleeding from the seton. There is a large amount of hematochezia in the rectum. Results Labs 04/05/25 08:55 04/05/25 02:45 Labs: Laboratory Results - last 24 hr 04/05/25 04/05/25 04/05/25 02:45 03:52 04:47 WBC 7.30 RBC 4.35 L Hgb 13.7 10.0 L D Hct 40.3 28.8 L MCV 93 MCH 31.5 MCHC 34.0 RDW 12.2 Plt Count 258 MPV 9.1 Immature Gran % 0.3 Neutrophils % 57.2 Lymphocytes % 25.2 Monocytes % 9.0 Eosinophils % 7.5 Basophils % 0.8 Nucleated RBC % 0.0 Absolute Neutrophils 4.17 Absolute Lymphocytes 1.84 Absolute Monocytes 0.66 Absolute Eosinophils 0.55 Absolute Basophils 0.06 PT 10.4 INR 1.0 APTT 25.7 Sodium 137 Potassium 3.7 Chloride 102 Carbon Dioxide 26.5 Anion Gap 8.5 BUN 8 Creatinine 1.2 Est GFR (CKD-EPI 2020) 69.23 Glucose 132 H Calcium 8.8 ABO/Rh O Positive Blood Type Recheck Cancelled O Positive Antibody Screen NEGATIVE Last Vital Signs Temp 97.3 F L 04/05/25 02:42 Pulse 113 H 04/05/25 05:20 Resp 12 04/05/25 05:20 BP 110/76 04/05/25 05:15 Pulse Ox 96 04/05/25 05:20 PAWSS Have you Been Recently Intoxicated or Drunk Within the Last 30 days?: No Have you Ever Experienced Previous Episodes of Alcohol Withdrawal?: Unable to Obtain Have you ever Experienced Withdrawal Seizures?: Unable to Obtain Have you ever Experienced Delirium Tremens(DT)s?: Unable to Obtain Have you ever undergone Alcohol Rehabilitation Treatment (i.e, inpt ot outpatient treatment programs)?: Unable to Obtain Have you ever Experienced Blackouts?: Unable to Obtain Have you ever Combined Alcohol with other Downers within the last 90 days?: U nable to Obtain Have you ever Combined Alcohol with any other Substance of Abuse during the last 90 days?: Unable to Obtain Positive Blood Alcohol level on Presentation? [PCS.BAL]: Unable to Obtain Evidence of Increased Autonomic Activity (i.e. HR>120, tremor, sweating, agitation, nausea)?: Unable to Obtain Result: 0 Time Spent Time spent with Patient: >75 minutes Time was spent: preparing to see the patient(eg.review tests), obtaining and/or reviewing separately otained hiistory, ordering medications,tests, procedures, referring, communicating with other health behavioral health care coordinator, indepentently interpreting results, counseling the patient and care coordination
--- NOTE | 2025-04-05 07:06 | W.PC.ACHO ---
Registration Status: ADM FAYE Primary Language: Preferred Language: Japanese ED Information & Data Chief Complaint GI Bleed 04/05/25 02:47 Chief Complaint GI Bleed 04/05/25 02:42 Triage Note Pt reports banding of 04/05/25 02:[address] Kirby in February, tightening done last Sunday. Noted a angela of blood at approx midnight tonight when up to bathroom. Denies BM/pushing or pressure. Denies dizzy/ lightheaded/SOB. Medical / Surgical History (Last Reviewed 04/05/25 @ 03:45 by Romel Grant MD) Rectal fistula Perirectal abscess (~09/2022) MRSA (methicillin resistant staph aureus) culture positive Scrotal abscess (~09/2022) Depressive disorder Asthma (Last Reviewed 04/05/25 @ 03:45 by Romel Grant MD) History of colonoscopy (~09/2023) S/P tonsillectomy and adenoidectomy History of rectal surgery (01/23/23) Status post nasal septoplasty Most Recent Vital Signs Temperature 36.3 C L 04/05/25 02:42 Pulse 113 H 04/05/25 06:31 Pulse 113 H 04/05/25 06:31 Respiratory Rate 13 04/05/25 06:31 Blood Pressure 102/78 04/05/25 06:30 Blood Pressure Mean 84 04/05/25 06:30 Blood Pressure Position Supine 04/05/25 02:42 Pulse Oximetry 96 04/05/25 06:31 Oxygen Delivery Method Room Air 04/05/25 03:15 Oxygen Flow Rate 0 04/05/25 03:15 Pain Level 0 04/05/25 02:42 Allergies amoxicillin Allergy (Intermediate, Verified 04/05/25 02:49) Swelling/Edema enviornmental Allergy (Mild, Uncoded 04/05/25 02:49) Wheezing IV IV Catheter Type [Right Saline Lock Antecubital] IV Catheter Type [Right Saline Lock Forearm] IV Catheter Gauge [Right 20 Antecubital] IV Catheter Gauge [Right 18 Forearm] Diet Orders Category Date Time Status npo [Nothing Per Oral] [DIET] Nutrition 04/05/25 03:00 Active Diagnostics 04/05/25 04/05/25 04/05/25 Range/Units 09:00 04:47 03:52 WBC (4.4-10.8) 10^3/uL RBC (4.36-5.78) 10^6/uL Hgb Pending 10.0 L D (13.5-17.5) g/dL Hct 28.8 L (40.0-50.0) % MCV (80-95) fL MCH (27.0-33.0) pg MCHC (32.0-36.0) % RDW (11.8-14.1) % Plt Count (130-400) 10^3/uL MPV (8.0-11.0) fL Immature Gran % % Neutrophils % % Lymphocytes % % Monocytes % % Eosinophils % % Basophils % % Nucleated RBC % (0.0-0.3) % Absolute Neutrophils (1.2-6.7) 10^3/uL Absolute Lymphocytes (1.2-3.4) 10^3/uL Absolute Monocytes (0.1-0.8) 10^3/uL Absolute Eosinophils (0.0-0.7) 10^3/uL Absolute Basophils (0.0-0.2) 10^3/uL PT (9.1-11.1) sec INR (0.9-1.1) APTT (20.6-30.2) sec Sodium (136-145) mmol/L Potassium (3.5-5.1) mmol/L Chloride (98-107) mmol/L Carbon Dioxide (21.0-32.0) mmol/L Anion Gap (3-11) mmol/L BUN (7-18) mg/dL Creatinine (0.70-1.30) mg/dL Est GFR (CKD-EPI 2020) (mL/min/1.73m2) Glucose (74-106) mg/dL Calcium (8.5-10.1) mg/dL ABO/Rh Blood Type Recheck O Positive Antibody Screen 04/05/25 Range/Units 02:45 WBC 7.30 (4.4-10.8) 10^3/uL RBC 4.35 L (4.36-5.78) 10^6/uL Hgb 13.7 (13.5-17.5) g/dL Hct 40.3 (40.0-50.0) % MCV 93 (80-95) fL MCH 31.5 (27.0-33.0) pg MCHC 34.0 (32.0-36.0) % RDW 12.2 (11.8-14.1) % Plt Count 258 (130-400) 10^3/uL MPV 9.1 (8.0-11.0) fL Immature Gran % 0.3 % Neutrophils % 57.2 % Lymphocytes % 25.2 % Monocytes % 9.0 % Eosinophils % 7.5 % Basophils % 0.8 % Nucleated RBC % 0.0 (0.0-0.3) % Absolute Neutrophils 4.17 (1.2-6.7) 10^3/uL Absolute Lymphocytes 1.84 (1.2-3.4) 10^3/uL Absolute Monocytes 0.66 (0.1-0.8) 10^3/uL Absolute Eosinophils 0.55 (0.0-0.7) 10^3/uL Absolute Basophils 0.06 (0.0-0.2) 10^3/uL PT 10.4 (9.1-11.1) sec INR 1.0 (0.9-1.1) APTT 25.7 (20.6-30.2) sec Sodium 137 (136-145) mmol/L Potassium 3.7 (3.5-5.1) mmol/L Chloride 102 (98-107) mmol/L Carbon Dioxide 26.5 (21.0-32.0) mmol/L Anion Gap 8.5 (3-11) mmol/L BUN 8 (7-18) mg/dL Creatinine 1.2 (0.70-1.30) mg/dL Est GFR (CKD-EPI 2020) 69.23 (mL/min/1.73m2) Glucose 132 H (74-106) mg/dL Calcium 8.8 (8.5-10.1) mg/dL ABO/Rh O Positive Blood Type Recheck Cancelled Antibody Screen NEGATIVE Intake and Output - 24 Hour Total 04/05/25 02:25 thru 04/05/25 05:12 Intake Total 1000 Balance 1000 Weight 80.3 kg Intake: IV 1000 Other: Stool Size Large Stool Characteristics Liquid Emesis Description None Falls Risk Assessment History of Falls No History 04/05/25 03:22 Contributing Factors Unstable 04/05/25 03:22 Ambulatory Aids Independent 04/05/25 03:22 Tubes/Lines None 04/05/25 03:22 Gait Evaluation No gait disturbance 04/05/25 03:22 Cognition No cognitive impairment 04/05/25 03:22 Fall Total Score 3 04/05/25 03:22 Level of Risk Standard/Low Risk 04/05/25 03:22 v v v v v v v v v Sending and/or Receiving Nurses: Please use comment section below to note any information pertinent to the patient hand-off not included above. Information / Comments: Report received from: George Ayon RN all questions answered: yes
[2025-04-05] MEDS: HYDROmorphone 2 MG/ML SYR 0.5 MG IVP (07:24)
[2025-04-05] MEDS: Pantoprazole 40 MG VIAL IVP (07:25)
--- NOTE | 2025-04-05 08:46 | PDOC.CMIN ---
Date of service: 04/05/25 Time of Service: 13:52 Care Management Initial Assmt Initial Assessment Reason for Hospitalization: GI bleed Functional Status/Living Situation Patient Presentation: Harish was lying in bed and awake when CM met with him. He presented to the ED with onset of rectal bleeding around 12:30 AM; See ED documentation. Per report, there is a plan for bowel prep tonight and likely a bidirectional endoscopy tomorrow. Harish is living is [place] with his . He shares he does not have any children but does have local family. His and sister were able to visit today. Harish states he has had home health services in the past but does not feel they would be helpful at this point in time; Denies affiliation with additional community services, declines need for supports. Harish states he is independent at baseline, including driving. He expresses a desire for a discharge home soon but is seeking clarity regarding the underlying cause of his condition. He reports having experienced symptoms intermittently over the past three years. He does have [facility]CA. CM will continue to follow. 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 ) Instrumental Activities of Daily Living (ADLs): Independent Medications Medication Management: No Issues/Barriers identified Physical Functioning/Mobility Assistive Device: none Advance Directives Advance Directives: Do you have an Advance Directive: Y 01/22/23, 11:49 AD On File at [facility]: Y 01/22/23, 11:49 Date Asked 02/21/25 02/23/25, 09:55 AD Date Reviewed 04/05/25 Today, 07:30 COLST On File at [facility] COLST Date Scanned Code Status Resuscitation Status Full Code Portal Pt does not currently have a portal and education provided: Yes Insurance Coverage/Financial Issues Insurance: BC/BS Out of State - [id number] Care Team Visit Care Team Role Provider Type Kenzie Schmidt NP Primary Care Provider NURSE PRACTITIONER Romel Grant MD Emergency Provider [facility] STAFF PHYSICIAN Tony Ayon MD Admit Provider [facility] STAFF PHYSICIAN Attending Provider Discharge Potential Discharge Needs: PCP F/U Appt and Surgical F/U Appt Anticipated Barriers to Discharge: None Identified Patient/Family Education Needs: Review discharge instructions, discuss Ask Me Three Transportation: Private vehicle Plan: Anticipate Ed will be discharged home once medically ready, with no new services indicated at this time. It is recommended he follow up with his community providers, surgical team and continue per discharge plan of care. He will transport via private vehicle by family. CM will continue to follow. Social Determinants of Health Screening Will the Patient Participate in the Screening?: Unable to obtain Do you worry about having a steady place to live?: choose not to answer PFSH All Active Problems (Updated 04/05/25 @ 05:23 by Romel Grant MD) Acute lower GI bleeding (Acute) Fistula (Acute) Anxiety (Chronic) Perirectal abscess (Acute) Melanocytic nevus (Acute) CKD (chronic kidney disease) stage 3, GFR 30-59 ml/min (Chronic) Hypertension (Chronic) Generalized anxiety disorder (Chronic) Insomnia (Chronic) Chronic diarrhea (Chronic) Chronic rhinitis (Chronic) Trigger finger, right ring finger (Chronic) Other color vision deficiencies (Chronic) red/green Sigmoid diverticulosis (Acute) Medical History Rectal fistula Perirectal abscess (~09/2022) MRSA (methicillin resistant staph aureus) culture positive Scrotal abscess (~09/2022) Depressive disorder Asthma Surgical History History of colonoscopy (~09/2023) S/P tonsillectomy and adenoidectomy History of rectal surgery (01/23/23) Rectal fistulotomy Status post nasal septoplasty Family History (Updated 08/20/24 @ 09:59 by Kenzie Schmidt NP) Mother Depression Stroke Chronic kidney disease On dialysis Father , age 88 Heart disease Myocardial infarction Prostate cancer Sister Breast cancer Sister Breast cancer Brother Depression Hypertension Brother Oral cancer Alcohol use disorder Maternal Grandfather No problems noted. Maternal Grandmother No problems noted. Paternal Grandfather No problems noted. Paternal Grandmother No problems noted. Social History Smoking/Tobacco Use Status: Never Second Hand Exposure: Yes Smoking risk assessment performed?: Yes Alcohol Intake: current Alcohol Intake frequency: a few times a week Alcohol type: beer, wine and hard liquor Drug use: Never Substance use type: does not use Counseling given: No Adopted: No Caregiver/Support person: No Foster care: No Household members: spouse Housing: house Number of Children: 0 number of grandchildren: 0 Communication Needs: None Education Level: college Details: Associate Degree Do you need help understanding health information?: Never current occupation: Self-employed Pets and animals: No Sexually active: Yes Do you think of yourself as: straight/heterosexual Current gender identity: male What is your relationship status?: How often do you talk on the phone with friends or family?: once per week How often do you get together with friends or relatives?: once per week How often do you attend yazidism or sikh services?: decline to answer Do you belong to any clubs or organized social groups?: no Panel score (0-1 are the most socially isolated patients): 1 What type of physical activity do you participate in: other Details: home Duration: 15-30 minutes/day Frequency: 3-4 times per week Chantel/Temple: Mandaeism Special chantel needs: No Seatbelt use: always Helmet use: Yes Helmet use: sometimes Drive intox or ride w/intox driver examiner: No Do you feel safe at home: Yes Do you feel safe in your relationship?: Yes Victim of physical abuse: No Victim of emotional abuse: No Victim of sexual abuse: No Would you like helpful sources: No Additional Social history: unable to assess privately Readmission Within the Past 30 Days Yes or No: No
[2025-04-05 08:58] LABS: HGB 10.5 g/dL (13.5-17.5)
[2025-04-05] MEDS: Lactated Ringers 1,000 ML 75 ML IV ×2 (09:16→22:23)
[2025-04-05] MEDS: LORazepam 20 MG/10 ML VIAL IVP ×2 (13:50→18:45)
[2025-04-05] MEDS: Nulytely 4000 ML BTL PO (17:09)
[2025-04-05 17:59] LABS: HGB 11.2 g/dL (13.5-17.5)
[2025-04-05] MEDS: ACETAMINOPHEN 1,000 MG/100 ML BAG 400 MG IVPB (18:43)
[2025-04-05] MEDS: Zolpidem 5 MG TAB PO (21:15)
[2025-04-06] VITALS (21 sets, daily range): BP systolic 86–132; BP diastolic 63–92; PULSE 79–103; RESP 0–20; TEMP 36–36.6; O2SAT 96–100; BMI 26.8
[2025-04-06] MEDS: ACETAMINOPHEN 1,000 MG/100 ML BAG 400 MG IVPB ×2 (06:06→13:00)
[2025-04-06 07:09] LABS: HCT 26.2 % (40.0-50.0); HGB 9.0 g/dL (13.5-17.5); MCH 32.5 pg (27.0-33.0); MCHC 34.4 % (32.0-36.0); MCV 95 fL (80-95); MPV 8.6 fL (8.0-11.0); Platelet Count 190 10^3/uL (130-400); RBC 2.77 10^6/uL (4.36-5.78); RDW 12.4 % (11.8-14.1); RDW-SD 42.7 fL; WBC 5.03 10^3/uL (4.4-10.8)
[2025-04-06 07:20] LABS: Anion Gap 8.0 mmol/L (3-11); BUN 7 mg/dL (7-18); CO2 30.0 mmol/L (21.0-32.0); Calcium 8.2 mg/dL (8.5-10.1); Chloride 104 mmol/L (98-107); Estimated GFR 76.85 (mL/min/1.73m2); Glucose 105 mg/dL (74-106); Potassium 3.7 mmol/L (3.5-5.1); Sodium 142 mmol/L (136-145)
[2025-04-06] MEDS: Pantoprazole 40 MG VIAL IVP (07:44)
[2025-04-06] MEDS: Normal Saline Flush 10 ML SYR IVP ×2 (07:45→19:46)
--- NOTE | 2025-04-06 09:15 | ANES.PREOP_ITS ---
General Info Date of Service Date Performed: 04/06/25 Height: 5 ft 8 in Weight: 80 kg Body Mass Index (BMI): 26.8 Surgical Procedure: Operation Date: 04/06/25 12:05 Proposed Procedure Side Surgeon p Colonoscopy/Gastroscopy Tony Ayon MD Meds Allergies and Home Medications Allergies Allergy/AdvReac Type Severity Reaction Status Date / Time amoxicillin Allergy Intermediate Swelling/Ed Verified 04/05/25 09:01 suzi hydromorphone AdvReac Severe Unresponsiv Verified 04/05/25 09:01 e enviornmental Allergy Mild Wheezing Uncoded 04/05/25 09:01 Home Medication ?Medication ?Instructions ?Recorded inhalational spacing device #1 ea 06/03/24 (BreatheRite MDI Spacer) fluticasone propionate 50 1 spray intranasal BID PRN a llergy 09/18/24 mcg/actuation nasal symptoms #15.8 mL spray,suspension albuterol sulfate 90 mcg/actuation 2 puff inhalation Q 6H PRN 11/17/24 aerosol inhaler shortness of breath or wheez ing #8.5 grams ipratropium bromide 42 mcg (0.06 2 spray intranasal TI D-QID PRN 01/12/25 %) nasal spray allergy symptoms #15 mL zolpidem 5 mg tablet 5 mg PO QHS PRN sleep #90 ta bs 01/12/25 losartan 50 mg tablet 50 mg PO DAILY #90 tabs 08/03/02 lorazepam 0.5 mg tablet 0.5 mg PO BID PRN anxiety #1 5 tabs 03/06/25 hydrocodone 5 mg-acetaminophen 325 1 tab PO Q6H PRN pa in #12 tabs 04/02/25 mg tablet Current Visit Medications: Current Medications Generic Name Dose Route Start Last Admin Trade Name Freq PRN Reason Stop Dose Admin Albuterol Sulfate 2 puff 04/05/25 06:51 Albuterol Hfa 8 Gm 60 Puff Inh IH Q6H PRN PRN shortness of breath or wheezing Fluticasone Propionate 0 gm 04/05/25 07:53 Fluticasone Nasal [place] 16 Gm Btl NS BID PRN PRN Allergy Symptoms Ringer's Solution 1,000 mls @ 75 mls/hr 04/05/25 06:51 04/05/25 22:23 IV 75 mls/hr INFUSION JOCELYN Administration Acetaminophen 1,000 mg in 100 mls @ 400 mls/hr 04/05/25 08:59 04/06/25 06:30 Ofirmev IVPB Infused Q6H PRN PRN Infusion IV Miscellaneous Supplies 1 each 04/05/25 06:51 Iv Access IV DIRECTED JOCELYN Lorazepam 0.25 mg 04/05/25 13:33 04/05/25 18:45 Lorazepam 20 Mg/10 Ml Vial IVP 0.25 mg Q3H PRN PRN Administration Ondansetron HCl 4 mg 04/05/25 06:51 Ondansetron 4 Mg/2 Ml Vial IVP Q4H PRN PRN Pantoprazole Sodium 40 mg 04/05/25 07:30 04/06/25 07:44 Pantoprazole 40 Mg Vial IVP 40 mg DAILY@0730 JOCELYN Administration Sodium Chloride 0 ml 04/05/25 06:51 04/05/25 18:47 Normal Saline Flush 10 Ml Syr IVP 20 ml PRN PRN Administration Sodium Chloride 0 ml 04/05/25 08:30 04/06/25 07:45 Normal Saline Flush 10 Ml Syr IVP 30 ml BID JOCELYN Administration Sodium Chloride 0 ml 04/05/25 06:51 Normal Saline 10 Ml Vial IJ DIRECTED PRN Sodium Cl/Sod Bicarb/Potass Cl/PEG 4,000 ml 04/05/25 13:00 04/05/25 17:09 Nulytely 4000 Ml Btl PO 2,000 ml DIRECTED JOCELYN Administration PFSH Active Problems Active Problems: Problem Status Onset Code Acute lower GI bleeding Acute K92.2 Fistula Acute L98.8 Anxiety Chronic F41.9 Perirectal abscess Acute K61.1 Melanocytic nevus Acute D22.9 CKD (chronic kidney disease) stage 3, GFR 30-59 ml/min Chronic N18.30 Hypertension Chronic I10 Generalized anxiety disorder Chronic F41.1 Insomnia Chronic Chronic diarrhea Chronic K52.9 Chronic rhinitis Chronic J31.0 Trigger finger, right ring finger Chronic M65.341 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 Sigmoid diverticulosis Acute K57.30 Medical History Medical History Rectal fistula Perirectal abscess (~09/2022) MRSA (methicillin resistant staph aureus) culture positive Scrotal abscess (~09/2022) Depressive disorder Asthma Medical History Comments:: 01/23/23 pt reports he has not had asthma for 20 years Surgical History Surgical History History of colonoscopy (~09/2023) S/P tonsillectomy and adenoidectomy History of rectal surgery (01/23/23) Rectal fistulotomy Status post nasal septoplasty Tobacco Smoking/Tobacco Use Status: Never Passive smoking exposure: Yes Second hand exposure: Yes Alcohol Alcohol Intake: current Alcohol intake frequency: a few times a week Alcohol type: beer, wine and hard liquor Substance Use Substance use: Never Substance use type: does not use Vital Signs and Lab Results Vital Signs Most Recent Vital Signs in EMR: Most Recent Vital Signs Temp Pulse Resp BP Pulse Ox 36.6 C 90 16 132/89 100 04/06/25 08:23 04/06/25 08:23 04/06/25 08:23 04/06/25 08:23 04/06/25 08:23 Point of Care Results Point of Care Results: Finger Stick Blood Glucose 125 04/05/25 07:42 Lab Results 04/06/25 07:00 04/06/25 07:00 Blood Type / Crossmatch: 2 Antibody Screen NEGATIVE 04/05/25 Complete Blood Count: 2 WBC, (4.4-10.8) 5.03 10^3/uL Today, 07:00 RBC, (4.36-5.78) 2.77 10^6/uL L Today, 07:00 Hgb, (13.5-17.5) 9.0 g/dL L Δ Today, 07:00 Hct, (40.0-50.0) 26.2 % L Today, 07:00 Plt Count, (130-400) 190 10^3/uL Today, 07:00 Complete Metabolic Panel: 2 Sodium, (136-145) 142 mmol/L Today, 07:00 Potassium, (3.5-5.1) 3.7 mmol/L Today, 07:00 Chloride, (98-107) 104 mmol/L Today, 07:00 Carbon Dioxide, (21.0-32.0) 30.0 mmol/L Today, 07:00 BUN, (7-18) 7 mg/dL Today, 07:00 Creatinine, (0.70-1.30) 1.1 mg/dL Today, 07:00 Est GFR (CKD-EPI 2020), (mL/min/1.73m2) 76.85 Today, 07:00 Calcium, (8.5-10.1) 8.2 mg/dL L Today, 07:00 Glucose, (74-106) 105 mg/dL Today, 07:00 Coagulation Panel: 2 INR, (0.9-1.1) 1.0 04/05/25, 02:45 PT, (9.1-11.1) 10.4 sec 04/05/25, 02:45 APTT, (20.6-30.2) 25.7 sec 04/05/25, 02:45 Imaging and Studies Imaging and Studies Study information below may be from another EMR and interpreted by another provider. Please see original notes in EMR for more complete details. EKG Summary: DATE/TIME OF SERVICE: 08/24/22 1118 : 1965PERFORMING LOCATION: ER APPROVED REPORT Exam: Resting ECG Reason for Exam: Epigastric pain Patient Location: E HR:92 bpm ECG Measurements Heart Rate 92 AXIS MA 136 P 70 QRSd 93 QRS 45 QT 356 T48 QTc 441 Conclusion Sinus rhythm...normal P axis, V-rate 60- 99 Probable left atrial enlargement...P >50mS, <-0.10mV V1 Narrow complex normal sinus rhythm at a rate of 93. Normal axis. Intervals within normal limits. T wave flattening in V2. No acute injury pattern. No prior for comparison. ST segment abnormalities. Stress Test Summary: Date of Exam: 11/27/16Sex: M : 1965Age: 51 Exam(s) [id number] NM:MPI Resting & Stress GRP *[facility]* *[facility]* [address] [place] [address] Myocardial Perfusion Imaging - SPECT Asaf protocol Date of study: 11/27/2016 *PATIENT PRESENTATION* Height: 172.7cm ((68in) ) Blood Pressure: Weight: 81.4kg ((179lb) ) BSA: 1.99m^2 Referring physician: Abelino Horta MD Ordering physician: Nba Berger Impressions: Normal perfusion by [id number] Sestamibi Imaging. Summary: 1. Myocardial perfusion imaging: No myocardial perfusion defects noted. 2. The calculated left ventricular ejection fraction after stress: 48%. 3. Stress: The target heart rate was achieved. Echocardiogram Summary: Date of Exam: 06/09/21Sex: M Admission Date: 06/09/21 : 1965 Age: 55 APPROVED REPORT EXAM: Comprehensive 2D, Doppler, and color-flow Echocardiogram Patient Location: Out-Patient Dental Scheduler: Jenn Tolbert RDCS (AE) Indications: Resting Tachycardia, HTN Other Information Study Quality: Adequate Conclusion Normal left ventricular wall thickness and chamber size. Estimated ejection fraction is 60%. Wall motion is normal Normal right ventricular size and systolic function Both atria are normal in size There is no structural or hemodynamically significant valvular disease Anesthesia Assessment and Plan Anesthesia History Personal History: No History of Anesthesia Complications Family History: No Family History of Anesthesia Complications Exercise Tolerance Exercise Tolerance: Metabolic Equivalents>4 Pertinent Negatives Pertinent Negatives: No Major Cardiovascular Symptoms or Complaints and No Major Pulmonary Symptoms or Complaints Cardiac & Pulmonary Exam Cardiac Exam: Normal S1/S2 Heart Sounds Pulmonary Exam: Clear Bilateral Breath Sounds Implantable Cardiac Device Does patient have a Pacemaker or an ICD?: No Airway Exam Known Difficult Airway: No Mallampati Class: 2 Mouth Opening: Normal (> 3cm) Thyromental Distance: Less than 3 cm Neck Range of Motion: Full ROM Neck Circumference: Normal Teeth Condition: Normal Dentition ASA Classification ASA Score: ASA 2 Emergency Case?: No NPO Status NPO Status: NPO Clears >2 hours, Solids >8 hours Anesthesia Plan Resuscitation Status: Full Code Anesthesia Technique: General Anesthesia Airway Planned: Natural Airway Monitors Used: Standard Monitors
[2025-04-06] MEDS: Lactated Ringers 1,000 ML 30 ML IV (12:12)
[2025-04-06] MEDS: Lactated Ringers 1,000 ML 75 ML IV (12:50)
--- NOTE | 2025-04-06 13:01 | W.ANESPOSTOP ---
Postoperative Evaluation Date, Time and Location Date Performed: 04/06/25 Time Performed: 13:02 Patient Location: Intensive Care Unit Vital Signs Most Recent Imported Vital Signs: Most Recent Vital Signs Temp Pulse Resp BP Pulse Ox 36.6 C 90 16 132/89 100 04/06/25 08:23 04/06/25 08:23 04/06/25 08:23 04/06/25 08:23 04/06/25 08:23 Pain Score Most Recent Pain Score: Most Recent Pain Score Pain Level [Lower Abdomen] 4 04/05/25 07:15 Pain Level 0 04/06/25 08:23 Assessment Mental Status: Awake (Alert & Oriented to Patient Baseline) Airway and Respiratory Function: Patent airway with normal (patient baseline) respiratory exam Cardiovascular Function: Hemodynamically Stable Hydration Status: Adequately Hydrated Nausea & Vomiting: No Nausea or Vomiting Pain: Pain is Moderate or Severe Postoperative Pain Management: Pain being addressed with medication Peripheral Nerve Block: Patient did not receive a nerve block
--- NOTE | 2025-04-06 14:23 | W.PM.OP ---
Operative Note Operative Note PRE-OP DIAGNOSIS: Hematochezia POST-OP DIAGNOSIS: same PROCEDURE: Diagnostic EGD, diagnostic colonoscopy SURGEON: Tony Ayon ANESTHESIA TYPE: General:No Airway Refer to Anesthesia Record ESTIMATED BLOOD LOSS: 0 PATHOLOGY: none sent COMPLICATIONS: None Patient was transported to: PACU Patient's condition: stable Indications: Kodi is a 59-year-old male with complicated perianal fistulas being managed with cutting seton. He developed large-volume hematochezia of unclear etiology. Findings: Grade 1 sliding hiatal hernia; fistula in ano Procedure Description: After the initiation of anesthesia, and with the assistance of a bite block, I advanced a standard gastroscope through the mouth past the hypopharynx and into the esophagus.? Under the direct vision of the scope, I advanced down the esophagus into towards stomach.? The upper, mid, lower esophagus were all normal in course and caliber. Mucosa was all normal. The GE junction measures 36 cm past the incisors. Z-line is regular. There are no signs of Barr's esophagus, but there does appear to be a sliding hiatal hernia. I can traverse the GE junction with ease. Once I entered the stomach, I performed a brief inspection, followed by retroflexion towards the gastric cardia.? Again seen is a Hill grade 1 sliding hiatal hernia there is no evidence of any inflammation or ulceration associated with this. There is no blood in the stomach. After that, I gently advanced the scope around the incisura angularis and examined the pylorus.? This also appeared normal.? Next, I advanced the scope through the pylorus into the duodenum.? The mucosa was pink and healthy appearing.? There were no abnormalities.? I was able to visualize bile draining into the duodenum through the ampulla Vater. ?Next, I began retracting the endoscope.? I brought the camera back into the stomach and examined in its entirety once again. I did not see any pathology here. I then emptied the stomach and brought the camera out along the length of the esophagus. We moved abdomen into the left lateral decubitus position. Great care was taken to ensure that he was padded and supported appropriately. I began with an external exam.? His seton remains in place.? This has eroded the old fistula origin on the gluteus tissue approximately 2 cm. There are some healthy appearing granulation tissue associated with this. There is no purulence. There is no active bleeding from the external opening.? Next, I performed a digital rectal exam.? I can palpate the inner portion of the seton. I estimate the distance between the external seton opening, and the inner portion to be about 4-1/2 cm.? I am able to see the inner portion of the seton with a lighted anoscope. There are some granulation tissue at the internal opening. There does appear to be a tiny amount of fresh blood here. There is no active bleeding. There are no visible vessels associated with this. Next, I advanced a colonoscope into the rectal vault.? I performed retroflexion. Again, the internal portion of the seton is well-visualized, and I do not appreciate any concerning features for active bleeding, but the appearance does raise suspicion as this being the source of the bleeding. It appears well above the dentate line. I can see the erosive portion of the seton, and although the distance of travel is hard to estimate with certainty, it appears that there is at least half to 1 full centimeter of some migration.? There is no fresh blood in the rectum. Using insufflation, I then advanced the colonoscope beyond the rectal folds and into the sigmoid colon before advancing towards the cecum.? The quality of the prep was excellent.? The scope was noted to be in the cecum by identification of the ileocecal valve and appendiceal orifice. I cannulated the terminal ileum for several centimeters. There is no signs of any bleeding here, nor are there any features that are consistent with terminal ileitis.? I then began withdrawing the colonoscope using repeated irrigation as necessary for full evaluation of the colonic mucosa. There are a few narrow mouth diverticula scattered in the sigmoid segment. Once the scope was withdrawn to the level of the rectum, great care was taken to examine portions of the rectal folds.? I withdrew the colonoscope prior to the patient awakening from anesthesia. Date of Procedure: 04/06/25
--- NOTE | 2025-04-06 14:26 | W.PM.PROGNOT ---
Date of Service Date of service: 04/06/25 Time of Service: 11:55 Assessment and Plan Assessment and plan (1) Acute lower GI bleeding: Status: Acute Assessment and plan: Admitted did well with the prep, and we can proceed with EGD and colonoscopy as planned for today. Subjective Subjective Interval history since last seen: Abdomen felt a little better overnight, with less discomfort around his anus. He had a small amount of bloody stools in the beginning of the bowel prep, but that seems to have cleared. Exam GI Other: Abdomen is soft and not at all distended. Is not tender. External anorectal exam is unchanged Objective Last Vital Signs Temp 97.7 F 04/06/25 13:08 Pulse 82 04/06/25 13:03 Resp 11 L 04/06/25 13:03 BP 123/80 04/06/25 13:03 Pulse Ox 100 04/06/25 13:03 Laboratory Results - last 24 hr 04/05/25 04/06/25 17:54 07:00 WBC 5.03 RBC 2.77 L Hgb 11.2 L 9.0 L D Hct 26.2 L MCV 95 MCH 32.5 MCHC 34.4 RDW 12.4 Plt Count 190 MPV 8.6 Sodium 142 Potassium 3.7 Chloride 104 Carbon Dioxide 30.0 Anion Gap 8.0 BUN 7 Creatinine 1.1 Est GFR (CKD-EPI 2020) 76.85 Glucose 105 Calcium 8.2 L PAWSS Have you Been Recently Intoxicated or Drunk Within the Last 30 days?: No Have you Ever Experienced Previous Episodes of Alcohol Withdrawal?: No Have you ever Experienced Withdrawal Seizures?: No Have you ever Experienced Delirium Tremens(DT)s?: No Have you ever undergone Alcohol Rehabilitation Treatment (i.e, inpt ot outpatient treatment programs)?: No Have you ever Experienced Blackouts?: No Have you ever Combined Alcohol with other Downers within the last 90 days?: No Have you ever Combined Alcohol with any other Substance of Abuse during the last 90 days?: No Positive Blood Alcohol level on Presentation? [PCS.BAL]: No Evidence of Increased Autonomic Activity (i.e. HR>120, tremor, sweating, agitation, nausea)?: No Result: 0 Time Spent with Patient Time Spent with Patient: 25-34 minutes Time was spent: preparing to see the patient(eg.review tests) and counseling the patient
[2025-04-06] MEDS: HYDROcodone 5/Acetaminophen 325 TAB PO (14:43)
--- NOTE | 2025-04-06 15:29 | PDOC.CMPRO ---
Date of service: 04/06/25 Time of Service: 15:29 Care Management Progress Note Progress Note Text Progress Note Text: Harish was lying in bed when CM met with him this afternoon. His and sister were visiting. Ed had recently returned from an EGD and colonoscopy. He had not spoken with the surgeon yet, but was aware that no active bleeding was seen from either scope. Ed is a self-employed [employer], and is currently unable to work. His has been out of work caring for him, and she does not get paid when she does not work. They were given the patient assistance packet and also the rack card for [employer]. Discharge Potential Discharge Needs: PCP F/U Appt and Surgical F/U Appt Anticipated Barriers to Discharge: None Identified Patient/Family Education Needs: Review discharge instructions, discuss Ask Me Three Transportation: Private vehicle Plan: Anticipate that Ed will discharge home, once medically cleared, with no new home care services. He will f/u with his PCP and with the surgeon and continue per his plan of care. Ed will transport home with his , Norma. CM will continue to follow. Social Determinants of Health Screening Social Determinants of health last assessed in clinic: 04/06/25 Will the Patient Participate in the Screening?: Yes Do you worry about having a steady place to live?: no Problems where you live: no known problems In the past 12 months, have you had to go without electric, gas, oil or water in your home?: no 1. Within the past 12 months, we worried whether our food would run out before we got money to buy more.: Sometimes true 2. Within the past 12 months, the food we bought just didn't last and we didn't have money to get more.: Sometimes true Has lack of transportation kept you from medical appointments or from doing things needed for daily living?: no Has anyone in your life made you feel unsafe or unsupported?: no How hard is it for you to pay for the very basics like food, housing, medical care, and heating? Would you say it is:: Not hard at all Do you want help finding or keeping work or a job?: I do not need or want help If for any reason you need help with day-to-day activities such as bathing, preparing meals, shopping, managing finances, etc., do you get the help you need?: I don?t need any help How often do you feel lonely or isolated from those around you?: Never Do you speak a language other than Romanian at home?: No Does the patient want assistance with any of the above?: No Health Related Social Needs Health related social needs: food insecurity (Z59.41)
[2025-04-06] MEDS: Zolpidem 5 MG TAB PO (20:32)
[2025-04-06] MEDS: LORazepam 0.5 MG TAB PO (20:32)
[2025-04-07] MEDS: HYDROcodone 5/Acetaminophen 325 TAB PO (02:15)
[2025-04-07 06:46] VITALS: BP 116/83; PULSE 75; RESP 20; TEMP 36.5; O2SAT 97
[2025-04-07 06:51] LABS: HCT 22.8 % (40.0-50.0); MCH 31.6 pg (27.0-33.0); MCHC 33.8 % (32.0-36.0); MCV 93 fL (80-95); MPV 9.2 fL (8.0-11.0); Platelet Count 190 10^3/uL (130-400); RBC 2.44 10^6/uL (4.36-5.78); RDW 12.2 % (11.8-14.1); RDW-SD 42.2 fL; WBC 4.09 10^3/uL (4.4-10.8)
[2025-04-07 07:44] LABS: HGB 7.7 g/dL (13.5-17.5)
--- NOTE | 2025-04-07 08:17 | W.PM.PROGNOT ---
Date of Service Date of service: 04/07/25 Time of Service: 08:17 Assessment and Plan Assessment and plan (1) Acute lower GI bleeding: Status: Acute Assessment and plan: Patient is a 59-year-old male who presented with rectal bleeding in the setting of a cutting seton for a perianal fistula. He was admitted for observation monitoring. Yesterday he underwent an upper endoscopy and colonoscopy after performing a bowel prep which did not show any evidence of active bleeding but potentially the source being the seton that is in place. Given his stability following the procedure his diet was advanced. He notes that he felt well overnight. He does endorse a nonbloody bowel movement overnight. He denies any lightheadedness or dizziness with ambulation. On exam this morning he is afebrile and hemodynamically stable. His abdomen is soft and nontender. His laboratory findings are significant for a drop in his hemoglobin to his 7.7 this morning. He however appears as though he is improving clinically. Will continue his diet this morning and recheck a hemoglobin at noon and monitor bowel function. Out of precaution we will hold his home losartan this morning. Pending stability of the repeat labs and no further bloody bowel movements he may be stable for discharge later today. (2) Fistula: Status: Acute Subjective Subjective Interval history since last seen: He states he is doing well this morning. He notes that he tolerated a regular diet yesterday evening. He denies any abdominal pain, nausea, vomiting. He notes that he did have a nonbloody bowel movement yesterday evening following his procedures. He denies any lightheadedness or dizziness with ambulation. He does note some ongoing pain related to the seton. Exam Narrative Exam Narrative: General: Well appearing, no acute distress. Skin: Good turgor, no visible rashes or lesion HEENT: Normocephalic, atraumatic CV: Regular rate Lungs: Bilateral equal chest rise, non-labored breathing Abdomen: Soft, non-tender, non-distended, no masses Extremities: Warm, well perfused Neurologic: No focal deficits Psychiatric: Alert and oriented, normal mood and affect Objective Last Vital Signs Temp 36.5 C 04/07/25 06:46 Pulse 75 04/07/25 06:46 Resp 20 04/07/25 06:46 BP 116/83 04/07/25 06:46 Pulse Ox 97 04/07/25 06:46 Laboratory Results - last 24 hr 04/07/25 06:16 WBC 4.09 L RBC 2.44 L Hgb 7.7 L Hct 22.8 L MCV 93 MCH 31.6 MCHC 33.8 RDW 12.2 Plt Count 190 MPV 9.2 PAWSS Have you Been Recently Intoxicated or Drunk Within the Last 30 days?: No Have you Ever Experienced Previous Episodes of Alcohol Withdrawal?: No Have you ever Experienced Withdrawal Seizures?: No Have you ever Experienced Delirium Tremens(DT)s?: No Have you ever undergone Alcohol Rehabilitation Treatment (i.e, inpt ot outpatient treatment programs)?: No Have you ever Experienced Blackouts?: No Have you ever Combined Alcohol with other Downers within the last 90 days?: No Have you ever Combined Alcohol with any other Substance of Abuse during the last 90 days?: No Positive Blood Alcohol level on Presentation? [PCS.BAL]: No Evidence of Increased Autonomic Activity (i.e. HR>120, tremor, sweating, agitation, nausea)?: No Result: 0 Time Spent with Patient Time Spent with Patient: <25 minutes Time was spent: preparing to see the patient(eg.review tests), obtaining and/or reviewing separately otained hiistory, ordering medications,tests, procedures, indepentently interpreting results and counseling the patient
[2025-04-07 13:02] LABS: HGB 9.7 g/dL (13.5-17.5)
[2025-04-07] MEDS: LORazepam 0.5 MG TAB PO (14:00)
--- NOTE | 2025-04-07 14:45 | PDOC.CMDIS ---
Date of service: 04/07/25 Time of Service: 14:45 LACE Index Scoring Tool Questions: Length of Stay (in days): 2 Was the patient admitted via the E.D.?: Yes Comorbidities: Chronic Pulmonary Disease and Liver or Renal Disease E.D. Visits: 2 Answers: Total Score: 12 Risk of Readmission: High Risk Care Management Discharge Plan Reason for Hospitalization: acute lower GI bleeding Discharge Plan: Harish will be discharged home later this afternoon with no new services. He will f/u with his PCP and with the surgeon and continue per his plan of care. Ed will transport home with his . Patient/Family Education Needs: Review of discharge instructions, activity, limitations, and discuss Ask me 3. SDOH Health Related Social Needs: Health related social needs food insecurity Health related social needs details none
--- NOTE | 2025-04-07 15:07 | W.PM.DS.N ---
Date of service: 04/07/25 Time of Service: 15:07 DS: Diagnosis Discharge Diagnosis (1) Acute lower GI bleeding: Status: Acute Asessment and Plan: Patient is a 59-year-old male who presented with rectal bleeding in the setting of a cutting seton for a perianal fistula. He was admitted for observation monitoring. Yesterday he underwent an upper endoscopy and colonoscopy after performing a bowel prep which did not show any evidence of active bleeding but potentially the source being the seton that is in place. Given his stability following the procedure his diet was advanced. He notes that he felt well overnight. He does endorse a nonbloody bowel movement overnight. He denies any lightheadedness or dizziness with ambulation. On exam this morning he is afebrile and hemodynamically stable. His abdomen is soft and nontender. His laboratory findings are significant for a drop in his hemoglobin to his 7.7 this morning. He however appears as though he is improving clinically. Will continue his diet this morning and recheck a hemoglobin at noon and monitor bowel function. Out of precaution we will hold his home losartan this morning. His repeat labs were improved and he was deemed medically ready for discharge home. (2) Fistula: Status: Acute Discharge Plan Disposition Patient Disposition: Home Condition: Good Discharge Details Reason For Visit: Gastrointestinal Bleeding Admit Date/Time: 04/06/25 16:34 Admit Provider: Tony Ayon Attending Provider: Tony Ayon [facility] Hospital Course: Patient is a 59-year-old male who presented with rectal bleeding in the setting of a cutting seton for a perianal fistula. He was admitted for observation monitoring. He underwent an upper endoscopy and colonoscopy after performing a bowel prep which did not show any evidence of active bleeding but potentially the source being the seton that is in place. Given his stability following the procedure his diet was advanced. The following morning he was doing well and had no further episodes of bloody bowel movements. He did have a drop in his hemoglobin to 7.7 in the morning. This was rechecked and noted to be 9.7 prior to discharge. At the time of discharge she was ambulating, tolerating regular diet, having appropriate bowel function, and his pain is well-controlled. He will follow-up in the general surgery clinic in 1 month as previously scheduled. Recommendations for Follow Up Recommended tests to be ordered by follow up provider: None Home Meds and New Rx's Prescriptions: New hydrocodone-acetaminophen 5-325 mg tablet 1 tab PO Q6H PRNQty: 10 0RF Rx Instructions: Take 1 tab as needed every 6 hours for acute pain. naloxone [Narcan] 4 mg/actuation spray,non-aerosol 4 mg intranasal Q2M PRNQty: 1 0RF Rx Instructions: spray 1 dose into ONE nostril; alternate nostrils w each dose until help arrives Continued albuterol sulfate 90 mcg/actuation HFA aerosol inhaler 2 puff inhalation Q6H PRN (Reason: shortness of breath or wheezing) Qty: 8.5 0RF (DME) BreatheRite MDI Spacer Spacer See Rx Instructions .ROUTE .MEDSUPPLY Qty: 1 0RF Rx Instructions: As directed losartan 50 mg tablet 50 mg PO DAILY Qty: 90 3RF fluticasone propionate 50 mcg/actuation spray,suspension 1 spray intranasal BID PRN (Reason: allergy symptoms) Qty: 15.8 6RF ipratropium bromide 42 mcg (0.06 %) spray,non-aerosol 2 spray intranasal TID-QID PRN (Reason: allergy symptoms) Qty: 15 1RF Rx Instructions: administer into each nostril zolpidem 5 mg tablet 5 mg PO QHS PRN (Reason: sleep) Qty: 90 0RF lorazepam 0.5 mg tablet 0.5 mg PO BID PRN (Reason: anxiety) Qty: 15 0RF Rx Instructions: Only use IF NEEDED for severe anxiety, not meant for routine anxiety management hydrocodone-acetaminophen 5-325 mg tablet 1 tab PO Q6H MDD 4 tablets PRN (Reason: pain) Qty: 12 0RF Discharge Instructions Instructions: Anal Abscess and Fistula, Adult (DC) Additional Instructions: Please follow up in the General Surgery office in 1 month as previously scheduled. Activity:: Activity as Tolerated Equipment/Supplies:: No Equipment Needed Diet:: As Tolerated Discharge Orders Discharge Orders: Discharge Order (Routine); Ordered 04/07/25 Ordered By: Carmela Zhang DS: Summary Time Spent with Patient providing and/or coordinating discharge services: Greater than 30 minutes Status at Discharge Functional status at discharge: independent ambulation Overall status at discharge: patient is progressing back to baseline Mental Status: mental status grossly normal Speech and Movement: speech and movement normal Mood: congruent mood Affect: normal affect Quality:SDOH Health Related Social Needs: Health related social needs food insecurity Health related social needs details none Exam Narrative Exam Narrative: General: Well appearing, no acute distress. Skin: Good turgor, no visible rashes or lesion HEENT: Normocephalic, atraumatic CV: Regular rate Lungs: Bilateral equal chest rise, non-labored breathing Abdomen: Soft, non-tender, non-distended, no masses Extremities: Warm, well perfused Neurologic: No focal deficits Psychiatric: Alert and oriented, normal mood and affec Psych Mental Status: mental status grossly normal Speech and Movement: speech and movement normal Mood: congruent mood Affect: normal affect DS: Data Vitals/I&O Vitals and I&O: Vital Signs Temperature 36.5 C 04/07/25 06:46 Temperature Source Temporal Artery Scan 04/07/25 06:46 Pulse 75 04/07/25 06:46 Pulse 84 04/06/25 15:01 Respiratory Rate 20 04/07/25 06:46 Respiratory Effort Labored 04/05/25 07:48 Blood Pressure 116/83 04/07/25 06:46 Blood Pressure Mean 94 04/07/25 06:46 Blood Pressure Position Supine 04/05/25 02:42 Pulse Oximetry 97 04/07/25 06:46 Oxygen Delivery Method Room Air 04/07/25 06:46 Oxygen Flow Rate 0 04/07/25 06:46 Pain Level 0 04/07/25 06:46 Intake & Output 04/06/25 04/07/25 04/07/25 23:59 11:59 23:59 Intake Total 1373.50 / 4503.50 240 / 240 Output Total 650 / 850 Balance 723.50 / 3653.50 240 / 240 Weight 77.2 kg Intake: IV 1373.50 / 2503.50 Oral 240 / 240 Output: Urine 650 / 850 Other: Urine Color Pale Yellow Yellow Urine Appearance Clear Urine Odor None Normal Comment Pt voids ind. in toilet. Data Completed and Pending Labs on day of discharge: Labs from last 24 hours 04/07/25 04/07/25 12:54 06:16 WBC 4.09 L RBC 2.44 L Hgb 9.7 L D 7.7 L Hct 22.8 L MCV 93 MCH 31.6 MCHC 33.8 RDW 12.2 Plt Count 190 MPV 9.2 PFSH All Active Problems (Updated 04/05/25 @ 05:23 by Romel Grant MD) Acute lower GI bleeding (Acute) Fistula (Acute) Anxiety (Chronic) Perirectal abscess (Acute) Melanocytic nevus (Acute) CKD (chronic kidney disease) stage 3, GFR 30-59 ml/min (Chronic) Hypertension (Chronic) Generalized anxiety disorder (Chronic) Insomnia (Chronic) Chronic diarrhea (Chronic) Chronic rhinitis (Chronic) Trigger finger, right ring finger (Chronic) Other color vision deficiencies (Chronic) red/green Sigmoid diverticulosis (Acute) Medical History Rectal fistula Perirectal abscess (~09/2022) MRSA (methicillin resistant staph aureus) culture positive Scrotal abscess (~09/2022) Depressive disorder Asthma Surgical History History of colonoscopy (~09/2023) S/P tonsillectomy and adenoidectomy History of rectal surgery (01/23/23) Rectal fistulotomy Status post nasal septoplasty Family History (Updated 08/20/24 @ 09:59 by Kenzie Schmidt NP) Mother Depression Stroke Chronic kidney disease On dialysis Father , age 88 Heart disease Myocardial infarction Prostate cancer Sister Breast cancer Sister Breast cancer Brother Depression Hypertension Brother Oral cancer Alcohol use disorder Maternal Grandfather No problems noted. Maternal Grandmother No problems noted. Paternal Grandfather No problems noted. Paternal Grandmother No problems noted. Social History Smoking/Tobacco Use Status: Never Second Hand Exposure: Yes Smoking risk assessment performed?: Yes Alcohol Intake: current Alcohol Intake frequency: a few times a week Alcohol type: beer, wine and hard liquor Drug use: Never Substance use type: does not use Counseling given: No Adopted: No Caregiver/Support person: No Foster care: No Household members: spouse Housing: house Number of Children: 0 number of grandchildren: 0 Communication Needs: None Education Level: college Details: Associate Degree Do you need help understanding health information?: Never current occupation: Self-employed Pets and animals: No Sexually active: Yes Do you think of yourself as: straight/heterosexual Current gender identity: male What is your relationship status?: How often do you talk on the phone with friends or family?: once per week How often do you get together with friends or relatives?: once per week How often do you attend quaker or orthodox services?: decline to answer Do you belong to any clubs or organized social groups?: no Panel score (0-1 are the most socially isolated patients): 1 What type of physical activity do you participate in: other Details: home Duration: 15-30 minutes/day Frequency: 3-4 times per week Chantel/Hinduism: Quaker Special chantel needs: No Seatbelt use: always Helmet use: Yes Helmet use: sometimes Drive intox or ride w/intox driver's license reviewing officer: No Do you feel safe at home: Yes Do you feel safe in your relationship?: Yes Victim of physical abuse: No Victim of emotional abuse: No Victim of sexual abuse: No Would you like helpful sources: No Additional Social history: unable to assess privately Time Spent with Patient Time Spent with Patient: 45-69 minutes Time was spent: preparing to see the patient(eg.review tests), obtaining and/or reviewing separately otained hiistory, ordering medications,tests, procedures, referring, communicating with other health director of managed care, indepentently interpreting results and counseling the patient
--- NOTE | 2025-04-07 15:41 | W.PM.DS.N ---
Date of service: 04/07/25 Time of Service: 16:00 DS: Diagnosis Discharge Diagnosis (1) Acute lower GI bleeding: Status: Resolved Asessment and Plan: Patient is a 59-year-old male who presented with rectal bleeding in the setting of a cutting seton for a perianal fistula. He was admitted for observation monitoring. He underwent an upper endoscopy and colonoscopy after performing a bowel prep which did not show any evidence of active bleeding but potentially the source being the seton that is in place. Given his stability following the procedure his diet was advanced. The following morning he was doing well and had no further episodes of bloody bowel movements. He did have a drop in his hemoglobin to 7.7 in the morning. This was rechecked and noted to be 9.7 prior to discharge. (2) Fistula: Status: Acute Discharge Plan Disposition Patient Disposition: Home Condition: Good Discharge Details Reason For Visit: Gastrointestinal Bleeding Admit Date/Time: 04/06/25 16:34 Admit Provider: Tony Ayon Attending Provider: Tony Ayon Primary Care Provider: Kenzie Schmidt Hospital Course Hospital Course: Patient is a 59-year-old male who presented with rectal bleeding in the setting of a cutting seton for a perianal fistula. He was admitted for observation monitoring. He underwent an upper endoscopy and colonoscopy after performing a bowel prep which did not show any evidence of active bleeding but potentially the source being the seton that is in place. Given his stability following the procedure his diet was advanced. The following morning he was doing well and had no further episodes of bloody bowel movements. He did have a drop in his hemoglobin to 7.7 in the morning. This was rechecked and noted to be 9.7 prior to discharge. At the time of discharge she was ambulating, tolerating regular diet, having appropriate bowel function, and his pain is well-controlled. He will follow-up in the general surgery clinic in 1 month as previously scheduled. Recommendations for Follow Up Recommended tests to be ordered by follow up provider: None Home Meds and New Rx's Prescriptions: New hydrocodone-acetaminophen 5-325 mg tablet 1 tab PO Q6H PRNQty: 10 0RF Rx Instructions: Take 1 tab as needed every 6 hours for acute pain. naloxone [Narcan] 4 mg/actuation spray,non-aerosol 4 mg intranasal Q2M PRNQty: 1 0RF Rx Instructions: spray 1 dose into ONE nostril; alternate nostrils w each dose until help arrives Continued albuterol sulfate 90 mcg/actuation HFA aerosol inhaler 2 puff inhalation Q6H PRN (Reason: shortness of breath or wheezing) Qty: 8.5 0RF (DME) BreatheRite MDI Spacer Spacer See Rx Instructions .ROUTE .MEDSUPPLY Qty: 1 0RF Rx Instructions: As directed losartan 50 mg tablet 50 mg PO DAILY Qty: 90 3RF fluticasone propionate 50 mcg/actuation spray,suspension 1 spray intranasal BID PRN (Reason: allergy symptoms) Qty: 15.8 6RF ipratropium bromide 42 mcg (0.06 %) spray,non-aerosol 2 spray intranasal TID-QID PRN (Reason: allergy symptoms) Qty: 15 1RF Rx Instructions: administer into each nostril zolpidem 5 mg tablet 5 mg PO QHS PRN (Reason: sleep) Qty: 90 0RF lorazepam 0.5 mg tablet 0.5 mg PO BID PRN (Reason: anxiety) Qty: 15 0RF Rx Instructions: Only use IF NEEDED for severe anxiety, not meant for routine anxiety management hydrocodone-acetaminophen 5-325 mg tablet 1 tab PO Q6H MDD 4 tablets PRN (Reason: pain) Qty: 12 0RF Discharge Instructions Instructions: Anal Abscess and Fistula, Adult (DC) Additional Instructions: Please follow up in the General Surgery office in 1 month as previously scheduled. Stand Alone Forms: Nursing Discharge Form Referrals: Kenzie Schmidt NP [Primary Care Provider, Medicine] Referral Note: Please call to schedule a follow up appointment to be within the next 7-10 days Activity:: Activity as Tolerated Equipment/Supplies:: No Equipment Needed Diet:: As Tolerated Discharge Orders Discharge Orders: Discharge Order (Routine); Ordered 04/07/25 Ordered By: Carmela Zhang Discharge Data Discharge Date/Time-TO BE ENTERED AT DEPARTURE: 04/07/25 16:07 DS: Summary Quality:SDOH Health Related Social Needs: Health related social needs food insecurity Health related social needs details none DS: Data Vitals/I&O Vitals and I&O: Vital Signs Temperature 36.5 C 04/07/25 06:46 Temperature Source Temporal Artery Scan 04/07/25 06:46 Pulse 75 04/07/25 06:46 Pulse 84 04/06/25 15:01 Respiratory Rate 20 04/07/25 06:46 Respiratory Effort Labored 04/05/25 07:48 Blood Pressure 116/83 04/07/25 06:46 Blood Pressure Mean 94 04/07/25 06:46 Blood Pressure Position Supine 04/05/25 02:42 Pulse Oximetry 97 04/07/25 06:46 Oxygen Delivery Method Room Air 04/07/25 06:46 Oxygen Flow Rate 0 04/07/25 06:46 Pain Level 0 04/07/25 06:46 Intake & Output 04/06/25 04/07/25 04/07/25 23:59 11:59 23:59 Intake Total 1373.50 / 4503.50 240 / 240 Output Total 650 / 850 Balance 723.50 / 3653.50 240 / 240 Weight 77.2 kg Intake: IV 1373.50 / 2503.50 Oral 240 / 240 Output: Urine 650 / 850 Other: Urine Color Pale Yellow Yellow Urine Appearance Clear Urine Odor None Normal Comment Pt voids ind. in toilet. Data Completed and Pending Labs on day of discharge: Labs from last 24 hours 04/07/25 04/07/25 12:54 06:16 WBC 4.09 L RBC 2.44 L Hgb 9.7 L D 7.7 L Hct 22.8 L MCV 93 MCH 31.6 MCHC 33.8 RDW 12.2 Plt Count 190 MPV 9.2 PFSH All Active Problems (Updated 04/08/25 @ 00:03 by FELIPE FERMIN) Fistula (Acute) Anxiety (Chronic) Perirectal abscess (Acute) Melanocytic nevus (Acute) CKD (chronic kidney disease) stage 3, GFR 30-59 ml/min (Chronic) Hypertension (Chronic) Generalized anxiety disorder (Chronic) Insomnia (Chronic) Chronic diarrhea (Chronic) Chronic rhinitis (Chronic) Trigger finger, right ring finger (Chronic) Other color vision deficiencies (Chronic) red/green Sigmoid diverticulosis (Acute) Medical History Rectal fistula Perirectal abscess (~09/2022) MRSA (methicillin resistant staph aureus) culture positive Scrotal abscess (~09/2022) Depressive disorder Asthma Surgical History History of colonoscopy (~09/2023) S/P tonsillectomy and adenoidectomy History of rectal surgery (01/23/23) Rectal fistulotomy Status post nasal septoplasty Family History (Updated 08/20/24 @ 09:59 by Kenzie Schmidt NP) Mother Depression Stroke Chronic kidney disease On dialysis Father , age 88 Heart disease Myocardial infarction Prostate cancer Sister Breast cancer Sister Breast cancer Brother Depression Hypertension Brother Oral cancer Alcohol use disorder Maternal Grandfather No problems noted. Maternal Grandmother No problems noted. Paternal Grandfather No problems noted. Paternal Grandmother No problems noted. Social History Smoking/Tobacco Use Status: Never Second Hand Exposure: Yes Smoking risk assessment performed?: Yes Alcohol Intake: current Alcohol Intake frequency: a few times a week Alcohol type: beer, wine and hard liquor Drug use: Never Substance use type: does not use Counseling given: No Adopted: No Caregiver/Support person: No Foster care: No Household members: spouse Housing: house Number of Children: 0 number of grandchildren: 0 Communication Needs: None Education Level: college Details: Associate Degree Do you need help understanding health information?: Never current occupation: Self-employed Pets and animals: No Sexually active: Yes Do you think of yourself as: straight/heterosexual Current gender identity: male What is your relationship status?: How often do you talk on the phone with friends or family?: once per week How often do you get together with friends or relatives?: once per week How often do you attend sikhism or zoroastrian services?: decline to answer Do you belong to any clubs or organized social groups?: no Panel score (0-1 are the most socially isolated patients): 1 What type of physical activity do you participate in: other Details: home Duration: 15-30 minutes/day Frequency: 3-4 times per week Chantel/Roman Catholic: Anabaptism Special chantel needs: No Seatbelt use: always Helmet use: Yes Helmet use: sometimes Drive intox or ride w/intox roll off driver: No Do you feel safe at home: Yes Do you feel safe in your relationship?: Yes Victim of physical abuse: No Victim of emotional abuse: No Victim of sexual abuse: No Would you like helpful sources: No Additional Social history: unable to assess privately
== END 2025-04-07 16:07 | disposition home or self-care (01) ==
LOC: ER 06:09 → ICU 06:51 → MS 04-06 22:54
PROVIDERS: Student in an Organized Health Care Education/Training Program; Admitting Provider Surgery; Emergency Provider Emergency Medicine; PCP Nurse Practitioner Family; Responsible Provider Surgery; Visit Provider Surgery
PROC: (CPT 43235; principal; 2025-04-06 12:00)
DX: K62.5 Hemorrhage of anus and rectum (principal); K44.9 Diaphragmatic hernia without obstruction or gangrene; K60.30 Anal fistula, unspecified; N18.30 Chronic kidney disease, stage 3 unspecified; I12.9 Hypertensive chronic kidney disease with stage 1 through stage 4 chronic kidney disease, or unspecified chronic kidney disease; F41.1 Generalized anxiety disorder; G47.00 Insomnia, unspecified; K52.9 Noninfective gastroenteritis and colitis, unspecified; K57.30 Diverticulosis of large intestine without perforation or abscess without bleeding; J45.909 Unspecified asthma, uncomplicated; F32.A Depression, unspecified; Z79.899 Other long term (current) drug therapy
CPT/HCPCS: 43235; 45378; 36415; 80048; 85027; 86850; 86900; 86901; 93005; 96361; 96365; 96366; 96375; 96376; 99291; 74174; 85014; 85018; 85025; 85610; 85730; 93010; G0378; J0131; J1171; J2003; J2060; J2371; J2470; J2704; J3490

== ENCOUNTER 2025-04-20 11:26 | Outpatient (CLI) | payer BC, SELFPAY ==
[2025-04-20 11:42] LABS: HGB 11.3 g/dL (13.5-17.5)
[2025-04-20 13:12] LABS: Iron 43 ug/dL (65-175); Total Iron Binding Capacity 285 ug/dL (250-450); Transferrin Sat 15 % (20-55)
== END 2025-04-20 11:27 | disposition home or self-care (01) ==
LOC: LBO 11:26
PROVIDERS: PCP Nurse Practitioner Family; Visit Provider Surgery
DX: D62 Acute posthemorrhagic anemia (principal)
CPT/HCPCS: 36415; 83540; 83550; 85018

== ENCOUNTER 2025-04-25 18:36 | Emergency (ER) | payer BC, SELFPAY ==
[2025-04-25 18:43] VITALS: BP 153/100; PULSE 95; RESP 12; TEMP 36.4; O2SAT 96
--- NOTE | 2025-04-25 19:36 | ED.GENADUL_ITS ---
Discharge Plan Disposition Patient Disposition: Home Condition: Stable Discharge Details Clinical Impression: Medication adverse effect Primary Care Provider: Kenzie Schmidt ED Provider: Rosanne Roberts Home Meds and New Rx's Prescriptions: Discontinued venlafaxine 37.5 mg capsule,extended release 24hr 37.5 mg PO DAILY 7 Days Qty: 7 0RF venlafaxine 75 mg capsule,extended release 24hr 75 mg PO DAILY Qty: 90 0RF No Action albuterol sulfate 90 mcg/actuation HFA aerosol inhaler 2 puff inhalation Q6H PRN (Reason: shortness of breath or wheezing) Qty: 8.5 0RF (DME) BreatheRite MDI Spacer Spacer See Rx Instructions .ROUTE .MEDSUPPLY Qty: 1 0RF Rx Instructions: As directed losartan 50 mg tablet 50 mg PO DAILY Qty: 90 3RF zolpidem 10 mg tablet 10 mg PO QHS PRN (Reason: sleep) Qty: 90 0RF Rx Instructions: 1 tab at bedtime IF NEEDED for sleep lorazepam 0.5 mg tablet 0.5 mg PO BID PRN (Reason: anxiety) Qty: 40 0RF Rx Instructions: Only use IF NEEDED for severe anxiety, not meant for routine anxiety management ipratropium bromide 42 mcg (0.06 %) spray,non-aerosol 2 spray intranasal TID-QID PRN (Reason: allergy symptoms) Qty: 15 1RF Rx Instructions: administer into each nostril fluticasone propionate 50 mcg/actuation spray,suspension 1 spray intranasal BID PRN (Reason: allergy symptoms) Qty: 15.8 6RF ferrous fumarate 325 mg (106 mg iron) tablet 325 mg PO DAILY Qty: 14 0RF naloxone [Narcan] 4 mg/actuation spray,non-aerosol 4 mg intranasal Q2M PRNQty: 1 0RF Rx Instructions: spray 1 dose into ONE nostril; alternate nostrils w each dose until help arrives Discharge Instructions Instructions: Adverse Drug Reactions, Adult (DC) Additional Instructions: You were seen today for evaluation of a adverse reaction of your medication, most likely the Effexor. This medication causes an increase in the serotonin and norepinephrine in your body which can cause the symptoms of flushing, heart racing, etc. I am reassured that your symptoms went away before you came here, your vital signs were reassuring and your physical examination did not show any concerning findings at this time. I recommend that you stop taking the Effexor and talk to your doctor about alternative medications that may not cause him any symptoms. The medication will last in your body for a few more days, but should decrease in concentration over time gradually. If you do experience symptoms you can use your prescribed Ativan as needed for severe anxiety. You received a dose here in the emergency department tonight. Please follow-up with your primary care provider in the next few days to discuss this visit and any symptoms that change, worsen, or persist. Thank you for allowing us to be part of your care. HPI General Mode of arrival: ambulatory . Date/Time Provider Initiated Documentation: 04/25/25 18:57 . Limitations to Documentation: no limitations . Information obtained by: patient, family and old records reviewed . HPI Narrative: This is a 59-year-old male patient with a past medical history significant for recent admission for perirectal abscess with fistula, complicated by CKD, blood loss anemia, recently initiated on Effexor, presenting for evaluation for a concern for medication effects. Patient reports that he took his second dose today, he came home today and was feeling slightly anxious, states that he took his prescribed Ativan but had an episode where he felt very warm and flushed, felt tingly and jittery, and like his heart was racing. He states that he felt the same as he did when he gets contrast for an MRI scan. He states that the symptoms have since resolved, felt similar to a shot of adrenaline. He has not had any other recent medication changes, no illness or injury other than the recent admission, states that he is not experiencing chest pain, fevers or chills, shortness of breath. Last dose 8 AM. Related Data Home Medications ?Medication ?Instructions ?Recorded ?Confirmed inhalational spacing device #1 ea 06/03/24 04/25/25 (BreatheRite MDI Spacer) albuterol sulfate 90 mcg/actuation 2 puff inhalation Q 6H PRN 11/17/24 04/25/25 aerosol inhaler shortness of breath or wheez ing #8.5 grams ipratropium bromide 42 mcg (0.06 2 spray intranasal TI D-QID PRN 01/12/25 04/25/25 %) nasal spray allergy symptoms #15 mL losartan 50 mg tablet 50 mg PO DAILY #90 tabs 0803/0204/25/25 naloxone 4 mg/actuation nasal 4 mg intranasal Q2M PRN #1 ea 04/07/25 04/25/25 spray (Narcan) fluticasone propionate 50 1 spray intranasal BID PRN a llergy 04/10/25 04/25/25 mcg/actuation nasal symptoms #15.8 mL spray,suspension ferrous fumarate 325 mg (106 mg 325 mg PO DAILY #14 ta bs 04/20/25 04/25/25 iron) tablet lorazepam 0.5 mg tablet 0.5 mg PO BID PRN anxiety #4 0 tabs 04/23/25 04/25/25 zolpidem 10 mg tablet 10 mg PO QHS PRN sleep #90 t abs 04/23/25 04/25/25 Previous Rx's ?Medication ?Instructions ?Recorded inhalational spacing device #1 ea 06/03/24 (BreatheRite MDI Spacer) albuterol sulfate 90 mcg/actuation 2 puff inhalation Q 6H PRN 11/17/24 aerosol inhaler shortness of breath or wheez ing #8.5 grams ipratropium bromide 42 mcg (0.06 2 spray intranasal TI D-QID PRN 01/12/25 %) nasal spray allergy symptoms #15 mL losartan 50 mg tablet 50 mg PO DAILY #90 tabs 03/02 naloxone 4 mg/actuation nasal 4 mg intranasal Q2M PRN #1 ea 04/07/25 spray (Narcan) fluticasone propionate 50 1 spray intranasal BID PRN a llergy 04/10/25 mcg/actuation nasal symptoms #15.8 mL spray,suspension ferrous fumarate 325 mg (106 mg 325 mg PO DAILY #14 ta bs 04/20/25 iron) tablet lorazepam 0.5 mg tablet 0.5 mg PO BID PRN anxiety #4 0 tabs 04/23/25 zolpidem 10 mg tablet 10 mg PO QHS PRN sleep #90 t abs 04/23/25 Allergies Allergy/AdvReac Type Severity Reaction Status Date / Time amoxicillin Allergy Intermediate Swelling/Ed Verified 04/25/25 18:47 suzi hydromorphone AdvReac Severe Unresponsiv Verified 04/25/25 18:47 e enviornmental Allergy Mild Wheezing Uncoded 04/25/25 18:47 General Stated Complaint: Allergic KEEGAN: 4 Exam Narrative Exam Narrative: Gen: Awake and alert, in no apparent distress HEENT: Non-icteric sclera, PERRL, EOMs full. No tongue fasciculations Neck: Supple Lungs: No apparent respiratory distress, normal respiratory effort. Lung sounds clear and equal bilaterally CV: Appears well perfused, heart with regular rate and rhythm, strong distal pulses, no murmurs auscultated Abdomen: Non-distended MSK: Moves 4 extremities without apparent limitation in ROM Skin: Visualized skin without rashes, cyanosis. Neuro: Normal Gait, no obvious focal deficits or facial asymmetry. No tremor to outstretched hands, no clonus. Speaks in full, clear sentences. Psych: Appropriate for situation. Course Vital Signs Vital signs: Vital Signs Temperature 36.4 C 04/25/25 18:43 Pulse 95 H 04/25/25 18:43 Respiratory Rate 12 04/25/25 18:43 Blood Pressure 153/100 H 04/25/25 18:43 Pulse Oximetry 96 04/25/25 18:43 Temperature 36.4 C 04/25/25 18:43 Temperature Source Oral 04/25/25 18:43 Pulse 95 H 04/25/25 18:43 Respiratory Rate 12 04/25/25 18:43 Blood Pressure 153/100 H 04/25/25 18:43 Blood Pressure Position Sitting 04/25/25 18:43 Pulse Oximetry 96 04/25/25 18:43 Oxygen Delivery Method Room Air 04/25/25 18:43 Oxygen Flow Rate 0 04/25/25 18:43 Medical Decision Making This is a 59-year-old male patient presenting for evaluation of whole body jitteriness, heart racing, and flushing in the setting of recent initiation of Effexor. My differential includes but is not limited to medication effect, the patient is reassuringly without evidence on my physical examination for serotonin syndrome (no tachycardia, no clonus). He has no chest pain, his heart rate has returned to normal, and I have a low concern for acute arrhythmia or ACS. The patient has a very brief duration of symptoms and metabolic and electrolyte derangements, dehydration, electrolyte changes are unlikely. No other medications or toxic exposures to suggest intoxication or withdrawal syndromes. No history of thyroid problems nor associated symptoms to suggest thyroid storm. Symptoms not consistent with anaphylaxis. At this time the patient has had a complete return to his baseline, has reassuring vital signs, I had an extended conversation regarding the mechanism of action of the Effexor, anticipated washout time, and to stop taking this medication given the adverse effect. I monitored the patient in the emergency department and he had no development of recurrent symptoms. I recommended that the patient continue to use his Ativan as needed for anxiety and provided him with a dose here. I do not see an indication to proceed with laboratory studies and offered the patient an EKG, which he declines. I feel that this is reasonable given the normal heart rate and otherwise very reassuring examination. The patient will talk to his primary care provider to discuss alternative medications, and at this time, the patient has had a full medical evaluation and is safe for discharge to home. They are hemodynamically stable, ambulatory, and tolerating PO. They are understanding of the follow-up plan and return precautions. They left our facility without incident. Rosanne Roberts MD Quality:SDOH Health Related Social Needs: Health related social needs food insecurity Health related social needs details none PFSH All Active Problems (Updated 04/25/25 @ 19:37 by Rosanne Roberts MD) Medication adverse effect (Acute) Major depressive disorder (Chronic) Acute blood loss anemia (Acute) Fistula (Acute) Perirectal abscess (Acute) Melanocytic nevus (Acute) CKD (chronic kidney disease) stage 3, GFR 30-59 ml/min (Chronic) Hypertension (Chronic) Generalized anxiety disorder (Chronic) Insomnia (Chronic) Chronic diarrhea (Chronic) Chronic rhinitis (Chronic) Trigger finger, right ring finger (Chronic) Other color vision deficiencies (Chronic) red/green Sigmoid diverticulosis (Acute) Medical History (Updated 04/25/25 @ 19:37 by Rosanne Roberts MD) Rectal fistula Perirectal abscess (~09/2022) MRSA (methicillin resistant staph aureus) culture positive Scrotal abscess (~09/2022) Asthma Surgical History History of colonoscopy (~09/2023) S/P tonsillectomy and adenoidectomy History of rectal surgery (01/23/23) Rectal fistulotomy Status post nasal septoplasty Family History (Updated 08/20/24 @ 09:59 by Kenzie Schmidt NP) Mother Depression Stroke Chronic kidney disease On dialysis Father , age 88 Heart disease Myocardial infarction Prostate cancer Sister Breast cancer Sister Breast cancer Brother Depression Hypertension Brother Oral cancer Alcohol use disorder Maternal Grandfather No problems noted. Maternal Grandmother No problems noted. Paternal Grandfather No problems noted. Paternal Grandmother No problems noted. Social History Smoking/Tobacco Use Status: Never Second Hand Exposure: Yes Smoking risk assessment performed?: Yes Alcohol Intake: current Alcohol Intake frequency: a few times a week Alcohol type: beer, wine and hard liquor Drug use: Never Substance use type: does not use Counseling given: No Adopted: No Caregiver/Support person: No Foster care: No Household members: spouse Housing: house Number of Children: 0 number of grandchildren: 0 Communication Needs: None Education Level: college Details: Associate Degree Do you need help understanding health information?: Never current occupation: Self-employed Pets and animals: No Sexually active: Yes Do you think of yourself as: straight/heterosexual Current gender identity: male What is your relationship status?: How often do you talk on the phone with friends or family?: once per week How often do you get together with friends or relatives?: once per week How often do you attend christianity or uatsdin services?: decline to answer Do you belong to any clubs or organized social groups?: no Panel score (0-1 are the most socially isolated patients): 1 What type of physical activity do you participate in: other Details: home Duration: 15-30 minutes/day Frequency: 3-4 times per week Chantel/Worship: Cheondoism Special chantel needs: No Seatbelt use: always Helmet use: Yes Helmet use: sometimes Drive intox or ride w/intox new [employer] delivery driver: No Do you feel safe at home: Yes Do you feel safe in your relationship?: Yes Victim of physical abuse: No Victim of emotional abuse: No Victim of sexual abuse: No Would you like helpful sources: No Additional Social history: unable to assess privately
[2025-04-25] MEDS: LORazepam 1 MG TAB PO (19:41)
== END 2025-04-25 19:44 | disposition home or self-care (01) ==
PROVIDERS: Emergency Provider Emergency Medicine; PCP Nurse Practitioner Family
DX: R61 Generalized hyperhidrosis (principal); T50.995A Adverse effect of other drugs, medicaments and biological substances, initial encounter
CPT/HCPCS: 99283 ×2

== ENCOUNTER 2025-05-22 06:00 | Day surgery (SDC) | payer BC, SELFPAY ==
[2025-05-22] VITALS (27 sets, daily range): BP systolic 94–139; BP diastolic 59–94; PULSE 51–67; RESP 10–18; TEMP 35.7–36.4; O2SAT 97–100; BMI 25.4
[2025-05-22] MEDS: Lactated Ringers 1,000 ML 80 ML IV (06:38)
--- NOTE | 2025-05-22 06:49 | W.ANESPRE ---
General Info Date of Service Date Performed: 05/22/25 Height: 5 ft 8 in Weight: 75.8 kg Body Mass Index (BMI): 25.4 Surgical Procedure: Operation Date: 05/22/25 07:40 Proposed Procedure Side Surgeon p Exam Under Anesthesia Robert Kirby MD Meds Allergies and Home Medications Allergies Allergy/AdvReac Type Severity Reaction Status Date / Time amoxicillin Allergy Intermediate Swelling/Ed Verified 05/22/25 06:31 suzi hydromorphone AdvReac Severe Unresponsiv Verified 05/22/25 06:31 e enviornmental Allergy Mild Wheezing Uncoded 05/22/25 06:31 Home Medication Medication Instructions Recorded inhalational spacing device #1 ea 06/03/24 (BreatheRite MDI Spacer) albuterol sulfate 90 mcg/actuation 2 puff inhalation Q6H PRN 11/17/24 aerosol inhaler shortness of breath or wheezing #8.5 grams ipratropium bromide 42 mcg (0.06 2 spray intranasal TID-QID PRN 01/12/25 %) nasal spray allergy symptoms #15 mL losartan 50 mg tablet 50 mg PO DAILY #90 tabs 02/13/25 naloxone 4 mg/actuation nasal 4 mg intranasal Q2M PRN #1 ea 04/07/25 spray (Narcan) fluticasone propionate 50 1 spray intranasal BID PRN allergy 04/10/25 mcg/actuation nasal symptoms #15.8 mL spray,suspension ferrous fumarate 325 mg (106 mg 325 mg PO DAILY #14 tabs 04/20/25 iron) tablet zolpidem 10 mg tablet 10 mg PO QHS PRN sleep #90 tabs 04/23/25 hydrocodone 5 mg-acetaminophen 325 1 tab PO Q8H PRN pain #9 tabs 05/04/25 mg tablet lorazepam 0.5 mg tablet 0.5 mg PO BID PRN anxiety #40 tabs 05/13/25 sertraline 50 mg tablet 50 mg PO DAILY #30 tabs 05/13/25 propranolol 160 mg capsule,24 160 mg PO DAILY #30 caps 05/19/25 hr,extended release Current Visit Medications: Current Medications Generic Name Dose Route Start Last Admin Trade Name Freq PRN Reason Stop Dose Admin Ringer's Solution 1,000 mls @ 80 mls/hr 05/22/25 06:00 05/22/25 06:38 IV 05/22/25 23:59 80 mls/hr INFUSION JOCELYN Administration IV Miscellaneous Supplies 1 each 05/22/25 06:00 Iv Access IV 05/22/25 23:59 DIRECTED JOCELYN Sodium Chloride 0 ml 05/22/25 06:00 Normal Saline Flush 10 Ml Syr IV 05/22/25 23:59 PRN PRN Sodium Chloride 0 ml 05/22/25 06:00 Normal Saline 10 Ml Vial IJ 05/22/25 23:59 DIRECTED PRN Sterile Water 0 ml 05/22/25 06:00 Water,Injection,Sterile 10 Ml Vial IJ 05/22/25 23:59 DIRECTED PRN PFSH Active Problems Active Problems: Problem Status Onset Code Medication adverse effect Acute T50.905A Major depressive disorder Chronic F32.9 Acute blood loss anemia Acute D62 Fistula Acute L98.8 Perirectal abscess Acute K61.1 Melanocytic nevus Acute D22.9 CKD (chronic kidney disease) stage 3, GFR 30-59 ml/min Chronic N18.30 Hypertension Chronic I10 Generalized anxiety disorder Chronic F41.1 Insomnia Chronic Chronic diarrhea Chronic K52.9 Chronic rhinitis Chronic J31.0 Trigger finger, right ring finger Chronic M65.341 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 Sigmoid diverticulosis Acute K57.30 Medical History Medical History Rectal fistula Perirectal abscess (~09/2022) MRSA (methicillin resistant staph aureus) culture positive Scrotal abscess (~09/2022) Asthma Medical History Comments:: 01/23/23 pt reports he has not had asthma for 20 years Surgical History Surgical History History of colonoscopy (~09/2023) S/P tonsillectomy and adenoidectomy History of rectal surgery (01/23/23) Rectal fistulotomy Status post nasal septoplasty Tobacco Smoking/Tobacco Use Status: Never Passive smoking exposure: Yes Second hand exposure: Yes Alcohol Alcohol Intake: current Alcohol intake frequency: a few times a week Alcohol type: beer, wine and hard liquor Substance Use Substance use: Never Substance use type: does not use Vital Signs and Lab Results Vital Signs Most Recent Vital Signs in EMR: Most Recent Vital Signs Temp Pulse Resp BP Pulse Ox 36.4 C L 62 18 139/94 H 100 05/22/25 06:34 05/22/25 06:34 05/22/25 06:34 05/22/25 06:34 05/22/25 06:34 Imaging and Studies Imaging and Studies Study information below may be from another EMR and interpreted by another provider. Please see original notes in EMR for more complete details. EKG Summary: DATE/TIME OF SERVICE: 08/24/22 1118 : 1965PERFORMING LOCATION: ER APPROVED REPORT Exam: Resting ECG Reason for Exam: Epigastric pain Patient Location: E HR:92 bpm ECG Measurements Heart Rate [address] 136 P 70 QRSd 93 QRS 45 QT 356 T48 QTc 441 Conclusion Sinus rhythm...normal P axis, V-rate 60- 99 Probable left atrial enlargement...P >50mS, <-0.10mV V1 Narrow complex normal sinus rhythm at a rate of 93. Normal axis. Intervals within normal limits. T wave flattening in V2. No acute injury pattern. No prior for comparison. ST segment abnormalities. Stress Test Summary: Date of Exam: 11/27/16Sex: M : 1965Age: 51 Exam(s) [id number] NM:MPI Resting & Stress GRP *[facility]* *[facility]* [address] [place] [address] Myocardial Perfusion Imaging - SPECT Asaf protocol Date of study: 11/27/2016 *PATIENT PRESENTATION* Height: 172.7cm ((68in) ) Blood Pressure: Weight: 81.4kg ((179lb) ) BSA: 1.99m^2 Referring physician: Abelino Horta MD Ordering physician: Nba Berger Impressions: Normal perfusion by Tc99m Sestamibi Imaging. Summary: 1. Myocardial perfusion imaging: No myocardial perfusion defects noted. 2. The calculated left ventricular ejection fraction after stress: 48%. 3. Stress: The target heart rate was achieved. Echocardiogram Summary: Date of Exam: 06/09/21Sex: M Admission Date: 06/09/21 : 1965 Age: 55 APPROVED REPORT EXAM: Comprehensive 2D, Doppler, and color-flow Echocardiogram Patient Location: Out-Patient Patient Financial Counselor: Jenn Tolbert RDCS (AE) Indications: Resting Tachycardia, HTN Other Information Study Quality: Adequate Conclusion Normal left ventricular wall thickness and chamber size. Estimated ejection fraction is 60%. Wall motion is normal Normal right ventricular size and systolic function Both atria are normal in size There is no structural or hemodynamically significant valvular disease Anesthesia Assessment and Plan Anesthesia History Personal History: No History of Anesthesia Complications Family History: No Family History of Anesthesia Complications Exercise Tolerance Exercise Tolerance: Metabolic Equivalents>4 Pertinent Negatives Pertinent Negatives: No Symptoms of GERD Cardiac & Pulmonary Exam Cardiac Exam: Normal S1/S2 Heart Sounds Pulmonary Exam: Clear Bilateral Breath Sounds Implantable Cardiac Device Does patient have a Pacemaker or an ICD?: No Airway Exam Known Difficult Airway: No Mallampati Class: 2 Mouth Opening: Normal (> 3cm) Thyromental Distance: Less than 3 cm Neck Range of Motion: Full ROM Neck Circumference: Normal Teeth Condition: Normal Dentition ASA Classification ASA Score: ASA 2 Emergency Case?: No NPO Status NPO Status: NPO Clears >2 hours, Solids >8 hours Anesthesia Plan Resuscitation Status: Full Code Anesthesia Technique: Spinal Anesthesia Airway Planned: Natural Airway Monitors Used: Standard Monitors
[2025-05-22] MEDS: Bupivacaine 0.25% Pres-Free 30 ML VIAL (08:08)
[2025-05-22] MEDS: Bupivacaine LIPOSOME/PF 133 MG/10 ML VIAL IJ (08:09)
--- NOTE | 2025-05-22 08:17 | FISTULA_PTH ---
PATIENT: Before,Harish Cornejo LOC: [facility] U#:[id number] AGE/SX: 59/M ROOM: RE05/22/[address]: Robert Kirby : 1965 BED: DIS: 05/22/2025 SPEC #: [id number] RECD: 05/22/25 12:10 STATUS: [facility] #: [id number] STEWART: 05/22/25 08:[address]: Robert Kirby DEPT: Surgical Specimen RECD BY: Erika Hernandez ENTERED: 05/22/25 12:12 SP TYPE: Fistula OTHR DR: Michelle Peter Tissues: 1 - FISTULA/FISSURE 2 - FISTULA/FISSURE Procedures: GROSS AND MICRO LEVEL 3 Comments: [id number]
--- NOTE | 2025-05-22 09:33 | ROE_ITS ---
Operative Note Operative Note Refer to Anesthesia Record Procedure Description: PROCEDURES PERFORMED: 1. Exam under anesthesia 2. Bilateral Pudendal Nerve block 3. Anoscopy 4. Fistulotomy PREOPERATIVE DIAGNOSIS: fistula en ano POSTOPERATIVE DIAGNOSIS: Same SURGEON: Drew Kirby MD INDICATION FOR PROCEDURE: The patient is a 59-year-old man with an indwelling seton for existing fistula disease. Seton has been tightened up 3 different times in the office over the last few months. Continues to have a fistula tract warranting fistulotomy at this point. There was concern that the most lateral aspect of the healed seton pathway was recurring into a new fistula. Patient and aware of possible, chronic sphincter tone/incontinence issues and recurrence as potential outcomes. FINDINGS: Left–sided seton tract well–healed scar with no ongoing fistula opening anymore. Existing/ongoing fistula tract was opened with electrocautery and the seton removed. Fistula tract biopsied in 3 separate locations. Sphincteric ring muscle tissue approximated with absorbable suture after opening tract and ablating tract tissue. SURVEILLANCE interval/FOLLOW-UP: As needed SPECIMENS: Biopsies taken of the fistula tissue externally and within the fistula tract EBL: Minimal COMPLICATIONS: None Procedure in detail: The patient gave written consent and was in agreement with the indications, the potential risks as well as the hopeful benefits of the procedure. He was taken to the operating room and anesthesia gave him a spinal block. We performed a timeout and some sedation was also given. He was then placed in lithotomy. I placed I prepped and draped the perineum, perianal area in the buttocks in sterile fashion with Betadine. Using a combination of Exparel and quarter percent Marcaine, I performed a bilateral pudendal nerve block as well as some local anesthetic within the anastacia- anal tissue. Exam under anesthesia was performed. The fistula tract and seton was clearly visible and at this point is within the anal canal and sphincter musculature only. The lateral tract of scar tissue from the seton traveling was all well- healed today with no visible opening. A well–lubricated anoscope was gently introduced. The anal canal was carefully inspected and looked normal aside from where the fistula is in the left side of the midline. A hemostat was used to grasp the seton and then gently guided up through the tract and out into the rectum under direct visualization. Using needle tip cautery I opened up the fistula tract completely over top of the hemostat. I took biopsies of the tissue both in the center of the fistula tract as well as the external portion of the fistula tract for biopsy purposes to assess for possible undiagnosed IBD. Hemostasis was achieved with pressure and cautery. I also ensured to destroy the mucosal lining of the fistula tract with the tip of the cautery. Next I approximated the divided, sphincteric musculature tissue with interrupted Vicryl suture at the level of the internal ring only, identified by palpation. The tract proximal in the rectum and distal in the canal, was left open to heal by secondary intention. The external components of the tract are already healed from the seton traveling through them. The patient tolerated the procedure well and was taken to the PACU in hemodynamically stable condition. Date of Procedure: 05/22/25
--- NOTE | 2025-05-22 09:33 | W.PM.DSUDISC ---
Date of service: 05/22/25 Discharge Plan Disposition Patient Disposition: Home Condition: Good Discharge Details Attending Provider: Robert Kirby Primary Care Provider: Michelle Peter Home Meds and New Rx's Prescriptions: No Action albuterol sulfate 90 mcg/actuation HFA aerosol inhaler 2 puff inhalation Q6H PRN (Reason: shortness of breath or wheezing) Qty: 8.5 0RF sertraline 50 mg tablet 50 mg PO DAILY Qty: 30 0RF lorazepam 0.5 mg tablet 0.5 mg PO BID PRN (Reason: anxiety) Qty: 40 0RF Rx Instructions: Only use IF NEEDED for severe anxiety, not meant for routine anxiety management (DME) BreatheRite MDI Spacer Spacer See Rx Instructions .ROUTE .MEDSUPPLY Qty: 1 0RF Rx Instructions: As directed losartan 50 mg tablet 50 mg PO DAILY Qty: 90 3RF zolpidem 10 mg tablet 10 mg PO QHS PRN (Reason: sleep) Qty: 90 0RF Rx Instructions: 1 tab at bedtime IF NEEDED for sleep hydrocodone-acetaminophen 5-325 mg tablet 1 tab PO Q8H MDD 3 tablets PRN (Reason: pain) Qty: 9 0RF ipratropium bromide 42 mcg (0.06 %) spray,non-aerosol 2 spray intranasal TID-QID PRN (Reason: allergy symptoms) Qty: 15 1RF Rx Instructions: administer into each nostril fluticasone propionate 50 mcg/actuation spray,suspension 1 spray intranasal BID PRN (Reason: allergy symptoms) Qty: 15.8 6RF ferrous fumarate 325 mg (106 mg iron) tablet 325 mg PO DAILY Qty: 14 0RF propranolol 160 mg capsule,extended release 24 hr 160 mg PO DAILY Qty: 30 1RF naloxone [Narcan] 4 mg/actuation spray,non-aerosol 4 mg intranasal Q2M PRNQty: 1 0RF Rx Instructions: spray 1 dose into ONE nostril; alternate nostrils w each dose until help arrives Discharge Instructions Additional Instructions: FINDINGS: The fistula was opened up as we had discussed and the seton was removed. At this time there was no evidence that another fistula reforming any show nothing more needs to be done. Biopsies were taken of the fistula tract as we discussed. I will call with you with those results. All that is left to happen is that your body heals this and hopefully it heals it correctly. Call the office to schedule follow-up appointment to be seen in about 3-4 weeks. INSTRUCTIONS: Do sitz bath's 3 times daily with hot water, as hot as you can tolerate without burning yourself, for the next 2 to 3 weeks. Take Tylenol as needed. Ibuprofen can also help. Go to the bathroom normal. Avoid traumatic wiping. Avoid constipation. Stay hydrated Stand Alone Forms: Anesthesia Discharge Inst., Jonathon Ho (DSU), Portal Information Activity:: Activity as Tolerated Diet:: As Tolerated
--- NOTE | 2025-05-22 10:43 | W.ANESPOSTOP ---
Postoperative Evaluation Date, Time and Location Date Performed: 05/22/25 Time Performed: 10:43 Patient Location: Day Surgery Unit Vital Signs Most Recent Imported Vital Signs: Most Recent Vital Signs Temp Pulse Resp BP Pulse Ox 35.9 C L 52 L 14 134/88 99 05/22/25 09:59 05/22/25 09:59 05/22/25 09:59 05/22/25 09:59 05/22/25 09:59 Pain Score Most Recent Pain Score: Most Recent Pain Score Pain Level 0 05/22/25 09:59 Assessment Mental Status: Awake (Alert & Oriented to Patient Baseline) Airway and Respiratory Function: Patent airway with normal (patient baseline) respiratory exam Cardiovascular Function: Hemodynamically Stable Hydration Status: Adequately Hydrated Nausea & Vomiting: No Nausea or Vomiting Pain: Pt. Denies Any Pain Peripheral Nerve Block: Patient did not receive a nerve block
== END 2025-05-22 10:45 | disposition home or self-care (01) ==
PROVIDERS: PCP Family Medicine; Visit Provider Student in an Organized Health Care Education/Training Program
PROC: (CPT 46030; principal; 2025-05-22 07:30)
DX: K60.30 Anal fistula, unspecified (principal); F32.9 Major depressive disorder, single episode, unspecified; N18.30 Chronic kidney disease, stage 3 unspecified; I12.9 Hypertensive chronic kidney disease with stage 1 through stage 4 chronic kidney disease, or unspecified chronic kidney disease; F41.1 Generalized anxiety disorder; G47.00 Insomnia, unspecified; J45.909 Unspecified asthma, uncomplicated
CPT/HCPCS: 46030; 88304; J0131; J0665; J0666; J1100; J1885; J2003; J2250; J2401; J2405; J2704

== ENCOUNTER 2025-05-26 12:23 | Outpatient (REF) | payer BC, SELFPAY ==
[2025-05-26 12:43] LABS: Abs Immature Grans 0.03 10^3/uL (0.0-0.06); HCT 42.2 % (40.0-50.0); HGB 14.6 g/dL (13.5-17.5); Immature Grans % 0.4 %; MCH 31.3 pg (27.0-33.0); MCHC 34.6 % (32.0-36.0); MCV 91 fL (80-95); MPV 9.1 fL (8.0-11.0); Platelet Count 344 10^3/uL (130-400); RBC 4.66 10^6/uL (4.36-5.78); RDW 11.8 % (11.8-14.1); RDW-SD 38.9 fL; WBC 7.56 10^3/uL (4.4-10.8)
[2025-05-26 13:15] LABS: Anion Gap 9.2 mmol/L (3-11); BUN 12 mg/dL (9-23); CO2 24.8 mmol/L (20.0-31.0); Calcium 8.9 mg/dL (8.3-10.6); Chloride 104 mmol/L (98-107); Glucose 89 mg/dL (74-106); Potassium 3.9 mmol/L (3.5-5.1); Sodium 138 mmol/L (136-145)
== END 2025-05-26 12:24 | disposition home or self-care (01) ==
LOC: LBN 12:23
PROVIDERS: PCP Family Medicine; Visit Provider Student in an Organized Health Care Education/Training Program
DX: L98.8 Other specified disorders of the skin and subcutaneous tissue (principal)
CPT/HCPCS: 80048; 85025

== ENCOUNTER 2025-05-26 14:19 | Observation (INO) | payer BC, SELFPAY ==
[2025-05-26] VITALS (27 sets, daily range): BP systolic 94–133; BP diastolic 56–101; PULSE 65–78; RESP 0–18; TEMP 36.1–36.7; O2SAT 93–100; BMI 25.0
[2025-05-26] MEDS: Lactated Ringers 1,000 ML 80 ML IV ×2 (13:05→16:27)
--- NOTE | 2025-05-26 13:21 | W.ANESPRE ---
General Info Date of Service Date Performed: 05/26/25 Height: 5 ft 8 in Weight: 74.6 kg Body Mass Index (BMI): 25.0 Surgical Procedure: Operation Date: 05/26/25 13:25 Proposed Procedure Side Surgeon p Exam Under Anesthesia Carmela Zhang MD Actual Procedure Side Surgeon p Exam Under Anesthesia Carmela Zhang MD Pre-Op Diagnosis Post-Op Diagnosis anal fistula Meds Allergies and Home Medications Allergies Allergy/AdvReac Type Severity Reaction Status Date / Time amoxicillin Allergy Intermediate Swelling/Ed Verified 05/26/25 12:51 suzi hydromorphone AdvReac Severe Unresponsiv Verified 05/26/25 12:51 e enviornmental Allergy Mild Wheezing Uncoded 05/26/25 12:51 Home Medication ?Medication ?Instructions ?Recorded inhalational spacing device #1 ea 06/03/24 (BreatheRite MDI Spacer) albuterol sulfate 90 mcg/actuation 2 puff inhalation Q6H PRN 11/17/24 aerosol inhaler shortness of breath or wheezing #8.5 grams ipratropium bromide 42 mcg (0.06 2 spray intranasal TID-QID PRN 01/12/25 %) nasal spray allergy symptoms #15 mL losartan 50 mg tablet 50 mg PO DAILY #90 tabs 02/13/25 naloxone 4 mg/actuation nasal 4 mg intranasal Q2M PRN #1 ea 04/07/25 spray (Narcan) fluticasone propionate 50 1 spray intranasal BID PRN allergy 04/10/25 mcg/actuation nasal symptoms #15.8 mL spray,suspension zolpidem 10 mg tablet 10 mg PO QHS PRN sleep #90 tabs 04/23/25 lorazepam 0.5 mg tablet 0.5 mg PO BID PRN anxiety #40 tabs 05/13/25 sertraline 50 mg tablet 50 mg PO DAILY #30 tabs 05/13/25 propranolol 160 mg capsule,24 160 mg PO DAILY #30 caps 05/19/25 hr,extended release ibuprofen 200 mg tablet (Advil) 600 mg PO Q6H PRN 05/26/25 Current Visit Medications: Current Medications Generic Name Dose Route Start Last Admin Trade Name Freq PRN Reason Stop Dose Admin Ringer's Solution 1,000 mls @ 80 mls/hr 05/26/25 06:00 05/26/25 13:05 IV 05/26/25 23:59 80 mls/hr INFUSION JOCELYN Administration IV Miscellaneous Supplies 1 each 05/26/25 06:00 Iv Access IV 05/26/25 23:59 DIRECTED JOCELYN Sodium Chloride 0 ml 05/26/25 06:00 Normal Saline Flush 10 Ml Syr IV 05/26/25 23:59 PRN PRN Sodium Chloride 0 ml 05/26/25 06:00 Normal Saline 10 Ml Vial IJ 05/26/25 23:59 DIRECTED PRN Sterile Water 0 ml 05/26/25 06:00 Water,Injection,Sterile 10 Ml Vial IJ 05/26/25 23:59 DIRECTED PRN PFSH Active Problems Active Problems: Problem Status Onset Code Major depressive disorder Chronic F32.9 Acute blood loss anemia Acute D62 Fistula Acute L98.8 Perirectal abscess Acute K61.1 Melanocytic nevus Acute D22.9 CKD (chronic kidney disease) stage 3, GFR 30-59 ml/min Chronic N18.30 Hypertension Chronic I10 Generalized anxiety disorder Chronic F41.1 Insomnia Chronic Chronic diarrhea Chronic K52.9 Chronic rhinitis Chronic J31.0 Trigger finger, right ring finger Chronic M65.341 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 Sigmoid diverticulosis Acute K57.30 Medical History Medical History (Updated 05/26/25 @ 00:04 by FELIPE FERMIN) Rectal fistula Perirectal abscess (~09/2022) MRSA (methicillin resistant staph aureus) culture positive Scrotal abscess (~09/2022) Asthma Medical History Comments:: 01/23/23 pt reports he has not had asthma for 20 years Surgical History Surgical History History of colonoscopy (~09/2023) S/P tonsillectomy and adenoidectomy History of rectal surgery (01/23/23) Rectal fistulotomy Status post nasal septoplasty Tobacco Smoking/Tobacco Use Status: Never Passive smoking exposure: Yes Second hand exposure: Yes Alcohol Alcohol Intake: current Alcohol intake frequency: a few times a week Alcohol type: beer, wine and hard liquor Substance Use Substance use: Never Substance use type: does not use Vital Signs and Lab Results Vital Signs Most Recent Vital Signs in EMR: Most Recent Vital Signs Temp Pulse Resp BP Pulse Ox 36.4 C L 72 16 132/101 H 97 05/26/25 12:45 11/18/25 12:45 05/26/25 12:45 05/26/25 12:45 05/26/25 12:45 Lab Results Complete Blood Count: WBC, (4.4-10.8) 7.56 10^3/uL Today, 12:15 RBC, (4.36-5.78) 4.66 10^6/uL Today, 12:15 Hgb, (13.5-17.5) 14.6 g/dL Today, 12:15 Hct, (40.0-50.0) 42.2 % Today, 12:15 Plt Count, (130-400) 344 10^3/uL Today, 12:15 Complete Metabolic Panel: Sodium, (136-145) 138 mmol/L Today, 12:15 Potassium, (3.5-5.1) 3.9 mmol/L Today, 12:15 Chloride, (98-107) 104 mmol/L Today, 12:15 Carbon Dioxide, (20.0-31.0) 24.8 mmol/L Today, 12:15 BUN, (9-23) 12 mg/dL Today, 12:15 Creatinine, (0.73-1.18) 1.0 mg/dL Today, 12:15 Est GFR (CKD-EPI 2020), (mL/min/1.73m2) 73.48 Today, 12:15 Calcium, (8.3-10.6) 8.9 mg/dL Today, 12:15 Glucose, (74-106) 89 mg/dL Today, 12:15 Imaging and Studies Imaging and Studies Study information below may be from another EMR and interpreted by another provider. Please see original notes in EMR for more complete details. EKG Summary: DATE/TIME OF SERVICE: 08/24/22 1118 : 1965PERFORMING LOCATION: ER APPROVED REPORT Exam: Resting ECG Reason for Exam: Epigastric pain Patient Location: E HR:92 bpm ECG Measurements Heart Rate 92 AXIS NE 136 P 70 QRSd 93 QRS 45 QT 356 T48 QTc 441 Conclusion Sinus rhythm...normal P axis, V-rate 60- 99 Probable left atrial enlargement...P >50mS, <-0.10mV V1 Narrow complex normal sinus rhythm at a rate of 93. Normal axis. Intervals within normal limits. T wave flattening in V2. No acute injury pattern. No prior for comparison. ST segment abnormalities. Stress Test Summary: Date of Exam: 11/27/16Sex: M : 1965Age: 51 Exam(s) [id number] NM:MPI Resting & Stress GRP *[facility]* *[facility]* [address] [place] [address] Myocardial Perfusion Imaging - SPECT Asaf protocol Date of study: 11/27/2016 *PATIENT PRESENTATION* Height: 172.7cm ((68in) ) Blood Pressure: Weight: 81.4kg ((179lb) ) BSA: 1.99m^2 Referring physician: Abelino Horta MD Ordering physician: Nba Berger Impressions: Normal perfusion by Tc99m Sestamibi Imaging. Summary: 1. Myocardial perfusion imaging: No myocardial perfusion defects noted. 2. The calculated left ventricular ejection fraction after stress: 48%. 3. Stress: The target heart rate was achieved. Echocardiogram Summary: Date of Exam: 06/09/21Sex: M Admission Date: 06/09/21 : 1965 Age: 55 APPROVED REPORT EXAM: Comprehensive 2D, Doppler, and color-flow Echocardiogram Patient Location: Out-Patient Inventory Control Associate: Jenn Tolbert RDCS (AE) Indications: Resting Tachycardia, HTN Other Information Study Quality: Adequate Conclusion Normal left ventricular wall thickness and chamber size. Estimated ejection fraction is 60%. Wall motion is normal Normal right ventricular size and systolic function Both atria are normal in size There is no structural or hemodynamically significant valvular disease Anesthesia Assessment and Plan Anesthesia History Personal History: No History of Anesthesia Complications Family History: No Family History of Anesthesia Complications Exercise Tolerance Exercise Tolerance: Metabolic Equivalents>4 Pertinent Negatives Pertinent Negatives: No Symptoms of GERD Cardiac & Pulmonary Exam Cardiac Exam: Normal S1/S2 Heart Sounds Pulmonary Exam: Clear Bilateral Breath Sounds Implantable Cardiac Device Does patient have a Pacemaker or an ICD?: No Airway Exam Known Difficult Airway: No Mallampati Class: 2 Mouth Opening: Normal (> 3cm) Thyromental Distance: Less than 3 cm Neck Range of Motion: Full ROM Neck Circumference: Normal Teeth Condition: Normal Dentition ASA Classification ASA Score: ASA 2 Emergency Case?: Yes NPO Status NPO Status: NPO Clears >2 hours, Solids >8 hours Anesthesia Plan Resuscitation Status: Full Code Anesthesia Technique: General Anesthesia Airway Planned: Endotracheal Tube Monitors Used: Standard Monitors and SedLine
--- NOTE | 2025-05-26 14:30 | W.PM.OP ---
Operative Note Operative Note PRE-OP DIAGNOSIS: Rectal bleeding following fistulotomy POST-OP DIAGNOSIS: same PROCEDURE: Exam under anesthesia, placement of rectal packing SURGEON: Carmela Zhang ELECTRIC MOTOR ASSEMBLER: Heather Mckenzie ANESTHESIA TYPE: General LMA/ETT Refer to Anesthesia Record ESTIMATED BLOOD LOSS: 2 PATHOLOGY: none sent COMPLICATIONS: None Patient was transported to: PACU Patient's condition: stable Indications: Patient is a 59 M who presented POD 4 s/p fistulotomy. He notes he was doing well at home until he started having worsening bleeding. The bleeding increased following a bowel movement today so he presented to the clinic for further evaluation. He denies any lightheadedness or dizziness. On exam he does have evidence of bleeding but further exam is limited do to patient discomfort. Discussed with him this finding as well as options for management. The amount of bleeding and consistency since yesterday evening warrants further examination under anesthesia. This was discussed with him and plan made for exam under anesthesia in the operating room this afternoon. Discussed with him possibilty of admission following procedure for monitoring depending on findings. Will also plan for CBC and BMP now. Findings: Exam under anesthesia performed. No evidence of active bleeding. Evidence of raw surface oozing controlled with electrocautery. Wound irrigated and no further evidence of bleeding. Wound packed with gel foam and gauze. Procedure Description: After induction of anesthesia the patient was placed in lithotomy and then prepped and draped in sterile fashion. Prior to the procedure an additional timeout was performed, which again confirmed the patient's name, date of , and the procedure to be performed. A Hill Ull[place] retractor was placed and the previous fistulotomy incision inspected. There was some evidence of old, dark blood coming from the rectum. The incision was irrigated and there was evidence of some raw surface oozing which was controlled with electrocautery. The wound was further irrigated and reinspected for bleeding. There was no further evidence of bleeding. The decision was then made to place rectal packing including gel foam and gauze. The patient was cleaned and a dry gauze was placed externally as well as a mesh undergarment. At this point, the patient was awoken, extubated and transported to the recovery room in stable condition. ?Sponge and instrument counts were correct. Date of Procedure: 05/26/25
--- NOTE | 2025-05-26 15:19 | W.ANESPOSTOP ---
Postoperative Evaluation Date, Time and Location Date Performed: 05/26/25 Time Performed: 15:19 Patient Location: Med/Surg Vital Signs Most Recent Imported Vital Signs: Most Recent Vital Signs Temp Pulse Resp BP Pulse Ox 36.6 C 65 13 124/77 97 05/26/25 14:44 05/26/25 14:41 05/26/25 14:41 05/26/25 14:41 05/26/25 14:41 Pain Score Most Recent Pain Score: Most Recent Pain Score Pain Level 0 05/26/25 14:44 Assessment Mental Status: Awake (Alert & Oriented to Patient Baseline) Airway and Respiratory Function: Patent airway with normal (patient baseline) respiratory exam Cardiovascular Function: Hemodynamically Stable Hydration Status: Adequately Hydrated Nausea & Vomiting: No Nausea or Vomiting Pain: Pain is tolerable per patient Peripheral Nerve Block: Patient did not receive a nerve block
[2025-05-26] MEDS: Acetaminophen 325 MG TAB 650 MG PO ×2 (16:04→20:05)
[2025-05-26] MEDS: Sertraline 50 MG TAB PO (18:10)
[2025-05-26] MEDS: Ibuprofen 200 MG TAB 600 MG PO (20:05)
[2025-05-26] MEDS: Zolpidem 10 MG TAB PO (20:30)
[2025-05-27 07:43] VITALS: BP 145/88; PULSE 70; RESP 17; TEMP 37.4; O2SAT 98
[2025-05-27] MEDS: Losartan 50 MG TAB PO (08:16)
[2025-05-27] MEDS: Normal Saline Flush 10 ML SYR IVP (08:17)
[2025-05-27] MEDS: Acetaminophen 325 MG TAB 650 MG PO (08:42)
[2025-05-27] MEDS: Propranolol 80 MG CAPCR 160 MG PO (08:42)
--- NOTE | 2025-05-27 10:09 | PDOC.CMIN ---
Date of service: 05/27/25 Time of Service: 10:09 Care Management Initial Assmt Initial Assessment Reason for Hospitalization: Rectal Bleeding Functional Status/Living Situation Patient Presentation: Harish who prefers 'Ed' was lying in bed and awake when CM met with him. He presented to the ED with onset of rectal bleeding around 12:30 AM; See ED documentation. Per report, there is a plan for bowel prep tonight and likely a bidirectional endoscopy tomorrow. Harish is living is [place] with his . He shares he does not have any children but does have local family. His and sister were able to visit today. Harish states he has had home health services in the past but does not feel they would be helpful at this point in time; Denies affiliation with additional community services, declines need for supports. Harish states he is independent at baseline, including driving. He expresses a desire for a discharge home soon but is seeking clarity regarding the underlying cause of his condition. He reports having experienced symptoms intermittently over the past three years. He does have [facility]. CM will continue to follow. Town of Residence: [place] Resides with: Spouse (Norma) Significant Other/Family: Local (siblings) Natural Supports: family Employment Status: Employed ((self employed in construction) Instrumental Activities of Daily Living (ADLs): Independent Medications Medication Management: No Issues/Barriers identified Advance Directives Advance Directives: Do you have an Advance Directive: Y 01/22/23, 11:49 AD On File at [facility]: Y 01/22/23, 11:49 Date Asked 02/21/25 02/23/25, 09:55 AD Date Reviewed 05/26/25 Today, 04:31 COLST On File at [facility] No 04/25/25, 18:42 COLST Date Scanned Code Status Resuscitation Status Full Code Portal Pt does not currently have a portal and education provided: Yes Insurance Coverage/Financial Issues Insurance: BC/BS Out of State - [id number] Care Team Visit Care Team Role Provider Type Michelle Peter MD Primary Care Provider [facility] STAFF PHYSICIAN Carmela Zhang MD Admit Provider [facility] STAFF PHYSICIAN Attending Provider Discharge Potential Discharge Needs: PCP F/U Appt and Surgical F/U Appt Anticipated Barriers to Discharge: None Identified Patient/Family Education Needs: Review discharge instructions, discuss Ask Me Three Transportation: Private vehicle Plan: Anticipate Ed will be discharged home once medically ready, with no new services indicated at this time. It is recommended he follow up with his community providers, surgical team and continue per discharge plan of care. He will transport via private vehicle by family. CM will continue to follow. Social Determinants of Health Screening Social Determinants of health last assessed in clinic: 05/26/25 Will the Patient Participate in the Screening?: Yes Do you worry about having a steady place to live?: no Problems where you live: no known problems In the past 12 months, have you had to go without electric, gas, oil or water in your home?: no Has lack of transportation kept you from medical appointments or from doing things needed for daily living?: no Has anyone in your life made you feel unsafe or unsupported?: no How hard is it for you to pay for the very basics like food, housing, medical care, and heating? Would you say it is:: Not hard at all Do you want help finding or keeping work or a job?: I do not need or want help If for any reason you need help with day-to-day activities such as bathing, preparing meals, shopping, managing finances, etc., do you get the help you need?: I don?t need any help How often do you feel lonely or isolated from those around you?: Never Do you speak a language other than Estonian at home?: No Does the patient want assistance with any of the above?: No PFSH All Active Problems (Updated 05/26/25 @ 00:04 by [facility]) Major depressive disorder (Chronic) Acute blood loss anemia (Acute) Fistula (Acute) Perirectal abscess (Acute) Melanocytic nevus (Acute) CKD (chronic kidney disease) stage 3, GFR 30-59 ml/min (Chronic) Hypertension (Chronic) Generalized anxiety disorder (Chronic) Insomnia (Chronic) Chronic diarrhea (Chronic) Chronic rhinitis (Chronic) Trigger finger, right ring finger (Chronic) Other color vision deficiencies (Chronic) red/green Sigmoid diverticulosis (Acute) Medical History (Updated 05/26/25 @ 00:04 by Nu[facility]) Rectal fistula Perirectal abscess (~09/2022) MRSA (methicillin resistant staph aureus) culture positive Scrotal abscess (~09/2022) Asthma Surgical History History of colonoscopy (~09/2023) S/P tonsillectomy and adenoidectomy History of rectal surgery (01/23/23) Rectal fistulotomy Status post nasal septoplasty Family History (Updated 08/20/24 @ 09:59 by Kenzie Schmidt NP) Mother Depression Stroke Chronic kidney disease On dialysis Father , age 88 Heart disease Myocardial infarction Prostate cancer Sister Breast cancer Sister Breast cancer Brother Depression Hypertension Brother Oral cancer Alcohol use disorder Maternal Grandfather No problems noted. Maternal Grandmother No problems noted. Paternal Grandfather No problems noted. Paternal Grandmother No problems noted. Social History Smoking/Tobacco Use Status: Never Second Hand Exposure: Yes Smoking risk assessment performed?: Yes Alcohol Intake: current Alcohol Intake frequency: a few times a week Alcohol type: beer, wine and hard liquor Drug use: Never Substance use type: does not use Counseling given: No Adopted: No Caregiver/Support person: No Foster care: No Household members: spouse Housing: house Number of Children: 0 number of grandchildren: 0 Communication Needs: None Education Level: college Details: Associate Degree Do you need help understanding health information?: Never current occupation: Self-employed Pets and animals: No Sexually active: Yes Do you think of yourself as: straight/heterosexual Current gender identity: male What is your relationship status?: How often do you talk on the phone with friends or family?: once per week How often do you get together with friends or relatives?: once per week How often do you attend buddhism or denominational services?: decline to answer Do you belong to any clubs or organized social groups?: no Panel score (0-1 are the most socially isolated patients): 1 What type of physical activity do you participate in: other Details: home Duration: 15-30 minutes/day Frequency: 3-4 times per week Chantel/Hinduism: Jew Special chantel needs: No Seatbelt use: always Helmet use: Yes Helmet use: sometimes Drive intox or ride w/intox fuel oil truck driver: No Do you feel safe at home: Yes Do you feel safe in your relationship?: Yes Victim of physical abuse: No Victim of emotional abuse: No Victim of sexual abuse: No Would you like helpful sources: No Additional Social history: unable to assess privately Readmission Within the Past 30 Days Yes or No: No
--- NOTE | 2025-05-27 11:16 | W.PM.PROGNOT ---
Date of Service Date of service: 05/27/25 Time of Service: 11:17 Assessment and Plan Assessment and plan (1) Rectal bleeding: Status: Resolved Assessment and plan: rectal bleeding s/p fistulotomy. No sign of bleeding this morning. Packing removed. will monitor him as he increases his activity, eats and drinks today. Bleeding occurred with BMs at home, so will hope to observe for this while he is here. Home today if remains stable. zinc oxide to be applied to perianal skin, order placed. Subjective Subjective Interval history since last seen: no complaints this AM. Manito gas overnight but was unable to pass it through the rectal packing. No pain. No major discomfort. Exam Narrative Exam Narrative: awake, NAD eomi, MMM midline trachea, neck is symmetric PULM: normal resp effort, equal chest rise with respiration CARDIAC: regular rate, normal perfusion abdomen is nondistended. extremities are without deformity, normal movement of all four extremities speech is clear and coherent mood and affect are congruent, no focal neurological deficits skin without rash perianal skin with moisture rash. Anorectal packing removed, minimal tenderness, no fresh blood. Mild staining with old blood only. No abscess or other signs of infection of the surgical site. Fistulotomy wound is open and healthy. Objective Last Vital Signs Temp 99.3 F 05/27/25 07:43 Pulse 70 05/27/25 07:43 Resp 17 05/27/25 07:43 BP 145/88 H 05/27/25 07:43 Pulse Ox 98 05/27/25 07:43 PAWSS Have you Been Recently Intoxicated or Drunk Within the Last 30 days?: No Have you Ever Experienced Previous Episodes of Alcohol Withdrawal?: No Have you ever Experienced Withdrawal Seizures?: No Have you ever Experienced Delirium Tremens(DT)s?: No Have you ever undergone Alcohol Rehabilitation Treatment (i.e, inpt ot outpatient treatment programs)?: No Have you ever Experienced Blackouts?: No Have you ever Combined Alcohol with other Downers within the last 90 days?: No Have you ever Combined Alcohol with any other Substance of Abuse during the last 90 days?: No Positive Blood Alcohol level on Presentation? [PCS.BAL]: No Evidence of Increased Autonomic Activity (i.e. HR>120, tremor, sweating, agitation, nausea)?: No Result: 0 Time Spent with Patient Time Spent with Patient: <25 minutes Time was spent: preparing to see the patient(eg.review tests), ordering medications,tests, procedures and counseling the patient
--- NOTE | 2025-05-27 14:29 | DSE_ITS ---
Date of service: 05/27/25 Time of Service: 14:29 DS: Diagnosis Discharge Diagnosis (1) Rectal bleeding: Status: Resolved Discharge Plan Disposition Patient Disposition: Home Condition: Stable Discharge Details Reason For Visit: Rectal Bleeding Admit Date/Time: 05/26/25 14:19 Admit Provider: Carmela Zhang Attending Provider: Carmela Zhang Primary Care Provider: Michelle Peter Hospital Course Hospital Course: 59yo M who is 5 days post op from anal fistulotomy who presented with rectal bleeding. He was taken to the operating room for exam under anesthesia where raw surface oozing was seen and pressure gauze and packing applied. He was observed overnight and no additional bleeding occurred. The packing was removed and he was able to eat, drink, mobilize out of bed, have a BM, all without bleeding. He was discharged home. Home Meds and New Rx's Prescriptions: Continued albuterol sulfate 90 mcg/actuation HFA aerosol inhaler 2 puff inhalation Q6H PRN (Reason: shortness of breath or wheezing) Qty: 8.5 0RF sertraline 50 mg tablet 50 mg PO DAILY Qty: 30 0RF lorazepam 0.5 mg tablet 0.5 mg PO BID PRN (Reason: anxiety) Qty: 40 0RF Rx Instructions: Only use IF NEEDED for severe anxiety, not meant for routine anxiety management (DME) BreatheRite MDI Spacer Spacer See Rx Instructions .ROUTE .MEDSUPPLY Qty: 1 0RF Rx Instructions: As directed losartan 50 mg tablet 50 mg PO DAILY Qty: 90 3RF zolpidem 10 mg tablet 10 mg PO QHS PRN (Reason: sleep) Qty: 90 0RF Rx Instructions: 1 tab at bedtime IF NEEDED for sleep ibuprofen [Advil] 200 mg tablet 600 mg PO Q6H PRN Patient Comments: 400mg 05/25/25 ipratropium bromide 42 mcg (0.06 %) spray,non-aerosol 2 spray intranasal TID-QID PRN (Reason: allergy symptoms) Qty: 15 1RF Rx Instructions: administer into each nostril fluticasone propionate 50 mcg/actuation spray,suspension 1 spray intranasal BID PRN (Reason: allergy symptoms) Qty: 15.8 6RF propranolol 160 mg capsule,extended release 24 hr 160 mg PO DAILY Qty: 30 1RF naloxone [Narcan] 4 mg/actuation spray,non-aerosol 4 mg intranasal Q2M PRNQty: 1 0RF Rx Instructions: spray 1 dose into ONE nostril; alternate nostrils w each dose until help arrives Discharge Instructions Additional Instructions: Olease let the surgery office know if bleeding recurs. Focus on nutrition and gaining back your energy. Take protein supplements, protein snacks such as beef jerky or bone broth, and add a multivitamin until your appetite is good and normal again. Soak your bottom in cool or warm (not hot) water every 4 hours in the day as needed for soreness. If you are moving and feeling okay you dont have to do this. It may help reduce swelling and soreness. Use Desitin cream available over the counter in the skin around the anus to help protect it from moisture rash. There will be a lot of moisture in the area while you heal, and it can easily raw or roughen the skin. The desitin cream will help soothe and protect it. Follow up as previously planned/scheduled. Stand Alone Forms: Portal Information Activity:: Activity as Tolerated Equipment/Supplies:: No Equipment Needed Diet:: As Tolerated Discharge Orders Discharge Orders: Discharge Order (Routine); Ordered 05/27/25 Ordered By: Saumya Walker DS: Summary Time Spent with Patient providing and/or coordinating discharge services: Less than 30 minutes Status at Discharge Functional status at discharge: independent ambulation Overall status at discharge: patient is progressing back to baseline Mental Status: mental status grossly normal Speech and Movement: speech and movement normal Mood: congruent mood Affect: normal affect Quality:SDOH Health Related Social Needs: Health related social needs food insecurity Health related social needs details none Exam Psych Mental Status: mental status grossly normal Speech and Movement: speech and movement normal Mood: congruent mood Affect: normal affect DS: Data Vitals/I&O Vitals and I&O: Vital Signs Temperature 99.3 F 05/27/25 07:43 Temperature Source Temporal Artery Scan 05/27/25 07:43 Pulse 70 05/27/25 07:43 Pulse Rhythm Regular 05/26/25 15:37 Pulse 67 05/26/25 14:41 Respiratory Rate 17 05/27/25 07:43 Respiratory Effort Normal, Non-Labored 05/26/25 15:37 Respiratory Depth Normal 05/26/25 15:37 Respiratory Pattern Normal 05/26/25 15:37 Blood Pressure 145/88 H 05/27/25 07:43 Blood Pressure Mean 107 05/27/25 07:43 Pulse Oximetry 98 05/27/25 07:43 Respiratory End-tidal CO2 39 05/26/25 14:41 Oxygen Delivery Method Room Air 05/27/25 07:43 Oxygen Flow Rate 0 05/27/25 07:43 Pain Level 2 05/27/25 08:42 Intake & Output 05/26/25 05/27/25 05/27/25 23:59 11:59 23:59 Intake Total 1350 / 1350 1190 / 1430 240 / 1430 Balance 1350 / 1350 1190 / 1430 240 / 1430 Weight 74.6 kg Intake: IV 1000 / 1000 970 / 970 Oral 350 / 350 220 / 460 240 / 460 Other: Urine Color Pale Yellow Urine Appearance Clear Clear Urine Odor Normal Normal Comment pt walks ind to the bathroom to void. Unknown amount of urine was measured pt is a stand by assist to the bathroom... Emesis Description None PFSH All Active Problems Major depressive disorder (Chronic) Acute blood loss anemia (Acute) Fistula (Acute) Perirectal abscess (Acute) Melanocytic nevus (Acute) CKD (chronic kidney disease) stage 3, GFR 30-59 ml/min (Chronic) Hypertension (Chronic) Generalized anxiety disorder (Chronic) Insomnia (Chronic) Chronic diarrhea (Chronic) Chronic rhinitis (Chronic) Trigger finger, right ring finger (Chronic) Other color vision deficiencies (Chronic) red/green Sigmoid diverticulosis (Acute) Medical History Rectal fistula Perirectal abscess (~09/2022) MRSA (methicillin resistant staph aureus) culture positive Scrotal abscess (~09/2022) Asthma Surgical History History of colonoscopy (~09/2023) S/P tonsillectomy and adenoidectomy History of rectal surgery (01/23/23) Rectal fistulotomy Status post nasal septoplasty Family History Mother Depression Stroke Chronic kidney disease On dialysis Father , age 88 Heart disease Myocardial infarction Prostate cancer Sister Breast cancer Sister Breast cancer Brother Depression Hypertension Brother Oral cancer Alcohol use disorder Maternal Grandfather No problems noted. Maternal Grandmother No problems noted. Paternal Grandfather No problems noted. Paternal Grandmother No problems noted. Social History Smoking/Tobacco Use Status: Never Second Hand Exposure: Yes Smoking risk assessment performed?: Yes Alcohol Intake: current Alcohol Intake frequency: a few times a week Alcohol type: beer, wine and hard liquor Drug use: Never Substance use type: does not use Counseling given: No Adopted: No Caregiver/Support person: No Foster care: No Household members: spouse Housing: house Number of Children: 0 number of grandchildren: 0 Communication Needs: None Education Level: college Details: Associate Degree Do you need help understanding health information?: Never current occupation: Self-employed Pets and animals: No Sexually active: Yes Do you think of yourself as: straight/heterosexual Current gender identity: male What is your relationship status?: How often do you talk on the phone with friends or family?: once per week How often do you get together with friends or relatives?: once per week How often do you attend tenriism or christianity services?: decline to answer Do you belong to any clubs or organized social groups?: no Panel score (0-1 are the most socially isolated patients): 1 What type of physical activity do you participate in: other Details: home Duration: 15-30 minutes/day Frequency: 3-4 times per week Chantel/Anglican: Mormonism Special chantel needs: No Seatbelt use: always Helmet use: Yes Helmet use: sometimes Drive intox or ride w/intox racing driver: No Do you feel safe at home: Yes Do you feel safe in your relationship?: Yes Victim of physical abuse: No Victim of emotional abuse: No Victim of sexual abuse: No Would you like helpful sources: No Additional Social history: unable to assess privately Time Spent with Patient Time Spent with Patient: <45 minutes Time was spent: preparing to see the patient(eg.review tests), referring, communicating with other health adult live in caregiver and counseling the patient
--- NOTE | 2025-05-27 14:45 | CHAPLAIN ---
Harish was resting in bed and visiting with his Norma when I stopped in. They were both very pleasant and engaged in conversation. I explained my role and offered support. They live in [place]. Norma said she stayed overnight in the room with Harish last night, and was appreciative of the chapel and spent some time there last night.
--- NOTE | 2025-05-27 14:46 | PDOC.CMDIS ---
Date of service: 05/27/25 Time of Service: 14:46 LACE Index Scoring Tool Questions: Length of Stay (in days): 1 Was the patient admitted via the E.D.?: No Comorbidities: Liver or Renal Disease E.D. Visits: 3 Answers: Total Score: 9 Risk of Readmission: Low Risk Care Management Discharge Plan Reason for Hospitalization: Rectal Bleeding Discharge Plan: Ed will be discharged home today with no new services indicated at this time. It is recommended he follow up with his community providers, surgical team and continue per discharge plan of care. He will transport via private vehicle by family. Patient/Family Education Needs: Review of discharge instructions, activity, limitations. Discuss Ask me three. SDOH Health Related Social Needs: Health related social needs food insecurity Health related social needs details none
== END 2025-05-27 15:14 | disposition home or self-care (01) ==
LOC: MS 05-27 04:29
PROVIDERS: Admitting Provider Student in an Organized Health Care Education/Training Program; PCP Family Medicine; Visit Provider Student in an Organized Health Care Education/Training Program
PROC: (CPT 45990; principal; 2025-05-26 13:15)
DX: K91.840 Postprocedural hemorrhage of a digestive system organ or structure following a digestive system procedure (principal); K62.5 Hemorrhage of anus and rectum; Y83.8 Other surgical procedures as the cause of abnormal reaction of the patient, or of later complication, without mention of misadventure at the time of the procedure; Z79.899 Other long term (current) drug therapy; I12.9 Hypertensive chronic kidney disease with stage 1 through stage 4 chronic kidney disease, or unspecified chronic kidney disease; N18.30 Chronic kidney disease, stage 3 unspecified; F41.1 Generalized anxiety disorder; F32.9 Major depressive disorder, single episode, unspecified; J45.909 Unspecified asthma, uncomplicated
CPT/HCPCS: 45990; G0378; J1100; J2003; J2371; J2405; J2704; J3010

== ENCOUNTER 2025-06-07 11:12 | Emergency (ER) | payer BC, SELFPAY ==
[2025-06-07 11:15] VITALS: BP 117/77; PULSE 113; RESP 16; TEMP 36.4; O2SAT 96
[2025-06-07] MEDS: Loratidine 10 MG TAB PO (12:58)
[2025-06-07 13:02] VITALS: BP 113/79; PULSE 87; RESP 18; O2SAT 98
--- NOTE | 2025-06-07 20:56 | W.ED.GENAD ---
Discharge Plan Disposition Patient Disposition: Home Condition: Stable Discharge Details Clinical Impression: Papular rash Primary Care Provider: Michelle Peter ED Provider: Erika Petersen Home Meds and New Rx's Prescriptions: Continued albuterol sulfate 90 mcg/actuation HFA aerosol inhaler 2 puff inhalation Q6H PRN (Reason: shortness of breath or wheezing) Qty: 8.5 0RF (DME) B[employer]heRite MDI Spacer Spacer See Rx Instructions .ROUTE .MEDSUPPLY Qty: 1 0RF Rx Instructions: As directed losartan 50 mg tablet 50 mg PO DAILY Qty: 90 3RF zolpidem 10 mg tablet 10 mg PO QHS PRN (Reason: sleep) Qty: 90 0RF Rx Instructions: 1 tab at bedtime IF NEEDED for sleep sertraline 100 mg tablet 100 mg PO DAILY Qty: 90 1RF clonazepam [Klonopin] 0.5 mg tablet 0.5 mg PO BID Qty: 56 1RF diltiazem HCl [Tiadylt ER] 180 mg capsule,extended release 24 hr 180 mg PO DAILY Qty: 30 1RF ibuprofen [Advil] 200 mg tablet 600 mg PO Q6H PRN Patient Comments: 400mg 05/25/25 ipratropium bromide 42 mcg (0.06 %) spray,non-aerosol 2 spray intranasal TID-QID PRN (Reason: allergy symptoms) Qty: 15 1RF Rx Instructions: administer into each nostril fluticasone propionate 50 mcg/actuation spray,suspension 1 spray intranasal BID PRN (Reason: allergy symptoms) Qty: 15.8 6RF Discharge Instructions Instructions: Skin Rash ED Additional Instructions: hydrocortisone 1% topically to areas of rash aside from face zyrtec daily discontinue diltiazem for now return with difficulty breathing, swallowing, or should any new concerns arise follow-up with pcp tomorrow Stand Alone Forms: Portal Information Referrals: Michelle Peter MD [Primary Care Provider, Medicine] Discharge Data Discharge Date/Time-TO BE ENTERED AT DEPARTURE: 06/07/25 13:03 HPI General Date/Time Provider Initiated Documentation: 06/07/25 11:32. HPI Narrative: This 59-year-old male presents with report of rash on bilateral upper extremities, right hip and forehead. Symptoms started last evening and have worsened today. Denies any difficulty swallowing or shortness of breath. Denies history of similar symptoms in the past. Was started on diltiazem switched from propranolol 5 days ago and also had changed from lorazepam to clonazepam when she has been taking twice daily. He also just underwent rectal surgery but states he has not had any symptoms related to this. Denies any fever or difficulty swallowing. Related Data Home Medications ?Medication ?Instructions ?Recorded ?Confirmed inhalational spacing device #1 ea 06/03/24 06/07/25 (BreatheRite MDI Spacer) albuterol sulfate 90 mcg/actuation 2 puff inhalation Q6H PRN 11/17/24 06/07/25 aerosol inhaler shortness of breath or wheezing #8.5 grams ipratropium bromide 42 mcg (0.06 2 spray intranasal TID-QID PRN 01/12/25 06/07/25 %) nasal spray allergy symptoms #15 mL losartan 50 mg tablet 50 mg PO DAILY #90 tabs 02/13/25 06/07/25 fluticasone propionate 50 1 spray intranasal BID PRN allergy 04/10/25 06/07/25 mcg/actuation nasal symptoms #15.8 mL spray,suspension zolpidem 10 mg tablet 10 mg PO QHS PRN sleep #90 tabs 04/23/25 06/07/25 ibuprofen 200 mg tablet (Advil) 600 mg PO Q6H PRN 05/26/25 06/07/25 clonazepam 0.5 mg tablet (Klonopin) 0.5 mg PO BID #56 tabs 06/03/25 06/07/25 diltiazem HCl 180 mg capsule,24 180 mg PO DAILY #30 caps 06/03/25 06/07/25 hr,extended release (Tiadylt ER) sertraline 100 mg tablet 100 mg PO DAILY #90 tabs 06/03/25 06/07/25 Previous Rx's ?Medication ?Instructions ?Recorded inhalational spacing device #1 ea 06/03/24 (BreatheRite MDI Spacer) albuterol sulfate 90 mcg/actuation 2 puff inhalation Q6H PRN 11/17/24 aerosol inhaler shortness of breath or wheezing #8.5 grams ipratropium bromide 42 mcg (0.06 2 spray intranasal TID-QID PRN 01/12/25 %) nasal spray allergy symptoms #15 mL losartan 50 mg tablet 50 mg PO DAILY #90 tabs 02/13/25 fluticasone propionate 50 1 spray intranasal BID PRN allergy 04/10/25 mcg/actuation nasal symptoms #15.8 mL spray,suspension zolpidem 10 mg tablet 10 mg PO QHS PRN sleep #90 tabs 04/23/25 clonazepam 0.5 mg tablet (Klonopin) 0.5 mg PO BID #56 tabs 06/03/25 diltiazem HCl 180 mg capsule,24 180 mg PO DAILY #30 caps 06/03/25 hr,extended release (Tiadylt ER) sertraline 100 mg tablet 100 mg PO DAILY #90 tabs 06/03/25 Allergies Allergy/AdvReac Type Severity Reaction Status Date / Time amoxicillin Allergy Intermediate Swelling/Ed Verified 06/07/25 11:20 suzi hydromorphone AdvReac Severe Unresponsiv Verified 06/07/25 11:20 e enviornmental Allergy Mild Wheezing Uncoded 06/07/25 11:20 General Stated Complaint: RashLesion KEEGAN: 4 Exam Narrative Exam Narrative: Papular rash noted to bilateral forearms, right hip, and forehead, no crepitus oropharynx patent uvula midline lungs clear to auscultation Course Vital Signs Vital signs: Vital Signs Temperature 36.4 C 06/07/25 11:15 Pulse 113 H 06/07/25 11:15 Respiratory Rate 16 06/07/25 11:15 Blood Pressure 117/77 06/07/25 11:15 Pulse Oximetry 96 06/07/25 11:15 Temperature 36.4 C 06/07/25 11:15 Pulse 87 06/07/25 13:02 Respiratory Rate 18 06/07/25 13:02 Blood Pressure 113/79 06/07/25 13:02 Pulse Oximetry 98 06/07/25 13:02 Medical Decision Making Assessment and plan: 5-year-old male presenting with rash, as patient is status post surgery will hold on prednisone at this time will encourage Zyrtec daily will give first dose of Claritin in the emergency department. Patient will apply hydrocortisone topically to the affected areas and temporarily stop the diltiazem until he talks to his doctor. I do wonder if the diltiazem is causing dermatitis versus allergic reaction. Return precautions reviewed and patient expressed understanding discharged home in stable condition with stable vitals. He is encouraged to call his doctor tomorrow. Quality:SDOH Health Related Social Needs: Health related social needs food insecurity Health related social needs details none PFSH All Active Problems (Updated 06/07/25 @ 12:47 by RASHID Martin) Papular rash (Acute) Major depressive disorder (Chronic) Acute blood loss anemia (Acute) Fistula (Acute) Perirectal abscess (Acute) Melanocytic nevus (Acute) CKD (chronic kidney disease) stage 3, GFR 30-59 ml/min (Chronic) Hypertension (Chronic) Generalized anxiety disorder (Chronic) Insomnia (Chronic) Chronic diarrhea (Chronic) Chronic rhinitis (Chronic) Trigger finger, right ring finger (Chronic) Other color vision deficiencies (Chronic) red/green Sigmoid diverticulosis (Acute) Medical History (Updated 06/07/25 @ 12:47 by RASHID Martin) Rectal fistula Perirectal abscess (~09/2022) MRSA (methicillin resistant staph aureus) culture positive Scrotal abscess (~09/2022) Asthma Surgical History (Updated 06/02/25 @ 09:26 by Carla Lucero) History of anal fistulotomy (~05/22/25) History of exam under anesthesia (~05/22/25) History of colonoscopy (~09/2023) S/P tonsillectomy and adenoidectomy History of rectal surgery (01/23/23) Rectal fistulotomy Status post nasal septoplasty Family History Mother Depression Stroke Chronic kidney disease On dialysis Father , age 88 Heart disease Myocardial infarction Prostate cancer Sister Breast cancer Sister Breast cancer Brother Depression Hypertension Brother Oral cancer Alcohol use disorder Maternal Grandfather No problems noted. Maternal Grandmother No problems noted. Paternal Grandfather No problems noted. Paternal Grandmother No problems noted. Social History Smoking/Tobacco Use Status: Never Second Hand Exposure: Yes Smoking risk assessment performed?: Yes Alcohol Intake: current Alcohol Intake frequency: a few times a week Alcohol type: beer, wine and hard liquor Drug use: Never Substance use type: does not use Counseling given: No Adopted: No Caregiver/Support person: No Foster care: No Household members: spouse Housing: house Number of Children: 0 number of grandchildren: 0 Communication Needs: None Education Level: college Details: Associate Degree Do you need help understanding health information?: Never current occupation: Self-employed Pets and animals: No Sexually active: Yes Do you think of yourself as: straight/heterosexual Current gender identity: male What is your relationship status?: How often do you talk on the phone with friends or family?: once per week How often do you get together with friends or relatives?: once per week How often do you attend roman catholic or sabianism services?: decline to answer Do you belong to any clubs or organized social groups?: no Panel score (0-1 are the most socially isolated patients): 1 What type of physical activity do you participate in: other Details: home Duration: 15-30 minutes/day Frequency: 3-4 times per week Chantel/Bahai: Taoism Special chantel needs: No Seatbelt use: always Helmet use: Yes Helmet use: sometimes Drive intox or ride w/intox charter bus driver: No Do you feel safe at home: Yes Do you feel safe in your relationship?: Yes Victim of physical abuse: No Victim of emotional abuse: No Victim of sexual abuse: No Would you like helpful sources: No Additional Social history: unable to assess privately
== END 2025-06-07 13:03 | disposition home or self-care (01) ==
PROVIDERS: Emergency Provider Physician Assistant; PCP Family Medicine
DX: R21 Rash and other nonspecific skin eruption (principal); Z59.41 Food insecurity
CPT/HCPCS: 99283